=== PATIENT | female | born 1955 | race Caucasian/White ===

== ENCOUNTER 2016-07-26 05:34 | Inpatient (IN) ==
--- NOTE | 2016-07-26 05:48 | Emergency Department Note ---
Disposition Clinical Impression: Hyperglycemia Chest pain Qualifiers: Chest pain type: unspecified Qualified Code(s): R07.9 - Chest pain, unspecified Disposition: Admitted As Inpatient Condition: Fair Time of Disposition: 06:38 Chest Pain HPI - General Chief Complaint: ED Chest Pain Stated Complaint: Chest Pain Time Seen by Provider: 07/26/16 05:46 Source: patient Mode of arrival: EMS Limitations: no limitations Vital Signs Reviewed: Yes Nursing Notes Reviewed: Yes - History of Present Illness HPI Narrative: 61-year-old female with a history of hypertension, hyperlipidemia and diabetes presents to the emergency department with an approximate 8 hour history of chest pain. Patient states her symptoms began at approximately 9 PM last night and progressed into this morning. Patient states that she became concerned because her symptoms seem to be worsening and called EMS for transport to the emergency department. She denies any nausea or vomiting. She denies any shortness of breath or diaphoresis. Patient states her pain began at rest while she was watching TV. She denies any known history of coronary disease states she 's never had a DVT or PE in the past. Exam is remarkable for an elderly female resting in bed in no acute distress. Heart is regular rate and rhythm. Lungs are clear to auscultation bilaterally. Her abdomen is soft and nontender. Patient is having no chest pain at this time. EKG shows normal sinus rhythm with a right bundle branch block. Labs pending. Pt complaint: chest pain Onset (ago): hour(s) (8) Duration: now resolved Onset: during rest Pain Location: substernal Severity: mild Quality: tightness Pain Radiation: none Improves with: nothing Worsens with: nothing Associated symptoms: Denies: nausea, vomiting, diaphoresis, dyspnea Treatments prior to arrival chest pain: none - Related Data Home Medications Medication Instructions Recorded Confirmed Albuterol Sulfate [Albuterol 2 puff IH Q4H PRN 04/12/16 07/26/16 Inhaler] Atorvastatin Calcium [Lipitor] 20 mg PO HS 04/12/16 07/26/16 Docusate Sodium [Dok] 100 mg PO DAILY 04/12/16 07/26/16 Ferrous Sulfate 325 mg PO DAILY 04/12/16 07/26/16 Folic Acid 1 mg PO DAILY 04/12/16 07/26/16 Furosemide [Lasix] 80 mg PO DAILY 04/12/16 07/26/16 HYDROcodone/Acet 10/325 mg [[place] 1 tab PO Q6HR PRN 04/12/16 07/26/16 10-325 mg] Insulin ASPART [Novolog Flexpen] 0 unit SQ TIDWM 04/12/16 07/26/16 Insulin Glargine,Hum.rec.anlog 0 units SQ BID 04/12/16 07/26/16 [Lantus Solostar] Isosorbide MONOnitrate (24 HR) 60 mg PO DAILY 04/12/16 07/26/16 [Imdur] Levothyroxine [Synthroid] 175 mcg PO QAM 04/12/16 07/26/16 Methotrexate [Otrexup] 10 mg PO QWEEK 04/12/16 07/26/16 Omeprazole [PriLOSEC] 40 mg PO DAILY 04/12/16 07/26/16 Oxygen 2 l NS CONT 04/12/16 07/26/16 Polyethylene Glycol 3350 [MiraLAX] 17 gm PO DAILY 04/12/16 07/26/16 Potassium Chloride [Klor-Con 20 meq PO BID 04/12/16 07/26/16 Sprinkle] Valsartan [Diovan] 40 mg PO DAILY 04/12/16 07/26/16 Clobetasol Propionate [Temovate] 1 appl TP PRN 07/26/16 Lidocaine OINT 1 appl TP PRN 07/26/16 Rivaroxaban [Xarelto] 20 mg PO DAILY 07/26/16 07/26/16 Sertraline [Zoloft] 50 mg PO DAILY 07/26/16 07/26/16 Valacyclovir HCl [Valacyclovir] 500 mg PO DAILY 07/26/16 07/26/16 Allergies Allergy/AdvReac Type Severity Reaction Status Date / Time Penicillins Allergy Hives Verified 07/26/16 05:37 Sulfa (Sulfonamide Allergy Rash Verified 07/26/16 05:37 Antibiotics) All systems ED: reviewed and negative except as stated. Constitutional: Denies: fever, chills Cardiovascular: Reports: chest pain. Denies: palpitations, dyspnea on exertion Respiratory: Denies: cough, dyspnea, wheezes Gastrointestinal: Denies: abdominal pain, nausea, vomiting Genitourinary: Denies: urgency, dysuria Musculoskeletal: Denies: back pain Integumentary: Denies: rash Neurological: Denies: headache, weakness Chest Pain PMH - Past Medical History Medical history: Reports: CHF, COPD, DVT, diabetes, hyperlipidemia, hypertension , thyroid disease, other Psychiatric history: Reports: depression HISTOLOGY AIDE history: Reports: other - Social History Smoking Status: Never smoker Alcohol use: Reports: none Drug use: Reports: none Physical Exam - General Limitations: no limitations General appearance: alert, in no apparent distress - Head Head exam: atraumatic, normocephalic, normal inspection - Chest Chest inspection: Present: normal inspection, symmetric chest wall rise - Respiratory Respiratory exam: Present: normal lung sounds bilaterally - Cardiovascular Cardiovascular exam: Present: regular rate, normal rhythm, normal heart sounds - Abdominal Exam Abdominal exam: Present: soft, Non-Tender. Absent: tenderness, distention, guarding, rebound, rigidity - Neurological Exam Neurological exam: Present: alert - Skin Skin exam: Present: warm, dry, intact, normal color Course - Reevaluation(s) Reevaluation #1: Discussed findings with patient. Glucose is markedly elevated at 510. Patient will be given 1 L of IV fluids and 10 units of insulin. Given the patient's history of morbid obesity, diabetes, hypertension and hyperlipidemia as well as his best to keep the patient in the hospital for reevaluation and ongoing monitoring. Patient is in agreement with this plan of care. Hospitalist paged. Time: 06:34 Reevaluation #2: Discussed case with hospitalist. Patient accepted for further evaluation and treatment. Time: 06:45 Vital Signs Temperature 97.6 F 07/26/16 05:37 Pulse Rate 83 07/26/16 05:37 Respiratory Rate 20 07/26/16 05:37 Blood Pressure 138/88 07/26/16 05:37 O2 Sat by Pulse Oximetry 98 07/26/16 05:37 Temperature 97.6 F 07/26/16 05:37 Pulse Rate 83 07/26/16 05:37 Respiratory Rate 20 07/26/16 05:37 Blood Pressure 138/88 07/26/16 05:37 O2 Sat by Pulse Oximetry 98 07/26/16 05:37 Oxygen Delivery Oxygen Delivery Nasal Cannula Chest Pain - Medical Records Medical records reviewed: Yes I reviewed the patient's medical records. - Lab Data Lab results reviewed: Yes I reviewed the patient's lab results. Result diagrams: 07/26/16 05:48 07/26/16 05:48 Lab Results 07/26/16 07/26/16 07/26/16 Range/Units 05:48 05:48 05:48 WBC 6.9 (4.3-11.1) K/mcL RBC 4.17 (3.82-4.97) M/mcL Hgb 12.1 (11.5-15.4) g/dL Hct 37.4 (35.3-44.9) % MCV 89.7 (83.0-100.0) fL MCH 29.0 (28.0-33.3) pg MCHC 32.4 (31.6-35.5) g/dL RDW 14.6 H (11.5-14.5) % Plt Count 271 (140-400) K/mcL MPV 10.2 (9.4-12.4) fL Immature Gran % 0.9 (0-4) % Seg Neutrophils % 78.8 % Lymphocytes % 12.4 % Monocytes % 5.7 % Eosinophils % 1.6 % Basophils % 0.6 % Neutrophils # 5.4 (1.6-8.9) K/mcL Lymphocytes # 0.9 (0.6-4.6) K/mcL Monocytes # 0.4 (0.0-1.3) K/mcL Eosinophils # 0.1 (0.0-0.6) K/mcL Basophils # 0.0 (0.0-0.2) K/mcL Immature Plt Fraction 2.4 (1.1-6.1) % D-Dimer 315 (0-500) ng/mLFEU Sodium 135 L (136-145) mEq/L Potassium 4.4 (3.5-4.5) mEq/L Chloride 96 L (98-109) mEq/L Carbon Dioxide 29 (19-29) mEq/L BUN 30 H (7-20) mg/dL Creatinine 1.00 (0.57-1.11) mg/dL Est GFR ( Amer) > 60 (> 60) Est GFR (Non-Af Amer) 56 L (> 60) BUN/Creatinine Ratio 30 H (6-26) Glucose 510 H* (70-99) mg/dL Calculated Osmolality 309 H (280-300) Calcium 9.9 (8.6-10.8) mg/dL Troponin I (0-0.03) ng/mL 07/26/16 Range/Units 05:48 WBC (4.3-11.1) K/mcL RBC (3.82-4.97) M/mcL Hgb (11.5-15.4) g/dL Hct (35.3-44.9) % MCV (83.0-100.0) fL MCH (28.0-33.3) pg MCHC (31.6-35.5) g/dL RDW (11.5-14.5) % Plt Count (140-400) K/mcL MPV (9.4-12.4) fL Immature Gran % (0-4) % Seg Neutrophils % % Lymphocytes % % Monocytes % % Eosinophils % % Basophils % % Neutrophils # (1.6-8.9) K/mcL Lymphocytes # (0.6-4.6) K/mcL Monocytes # (0.0-1.3) K/mcL Eosinophils # (0.0-0.6) K/mcL Basophils # (0.0-0.2) K/mcL Immature Plt Fraction (1.1-6.1) % D-Dimer (0-500) ng/mLFEU Sodium (136-145) mEq/L Potassium (3.5-4.5) mEq/L Chloride (98-109) mEq/L Carbon Dioxide (19-29) mEq/L BUN (7-20) mg/dL Creatinine (0.57-1.11) mg/dL Est GFR ( Amer) (> 60) Est GFR (Non-Af Amer) (> 60) BUN/Creatinine Ratio (6-26) Glucose (70-99) mg/dL Calculated Osmolality (280-300) Calcium (8.6-10.8) mg/dL Troponin I 0.01 (0-0.03) ng/mL - Radiology Data Radiology results reviewed: Yes I reviewed the patient's radiology results. - EKG Data EKG attestation: Yes I reviewed and interpreted this EKG. EKG shows normal: sinus rhythm Rate: normal Rhythm: NSR [place]/QRS: RBBB Interpretation: no acute changes Heart Score - Score History: Slightly Suspicious EKG: Normal Age: 45-65 Risk Factors: Equal/Greater than 3 risk factor or history of atherosclerotic disease Troponin: Less than normal limit HEART Score Total: 3 Attestation Statement - Attestation Attestation: Dr Landa note: I saw this pt in conjunction w/ resident Dr Rehana Rubin; Please see his charting for complete documentation; I spent face to face time w/ the pt and agree with the pt's treatment and disposition; Pt pain free on arrival, but intermittent b/l parasternal chest pain since 9 am yesterday @ rest, worse overnight; h/o possible prior stress test, but no cath; poorly controlled diabetic;
[2016-07-26 06:01] LABS: Basophils % 0.6 %; Eosinophils # 0.1 K/mcL (0.0-0.6); Eosinophils % 1.6 %; Hematocrit 37.4 % (35.3-44.9); Hemoglobin 12.1 g/dL (11.5-15.4); Immature Granulocytes % 0.9 % (0-4); Immature Platelets 2.4 % (1.1-6.1); Lymphocytes # 0.9 K/mcL (0.6-4.6); Lymphocytes % 12.4 %; Mean Corpuscular HGB Conc 32.4 g/dL (31.6-35.5); Mean Corpuscular Volume 89.7 fL (83.0-100.0); Mean Platelet Volume 10.2 fL (9.4-12.4); Monocytes # 0.4 K/mcL (0.0-1.3); Monocytes % 5.7 %; Neutrophils # 5.4 K/mcL (1.6-8.9); Platelet Count 271 K/mcL (140-400); Red Blood Count 4.17 M/mcL (3.82-4.97); Red Cell Distribution Width 14.6 % (11.5-14.5); Segmented Neutrophils % 78.8 %
[2016-07-26 06:13] LABS: BUN/Creatinine Ratio 30 (6-26); Blood Urea Nitrogen 30 mg/dL (7-20); Calcium 9.9 mg/dL (8.6-10.8); Carbon Dioxide 29 mEq/L (19-29); Chloride 96 mEq/L (98-109); Osmolality,Calculated 309 (280-300); Potassium 4.4 mEq/L (3.5-4.5); Sodium 135 mEq/L (136-145); eGFR For African Americans > 60 (> 60); eGFR For Non-African Americans 56 (> 60)
[2016-07-26 06:17] LABS: Glucose 510 mg/dL (70-99)
[2016-07-26] MEDS ORDERED: 0.9 % Sodium Chloride 1,000 ML IV ONE (06:18)
[2016-07-26] MEDS ORDERED: Insulin Human Regular 10 UNIT in 0.9 % Sodium Chloride 10 ML IV ONE (06:18)
[2016-07-26] MEDS ORDERED: D5% in Water 1,000 ML IV PRN (08:37)
[2016-07-26] MEDS ORDERED: Dextrose Gel 15 GM PO PRN ×2 (08:37)
[2016-07-26] MEDS ORDERED: *HR* Dextrose 50 % in Water (Syg) 50 ML SYRINGE IVP PRN (08:37)
[2016-07-26] MEDS ORDERED: Acetaminophen 325 MG TABLET PO PRN (08:40)
[2016-07-26] MEDS ORDERED: Naloxone 0.4 MG/ML INJ IVP PRN (08:40)
--- NOTE | 2016-07-26 08:47 | Internal Med History&Physical ---
Date of Encounter: 07/26/16 Time of Encounter: 08:44 Assessment and Plan (1) Chest pain Current visit: Yes Status: Acute Start aspirin, statin, Morphine, nitroglycerin as needed Order stress test and echocardiogram Continue telemetry, consider cardiology consult if positive findings Continue Xarelto for now Follow troponins and lipid panel Qualifiers: Chest pain type: unspecified Qualified Code(s): R07.9 - Chest pain, unspecified (2) Rheumatoid arthritis Current visit: Yes Status: Acute Continue methotrexate Qualifiers: Rheumatoid arthritis location: unspecified site Rheumatoid factor presence : unspecified presence Qualified Code(s): M06.9 - Rheumatoid arthritis, unspecified (3) Accelerated hypertension Current visit: Yes Status: Acute Order hydralazine as needed (4) DVT (deep venous thrombosis) Current visit: Yes Status: Acute The patient had a lower extremity DVT many years ago, has had only one event Consider discontinuing Xarelto permanently Qualifiers: DVT location: non-extremity vein Chronicity: unspecified Qualified Code(s ): I82.90 - Acute embolism and thrombosis of unspecified vein (5) CHF (congestive heart failure) Current visit: Yes Status: Acute Diastolic versus systolic, no exacerbation Echocardiogram ordered Qualifiers: Congestive heart failure type: unspecified congestive heart failure type Congestive heart failure chronicity: unspecified congestive heart failure chronicity Qualified Code(s): I50.9 - Heart failure, unspecified (6) Diabetes Current visit: Yes Status: Acute Continue insulin sliding scale Omeprazole for GI prophylaxis and Xarelto for DVT prophylaxis. The patient will be admitted for observation. She is full code. Time spent on this admission 40 minutes. High risk of cardiac events due to hyperglycemia, risk factors and family history Qualifiers: Diabetes mellitus type: type 2 Diabetes mellitus complication status: without complication Diabetes mellitus care home insulin use: with care home use Qualified Code(s): E11.9 - Type 2 diabetes mellitus without complications ; Z79.4 - roasterman (current) use of insulin Internal Medicine - H&P: HPI Chief complaint: chest pain Admitted From: Emergency Dept Plans for Post Hospital Care: Home History of present illness: Ms. Barrios is a 61 year old female with a past medical history of diabetes type 2 insulin-dependent, hypertension, hyperlipidemia, rheumatoid arthritis on methotrexate, CHF systolic versus diastolic in multiple family members with myocardial infarctions. Patient comes emergency complaining of chest pain that started last night at 9 PM and stayed for about 8-10 hours. The ambulance and was brought to the hospital. Pain is described as pressure-like midsternal without radiation, 9 out of 10 in intensity. She did not receive any nitroglycerin. Her sodium is 135 her glucose was 510, EKG shows a right bundle branch block that is not new, blood pressure was 170/102. The patient is pain- free at the moment has no history of smoking. Denies any other symptoms. Past Med Surg Social Fam HX - Past Medical History Medical history: CHF (Systolic versus diastolic), COPD (Not oxygen dependent), DVT (on Xarelto), diabetes (Insulin-dependent), hyperlipidemia, hypertension, thyroid disease (Hypothyroidism), other (Depression, rheumatoid arthritis on methotrexate, GERD) Psychiatric history: depression - Past Surgical History Surgical History: cholecystectomy - Social History Smoking Status: Never smoker Smokeless Tobacco Status: No Alcohol use: none Drug use: none - Additional Family History Additional family history: Father with hypertension had a myocardial infarction in his 50s and 9 more heart attacks, unknown cancer and diabetes. Mother with myocardial infarction multiple on her later years and diabetes. Internal Medicine - H&P: Meds Albuterol Sulfate [Albuterol Inhaler] 2 puff IH Q4H PRN 04/12/16 [History] Atorvastatin Calcium [Lipitor] 20 mg PO HS 04/12/16 [History] Docusate Sodium [Dok] 100 mg PO DAILY 04/12/16 [History] Ferrous Sulfate 325 mg PO DAILY 04/12/16 [History] Folic Acid 1 mg PO DAILY 04/12/16 [History] Furosemide [Lasix] 80 mg PO DAILY 04/12/16 [History] HYDROcodone/Acet 10/325 mg [[place] 10-325 mg] 1 tab PO Q6HR PRN 04/12/16 [History ] Insulin ASPART [Novolog Flexpen] 0 unit SQ TIDWM 04/12/16 [History] Insulin Glargine,Hum.rec.anlog [Lantus Solostar] 0 units SQ BID 04/12/16 [ History] Isosorbide MONOnitrate (24 HR) [Imdur] 60 mg PO DAILY 04/12/16 [History] Levothyroxine [Synthroid] 175 mcg PO QAM 04/12/16 [History] Methotrexate [Otrexup] 10 mg PO QWEEK 04/12/16 [History] Omeprazole [PriLOSEC] 40 mg PO DAILY 04/12/16 [History] Oxygen 2 l NS CONT 04/12/16 [History] Polyethylene Glycol 3350 [MiraLAX] 17 gm PO DAILY 04/12/16 [History] Potassium Chloride [Klor-Con Sprinkle] 20 meq PO BID 04/12/16 [History] Valsartan [Diovan] 40 mg PO DAILY 04/12/16 [History] Clobetasol Propionate [Temovate] 1 appl TP PRN 07/26/16 [History] Lidocaine OINT 1 appl TP PRN 07/26/16 [History] Rivaroxaban [Xarelto] 20 mg PO DAILY 07/26/16 [History] Sertraline [Zoloft] 50 mg PO DAILY 07/26/16 [History] Valacyclovir HCl [Valacyclovir] 500 mg PO DAILY 07/26/16 [History] Allergies Penicillins Allergy (Verified 07/26/16 05:37) Hives Sulfa (Sulfonamide Antibiotics) Allergy (Verified 07/26/16 05:37) Rash All Systems PM: A 10-system review of systems was performed and is negative for pertinent findings except as documented above in the HPI. Review of systems: Denies any shortness of breath, no abdominal pain, no dysuria. Other systems out of the 10 reviewed were negative - Constitutional Vitals: Temp Pulse Resp BP Pulse Ox 97.7 F 84 18 170/102 99 07/26/16 07:50 07/26/16 07:50 07/26/16 07:50 07/26/16 07:50 07/26/16 07:50 General appearance: Present: A&O X 3, morbidly obese, pleasant, no acute distress - Head Head exam: Present: atraumatic, normocephalic - Eye Eye exam: Present: PERRL, conjuntiva pink, sclera anicteric Pupils: Present: PERRL - Neck Neck exam general surgery: Present: supple, trachea midline. Absent: lymphadenopathy - Respiratory Respiratory exam: Present: decreased breath sounds, CTAB. Absent: accessory muscle use, rales, rhonchi, wheezes - Cardiovascular Cardiovascular exam: Present: RRR, +S1, +S2. Absent: diastolic murmur, gallop, rubs, systolic murmur - GI/Abdominal GI/Abdominal exam: Present: distended, normal bowel sounds, soft, no peritoneal signs. Absent: tenderness - Extremities Exam Extremities exam: Present: pedal edema (+1 nonpitting edema in both lower extremities), warm, radial pulses palpable and symetrical. Absent: calf tenderness, cyanotic - Neurological Exam Neurological exam: Present: CN II-XII intact, oriented X3, no focal deficits. Absent: pronater drift, facial droop, speech deficit - Skin Skin exam: Present: dry, intact Internal Med - H&P Results - Labs CBC & Chem 7: 07/26/16 05:48 07/26/16 05:48
[2016-07-26] MEDS ORDERED: *HR* Morphine 2 MG/ML SYRINGE IV PRN (08:54)
[2016-07-26] MEDS ORDERED: Ipratropium/Albuterol Neb 3 ML IH PRN (08:54)
[2016-07-26] MEDS ORDERED: Nitroglycerin 0.4 MG TAB.SUBL SL PRN (08:54)
[2016-07-26 08:58] LABS: Chol/HDL Ratio 3.8 (0-4.9); Cholesterol 202 mg/dL (< 200); HDL Cholesterol 53 mg/dL (40-59); LDL Cholesterol,Calculated 123 mg/dL (0-99); Triglycerides 131 mg/dL (< 150)
[2016-07-26] MEDS: 0.9 % Sodium Chloride 1,000 ML IVC SCH (10:57)
[2016-07-26] MEDS ORDERED: Regadenoson 0.4 MG/5 ML SYRINGE IVP ONE (11:39)
[2016-07-26] MEDS: *HR* HYDROcodone/Acet 5/325 mg TABLET PO PRN ×2 (12:02→18:16)
[2016-07-26] MEDS: Insulin DETEMIR 100 UNIT/ML X5UNITS SQ SCH ×2 (12:24→23:13)
[2016-07-26] MEDS: Insulin LISPRO 300 UNITS/3 ML VIAL SQ SCH ×4 (13:35→23:14)
--- NOTE | 2016-07-26 13:52 | ECHO - Doppler Report ---
Echocardiogram Name: KRISTI THURSTON Date of Study: 07/26/2016 Date: 1955 Ht: 56.0 in Medical Record#: [id number] Age: 61 Wt: 232.0 lb Gender: Female BSA: 1.89 Order #: [id number] Location: [facility] Room #: [id number] Reading Physician: Sarwat Watts MD, [facility] Heart Specialist: Kurtis Sarabia RN Ordering Physician: Michael Ahmadi MD Primary Physician: Tawanda Storm MD Indications: Chest pain Impressions: Normal left ventricular size and systolic function, LVEF 60-65%. Moderate left ventricular diastolic dysfunction. Normal right ventricular size and function. Mildly dilated left atrium. No significant valvular dysfunction. No evidence of pulmonary hypertension. Left Ventricular Wall Motion: Rest Echo Findings All wall segments showed normal motion. Findings: Study Quality * Technically adequate exam. ECG Findings * Sinus rhythm with BBB. Left Ventricle * Normal left ventricular size and systolic function, LVEF 60-65%. * Normal LV wall thickness. * Moderate left ventricular diastolic dysfunction. Right Ventricle * Normal right ventricular size and function. Left Atrium * Mildly dilated left atrium. Right Atrium * Normal right atrial size. Aorta * Normally sized aortic root. Pericardium * There is no pericardial effusion present. IVC * The IVC is not dilated. Aortic Valve * Aortic valve not well visualized. Appears moderately sclerotic. * No aortic stenosis. * Trace aortic regurgitation. Mitral Valve * Mild mitral annular calcification * No mitral stenosis. * Trace mitral regurgitation. Tricuspid Valve * Tricuspid valve not well visualized. * No tricuspid stenosis. * Trace tricuspid regurgitation. * No evidence of pulmonary hypertension. Pulmonic Valve * Pulmonic valve not well visualized. * No pulmonic stenosis. * Trace pulmonic regurgitation. History Hypertension Diabetes Hypercholesteremia Family History of CAD Congestive Heart Failure 09/16/2014 a Previous Echo was performed. Measurements: BP: 154/ 90 2D Normal Values RVIDd: 3.00 cm IVSd: 1.00 cm 0.6 - 1.0 cm LVIDd: 4.20 cm 3.7 - 5.6 cm LVPWd: 1.00 cm 0.6 - 1.1 cm LVIDs: 2.50 cm 1.5 - 3.6 cm AO: 2.90 cm < 4.0 cm LA volume: 64 Mitral Valve Peak E:1.25 m/sec Peak A:1.39 m/sec E/A Ratio:0.9 Peak E' Lat [place]:7.99 cm/s Peak E' Med [place]:5.56 cm/s E/E' Lat Ratio:15.6 E/E' Med Ratio:22.5 Tricuspid Valve TV Regurg Peak Grad: 21.00mmHg TV Regurg Peak [place]: 2.28m/sec Updated by Sarwat Watts MD, [facility] on 07/26/2016 1:46:38 PM electronically signed on 07/26/2016 1:47:38 PM with status of Final Wall Motion [place]rien: 1=Normal, 2=Hypokinesis, 3=Akinesis, 4=Dyskinesis, 5=Aneurysmal, 6=Hyperkinetic, X=Not Visualized (Blank)=Missing
[2016-07-26] MEDS: Valsartan 80 MG TABLET PO SCH (14:33)
[2016-07-26] MEDS: *HR* Rivaroxaban 10 MG TABLET PO SCH (14:33)
[2016-07-26] MEDS: Aspirin 325 MG TABLET PO SCH (14:34)
[2016-07-26] MEDS: Isosorbide MONOnitrate (24 HR) 60 MG TAB.ER.24H PO SCH (14:34)
[2016-07-26] MEDS: Furosemide 40 MG TABLET PO SCH (18:16)
--- NOTE | 2016-07-26 18:16 | Electrocardiograph Report ---
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
[2016-07-27] MEDS: *HR* HYDROcodone/Acet 5/325 mg TABLET PO PRN ×2 (00:22→11:30)
[2016-07-27 01:50] LABS: BUN/Creatinine Ratio 28 (6-26); Blood Urea Nitrogen 27 mg/dL (7-20); Calcium 8.6 mg/dL (8.6-10.8); Carbon Dioxide 29 mEq/L (19-29); Chloride 99 mEq/L (98-109); Glucose 362 mg/dL (70-99); Osmolality,Calculated 304 (280-300); Potassium 3.8 mEq/L (3.5-4.5); Sodium 137 mEq/L (136-145); eGFR For African Americans > 60 (> 60); eGFR For Non-African Americans 58 (> 60)
[2016-07-27] MEDS: Valsartan 80 MG TABLET PO SCH (09:00)
[2016-07-27] MEDS: Aspirin 325 MG TABLET PO SCH (09:00)
[2016-07-27] MEDS: *HR* Rivaroxaban 10 MG TABLET PO SCH (09:00)
[2016-07-27] MEDS ORDERED: *HR* Methotrexate 2.5 MG TABLET PO SCH (09:00)
[2016-07-27] MEDS: Furosemide 40 MG TABLET PO SCH (09:01)
[2016-07-27] MEDS: Isosorbide MONOnitrate (24 HR) 60 MG TAB.ER.24H PO SCH (09:01)
[2016-07-27] MEDS: Insulin DETEMIR 100 UNIT/ML X5UNITS SQ SCH ×2 (09:03→21:43)
[2016-07-27] MEDS: Insulin LISPRO 300 UNITS/3 ML VIAL SQ SCH ×4 (09:05→21:38)
--- NOTE | 2016-07-27 09:05 | Nuclear Medicine Stress Report ---
Regadenoson Nuclear 2 day Name: Meagan Barrios Date of Study: 07/26/2016 Date: 1955 Ht: 56.0 in Medical Record#: [id number] Age: 61 Wt: 232.0 lb Gender: Female Order #: [id number] Location: [facility] Room: [facility] Supervising Provider: Tawanda Arce CNP Reading Physician: Zaria Dobson DO Ordering Physician: Aneudy Canchola MD Primary Care Physician: Tawanda Storm MD Stress Technologist: Brea Dang, DIRECTOR [employer]AL, CCT, CPFT Manager Voice: Arthur Villeda Indications: Chest Pain, Shortness of breath Impression: Technically challenging 2-day study. No identifiable perfusion defects consistent with ischemia or infarct. Pharmacologic ECG was negative for ischemia at the level of heart rate achieved. Gated EF = 70%. History: Hypertension Diabetes Hypercholesteremia Stress Test Summary: Stress Test Type: Pharmacologic Regadenoson 0.4mg/5ml given IV Baseline Information: Initial Heart Rate: 82 Blood Pressure: 124/82 Stress Information: Test Terminated Due to (primary): As per protocol Maximum Blood Pressure: 106/62 Maximum Heart Rate: 105 Percent Maximum Heart Rate Achieved: 66 Double Product: [id number] METS Reached: 1 Symptoms: Shortness of breath Nuclear Summary: SPECT myocardial perfusion imaging using Tc99m Sestamibi given intravenously was performed at rest and following cardiac stress testing. The resting images were obtained following initial dose of 35.8 mCi. Following stress an additional dose of 35.7 mCi was given at peak exercise or 30 seconds post regadenoson infusion. Medication Given: Time Medication Dose Units Route Findings: Stress Note * Resting ECG demonstrated normal sinus rhythm. * Pharmacologic stress ECG is negative for ischemia at level of heart rate achieved. * No arrhythmias were noted during stress. * Patient had no chest pain during stress. Hemodynamic responses * Normal hemodynamic responses to pharmacologic stress. Study Quality * Technically difficult/limited study. 2-day study. Left Ventricle * The left ventricle is not dilated. TID * No evidence of transient ischemic dilatation. Lung Uptake * There is no evidence of increase lung uptake. NORMALS * Normal wall motion and thickening. PERFUSION * No identifiable perfusion defects on stress images. * Motion artifact limits interpretation of resting images. Gated EF % * Gated EF = 70%. Updated by Zaria Dobson on 07/27/2016 8:55:51 AM electronically signed on 07/27/2016 8:58:17 AM with status of Final
[2016-07-27] MEDS ORDERED: valACYclovir 500 MG TABLET PO SCH (11:00)
[2016-07-27] MEDS: Ondansetron 4 MG/2 ML VIAL IVP PRN (11:30)
--- NOTE | 2016-07-27 12:42 | Internal Med Progress Note ---
<Esteban Sims - Last Filed: 07/27/16 17:33> Date of Encounter: 07/27/16 Time of Encounter: 09:00 - Assessment and plan (1) Abdominal pain Current Visit: Yes Status: Acute Assessment and plan: -Doubt appendicitis, ovarian torsion, ectopic, AAA. No peritoneal signs, non toxic, no previous history of ectopic, "no possibility of being with girlfriend", blood pressure normal, no abdominal bruit heard. patient not in distress/pain one moment and fine the next. Normal labs. -COntinue to monitor closely for changes in pain/symptoms. Patient is in poor health. Qualifiers: Abdominal location: unspecified location Qualified Code(s): R10.9 - Unspecified abdominal pain (2) Genital herpes Current Visit: Yes Status: Acute Assessment and plan: -Currently being treated for. Does not know name of medicine or how many days she has taken medicine. -Will treat with IV Acyclovir tonight and transition to oral acyclovir tomorrow for probable discharge. -Home pain meds restarted and morphine for breakthrough pain. -Low dose Doxepin for herpatic pain/unable to sleep prn. Qualifiers: Herpes simplex infection site: vulvovaginitis Qualified Code(s): A60.04 - Herpesviral vulvovaginitis (3) Chest pain Current Visit: Yes Status: Acute Assessment and plan: -Denies CP, SOB. Cardiac workup negative. -No further evaluation needed. Qualifiers: Chest pain type: unspecified Qualified Code(s): R07.9 - Chest pain, unspecified; R07.8 - Other chest pain (4) Diabetes Current Visit: Yes Status: Acute Assessment and plan: -continue serial checks and insulin regimen. Qualifiers: Diabetes mellitus type: type 2 Diabetes mellitus complication status: with unspecified complications Diabetes mellitus penitentiary insulin use: with penitentiary use Qualified Code(s): E11.8 - Type 2 diabetes mellitus with unspecified complications; Z79.4 - [facility] (current) use of insulin (5) Hyperglycemia Current Visit: Yes Status: Acute Assessment and plan: -Continue Accu-Cheks, insulin sliding scale. - Subjective Interval history: Patient originally admitted for ACS rule out. Cardiac workup including echo, EKG, troponins all negative. However, patient complaining of abdominal pain this morning. Denies any chest pain, SOB. Forgot that she had chest pain yesterday and that was the original reason for her being admitted. Concerning the abdominal pain, states that she has been having RLQ and pain below the umbilicus. Worse with movement. Nothing seems to alleviate the pain. She denies any fever, vomiting, is able to eat and drink, urinate, having normal bowl movements, recent surgeries. She does admit to mild nausea and does have her appendix. She is sitting up in bed, not in distress. She is having a genital herpes outbreak which has spread to just below the umbilicus. States thinks she is taking medicine for it. Does not know the name of the medicine or how long she has been taking it. She has had outbreaks before "but not this bad. " - Constitutional Vitals: Temp Pulse Resp BP Pulse Ox 97.5 F L 94 16 145/89 96 07/27/16 07:00 07/27/16 11:00 07/27/16 11:00 07/27/16 11:00 07/27/16 11:00 General appearance: Present: A&O X 3, morbidly obese, pleasant, no acute distress - Head Head exam: Present: atraumatic, normal inspection - Respiratory Respiratory exam: Present: rhonchi - Cardiovascular Cardiovascular exam: Present: RRR. Absent: diastolic murmur - GI/Abdominal Additional comments: Bilateral LQ pain. Pain reproducible with palpation near the HSV lesions. Normal bowel sounds. Negative fluid wave. No perioneal signs. No bruits heard. Patient obese. - Expanded Exam Female exam: Present: herpetic lesions (did not directly visualize. No geriatric physical therapist available. ) - Other Additional findings: Many HSV lesions. Similar stage of healing. Not noticing any large vesicles. Has open sores. No canida like infection noted on abdomen fat pad fold or under the breast. Internal Medicine: Result - Labs CBC & Chem 7: 07/26/16 05:48 07/27/16 01:20 Labs: BMP 07/27/16 01:20 Sodium 137 Potassium 3.8 Chloride 99 Carbon Dioxide 29 BUN 27 H Creatinine 0.97 Glucose 362 H Calcium 8.6 Cardiac Enzymes 07/26/16 07/27/16 Range/Units 17:57 01:20 Troponin I 0.01 0.00 (0-0.03) ng/mL - ABG Interpretation ABG results: PT/INR, D-dimer D-Dimer 315 ng/mLFEU (0-500) 07/26/16 05:48 Consult Discharge Plan - Plan Referrals: Tawanda Storm Jr, MD [Primary Care Provider] - 08/09/16 10:30 am <Cj Rodriguez Rhonda - Last Filed: 07/27/16 18:53> Date of Encounter: 07/27/16 - Assessment and plan (1) Genital herpes Current Visit: Yes Status: Acute Qualifiers: Herpes simplex infection site: vulvovaginitis Qualified Code(s): A60.04 - Herpesviral vulvovaginitis (2) Abdominal pain Current Visit: Yes Status: Acute Qualifiers: Abdominal location: generalized Qualified Code(s): R10.84 - Generalized abdominal pain (3) Chest pain Current Visit: Yes Status: Acute Qualifiers: Chest pain type: other chest pain Qualified Code(s): R07.89 - Other chest pain; R07.8 - Other chest pain (4) Diabetes Current Visit: Yes Status: Acute Qualifiers: Diabetes mellitus type: type 2 Diabetes mellitus complication status: with hyperglycemia Diabetes mellitus watermelon inspector insulin use: with penitentiary use Qualified Code(s): E11.65 - Type 2 diabetes mellitus with hyperglycemia; Z79.4 - [facility] (current) use of insulin - Constitutional Vitals: Temp Pulse Resp BP Pulse Ox 97.8 F 100 16 133/75 96 07/27/16 16:20 07/27/16 16:00 07/27/16 16:00 07/27/16 16:00 07/27/16 18:40 Internal Medicine: Result - Labs CBC & Chem 7: 07/26/16 05:48 07/27/16 01:20 Labs: BMP 07/27/16 01:20 Sodium 137 Potassium 3.8 Chloride 99 Carbon Dioxide 29 BUN 27 H Creatinine 0.97 Glucose 362 H Calcium 8.6 Cardiac Enzymes 07/27/16 Range/Units 01:20 Troponin I 0.00 (0-0.03) ng/mL - ABG Interpretation ABG results: PT/INR, D-dimer D-Dimer 315 ng/mLFEU (0-500) 07/26/16 05:48 - Attending Attestation I examined this patient and my medical decision-making was reviewed with the Resident Physician on 07/27/16. I agree with the documented findings, disposition and treatment plan as described except to the extent set forth below. Ms. Barrios is currently in observation for chest pain and abdominal pain. Ms. Barrios continues to have lower abd pain - she has a significant outbreak of genital herpes and pain is consistent with prior episodes. No fever. Pain is burning in nature. Chest pain seems better. Stress test completed. Exam Alert. Uncomfortable Heart reg Abd soft Herpetic lesions noted I/P 1. Severe genital herpes outbreak - Change to inpatient status as will be greater than 2 midnights and started on IV Acyclovir. 2. Abd pain 3. Chest pain - stress pending. Further diagnoses and plan as above.
[2016-07-27] MEDS ORDERED: *HR* HYDROcodone/Acet 5/325 mg TABLET PO PRN (13:07)
[2016-07-27] MEDS: ACYCLOVIR IVPB SCH ×2 (14:06→23:58)
[2016-07-27] MEDS: D5 IVPB SCH ×2 (14:06→23:58)
[2016-07-27] MEDS: WATER IVPB SCH ×2 (14:06→23:58)
[2016-07-27] MEDS: 0.9 % Sodium Chloride 1,000 ML IVC SCH (21:42)
[2016-07-28] MEDS: *HR* Morphine 2 MG/ML SYRINGE IVP PRN ×2 (01:43→09:10)
[2016-07-28 05:04] LABS: Basophils % 0.3 %; Eosinophils # 0.1 K/mcL (0.0-0.6); Eosinophils % 0.9 %; Hematocrit 34.1 % (35.3-44.9); Hemoglobin 10.8 g/dL (11.5-15.4); Immature Granulocytes % 0.6 % (0-4); Lymphocytes % 10.4 %; Mean Corpuscular HGB Conc 31.7 g/dL (31.6-35.5); Mean Corpuscular Hemoglobin 28.8 pg (28.0-33.3); Mean Corpuscular Volume 90.9 fL (83.0-100.0); Mean Platelet Volume 9.9 fL (9.4-12.4); Monocytes # 0.6 K/mcL (0.0-1.3); Monocytes % 6.4 %; Neutrophils # 7.5 K/mcL (1.6-8.9); Platelet Count 249 K/mcL (140-400); Red Blood Count 3.75 M/mcL (3.82-4.97); Segmented Neutrophils % 81.4 %
[2016-07-28 05:18] LABS: Alanine Aminotransferase 13 Units/L (0-55); Albumin 2.8 g/dL (3.5-5.0); Albumin/Globulin Ratio 0.9 (1.1-2.2); Alkaline Phosphatase 88 Units/L (38-126); Aspartate Amino Transferase 11 Units/L (5-34); BUN/Creatinine Ratio 30 (6-26); Bilirubin,Total 0.4 mg/dL (0.2-1.2); Blood Urea Nitrogen 23 mg/dL (7-20); Calcium 8.6 mg/dL (8.6-10.8); Carbon Dioxide 32 mEq/L (19-29); Chloride 99 mEq/L (98-109); Globulin 3.1 g/dL (2.4-3.5); Glucose 174 mg/dL (70-99); Osmolality,Calculated 296 (280-300); Potassium 3.8 mEq/L (3.5-4.5); Sodium 139 mEq/L (136-145); Total Protein 5.9 g/dL (6.0-8.3); eGFR For African Americans > 60 (> 60); eGFR For Non-African Americans > 60 (> 60)
[2016-07-28 06:48] VITALS: BP 114/77
[2016-07-28] MEDS: Valsartan 80 MG TABLET PO SCH (09:04)
[2016-07-28] MEDS: Insulin DETEMIR 100 UNIT/ML X5UNITS SQ SCH (09:05)
[2016-07-28] MEDS: Isosorbide MONOnitrate (24 HR) 60 MG TAB.ER.24H PO SCH (09:05)
[2016-07-28] MEDS: Aspirin 325 MG TABLET PO SCH (09:05)
[2016-07-28] MEDS: *HR* Rivaroxaban 10 MG TABLET PO SCH (09:05)
[2016-07-28] MEDS: Furosemide 40 MG TABLET PO SCH (09:05)
[2016-07-28] MEDS: Insulin LISPRO 300 UNITS/3 ML VIAL SQ SCH ×3 (09:06→17:01)
[2016-07-28] MEDS: ACYCLOVIR IVPB SCH (09:08)
[2016-07-28] MEDS: WATER IVPB SCH (09:08)
[2016-07-28] MEDS: D5 IVPB SCH (09:08)
[2016-07-28] MEDS: Ondansetron 4 MG/2 ML VIAL IVP PRN (09:17)
--- NOTE | 2016-07-28 09:38 | Discharge Summary ---
<Esteban Sims - Last Filed: 07/28/16 15:05> Date of Encounter: 07/28/16 Time of Encounter: 08:00 - Discharge Diagnosis (1) Genital herpes Priority: Primary Status: Acute Comments: -Patient is currently taking methotrexate for rheumatoid arthritis. Admits to stressful events over the past month. -She is currently on a maintenance dose of acyclovir for the past year. Will prescribe a outbreak mePatient states she has close patient states that she hadication regimen -Patient states that she is able to call and get appointment with PCP in the next 5 days. Does have an established cad specialist Qualifiers: Herpes simplex infection site: vulvovaginitis Qualified Code(s): A60.04 - Herpesviral vulvovaginitis (2) Diabetes Priority: Primary Status: Acute Qualifiers: Diabetes mellitus type: type 2 Diabetes mellitus complication status: with unspecified complications Diabetes mellitus mcc insulin use: with mcc use Qualified Code(s): E11.8 - Type 2 diabetes mellitus with unspecified complications; Z79.4 - [facility] (current) use of insulin (3) Chest pain Priority: Primary Status: Resolved Comments: -Patient some original admitting diagnosis was chest pain. She received a full cardiac workup, negative results. Patient does not complain of chest pain or shortness of breath. Qualifiers: Chest pain type: unspecified Qualified Code(s): R07.9 - Chest pain, unspecified - Discharge Medications Prescriptions: Valacyclovir HCl [Valtrex] 1,000 mg PO Q12H #18 tab Home Medications: Albuterol Sulfate [Albuterol Inhaler] 2 puff IH Q4H PRN 04/12/16 [History] Atorvastatin Calcium [Lipitor] 20 mg PO HS 04/12/16 [History] Docusate Sodium [Dok] 100 mg PO DAILY 04/12/16 [History] Ferrous Sulfate 325 mg PO DAILY 04/12/16 [History] Folic Acid 1 mg PO DAILY 04/12/16 [History] Furosemide [Lasix] 80 mg PO DAILY 04/12/16 [History] HYDROcodone/Acet 10/325 mg [[place] 10-325 mg] 1 tab PO Q6HR PRN 04/12/16 [History ] Insulin ASPART [Novolog Flexpen] 0 unit SQ TIDWM 04/12/16 [History] Insulin Glargine,Hum.rec.anlog [Lantus Solostar] 0 units SQ BID 04/12/16 [ History] Isosorbide MONOnitrate (24 HR) [Imdur] 60 mg PO DAILY 04/12/16 [History] Levothyroxine [Synthroid] 175 mcg PO QAM 04/12/16 [History] Methotrexate [Otrexup] 10 mg PO QWEEK 04/12/16 [History] Omeprazole [PriLOSEC] 40 mg PO DAILY 04/12/16 [History] Oxygen 2 l NS CONT 04/12/16 [History] Polyethylene Glycol 3350 [MiraLAX] 17 gm PO DAILY 04/12/16 [History] Potassium Chloride [Klor-Con Sprinkle] 20 meq PO BID 04/12/16 [History] Valsartan [Diovan] 40 mg PO DAILY 04/12/16 [History] Clobetasol Propionate [Temovate] 1 appl TP PRN 07/26/16 [History] Lidocaine OINT 1 appl TP PRN 07/26/16 [History] Rivaroxaban [Xarelto] 20 mg PO DAILY 07/26/16 [History] Sertraline [Zoloft] 50 mg PO DAILY 07/26/16 [History] Valacyclovir HCl [Valacyclovir] 500 mg PO DAILY 07/26/16 [History] Valacyclovir HCl [Valtrex] 1,000 mg PO Q12H #18 tab 07/28/16 [Rx] Allergies/Adverse Reactions: Allergies Penicillins Allergy (Verified 07/26/16 05:37) Hives Sulfa (Sulfonamide Antibiotics) Allergy (Verified 07/26/16 05:37) Rash Date of admission: 07/27/16 19:49 Primary care physician: Tawanda Storm Jr, MD Discharging clinician: Esteban Sims Anticipated date of discharge: 07/28/16 - Patient Status Disposition: Home, Self-Care Condition: Fair Functional capacity at discharge: independent ambulation Overall status at discharge: patient is progressing back to baseline - Discharge Instructions Instructions: Valacyclovir (By mouth), Heart Failure (DC), Chest Pain (DC), Herpes Zoster (DC), Diabetes Mellitus Type 2 in Adults (DC), Chronic Hypertension (DC) Follow Up With: Tawanda Storm Jr, MD [Primary Care Provider] - 08/09/16 10:30 am Forms: ED Satisfaction Letter Additional Instructions: -Please follow up with her primary care doctor in the next 3 days. Make an appointment to see her cad specialist within the next 3 days. If you started developing fever, chest pain, shortness of breath. Return to ED. discuss her hospital stay with home health to make appropriate changes to your treatment. - Diet and Activity Activity: increase activity as tolerated Diet: advance to your usual diet Interval History: -Patient complains that her pain has moved from more abdominal to genital. Pain is about the same compared to yesterday. After speaking with the patient further, states that she normally has outbreaks 1-2 times a year. She takes acyclovir as a maintenance, chronic medication. She has been recently stressed over the past month, feels like that might be the reason for outbreak. She does live at home with her , has home health, is able to take her medications. She denies any chest pain, shortness of breath, is having normal bowel movements and urinating. When her the discharge plan with the patient, she has no questions or concerns at this time. Did offer to get 7th grade social studies teacher involved in her case for any home problems, however patient feels she does not need long term care social worker help. Hospital course: Ms. Barrios is a 61 year old female who was originally admitted for chest pain. Cardiac workup- troplonin, EKG, ECHO, CXR negative. The next day she denied CP and complained of abdominal pain. She was noted to have an extensive genital herpes outbreak extending to her abdomen. received IV acyclovir. Discharged home on 1 g twice a day acyclovir. Close follow-up with primary care doctor and cad specialist. Concern for immunosuppression, did get HIV test ordered with the patient's consent. - Time Spent with Patient Total time spent providing and/or coordinating discharge services: Greater than 30 minutes - Constitutional Vitals: Temp Pulse Resp BP Pulse Ox 98.3 F 87 16 114/77 99 07/28/16 06:00 07/28/16 06:00 07/28/16 06:00 07/28/16 06:00 07/28/16 06:00 General appearance: Present: A&O X 3, morbidly obese, pleasant, no acute distress - Head Head exam: Present: atraumatic, normal inspection - Respiratory Respiratory exam: Present: CTAB - Cardiovascular Cardiovascular exam: Present: RRR. Absent: diastolic murmur, systolic murmur - GI/Abdominal Additional comments: -Lower abdominal pain over the sites of the her paranasal lesion. No vesicles present, open sores. I do not appreciate any underlying cellulitis. - Additional comments: -Examined patient with female resident present. Extensive amount of herpes lesions extend to the upper thigh and lower abdomen. Painful touch. - Psychiatric Psychiatric exam: Present: normal affect, normal mood - Skin Skin exam: Present: rash, warm. Absent: erythema, vesicles <Cj Rodriguez - Last Filed: 07/28/16 19:15> Date of Encounter: 07/28/16 - Discharge Diagnosis (1) Genital herpes Status: Acute Qualifiers: Herpes simplex infection site: vulvovaginitis Qualified Code(s): A60.04 - Herpesviral vulvovaginitis (2) Abdominal pain Priority: Secondary Status: Acute Qualifiers: Abdominal location: generalized Qualified Code(s): R10.84 - Generalized abdominal pain (3) Chest pain Status: Resolved Qualifiers: Chest pain type: unspecified Qualified Code(s): R07.9 - Chest pain, unspecified (4) Diabetes Status: Acute Qualifiers: Diabetes mellitus type: type 2 Diabetes mellitus complication status: with unspecified complications Diabetes mellitus mcc insulin use: with mcc use Qualified Code(s): E11.8 - Type 2 diabetes mellitus with unspecified complications; Z79.4 - exterminator (current) use of insulin (5) Rheumatoid arthritis Priority: Secondary Status: Acute Qualifiers: Rheumatoid arthritis location: multiple sites Rheumatoid factor presence: unspecified presence Qualified Code(s): M06.9 - Rheumatoid arthritis, unspecified Date of admission: 07/27/16 19:49 Primary care physician: Tawanda Storm Jr, MD Hospital course: Ms. Barrios is a 61 year old female - Time Spent with Patient Total time spent providing and/or coordinating discharge services: 38min - Constitutional Vitals: Temp Pulse Resp BP Pulse Ox 98.3 F 87 16 114/77 99 07/28/16 06:00 07/28/16 06:00 07/28/16 06:00 07/28/16 06:00 07/28/16 06:00 - Attending Attestation I examined this patient and my medical decision-making was reviewed with the Resident Physician on 07/28/16. I agree with the documented findings, disposition and treatment plan as described except to the extent set forth below. Ms. Barrios is doing better with the addition of IV Acyclovir. Pain is now in vaginal area and not abdomen. No fever. No lesions elsewhere. Exam Alert. Uncomfortable sitting. Heart reg Lungs clear Abd soft Continued herpetic lesions diffusely in perineal area. I/P 1. Acute herpetic outbreak - genital I placed this patient as inpatient last evening due to my concern about the extent of the herpetic outbreak as well as associated pain in her abdomen and chest. She is on PO suppressive Valtrex as an outpatient. She is also significantly immunocompromised due to her diabetes as well as rheumatoid arthritis which is treated with PO methotrexate. I felt her risk of disseminated herpes infection was high due to the above issues and placed her on IV acyclovir. I did not believe that she should be observation/outpatient on PO Valtrex at that time and warranted inpatient status. At this time she has had improvement on IV medication. She is able to tolerate oral intake and can take PO meds. She is stable to discharge home on higher dose of Valtrex for the next week and then resume suppressive dosing. Methotrexate to be held and resume per rheumatology.
--- NOTE | 2016-07-28 17:35 | Physician Discharge Referral ---
<Esteban Sims - Last Filed: 07/28/16 17:32> Home Health/Hosp Referral Info Transfer to: Home Health Attending Provider: Dr. Rodriguez Provider in Charge Post Discharge: PCP - Diagnosis (1) Genital herpes Status: Acute (2) Diabetes Status: Acute (3) Chest pain Status: Resolved - Respiratory Orders Oxygen / L per min, Other (Continue home oxygen. No changes necessary.) Smoking Cessation: Smoking cessation has been advised. For more information, call the [employer] Quit Line at 5-941-FJSR-NOW. - Dressing/Wound Care Site: Abdomen, genitals, inner thigh. Type of Dressing/Treatments w/Frequency: Wash area daily. Do not scrub. Make sure area is dry. May apply non stick pads for comfort. - Diet/Nutrition Diet/Nutrition Orders: Renal, Cardiac - Activity Activity Orders: Up ad heath - Services Needed Following services are medically necessary services: Home Health Aide, Physical Therapy (when patient is feeling well enough after acute infection cleared.) Home Care Orders: Care for genital herpes instructions above. The area does have areas of open sores. Possible source of infection. If infection noted, please have nurse evaluate then decide if patient needs antibiotics or possible admission for IV abx. - Transfer Medications Prescriptions: Valacyclovir HCl [Valtrex] 1,000 mg PO Q12H #18 tab Home Medications: Albuterol Sulfate [Albuterol Inhaler] 2 puff IH Q4H PRN 04/12/16 [History] Atorvastatin Calcium [Lipitor] 20 mg PO HS 04/12/16 [History] Docusate Sodium [Dok] 100 mg PO DAILY 04/12/16 [History] Ferrous Sulfate 325 mg PO DAILY 04/12/16 [History] Folic Acid 1 mg PO DAILY 04/12/16 [History] Furosemide [Lasix] 80 mg PO DAILY 04/12/16 [History] HYDROcodone/Acet 10/325 mg [[place] 10-325 mg] 1 tab PO Q6HR PRN 04/12/16 [History ] Insulin ASPART [Novolog Flexpen] 0 unit SQ TIDWM 04/12/16 [History] Insulin Glargine,Hum.rec.anlog [Lantus Solostar] 0 units SQ BID 04/12/16 [ History] Isosorbide MONOnitrate (24 HR) [Imdur] 60 mg PO DAILY 04/12/16 [History] Levothyroxine [Synthroid] 175 mcg PO QAM 04/12/16 [History] Methotrexate [Otrexup] 10 mg PO QWEEK 04/12/16 [History] Omeprazole [PriLOSEC] 40 mg PO DAILY 04/12/16 [History] Oxygen 2 l NS CONT 04/12/16 [History] Polyethylene Glycol 3350 [MiraLAX] 17 gm PO DAILY 04/12/16 [History] Potassium Chloride [Klor-Con Sprinkle] 20 meq PO BID 04/12/16 [History] Valsartan [Diovan] 40 mg PO DAILY 04/12/16 [History] Clobetasol Propionate [Temovate] 1 appl TP PRN 07/26/16 [History] Lidocaine OINT 1 appl TP PRN 07/26/16 [History] Rivaroxaban [Xarelto] 20 mg PO DAILY 07/26/16 [History] Sertraline [Zoloft] 50 mg PO DAILY 07/26/16 [History] Valacyclovir HCl [Valacyclovir] 500 mg PO DAILY 07/26/16 [History] Valacyclovir HCl [Valtrex] 1,000 mg PO Q12H #18 tab 07/28/16 [Rx] Allergies/Adverse Reactions: Allergies Penicillins Allergy (Verified 07/26/16 05:37) Hives Sulfa (Sulfonamide Antibiotics) Allergy (Verified 07/26/16 05:37) Rash Certification: Further, I certify that my clinical findings support that this patient is homebound (i.e. absences from home require considerable and taxing effort and are for medical reasons or methodist services or infrequently or short duration when for other reasons) because: Homebound Reason: Leaving home requires considerable and taxing effort due to condition Attestation: My signature below is to certify that this patient is under my care and that I, or nurse practitioner, or a physician's first assistant working with me, has a face-to -face encounter with this patient. <Cj Rodriguez - Last Filed: 07/28/16 19:15> - Diagnosis (1) Genital herpes Status: Acute (2) Abdominal pain Status: Acute (3) Chest pain Status: Resolved (4) Diabetes Status: Acute (5) Rheumatoid arthritis Status: Acute - Respiratory Orders Smoking Cessation: Smoking cessation has been advised. For more information, call the [employer] Quit Line at 1-078-HFZE-NOW. Certification: Further, I certify that my clinical findings support that this patient is homebound (i.e. absences from home require considerable and taxing effort and are for medical reasons or methodist services or infrequently or short duration when for other reasons) because: Attestation: My signature below is to certify that this patient is under my care and that I, or nurse practitioner, or a physician's first assistant working with me, has a face-to -face encounter with this patient.
== END 2016-07-28 19:10 | disposition home or self-care (01) | DRG 758 ==
LOC: 2NENU 05:34 → EMEROO 05:34 → SUATTDRO 06:47 → 2NENU 07:46
PROVIDERS: ADMIT Family Medicine; ATTEND Internal Medicine

== ENCOUNTER 2016-09-23 07:44 | Observation (INO) ==
--- NOTE | 2016-09-23 07:47 | Emergency Department Note ---
Disposition Clinical Impression: Chest pain at rest, History of chest pain, Acute hyperkalemia, Acute prerenal azotemia Disposition: Admitted As Inpatient Condition: Fair General Adult HPI - General Chief complaint: ED Chest Pain Stated complaint: Chest Pain Time Seen by Provider: 09/23/16 07:46 - Related Data Home Medications Medication Instructions Recorded Confirmed Albuterol Sulfate [Albuterol 2 puff IH Q4H PRN 04/12/16 09/23/16 Inhaler] Atorvastatin Calcium [Lipitor] 20 mg PO HS 04/12/16 09/23/16 Docusate Sodium [Dok] 100 mg PO DAILY 04/12/16 09/23/16 Ferrous Sulfate 325 mg PO DAILY 04/12/16 09/23/16 Folic Acid 1 mg PO DAILY 04/12/16 09/23/16 Furosemide [Lasix] 80 mg PO DAILY 04/12/16 09/23/16 Insulin ASPART [Novolog Flexpen] 18 - 22 unit SQ TIDWM 04/12/16 09/23/16 Insulin Glargine,Hum.rec.anlog 35 units SQ BID 04/12/16 09/23/16 [Lantus Solostar] Isosorbide MONOnitrate (24 HR) 60 mg PO DAILY 04/12/16 09/23/16 [Imdur] Levothyroxine [Synthroid] 175 mcg PO QAM 04/12/16 09/23/16 Methotrexate [Otrexup] 10 mg PO WE 04/12/16 09/23/16 Omeprazole [PriLOSEC] 40 mg PO DAILY 04/12/16 09/23/16 Oxygen 2 l NS CONT 04/12/16 09/23/16 Polyethylene Glycol 3350 [MiraLAX] 17 gm PO DAILY 04/12/16 09/23/16 Potassium Chloride [Klor-Con 20 meq PO BID 04/12/16 09/23/16 Sprinkle] Valsartan [Diovan] 40 mg PO DAILY 04/12/16 09/23/16 Rivaroxaban [Xarelto] 20 mg PO DAILY 07/26/16 09/23/16 Sertraline [Zoloft] 50 mg PO DAILY 07/26/16 09/23/16 Valacyclovir HCl [Valacyclovir] 500 mg PO DAILY 07/26/16 09/23/16 Lidocaine 4% CRM (LMX) [Lmx 4] 1 appl TP Q4H PRN 09/23/16 09/23/16 Previous Rx's Medication Instructions Recorded Oxycodone HCl/Acetaminophen 1 - 2 each PO Q6H PRN #10 tablet 07/30/16 [Percocet 5-325 mg Tablet] Gabapentin [Neurontin] 100 mg PO TID #60 capsule 09/24/16 Nitrofurantoin (BID) [Macrobid] 100 mg PO BID #6 capsule 09/24/16 Allergies Allergy/AdvReac Type Severity Reaction Status Date / Time Penicillins Allergy Hives Verified 09/23/16 07:45 Sulfa (Sulfonamide Allergy Rash Verified 09/23/16 07:45 Antibiotics) Past Medical History - Past Medical History Medical history: Reports: CHF, COPD, DVT, diabetes, hyperlipidemia, hypertension , thyroid disease, other Surgical history: Reports: cholecystectomy Psychiatric history: Reports: depression 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 - Social History Smoking Status: Never smoker Smokeless Tobacco Status: No Alcohol use: Reports: none Drug use: Reports: none Course Vital Signs Temperature 97.9 F 09/23/16 07:45 Pulse Rate 85 09/23/16 07:45 Respiratory Rate 20 09/23/16 07:45 Blood Pressure 159/91 09/23/16 07:45 O2 Sat by Pulse Oximetry 96 09/23/16 07:45 Temperature 97.7 F 09/24/16 11:00 Pulse Rate 88 09/24/16 11:00 Respiratory Rate 16 09/24/16 11:00 Blood Pressure 163/93 09/24/16 11:00 O2 Sat by Pulse Oximetry 97 09/24/16 11:00 Oxygen Delivery Oxygen Delivery Nasal Cannula Medical Decision Making - Lab Data Result diagrams: 09/24/16 04:50 09/24/16 04:50 Lab Results 09/23/16 09/23/16 09/23/16 Range/Units 08:27 08:31 08:31 WBC (4.3-11.1) K/mcL RBC (3.82-4.97) M/mcL Hgb (11.5-15.4) g/dL Hct (35.3-44.9) % MCV (83.0-100.0) fL MCH (28.0-33.3) pg MCHC (31.6-35.5) g/dL RDW (11.5-14.5) % Plt Count (140-400) K/mcL MPV (9.4-12.4) fL Immature Gran % (0-4) % Seg Neutrophils % % Lymphocytes % % Monocytes % % Eosinophils % % Basophils % % Neutrophils # (1.6-8.9) K/mcL Lymphocytes # (0.6-4.6) K/mcL Monocytes # (0.0-1.3) K/mcL Eosinophils # (0.0-0.6) K/mcL Basophils # (0.0-0.2) K/mcL PT 13.9 H (9.4-12.1) Seconds INR 1.3 APTT 34.9 (26.0-36.0) Seconds Sodium (136-145) mEq/L Potassium (3.5-4.5) mEq/L Chloride (98-109) mEq/L Carbon Dioxide (19-29) mEq/L BUN (7-20) mg/dL Creatinine (0.57-1.11) mg/dL Est GFR ( Amer) (> 60) Est GFR (Non-Af Amer) (> 60) BUN/Creatinine Ratio (6-26) Glucose (70-99) mg/dL Calculated Osmolality (280-300) Calcium (8.6-10.8) mg/dL Troponin I (0-0.03) ng/mL B-Natriuretic Peptide 41 (0-100) pg/mL Urine Color Yellow (Yellow) Urine Clarity Cloudy A (Clear) Urine pH 6.0 (5.0-8.0) pH Units Ur Specific [place] > 1.030 H (1.010-1.025) Urine Protein Trace (Neg-Trace) mg/dL Urine Glucose (UA) >=1000 H (Normal) mg/dL Urine Ketones Negative (Negative) mg/dL Urine Blood Moderate H (Negative) Urine Nitrite Negative (Negative) Urine Bilirubin Negative (Negative) Urine Urobilinogen Normal (Normal) mg/dL Ur Leukocyte Esterase Small H (Negative) Urine Microscopic RBC 5-15 H (0-3) per hpf Urine Microscopic WBC 30-50 H (0-3) per hpf Ur Squamous Epith Cells Many H (None-Few) per lpf Urine Bacteria None Seen (None-Few) per hpf Hyaline Casts None Seen (None-Few) per lpf Ur Culture Indicated? YES A (NO) 09/23/16 09/23/16 09/23/16 Range/Units 08:31 08:31 08:31 WBC 10.5 (4.3-11.1) K/mcL RBC 4.01 (3.82-4.97) M/mcL Hgb 11.9 (11.5-15.4) g/dL Hct 37.7 (35.3-44.9) % MCV 94.0 (83.0-100.0) fL MCH 29.7 (28.0-33.3) pg MCHC 31.6 (31.6-35.5) g/dL RDW 13.9 (11.5-14.5) % Plt Count 266 (140-400) K/mcL MPV 10.1 (9.4-12.4) fL Immature Gran % 0.7 (0-4) % Seg Neutrophils % 85.9 % Lymphocytes % 8.8 % Monocytes % 3.1 % Eosinophils % 1.1 % Basophils % 0.4 % Neutrophils # 9.0 H (1.6-8.9) K/mcL Lymphocytes # 0.9 (0.6-4.6) K/mcL Monocytes # 0.3 (0.0-1.3) K/mcL Eosinophils # 0.1 (0.0-0.6) K/mcL Basophils # 0.0 (0.0-0.2) K/mcL PT (9.4-12.1) Seconds INR APTT (26.0-36.0) Seconds Sodium 140 (136-145) mEq/L Potassium 4.6 H (3.5-4.5) mEq/L Chloride 96 L (98-109) mEq/L Carbon Dioxide 36 H (19-29) mEq/L BUN 26 H (7-20) mg/dL Creatinine 0.86 (0.57-1.11) mg/dL Est GFR ( Amer) > 60 (> 60) Est GFR (Non-Af Amer) > 60 (> 60) BUN/Creatinine Ratio 30 H (6-26) Glucose 323 H (70-99) mg/dL Calculated Osmolality 307 H (280-300) Calcium 9.6 (8.6-10.8) mg/dL Troponin I 0.01 (0-0.03) ng/mL B-Natriuretic Peptide (0-100) pg/mL Urine Color (Yellow) Urine Clarity (Clear) Urine pH (5.0-8.0) pH Units Ur Specific [place] (1.010-1.025) Urine Protein (Neg-Trace) mg/dL Urine Glucose (UA) (Normal) mg/dL Urine Ketones (Negative) mg/dL Urine Blood (Negative) Urine Nitrite (Negative) Urine Bilirubin (Negative) Urine Urobilinogen (Normal) mg/dL Ur Leukocyte Esterase (Negative) Urine Microscopic RBC (0-3) per hpf Urine Microscopic WBC (0-3) per hpf Ur Squamous Epith Cells (None-Few) per lpf Urine Bacteria (None-Few) per hpf Hyaline Casts (None-Few) per lpf Ur Culture Indicated? (NO) Attestation Statement - Attestation Attestation: I examined this patient and my medical decision-making was reviewed with the MONOMER PURIFICATION OPERATOR/PA/Advanced Practice Nurse/Resident Physician. I agree with the documented findings, disposition and treatment plan as described except to the extent set forth below. Sqws-no-aopa time provided Patient presents via EMS from home with reports of chest pain. She appears in no acute distress on exam. EKG reviewed by me. Plan of care and management discussed by me with the resident physician
[2016-09-23] MEDS: Nitroglycerin 0.4 MG TAB.SUBL SL PRN ×3 (08:37→09:03)
--- NOTE | 2016-09-23 08:39 | Emergency Department Note ---
Disposition Clinical Impression: Chest pain at rest, History of chest pain, Acute hyperkalemia, Acute prerenal azotemia Disposition: Admitted As Inpatient Condition: Fair Time of Disposition: 09:30 Chest Pain HPI - General Chief Complaint: ED Chest Pain Stated Complaint: Chest Pain Time Seen by Provider: 09/23/16 07:46 Source: EMS Limitations: no limitations Vital Signs Reviewed: Yes Nursing Notes Reviewed: Yes - History of Present Illness HPI Narrative: Patient is a 61-year-old female complains of midsternal chest pain started 10 hours ago while patient was at rest watching TV. Patient states pain is 8 out of 10 with exacerbations to 10 out of 10 intermittently every few minutes with radiation down right arm. Patient has a history of CHF, diabetes mellitus, depression and hypercholesterolemia. Patient is unsure of previous MT asked to her memory is a bit foggy currently. Patient admits to feeling some lightheadedness but denies nausea vomiting worsening cough in usual, abdominal pain, back pain and dysuria. Severity scale (1-10): 6 - Related Data Home Medications Medication Instructions Recorded Confirmed Albuterol Sulfate [Albuterol 2 puff IH Q4H PRN 04/12/16 09/23/16 Inhaler] Atorvastatin Calcium [Lipitor] 20 mg PO HS 04/12/16 09/23/16 Docusate Sodium [Dok] 100 mg PO DAILY 04/12/16 09/23/16 Ferrous Sulfate 325 mg PO DAILY 04/12/16 09/23/16 Folic Acid 1 mg PO DAILY 04/12/16 09/23/16 Furosemide [Lasix] 80 mg PO DAILY 04/12/16 09/23/16 Insulin ASPART [Novolog Flexpen] 18 - 22 unit SQ TIDWM 04/12/16 09/23/16 Insulin Glargine,Hum.rec.anlog 35 units SQ BID 04/12/16 09/23/16 [Lantus Solostar] Isosorbide MONOnitrate (24 HR) 60 mg PO DAILY 04/12/16 09/23/16 [Imdur] Levothyroxine [Synthroid] 175 mcg PO QAM 04/12/16 09/23/16 Methotrexate [Otrexup] 10 mg PO WE 04/12/16 09/23/16 Omeprazole [PriLOSEC] 40 mg PO DAILY 04/12/16 09/23/16 Oxygen 2 l NS CONT 04/12/16 09/23/16 Polyethylene Glycol 3350 [MiraLAX] 17 gm PO DAILY 04/12/16 09/23/16 Potassium Chloride [Klor-Con 20 meq PO BID 04/12/16 09/23/16 Sprinkle] Valsartan [Diovan] 40 mg PO DAILY 04/12/16 09/23/16 Rivaroxaban [Xarelto] 20 mg PO DAILY 07/26/16 09/23/16 Sertraline [Zoloft] 50 mg PO DAILY 07/26/16 09/23/16 Valacyclovir HCl [Valacyclovir] 500 mg PO DAILY 07/26/16 09/23/16 Lidocaine 4% CRM (LMX) [Lmx 4] 1 appl TP Q4H PRN 09/23/16 09/23/16 Previous Rx's Medication Instructions Recorded Oxycodone HCl/Acetaminophen 1 - 2 each PO Q6H PRN #10 tablet 07/30/16 [Percocet 5-325 mg Tablet] Allergies Allergy/AdvReac Type Severity Reaction Status Date / Time Penicillins Allergy Hives Verified 09/23/16 07:45 Sulfa (Sulfonamide Allergy Rash Verified 09/23/16 07:45 Antibiotics) All systems ED: reviewed and negative except as stated. Constitutional: Denies: fever, chills Eyes: Denies: vision change ENT ED: Denies: ear pain, throat pain, congestion Cardiovascular: Reports: chest pain, edema. Denies: palpitations, syncope Respiratory: Reports: cough. 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 - Social History Smoking Status: Never smoker Alcohol use: Reports: none Drug use: Reports: none Physical Exam Vital Signs Temperature 97.9 F 09/23/16 07:45 Pulse Rate 85 09/23/16 07:45 Respiratory Rate 20 09/23/16 07:45 Blood Pressure 159/91 09/23/16 07:45 O2 Sat by Pulse Oximetry 96 09/23/16 07:45 Temperature 97.9 F 09/23/16 19:12 Pulse Rate 92 09/23/16 19:12 Respiratory Rate 17 09/23/16 19:12 Blood Pressure 151/89 09/23/16 19:12 O2 Sat by Pulse Oximetry 94 L 09/23/16 19:12 Oxygen Delivery Oxygen Delivery Nasal Cannula -General Appearance: Patient is a 61-year-old female -Neurological exam: Cranial nerves II-12 intact, no focal deficits observed, strength equal 5/5 bilaterally in upper and lower extremities, cerebellar motion test negative. Negative loss of sensation - Head Head exam: atraumatic, normocephalic, normal inspection - Eye Eye exam: Present: normal appearance, PERRL, EOMI, negative for scleral icterus negative for conjunctival pallor - ENT ENT exam: normal exam, normal oropharynx, mucous membranes moist - Neck Neck exam: Present: normal inspection, full ROM, trachea midline, negative JVD - Chest Chest inspection: Present: Patient has bilateral equal rise and fall of chest wall. Non-tender to palpation. - Respiratory Respiratory exam: Clear to auscultation bilaterally without wheezes rales or rhonchi Cardiovascular Cardiovascular exam: Present: regular rate, normal rhythm, normal heart sounds, without murmurs rubs or gallops. - Abdominal Exam Abdominal exam: Present: soft, nondistended, Non-Tender light and deep palpation in all quadrants. Bowel sounds normoactive throughout all 4 quadrants. Negative for hyper or hyperresonance. - Extremities Exam Extremities exam: Present: normal inspection, full ROM - Back Exam Back exam: Present: normal inspection, full ROM. Absent: tenderness, CVA tenderness (R), CVA tenderness (L) - Psychiatric Psychiatric exam: Present: normal affect, normal mood - Skin Skin exam: Present: warm, dry, intact, normal color - General Limitations: no limitations General appearance: alert, in no apparent distress Course Course Narrative: Patient seen and examined. Workup initiated. - Reevaluation(s) Reevaluation #1: Patient reexamined after having 2 doses of nitroglycerin with mild movement of her pain symptoms from 8-7/10. We will give one more dose of nitroglycerin and ibuprofen for her reproducible chest wall pain Time: 09:07 Reevaluation #2: Patient continues to have chest pain by treatment and recommend admission patient understands and agrees with treatment and plan Time: 09:20 - Consultations Consultation #1: Dr. Blount accepted for admission. Time: 09:30 Vital Signs Temperature 97.9 F 09/23/16 07:45 Pulse Rate 85 09/23/16 07:45 Respiratory Rate 20 09/23/16 07:45 Blood Pressure 159/91 09/23/16 07:45 O2 Sat by Pulse Oximetry 96 09/23/16 07:45 Temperature 97.9 F 09/23/16 19:12 Pulse Rate 92 09/23/16 19:12 Respiratory Rate 17 09/23/16 19:12 Blood Pressure 151/89 09/23/16 19:12 O2 Sat by Pulse Oximetry 94 L 09/23/16 19:12 Oxygen Delivery Oxygen Delivery Nasal Cannula Chest Pain - MDM Narrative Medical decision making narrative: 61-year-old female complains of midsternal chest pain started 10 hours ago while patient was at rest watching TV. Patient states pain is 8 out of 10 with exacerbations to 10 out of 10 intermittently every few minutes with radiation down right arm. Patient has a history of CHF, diabetes mellitus, depression and hyper cholesterolemia. Patient is unsure of previous MT asked to her memory is a bit foggy currently. Patient admits to feeling some lightheadedness but denies nausea vomiting worsening cough in usual, abdominal pain, back pain and dysuria. Patient's chemistry shows hyperkalemia at 4.6,. Azotemia with a BUN of 26 and a BUN to creatinine ratio of 30. The patient's troponin level is 0.01. CBC was unremarkable, chest x-ray showed No acute cardiopulmonary process identified. Patient's EKG showed no signs of ischemia. Recommend patient be admitted to the hospital for chest pain rule out. Patient has had periods workups for chest pain in the past to include stress tests and echo which shows EF between 60 and 70%, but given patient's age and current symptoms and by the patient's chest pain has not resolved treatment that patient should these be observed and followed up with cardiology. Patient has a hard score 4 of as well.I discussed patient's case with Dr. Chowdhury cardiology. He recommends admission to medicine and have cardiology consult and for them to see her while she is admitted. Patient was admitted and accepted to medicine by Dr. Blount. - Medical Records Medical records reviewed: Yes I reviewed the patient's medical records. Patient had stress tests in July of this year showed a irrigated EF of 70%. Patient also had an echo done at same time which showed a EF of 66% with moderate left ventricular diastolic dysfunction and right atrial enlargement. - Lab Data Lab results reviewed: Yes I reviewed the patient's lab results. Lab results narrative: Short CBC 09/23/16 Range/Units 08:31 WBC 10.5 (4.3-11.1) K/mcL Hgb 11.9 (11.5-15.4) g/dL Hct 37.7 (35.3-44.9) % Plt Count 266 (140-400) K/mcL Neutrophils # 9.0 H (1.6-8.9) K/mcL BMP 09/23/16 Range/Units 08:31 Sodium 140 (136-145) mEq/L Potassium 4.6 H (3.5-4.5) mEq/L Chloride 96 L (98-109) mEq/L Carbon Dioxide 36 H (19-29) mEq/L BUN 26 H (7-20) mg/dL Creatinine 0.86 (0.57-1.11) mg/dL Glucose 323 H (70-99) mg/dL Calcium 9.6 (8.6-10.8) mg/dL Cardiac Enzymes 09/23/16 Range/Units 08:31 Troponin I 0.01 (0-0.03) ng/mL Urine 09/23/16 Range/Units 08:27 Urine Color Yellow (Yellow) Urine Clarity Cloudy A (Clear) Urine pH 6.0 (5.0-8.0) pH Units Ur Specific [place] > 1.030 H (1.010-1.025) Urine Protein Trace (Neg-Trace) mg/dL Urine Glucose (UA) >=1000 H (Normal) mg/dL Result diagrams: 09/23/16 08:31 09/23/16 08:31 Lab Results 09/23/16 09/23/16 09/23/16 Range/Units 08:27 08:31 08:31 WBC (4.3-11.1) K/mcL RBC (3.82-4.97) M/mcL Hgb (11.5-15.4) g/dL Hct (35.3-44.9) % MCV (83.0-100.0) fL MCH (28.0-33.3) pg MCHC (31.6-35.5) g/dL RDW (11.5-14.5) % Plt Count (140-400) K/mcL MPV (9.4-12.4) fL Immature Gran % (0-4) % Seg Neutrophils % % Lymphocytes % % Monocytes % % Eosinophils % % Basophils % % Neutrophils # (1.6-8.9) K/mcL Lymphocytes # (0.6-4.6) K/mcL Monocytes # (0.0-1.3) K/mcL Eosinophils # (0.0-0.6) K/mcL Basophils # (0.0-0.2) K/mcL PT 13.9 H (9.4-12.1) Seconds INR 1.3 APTT 34.9 (26.0-36.0) Seconds Sodium (136-145) mEq/L Potassium (3.5-4.5) mEq/L Chloride (98-109) mEq/L Carbon Dioxide (19-29) mEq/L BUN (7-20) mg/dL Creatinine (0.57-1.11) mg/dL Est GFR ( Amer) (> 60) Est GFR (Non-Af Amer) (> 60) BUN/Creatinine Ratio (6-26) Glucose (70-99) mg/dL Calculated Osmolality (280-300) Calcium (8.6-10.8) mg/dL Troponin I (0-0.03) ng/mL B-Natriuretic Peptide 41 (0-100) pg/mL Urine Color Yellow (Yellow) Urine Clarity Cloudy A (Clear) Urine pH 6.0 (5.0-8.0) pH Units Ur Specific [place] > 1.030 H (1.010-1.025) Urine Protein Trace (Neg-Trace) mg/dL Urine Glucose (UA) >=1000 H (Normal) mg/dL Urine Ketones Negative (Negative) mg/dL Urine Blood Moderate H (Negative) Urine Nitrite Negative (Negative) Urine Bilirubin Negative (Negative) Urine Urobilinogen Normal (Normal) mg/dL Ur Leukocyte Esterase Small H (Negative) Urine Microscopic RBC 5-15 H (0-3) per hpf Urine Microscopic WBC 30-50 H (0-3) per hpf Ur Squamous Epith Cells Many H (None-Few) per lpf Urine Bacteria None Seen (None-Few) per hpf Hyaline Casts None Seen (None-Few) per lpf Ur Culture Indicated? YES A (NO) 09/23/16 09/23/16 09/23/16 Range/Units 08:31 08:31 08:31 WBC 10.5 (4.3-11.1) K/mcL RBC 4.01 (3.82-4.97) M/mcL Hgb 11.9 (11.5-15.4) g/dL Hct 37.7 (35.3-44.9) % MCV 94.0 (83.0-100.0) fL MCH 29.7 (28.0-33.3) pg MCHC 31.6 (31.6-35.5) g/dL RDW 13.9 (11.5-14.5) % Plt Count 266 (140-400) K/mcL MPV 10.1 (9.4-12.4) fL Immature Gran % 0.7 (0-4) % Seg Neutrophils % 85.9 % Lymphocytes % 8.8 % Monocytes % 3.1 % Eosinophils % 1.1 % Basophils % 0.4 % Neutrophils # 9.0 H (1.6-8.9) K/mcL Lymphocytes # 0.9 (0.6-4.6) K/mcL Monocytes # 0.3 (0.0-1.3) K/mcL Eosinophils # 0.1 (0.0-0.6) K/mcL Basophils # 0.0 (0.0-0.2) K/mcL PT (9.4-12.1) Seconds INR APTT (26.0-36.0) Seconds Sodium 140 (136-145) mEq/L Potassium 4.6 H (3.5-4.5) mEq/L Chloride 96 L (98-109) mEq/L Carbon Dioxide 36 H (19-29) mEq/L BUN 26 H (7-20) mg/dL Creatinine 0.86 (0.57-1.11) mg/dL Est GFR ( Amer) > 60 (> 60) Est GFR (Non-Af Amer) > 60 (> 60) BUN/Creatinine Ratio 30 H (6-26) Glucose 323 H (70-99) mg/dL Calculated Osmolality 307 H (280-300) Calcium 9.6 (8.6-10.8) mg/dL Troponin I 0.01 (0-0.03) ng/mL B-Natriuretic Peptide (0-100) pg/mL Urine Color (Yellow) Urine Clarity (Clear) Urine pH (5.0-8.0) pH Units Ur Specific [place] (1.010-1.025) Urine Protein (Neg-Trace) mg/dL Urine Glucose (UA) (Normal) mg/dL Urine Ketones (Negative) mg/dL Urine Blood (Negative) Urine Nitrite (Negative) Urine Bilirubin (Negative) Urine Urobilinogen (Normal) mg/dL Ur Leukocyte Esterase (Negative) Urine Microscopic RBC (0-3) per hpf Urine Microscopic WBC (0-3) per hpf Ur Squamous Epith Cells (None-Few) per lpf Urine Bacteria (None-Few) per hpf Hyaline Casts (None-Few) per lpf Ur Culture Indicated? (NO) - Radiology Data Radiology results reviewed: Yes I reviewed the patient's radiology results. Chest X-Ray 09/23/16 08:08 IMPRESSION: No acute cardiopulmonary process identified. D/ / Christian Serrano MD / Christian Serrano MD Interpreting Provider: Christian Serrano MD - EKG Data EKG attestation: Yes I reviewed and interpreted this EKG. EKG results narrative: EKG taken 09/23/2016 and 0750 hrs. shows a sinus rhythm with no ST depressions and elevations in the leads. Early repolarization in the lateral leads as well as 23 and aVF. Patient has a right bundle branch block which is seen on previous EKGs from 09/14/2016 and 07/30/2016 Heart Score - Score History: Slightly Suspicious EKG: Non Specific repolarisation Disturbance Age: 45-65 Risk Factors: Equal/Greater than 3 risk factor or history of atherosclerotic disease Troponin: Less than normal limit HEART Score Total: 4
[2016-09-23 08:42] LABS: Basophils % 0.4 %; Eosinophils # 0.1 K/mcL (0.0-0.6); Eosinophils % 1.1 %; Hematocrit 37.7 % (35.3-44.9); Hemoglobin 11.9 g/dL (11.5-15.4); Immature Granulocytes % 0.7 % (0-4); Lymphocytes # 0.9 K/mcL (0.6-4.6); Lymphocytes % 8.8 %; Mean Corpuscular HGB Conc 31.6 g/dL (31.6-35.5); Mean Corpuscular Hemoglobin 29.7 pg (28.0-33.3); Mean Platelet Volume 10.1 fL (9.4-12.4); Monocytes # 0.3 K/mcL (0.0-1.3); Monocytes % 3.1 %; Platelet Count 266 K/mcL (140-400); Red Blood Count 4.01 M/mcL (3.82-4.97); Red Cell Distribution Width 13.9 % (11.5-14.5); Segmented Neutrophils % 85.9 %
[2016-09-23 08:44] LABS: Bilirubin,Urine Negative (Negative); Blood,Urine Moderate (Negative); Clarity,Urine Cloudy (Clear); Color,Urine Yellow (Yellow); Glucose,Urine (UA) >=1000 mg/dL (Normal); Ketones,Urine Negative (Negative); Leukocyte Esterase,Urine Small (Negative); Nitrite,Urine Negative (Negative); Protein,Urine Trace mg/dL (Neg-Trace); Specific Gravity,Urine > 1.030 (1.010-1.025); Urobilinogen,Urine Normal (Normal)
[2016-09-23 08:46] LABS: INR 1.3; Prothrombin Time 13.9 Seconds (9.4-12.1)
[2016-09-23 08:46] LABS: Bacteria,Urine None Seen per hpf (None-Few); Hyaline Casts,Urine None Seen per lpf (None-Few); Squamous Epithelial Cell,Urine Many per lpf (None-Few); WBC,Urine 30-50 per hpf (0-3)
[2016-09-23 08:49] LABS: Activated Partial Thrombo Time 34.9 Seconds (26.0-36.0)
[2016-09-23 08:56] LABS: BUN/Creatinine Ratio 30 (6-26); Blood Urea Nitrogen 26 mg/dL (7-20); Calcium 9.6 mg/dL (8.6-10.8); Carbon Dioxide 36 mEq/L (19-29); Chloride 96 mEq/L (98-109); Glucose 323 mg/dL (70-99); Osmolality,Calculated 307 (280-300); Potassium 4.6 mEq/L (3.5-4.5); Sodium 140 mEq/L (136-145); eGFR For African Americans > 60 (> 60); eGFR For Non-African Americans > 60 (> 60)
[2016-09-23] MEDS ORDERED: Lidocaine 4% CREAM (LMX) 5 GM TP PRN (10:48)
[2016-09-23] MEDS ORDERED: D5% in Water 1,000 ML IV PRN (10:53)
[2016-09-23] MEDS ORDERED: *HR* Dextrose 50 % in Water (Syg) 50 ML SYRINGE IVP PRN (10:53)
[2016-09-23] MEDS ORDERED: Dextrose Gel 15 GM PO PRN ×2 (10:53)
[2016-09-23] MEDS ORDERED: 0.9 % Sodium Chloride 1,000 ML IVC SCH (11:00)
--- NOTE | 2016-09-23 11:10 | Internal Med History&Physical ---
Date of Encounter: 09/23/16 Time of Encounter: 10:50 Assessment and Plan (1) Chest pain Current visit: Yes Status: Acute Patient has chest pain which is reproducible and most likely musculoskeletal in origin. However given her cardiac history and age, we will observe the patient in the hospital with telemetry. Trend troponins she does have high risk for ACS. Consult cardiology for further recommendations. She already had a stress test in July which did not show any reversible ischemia. Will treat with acetaminophen and NSAIDS for symptom control. Qualifiers: Chest pain type: intercostal pain Qualified Code(s): R07.82 - Intercostal pain (2) Chronic respiratory failure Current visit: No Status: Chronic Due to COPD. Continue O2 supplementation. Qualifiers: Respiratory failure complication: hypoxia Qualified Code(s): J96.11 - Chronic respiratory failure with hypoxia (3) Diabetes Current visit: Yes Status: Chronic Uncontrolled blood sugars. Will monitor blood sugars and adjust insulin regimen accordingly. Start Levemir and sliding scale insulin with nutritional coverage. Qualifiers: Diabetes mellitus type: type 2 Diabetes mellitus complication status: with hyperglycemia Diabetes mellitus terminal clerk insulin use: with intermediate use Qualified Code(s): E11.65 - Type 2 diabetes mellitus with hyperglycemia; Z79.4 - termite helper (current) use of insulin (4) Rheumatoid arthritis Current visit: No Status: Chronic continue methotrexate Qualifiers: Rheumatoid arthritis location: multiple sites Rheumatoid factor presence: unspecified presence Qualified Code(s): M06.9 - Rheumatoid arthritis, unspecified (5) CHF (congestive heart failure) Current visit: No Status: Chronic Chronic diastolic congestive heart failure. Continue Lasix. Qualifiers: Congestive heart failure type: diastolic Congestive heart failure chronicity: unspecified congestive heart failure chronicity Qualified Code(s) : I50.30 - Unspecified diastolic (congestive) heart failure Internal Medicine - H&P: HPI Chief complaint: Chest pain Admitted From: Emergency Dept Plans for Post Hospital Care: Home History of present illness: Ms. Barrios is a 61 year old female with a history of rheumatoid arthritis, chronic respiratory failure, COPD, diabetes mellitus type 2, chronic diastolic congestive heart failure presented to the ER with complaints of chest pain. Pain began this morning and was 8 out of 10 in severity. Located at the left central chest near the upper sternocostal region without any radiation. No associated shortness of breath or palpitations. No relation to activity. Patient was observed in hospital in July for similar complaints and underwent cardiac stress testing which did not show any signs of reversible ischemia. She also underwent a 2-D echocardiogram which showed normal ejection fraction with diastolic dysfunction. Past Med Surg Social Fam HX - Past Medical History Attestation: Yes The following information was validated with the patient. Medical history: CHF, COPD, DVT, diabetes, hyperlipidemia, hypertension, thyroid disease, other Psychiatric history: depression - Past Surgical History Surgical History: cholecystectomy - Social History Smoking Status: Never smoker Smokeless Tobacco Status: No Alcohol use: none Drug use: none - Family History Mother Living Status: Hx Family Cardiac Disorders: Yes (chf) Father Living Status: Hx Family Cardiac Disorders: Yes ([place]) Internal Medicine - H&P: Meds Albuterol Sulfate [Albuterol Inhaler] 2 puff IH Q4H PRN 04/12/16 [History] Atorvastatin Calcium [Lipitor] 20 mg PO HS 04/12/16 [History] Docusate Sodium [Dok] 100 mg PO DAILY 04/12/16 [History] Ferrous Sulfate 325 mg PO DAILY 04/12/16 [History] Folic Acid 1 mg PO DAILY 04/12/16 [History] Furosemide [Lasix] 80 mg PO DAILY 04/12/16 [History] Insulin ASPART [Novolog Flexpen] 18 - 22 unit SQ TIDWM 04/12/16 [History] Insulin Glargine,Hum.rec.anlog [Lantus Solostar] 35 units SQ BID 04/12/16 [ History] Isosorbide MONOnitrate (24 HR) [Imdur] 60 mg PO DAILY 04/12/16 [History] Levothyroxine [Synthroid] 175 mcg PO QAM 04/12/16 [History] Methotrexate [Otrexup] 10 mg PO WE 04/12/16 [History] Omeprazole [PriLOSEC] 40 mg PO DAILY 04/12/16 [History] Oxygen 2 l NS CONT 04/12/16 [History] Polyethylene Glycol 3350 [MiraLAX] 17 gm PO DAILY 04/12/16 [History] Potassium Chloride [Klor-Con Sprinkle] 20 meq PO BID 04/12/16 [History] Valsartan [Diovan] 40 mg PO DAILY 04/12/16 [History] Rivaroxaban [Xarelto] 20 mg PO DAILY 07/26/16 [History] Sertraline [Zoloft] 50 mg PO DAILY 07/26/16 [History] Valacyclovir HCl [Valacyclovir] 500 mg PO DAILY 07/26/16 [History] Oxycodone HCl/Acetaminophen [Percocet 5-325 mg Tablet] 1 - 2 each PO Q6H PRN # 10 tablet 07/30/16 [Rx] Lidocaine 4% CRM (LMX) [Lmx 4] 1 appl TP Q4H PRN 09/23/16 [History] Allergies Penicillins Allergy (Verified 09/23/16 07:45) Hives Sulfa (Sulfonamide Antibiotics) Allergy (Verified 09/23/16 07:45) Rash All Systems PM: A 10-system review of systems was performed and is negative for pertinent findings except as documented above in the HPI. - Constitutional Constitutional: no chills, no fever(s), no night sweats - EENT Eyes: no change in vision, no discharge, no pain, no photophobia Ears: no ear discharge, no ear pain, no tinnitus Nose, mouth and throat: no dysphagia, no nasal discharge, no neck pain, no sore throat - Cardiovascular Cardiovascular ROS IM: chest pain, no diaphoresis, no dyspnea, no lightheadedness, no palpitations, no syncope - Respiratory Respiratory: no cough, no dyspnea, no wheezing, no excessive phlegm production - Gastrointestinal Gastrointestinal: no abdominal pain, no diarrhea, no hematemesis, no hematochezia, no melena, no nausea, no vomiting - Genitourinary Genitourinary: genital lesions (Herpes), no change in urinary stream, no dysuria , no flank pain, no hematuria - Musculoskeletal Musculoskeletal ROS IM: no numbness, no tingling - Integumentary Integumentary IM: no rash, no unusual bruising - Neurological Neurological ROS: no confusion, no convulsions, no focal weakness, no numbness, no tingling, no tremor(s) - Hematologic/Lymphatic Hematologic/Lymphatic: no easy bruising - Constitutional Vitals: Temp Pulse Resp BP Pulse Ox 97.3 F L 72 18 162/94 97 09/23/16 10:23 09/23/16 10:23 09/23/16 10:23 09/23/16 10:23 09/23/16 10:32 General appearance: Present: cooperative, mild distress, A&O X 3, answers questions appropriately - Head Head exam: Present: atraumatic, normocephalic - Eye Eye exam: Present: EOMI, PERRL, conjuntiva pink, sclera anicteric - Neck Neck exam general surgery: Present: supple, trachea midline. Absent: lymphadenopathy - Respiratory Respiratory exam: Present: CTAB. Absent: accessory muscle use, rales, rhonchi, wheezes - Cardiovascular Cardiovascular exam: Present: RRR, +S1, +S2. Absent: diastolic murmur, gallop, rubs, systolic murmur Additional comments: Left upper chest wall tenderness present at the upper sternal costal joints - GI/Abdominal GI/Abdominal exam: Present: normal bowel sounds, soft, no peritoneal signs. Absent: distended, tenderness - Extremities Exam Extremities exam: Present: warm, radial pulses palpable and symetrical. Absent : calf tenderness, cyanotic, pedal edema - Neurological Exam Neurological exam: Present: alert, CN II-XII intact, oriented X3, no focal deficits. Absent: facial droop, speech deficit - Skin Skin exam: Present: dry, intact Internal Med - H&P Results - Labs CBC & Chem 7: 09/23/16 08:31 09/23/16 08:31 - Attending Attestation This document has been at least partially created by [email or web address] recognition technology by Dr. Blount. Errors in grammar, wording or other phrases may exist. If errors are found after the documentation is signed, they will be addressed individually in the addendum section of this document when appropriate.
[2016-09-23] MEDS: *HR* OxyCODONE/APAP 5/325 TABLET PO PRN (11:30)
[2016-09-23] MEDS: Insulin LISPRO 300 UNITS/3 ML VIAL SQ SCH ×4 (11:31→17:26)
--- NOTE | 2016-09-23 12:35 | Cardiology Consult Note ---
Date of Encounter: 09/23/16 Time of Encounter: 12:15 Assessment and Plan (1) Chest pain Current Visit: Yes Status: Acute Patient presented with atypical chest pain after hearing news of 's infidelity. She is crying and inconsolable during examination. Troponin negative. ECG unchanged from previous. Pain is worsened with movement and palpation; likely musculoskeletal in etiology. Recent negative nuclear stress test in July 2016, also had TTE at that time which showed preserved LVEF and normal wall motion. Also normal nuclear stress in November 2012. Risk factor modification including heart healthy diet, daily exercise, and weight loss recommended. Recommend further work-up of non-cardiac etiology of chest pain. No further inpatient cardiology recommendations. Recommend follow-up with PCP. Cardiology will sign-off, please call with questions. Qualifiers: Chest pain type: intercostal pain Qualified Code(s): R07.82 - Intercostal pain Discussion w patient/family: The assessment and plan as outlined above was discussed with the patient and/or family members who expressed understanding and agreement. All questions were answered. Thank you for involving us in the care of your patient. Please call with any questions. History of Present Illness Consult date: 09/23/16 Requesting physician: Rajani Blount Consult reason: Chest pain Chief complaint: Chest pain History of present illness: Ms. Barrios is a 61 year old female with PMH significant for diastolic dysfunction, HLD, HTN, obesity, LEYDA (non-complaint), DVT, and DMII who presented to the ED with complaints of chest pain that started yesterday after hearing 's news of infidelity. Reports pain is not related to exertion or activity. Pain is described as midsternal chest soreness/tenderness. Recent CV testing includes: TTE 07/26/16: EF 60-65%, moderate LVDD, mildly dilated left atrium, no significant valvular dysfunction, normal wall motion Regadenoson nuclear 2-day 07/26/16: perfusion imaging negative for ischemia or infarct, gated EF >70% TTE 09/16/14: EF 65% Regadenoson nuclear 11/21/12: perfusion imaging negative for ischemia or infarct. Past Med Surg Social Fam HX - Past Medical History Attestation: Yes The following information was validated with the patient. Source: patient, old records reviewed Medical history: COPD, DVT, diabetes, hyperlipidemia, hypertension, thyroid disease Psychiatric history: depression - Past Surgical History Surgical History: cholecystectomy - Social History Smoking Status: Never smoker Smokeless Tobacco Status: No Alcohol use: none Drug use: none - Family History Mother Living Status: Hx Family Cardiac Disorders: Yes (chf) Father Living Status: Hx Family Cardiac Disorders: Yes ([place]) Medications and Allergies Albuterol Sulfate [Albuterol Inhaler] 2 puff IH Q4H PRN 04/12/16 [History] Atorvastatin Calcium [Lipitor] 20 mg PO HS 04/12/16 [History] Docusate Sodium [Dok] 100 mg PO DAILY 04/12/16 [History] Ferrous Sulfate 325 mg PO DAILY 04/12/16 [History] Folic Acid 1 mg PO DAILY 04/12/16 [History] Furosemide [Lasix] 80 mg PO DAILY 04/12/16 [History] Insulin ASPART [Novolog Flexpen] 18 - 22 unit SQ TIDWM 04/12/16 [History] Insulin Glargine,Hum.rec.anlog [Lantus Solostar] 35 units SQ BID 04/12/16 [ History] Isosorbide MONOnitrate (24 HR) [Imdur] 60 mg PO DAILY 04/12/16 [History] Levothyroxine [Synthroid] 175 mcg PO QAM 04/12/16 [History] Methotrexate [Otrexup] 10 mg PO WE 04/12/16 [History] Omeprazole [PriLOSEC] 40 mg PO DAILY 04/12/16 [History] Oxygen 2 l NS CONT 04/12/16 [History] Polyethylene Glycol 3350 [MiraLAX] 17 gm PO DAILY 04/12/16 [History] Potassium Chloride [Klor-Con Sprinkle] 20 meq PO BID 04/12/16 [History] Valsartan [Diovan] 40 mg PO DAILY 04/12/16 [History] Rivaroxaban [Xarelto] 20 mg PO DAILY 07/26/16 [History] Sertraline [Zoloft] 50 mg PO DAILY 07/26/16 [History] Valacyclovir HCl [Valacyclovir] 500 mg PO DAILY 07/26/16 [History] Oxycodone HCl/Acetaminophen [Percocet 5-325 mg Tablet] 1 - 2 each PO Q6H PRN # 10 tablet 07/30/16 [Rx] Lidocaine 4% CRM (LMX) [Lmx 4] 1 appl TP Q4H PRN 09/23/16 [History] Allergies Penicillins Allergy (Verified 09/23/16 07:45) Hives Sulfa (Sulfonamide Antibiotics) Allergy (Verified 09/23/16 07:45) Rash All Systems Review: A 10-system review of systems was performed and is negative for pertinent findings except as documented above in the HPI. - Cardiovascular Cardiovascular: as per HPI Physical Examination Vital Signs, Last 4 Hours Temp Pulse Resp BP Pulse Ox 09/23/16 11:24 97.8 F 70 16 151/84 99 09/23/16 10:32 97 09/23/16 10:23 97.3 F L 72 18 162/94 97 09/23/16 10:07 18 139/91 General: Conversant, Other (tearful, crying during exam) HEENT: Atraumatic, Normocephaly, Mucus Membranes Moist Cardiac: Reg Rate and Rhythm, Normal S1 and S2 Lungs: Normal Breath Sounds Neuro: Alert and responsive Abdomen: Soft (large, obese) Skin: No rashes noted on visualized skin Musculoskeletal: No Chest Wall Tenderness Extremities: No Edema, Normal Pulses Results 09/23/16 08:31 09/23/16 08:31 Active Medications Acetaminophen (Tylenol) 500 mg PO Q6HR PRN PRN Reason: Mild Pain Stop: 03/25/17 10:46 Albuterol Sulfate (Albuterol Inhaler) 2 puff IH Q4H PRN PRN Reason: Shortness Of Breath Stop: 03/25/17 10:49 Dextrose/Water (Dextrose 50% (Syg)) 25 ml IVP AD PRN PRN Reason: Hypoglycemia Stop: 03/25/17 10:54 Ferrous Sulfate (Ferrous Sulfate) 325 mg PO DAILY [facility] Stop: 03/26/17 09:01 Folic Acid (Folic Acid) 1 mg PO DAILY [facility] Stop: 03/26/17 09:01 Furosemide (Lasix) 80 mg PO DAILY [facility] Stop: 03/26/17 09:01 Glucagon (Glucagen) 1 mg IM ONCE PRN PRN Reason: Hypoglycemia Stop: 03/25/17 10:54 Glucose (Gluctose) 15 gm PO ONCE PRN PRN Reason: Hypoglycemia Stop: 03/25/17 10:54 Glucose (Gluctose) 30 gm PO ONCE PRN PRN Reason: Hypoglycemia Stop: 03/25/17 10:54 Sodium Chloride (0.9 % Sodium Chloride) 1,000 mls @ 100 mls/hr IVC .Q10H [facility] Stop: 03/25/17 11:01 Last Admin: 09/23/16 11:32 Dose: 100 mls/hr Dextrose (Dextrose 5%) 1,000 mls @ 100 mls/hr IV CONT PRN PRN Reason: HYPOGLYCEMIA Stop: 03/25/17 10:54 Insulin Detemir (Levemir) 30 unit SQ BID [facility] Stop: 03/25/17 21:01 Insulin Human Lispro (Humalog) 6 units 0.05 units/kg (6 units) SQ TIDWM [facility] Stop: 03/25/17 12:01 Last Admin: 09/23/16 11:31 Dose: 6 units Insulin Human Lispro (Humalog) 0 units SQ TIDAC [facility] PRN Reason: Protocol Stop: 03/25/17 11:31 Last Admin: 09/23/16 11:31 Dose: 10 units Insulin Human Lispro (Humalog) 0 units SQ HS [facility] PRN Reason: Protocol Stop: 03/25/17 21:01 Isosorbide Mononitrate (Imdur) 60 mg PO DAILY [facility] Stop: 03/26/17 09:01 Levothyroxine Sodium (Synthroid) 175 mcg PO 0630 [facility] Stop: 03/26/17 06:31 Lidocaine HCl (Lmx 4) 1 gm TP Q4H PRN PRN Reason: Pain Stop: 03/25/17 10:49 Methotrexate (Otrexup) 10 mg PO WE [facility] Stop: 03/30/17 10:49 Nitroglycerin (Nitroglycerin) 0.4 mg SL Q5MIN PRN PRN Reason: Chest Pain Stop: 03/25/17 08:17 Last Admin: 09/23/16 09:03 Dose: 0.4 mg Omeprazole (Prilosec) 40 mg PO DAILY [facility] Stop: 03/26/17 09:01 Oxycodone/Acetaminophen (Percocet 5/325) 1 each PO Q6H PRN PRN Reason: Pain(4-6) Stop: 03/25/17 10:49 Last Admin: 09/23/16 11:30 Dose: 1 each Polyethylene Glycol (Miralax) 17 gm PO DAILY [facility] Stop: 03/26/17 09:01 Potassium Chloride (Potassium Chloride) 20 meq PO BID [facility] Stop: 03/25/17 21:01 Rivaroxaban (Xarelto) 20 mg PO DAILY [facility] Stop: 03/26/17 09:01 Sertraline HCl (Zoloft) 50 mg PO DAILY [facility] Stop: 03/26/17 09:01 Simvastatin (Zocor) 20 mg PO HS [facility] Stop: 03/25/17 21:01 Valacyclovir HCl (Valtrex) 500 mg PO BID [facility] Stop: 03/25/17 12:46 Valsartan (Diovan) 40 mg PO DAILY [facility] Stop: 03/26/17 09:01 - Imaging and Cardiology Chest Xray: report reviewed Stress Test: report reviewed Echo: report reviewed - EKG Interpretation EKG results cardiology: personally reviewed Consult Discharge Plan - Plan Referrals: Tawanda Storm Jr, MD [Primary Care Provider] -
[2016-09-23] MEDS: valACYclovir 500 MG TABLET PO SCH ×2 (13:06→21:52)
--- NOTE | 2016-09-23 16:44 | Electrocardiograph Report ---
[address] [address] Test Date: 2016-09-23 Pat Name: Meagan Barrios Department: 103 Room: 3B38 Gender: F Religious Activities Director: : 1955 Requested By: Cale Jameson Order Number: [id number] Reading MD: Anna Marie Chowdhury Measurements Intervals Dickinson Rate: 80 P: 37 WA: 184 QRS: -47 QRSD: 128 T: 29 QT: 389 QTc: 425 Interpretive Statements SINUS RHYTHM MARKED LEFT AXIS DEVIATION RIGHT BUNDLE BRANCH BLOCK MODERATE VOLTAGE CRITERIA FOR LVH, CONSIDER NORMAL VARIANT Electronically Signed On 09-23-2016 16:42:41 EDT by Anna Marie Chowdhury
[2016-09-23] MEDS: Ketorolac 30 MG/ML VIAL IVP PRN (17:46)
[2016-09-23] MEDS ORDERED: Insulin LISPRO 300 UNITS/3 ML VIAL SQ SCH (21:00)
[2016-09-23] MEDS: Insulin DETEMIR 100 UNIT/ML X5UNITS SQ SCH (21:53)
[2016-09-24] MEDS: *HR* OxyCODONE/APAP 5/325 TABLET PO PRN ×5 (01:53→14:32)
[2016-09-24] MEDS: Ketorolac 30 MG/ML VIAL IVP PRN ×2 (04:22→10:11)
[2016-09-24 05:12] LABS: Basophils % 0.3 %; Eosinophils # 0.1 K/mcL (0.0-0.6); Eosinophils % 1.4 %; Hematocrit 35.3 % (35.3-44.9); Hemoglobin 11.1 g/dL (11.5-15.4); Immature Granulocytes % 0.4 % (0-4); Lymphocytes # 1.2 K/mcL (0.6-4.6); Mean Corpuscular HGB Conc 31.4 g/dL (31.6-35.5); Mean Corpuscular Hemoglobin 29.4 pg (28.0-33.3); Mean Corpuscular Volume 93.6 fL (83.0-100.0); Monocytes # 0.3 K/mcL (0.0-1.3); Monocytes % 3.4 %; Neutrophils # 7.6 K/mcL (1.6-8.9); Platelet Count 260 K/mcL (140-400); Red Blood Count 3.77 M/mcL (3.82-4.97); Red Cell Distribution Width 13.9 % (11.5-14.5); Segmented Neutrophils % 81.5 %
[2016-09-24 05:25] LABS: Hemoglobin A1C 10.3 %
[2016-09-24 05:31] LABS: BUN/Creatinine Ratio 33 (6-26); Blood Urea Nitrogen 28 mg/dL (7-20); Carbon Dioxide 34 mEq/L (19-29); Chloride 101 mEq/L (98-109); Chol/HDL Ratio 4.2 (0-4.9); Cholesterol 183 mg/dL (< 200); Glucose 148 mg/dL (70-99); HDL Cholesterol 44 mg/dL (40-59); LDL Cholesterol,Calculated 118 mg/dL (0-99); Osmolality,Calculated 300 (280-300); Potassium 4.5 mEq/L (3.5-4.5); Sodium 141 mEq/L (136-145); Triglycerides 106 mg/dL (< 150); eGFR For African Americans > 60 (> 60); eGFR For Non-African Americans > 60 (> 60)
[2016-09-24] MEDS: Insulin LISPRO 300 UNITS/3 ML VIAL SQ SCH ×4 (08:01→13:10)
[2016-09-24] MEDS: valACYclovir 500 MG TABLET PO SCH (08:02)
[2016-09-24] MEDS ORDERED: Folic Acid 1 MG TABLET PO SCH (09:00)
[2016-09-24] MEDS ORDERED: Isosorbide MONOnitrate (24 HR) 60 MG TAB.ER.24H PO SCH (09:00)
[2016-09-24] MEDS ORDERED: *HR* Rivaroxaban 10 MG TABLET PO SCH (09:00)
[2016-09-24] MEDS ORDERED: Valsartan 80 MG TABLET PO SCH (09:00)
[2016-09-24] MEDS ORDERED: valACYclovir 500 MG TABLET PO SCH (09:00)
[2016-09-24] MEDS ORDERED: Furosemide 40 MG TABLET PO SCH (09:00)
[2016-09-24 11:11] VITALS: BP 163/93
[2016-09-24] MEDS ORDERED: *HR* Morphine 2 MG/ML SYRINGE IVP PRN (13:17)
--- NOTE | 2016-09-24 13:34 | Discharge Summary ---
Date of Encounter: 09/24/16 Time of Encounter: 13:32 - Discharge Diagnosis (1) Chest pain Priority: Primary Status: Acute Qualifiers: Chest pain type: intercostal pain Qualified Code(s): R07.82 - Intercostal pain (2) Genital herpes Priority: Secondary Status: Chronic Qualifiers: Herpes simplex infection site: vulvovaginitis Qualified Code(s): A60.04 - Herpesviral vulvovaginitis (3) History of venous thromboembolism Priority: Secondary Status: Chronic (4) COPD (chronic obstructive pulmonary disease) Priority: Secondary Status: Chronic Qualifiers: COPD type: unspecified COPD Qualified Code(s): J44.9 - Chronic obstructive pulmonary disease, unspecified (5) Hypothyroidism Priority: Secondary Status: Chronic Qualifiers: Hypothyroidism type: unspecified Qualified Code(s): E03.9 - Hypothyroidism , unspecified (6) Depression Priority: Secondary Status: Chronic Qualifiers: Depression Type: unspecified Qualified Code(s): F32.9 - Major depressive disorder, single episode, unspecified (7) Diabetes Priority: Secondary Status: Chronic Qualifiers: Diabetes mellitus type: type 2 Diabetes mellitus complication status: with hyperglycemia Diabetes mellitus senior living insulin use: with intermodal truck driver use Qualified Code(s): E11.65 - Type 2 diabetes mellitus with hyperglycemia; Z79.4 - rat exterminator (current) use of insulin (8) Rheumatoid arthritis Priority: Secondary Status: Chronic Qualifiers: Rheumatoid arthritis location: multiple sites Rheumatoid factor presence: unspecified presence Qualified Code(s): M06.9 - Rheumatoid arthritis, unspecified (9) CHF (congestive heart failure) Priority: Secondary Status: Chronic Qualifiers: Congestive heart failure type: diastolic Congestive heart failure chronicity: chronic Qualified Code(s): I50.32 - Chronic diastolic (congestive ) heart failure (10) Chronic respiratory failure Priority: Secondary Status: Chronic Qualifiers: Respiratory failure complication: hypoxia Qualified Code(s): J96.11 - Chronic respiratory failure with hypoxia - Discharge Medications Prescriptions: Gabapentin [Neurontin] 100 mg PO TID #60 capsule Nitrofurantoin (BID) [Macrobid] 100 mg PO BID #6 capsule Home Medications: Albuterol Sulfate [Albuterol Inhaler] 2 puff IH Q4H PRN 04/12/16 [History] Atorvastatin Calcium [Lipitor] 20 mg PO HS 04/12/16 [History] Docusate Sodium [Dok] 100 mg PO DAILY 04/12/16 [History] Ferrous Sulfate 325 mg PO DAILY 04/12/16 [History] Folic Acid 1 mg PO DAILY 04/12/16 [History] Furosemide [Lasix] 80 mg PO DAILY 04/12/16 [History] Insulin ASPART [Novolog Flexpen] 18 - 22 unit SQ TIDWM 04/12/16 [History] Insulin Glargine,Hum.rec.anlog [Lantus Solostar] 35 units SQ BID 04/12/16 [ History] Isosorbide MONOnitrate (24 HR) [Imdur] 60 mg PO DAILY 04/12/16 [History] Levothyroxine [Synthroid] 175 mcg PO QAM 04/12/16 [History] Methotrexate [Otrexup] 10 mg PO WE 04/12/16 [History] Omeprazole [PriLOSEC] 40 mg PO DAILY 04/12/16 [History] Oxygen 2 l NS CONT 04/12/16 [History] Polyethylene Glycol 3350 [MiraLAX] 17 gm PO DAILY 04/12/16 [History] Potassium Chloride [Klor-Con Sprinkle] 20 meq PO BID 04/12/16 [History] Valsartan [Diovan] 40 mg PO DAILY 04/12/16 [History] Rivaroxaban [Xarelto] 20 mg PO DAILY 07/26/16 [History] Sertraline [Zoloft] 50 mg PO DAILY 07/26/16 [History] Valacyclovir HCl [Valacyclovir] 500 mg PO DAILY 07/26/16 [History] Oxycodone HCl/Acetaminophen [Percocet 5-325 mg Tablet] 1 - 2 each PO Q6H PRN # 10 tablet 07/30/16 [Rx] Lidocaine 4% CRM (LMX) [Lmx 4] 1 appl TP Q4H PRN 09/23/16 [History] Gabapentin [Neurontin] 100 mg PO TID #60 capsule 09/24/16 [Rx] Nitrofurantoin (BID) [Macrobid] 100 mg PO BID #6 capsule 09/24/16 [Rx] Allergies/Adverse Reactions: Allergies Penicillins Allergy (Verified 09/23/16 07:45) Hives Sulfa (Sulfonamide Antibiotics) Allergy (Verified 09/23/16 07:45) Rash Procedures/tests Complete & Pending: Procedures Performed prior 72 hours Category Date Time Status ECG 12 lead ECG [ECG] Routine Y 09/24/16 07:00 Ordered Date of admission: 09/23/16 09:51 Primary care physician: Tawanda Storm Jr, MD Consults: 09/23/16 10:52 Consult to Cardiology [CONS] Routine Comment: Consulting Provider: Cardiology Marni Reason for Consult: Chest pain; ED Doc called and spoke Time Notified: 10:52 Call Completed: Yes 09/23/16 10:53 Consult to Ophthalmic Lens Inspector [CONS] Routine Comment: Discharging clinician: Rose Hale Anticipated date of discharge: 09/24/16 - Patient Status Disposition: Home, Self-Care Condition: Fair Functional capacity at discharge: uses cane/walker Overall status at discharge: patient is progressing back to baseline - Discharge Instructions Instructions: Heart Failure (DC), Chest Pain (DC), Depression (DC), Diabetes Mellitus Type 2 in Adults (DC), Chronic Obstructive Pulmonary Disease (DC) Follow Up With: Tawanda Storm Jr, MD [Primary Care Provider] - - Diet and Activity Activity: resume usual activities as tolerated, wear oxygen at all times Diet: diabetic diet, low fat, low cholesterol, low salt diet Hospital course: Ms. Barrios is a 61 year old female with the above medical problems, admitted with chest pain. Initial labs, chest XRay and EKG were normal. She recently had a similar admission and underwent Echocardiogram which showed no gross abnormalities and nuclear stress test was negative for reversible ischemia. Cardiology was consulted and recommended no further intervention. She had severe pain from chronic genital Herpes infection for which she is on Valtrex as outpatient and is being discharged on Gabapentin. Urine dipstick was also suggestive of infection and urine culture grows pansensitive E.coli and she is being discharged on Macrobid. Patient is medically stable for discharge. - Time Spent with Patient Total time spent providing and/or coordinating discharge services: Greater than 30 minutes (45 min) - Constitutional Vitals: Temp Pulse Resp BP Pulse Ox 97.7 F 88 16 163/93 97 09/24/16 11:00 09/24/16 11:00 09/24/16 11:00 09/24/16 11:00 09/24/16 11:00 General appearance: Present: A&O X 3, obese, answers questions appropriately - Respiratory Respiratory exam: Present: CTAB. Absent: accessory muscle use, rales, rhonchi, wheezes - Cardiovascular Cardiovascular exam: Present: RRR, +S1, +S2. Absent: diastolic murmur, gallop, rubs, systolic murmur - Specululm exam: Present: erythema (chronic changes related to previous active genital infection; no erythema/discharge/excoriation at this time)
--- NOTE | 2016-09-24 13:40 | Physician Discharge Referral ---
Home Health/Hosp Referral Info Transfer to: Home Health Attending Provider: Rose Hale Provider in Charge Post Discharge: PCP - Diagnosis (1) Chest pain Priority: Primary Status: Acute (2) Genital herpes Priority: Secondary Status: Chronic (3) History of venous thromboembolism Priority: Secondary Status: Chronic (4) COPD (chronic obstructive pulmonary disease) Priority: Secondary Status: Chronic (5) Hypothyroidism Priority: Secondary Status: Chronic (6) Depression Priority: Secondary Status: Chronic (7) Diabetes Priority: Secondary Status: Chronic (8) Rheumatoid arthritis Priority: Secondary Status: Chronic (9) CHF (congestive heart failure) Priority: Secondary Status: Chronic (10) Chronic respiratory failure Priority: Secondary Status: Chronic - Respiratory Orders Oxygen / L per min (2L/min via [place]) Smoking Cessation: Smoking cessation has been advised. For more information, call the [employer] Tobacco Quit Line at 8-437-PLWC-NOW. - Diet/Nutrition Diet/Nutrition Orders: Cardiac, No Concentrated Sweets (diabetic) - Activity Activity Orders: Ambulate - Services Needed Following services are medically necessary services: Nursing, Home Health Aide - Transfer Medications Prescriptions: Gabapentin [Neurontin] 100 mg PO TID #60 capsule Nitrofurantoin (BID) [Macrobid] 100 mg PO BID #6 capsule Home Medications: Albuterol Sulfate [Albuterol Inhaler] 2 puff IH Q4H PRN 04/12/16 [History] Atorvastatin Calcium [Lipitor] 20 mg PO HS 04/12/16 [History] Docusate Sodium [Dok] 100 mg PO DAILY 04/12/16 [History] Ferrous Sulfate 325 mg PO DAILY 04/12/16 [History] Folic Acid 1 mg PO DAILY 04/12/16 [History] Furosemide [Lasix] 80 mg PO DAILY 04/12/16 [History] Insulin ASPART [Novolog Flexpen] 18 - 22 unit SQ TIDWM 04/12/16 [History] Insulin Glargine,Hum.rec.anlog [Lantus Solostar] 35 units SQ BID 04/12/16 [ History] Isosorbide MONOnitrate (24 HR) [Imdur] 60 mg PO DAILY 04/12/16 [History] Levothyroxine [Synthroid] 175 mcg PO QAM 04/12/16 [History] Methotrexate [Otrexup] 10 mg PO WE 04/12/16 [History] Omeprazole [PriLOSEC] 40 mg PO DAILY 04/12/16 [History] Oxygen 2 l NS CONT 04/12/16 [History] Polyethylene Glycol 3350 [MiraLAX] 17 gm PO DAILY 04/12/16 [History] Potassium Chloride [Klor-Con Sprinkle] 20 meq PO BID 04/12/16 [History] Valsartan [Diovan] 40 mg PO DAILY 04/12/16 [History] Rivaroxaban [Xarelto] 20 mg PO DAILY 07/26/16 [History] Sertraline [Zoloft] 50 mg PO DAILY 07/26/16 [History] Valacyclovir HCl [Valacyclovir] 500 mg PO DAILY 07/26/16 [History] Oxycodone HCl/Acetaminophen [Percocet 5-325 mg Tablet] 1 - 2 each PO Q6H PRN # 10 tablet 07/30/16 [Rx] Lidocaine 4% CRM (LMX) [Lmx 4] 1 appl TP Q4H PRN 09/23/16 [History] Gabapentin [Neurontin] 100 mg PO TID #60 capsule 09/24/16 [Rx] Nitrofurantoin (BID) [Macrobid] 100 mg PO BID #6 capsule 09/24/16 [Rx] Allergies/Adverse Reactions: Allergies Penicillins Allergy (Verified 09/23/16 07:45) Hives Sulfa (Sulfonamide Antibiotics) Allergy (Verified 09/23/16 07:45) Rash Certification: Further, I certify that my clinical findings support that this patient is homebound (i.e. absences from home require considerable and taxing effort and are for medical reasons or yazidism services or infrequently or short duration when for other reasons) because: Homebound Reason: Leaving home requires considerable and taxing effort due to condition Attestation: My signature below is to certify that this patient is under my care and that I, or nurse practitioner, or a physician's pharmacy assistant working with me, has a face-to -face encounter with this patient.
[2016-09-24] MEDS: Insulin DETEMIR 100 UNIT/ML X5UNITS SQ SCH (14:33)
[2016-09-24] MEDS ORDERED: Gabapentin 100 MG CAPSULE PO SCH (15:00)
[2016-09-28] MEDS ORDERED: *HR* Methotrexate 2.5 MG TABLET PO SCH (10:48)
== END 2016-09-24 14:44 | disposition home or self-care (01) ==
LOC: 3BNU 07:44 → EMEROO 07:44 → SUATTDRO 09:51 → 3BNU 10:11
PROVIDERS: ADMIT Registered Nurse; ATTEND Internal Medicine

== ENCOUNTER 2016-11-18 20:51 | Observation (INO) ==
[2016-11-18] MEDS ORDERED: Albuterol 2.5 MG/3 ML NEBULIZER IH ONE (21:08)
[2016-11-18] MEDS ORDERED: *HR* LORazepam 2 MG/ML VIAL IVP ONE (21:10)
[2016-11-18 21:59] LABS: Basophils % 0.2 %; Eosinophils # 0.1 K/mcL (0.0-0.6); Eosinophils % 1.1 %; Hematocrit 35.3 % (35.3-44.9); Hemoglobin 11.2 g/dL (11.5-15.4); Immature Granulocytes % 0.6 % (0-4); Lymphocytes # 0.8 K/mcL (0.6-4.6); Lymphocytes % 9.5 %; Mean Corpuscular HGB Conc 31.7 g/dL (31.6-35.5); Mean Corpuscular Hemoglobin 29.2 pg (28.0-33.3); Mean Corpuscular Volume 91.9 fL (83.0-100.0); Mean Platelet Volume 10.2 fL (9.4-12.4); Monocytes # 0.2 K/mcL (0.0-1.3); Monocytes % 2.9 %; Neutrophils # 7.1 K/mcL (1.6-8.9); Platelet Count 215 K/mcL (140-400); Red Blood Count 3.84 M/mcL (3.82-4.97); Red Cell Distribution Width 13.8 % (11.5-14.5); Segmented Neutrophils % 85.7 %
[2016-11-18 22:13] LABS: BUN/Creatinine Ratio 20 (6-26); Blood Urea Nitrogen 19 mg/dL (7-20); Calcium 10.2 mg/dL (8.6-10.8); Chloride 90 mEq/L (98-109); Glucose 408 mg/dL (70-99); Osmolality,Calculated 307 (280-300); Potassium 4.2 mEq/L (3.5-4.5); Sodium 139 mEq/L (136-145); eGFR For African Americans > 60 (> 60); eGFR For Non-African Americans 58 (> 60)
[2016-11-18 22:17] LABS: Carbon Dioxide 40 mEq/L (19-29)
[2016-11-18] MEDS ORDERED: 0.9 % Sodium Chloride 1,000 ML IVC SCH (22:30)
[2016-11-18 23:32] LABS: VBG HCO3 46.9 mEq/L (21-27); VBG PH 7.36 pH Units (7.32-7.42)
[2016-11-18] MEDS ORDERED: Ipratropium/Albuterol Neb 3 ML IH ONE (23:47)
[2016-11-18] MEDS ORDERED: methylPREDNISolone 125 MG/2 ML VIAL IVP ONE (23:47)
--- NOTE | 2016-11-19 00:37 | Emergency Department Note ---
Disposition Clinical Impression: Hyperglycemia COPD (chronic obstructive pulmonary disease) Qualifiers: COPD type: COPD with acute exacerbation Qualified Code(s): J44.1 - Chronic obstructive pulmonary disease with (acute) exacerbation Disposition: Home, Self-Care Condition: Good Referrals: NO,PCP [Primary Care Provider] - Forms: ED Satisfaction Letter Time of Disposition: 00:40 General Adult HPI - General Chief complaint: ED Shortness of Breath/Dyspnea Stated complaint: NEMESIO Source: EMS Limitations: no limitations Nursing Notes Reviewed: Yes Vital Signs Reviewed: Yes - History of Present Illness HPI Narrative: 61-year-old female who has a history of COPD. Home oxygen use. This evening she became acutely dyspneic while watching TV. There was concern for anxiety as she has an underlying anxiety disorder. EMS was called and initially she refused transport but ultimately was agreeable. When she arrived she was in no acute distress but she was crying and extremely upset about having urinated on herself. She had mild bronchospastic changes on pulmonary examination. Her vital signs otherwise were stable. She did not acutely appear in distress. She has had no productive sputum increase. No recent health history changes. . Pain Scale: 0 - Related Data Home Medications Medication Instructions Recorded Confirmed Albuterol Sulfate [Albuterol 2 puff IH Q4H PRN 04/12/16 09/23/16 Inhaler] Atorvastatin Calcium [Lipitor] 20 mg PO HS 04/12/16 09/23/16 Docusate Sodium [Dok] 100 mg PO DAILY 04/12/16 09/23/16 Ferrous Sulfate 325 mg PO DAILY 04/12/16 09/23/16 Folic Acid 1 mg PO DAILY 04/12/16 09/23/16 Furosemide [Lasix] 80 mg PO DAILY 04/12/16 09/23/16 Insulin ASPART [Novolog Flexpen] 18 - 22 unit SQ TIDWM 04/12/16 09/23/16 Insulin Glargine,Hum.rec.anlog 35 units SQ BID 04/12/16 09/23/16 [Lantus Solostar] Isosorbide MONOnitrate (24 HR) 60 mg PO DAILY 04/12/16 09/23/16 [Imdur] Levothyroxine [Synthroid] 175 mcg PO QAM 04/12/16 09/23/16 Methotrexate [Otrexup] 10 mg PO WE 04/12/16 09/23/16 Omeprazole [PriLOSEC] 40 mg PO DAILY 04/12/16 09/23/16 Oxygen 2 l NS CONT 04/12/16 09/23/16 Polyethylene Glycol 3350 [MiraLAX] 17 gm PO DAILY 04/12/16 09/23/16 Potassium Chloride [Klor-Con 20 meq PO BID 04/12/16 09/23/16 Sprinkle] Valsartan [Diovan] 40 mg PO DAILY 04/12/16 09/23/16 Rivaroxaban [Xarelto] 20 mg PO DAILY 07/26/16 09/23/16 Sertraline [Zoloft] 50 mg PO DAILY 07/26/16 09/23/16 Valacyclovir HCl [Valacyclovir] 500 mg PO DAILY 07/26/16 09/23/16 Lidocaine 4% CRM (LMX) [Lmx 4] 1 appl TP Q4H PRN 09/23/16 09/23/16 Previous Rx's Medication Instructions Recorded Oxycodone HCl/Acetaminophen 1 - 2 each PO Q6H PRN #10 tablet 07/30/16 [Percocet 5-325 mg Tablet] Gabapentin [Neurontin] 100 mg PO TID #60 capsule 09/24/16 Nitrofurantoin (BID) [Macrobid] 100 mg PO BID #6 capsule 09/24/16 HYDROcodone/Acet 5/325 mg [[place] 1 tab PO Q8H PRN #6 tab 10/16/16 5-325 mg] Allergies Allergy/AdvReac Type Severity Reaction Status Date / Time Penicillins Allergy Hives Verified 11/18/16 20:53 Sulfa (Sulfonamide Allergy Rash Verified 11/18/16 20:53 Antibiotics) All systems ED: reviewed and negative except as stated. 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 - Social History Smoking Status: Never smoker Smokeless Tobacco Status: No Alcohol use: Reports: none Drug use: Reports: none Physical Exam - General Limitations: no limitations General appearance: alert, in no apparent distress - Head Head exam: atraumatic - Eye Eye exam: Present: normal appearance - ENT ENT exam: normal exam - Neck Neck exam: Present: normal inspection - Chest Chest inspection: Present: normal inspection - Respiratory Respiratory exam: Present: wheezes - Cardiovascular Cardiovascular exam: Present: regular rate, normal rhythm - Abdominal Exam Abdominal exam: Present: soft, Non-Tender - Extremities Exam Extremities exam: Present: normal inspection, full ROM - Expanded Lower Extremity Exam Hip/Pelvis exam: Present: normal inspection, full ROM Lower leg exam: Present: swelling, erythema Neurovascular/Tendon exam: Present: normal capillary refill Gait: not tested/not observed - Neurological Exam Neurological exam: Present: alert, oriented X3, CN II-XII intact - Psychiatric Psychiatric exam: Present: normal affect, normal mood - Skin Skin exam: Present: warm, dry Course Vital Signs Temperature 98.2 F 11/18/16 20:53 Pulse Rate 84 11/18/16 20:53 Respiratory Rate 18 11/18/16 20:53 Blood Pressure 155/82 11/18/16 20:53 O2 Sat by Pulse Oximetry 97 11/18/16 20:53 Temperature 98.2 F 11/18/16 20:53 Pulse Rate 81 11/19/16 00:29 Respiratory Rate 16 11/19/16 00:29 Blood Pressure 144/107 11/19/16 00:29 O2 Sat by Pulse Oximetry 94 11/19/16 00:29 Oxygen Delivery Oxygen Delivery Room Air Medical Decision Making - [facility] Narrative Medical decision making narrative: I suspect COPD exacerbation although I do not have a baseline blood gas for comparison. She has significant hypercapnia as well as complaints of dyspnea. I did obtain a CT angiography study of her chest to rule out pulmonary was in. There is no evidence of pulmonary embolism. I did provide treatment for COPD exacerbation including steroids, antibiotics, bronchodilators. I would place her on BiPAP at least temporarily to improve her hypercapnia. She has no clinical signs of respiratory failure. Her blood gases far more concerning than her clinical picture. She also has secondary findings of symptomatic hypoglycemia. Her blood glucoses in the 400s. There is no evidence of DKA. I will start aggressive IV hydration. The patient will be admitted to the hospitalist team. She will be treated for hypercapnia as well as hyperglycemia - Medical Records Medical records reviewed: Yes I reviewed the patient's medical records. - Lab Data Lab results reviewed: Yes I reviewed the patient's lab results. Result diagrams: 11/18/16 21:40 11/18/16 21:40 Lab Results 11/18/16 11/18/16 11/18/16 Range/Units 21:40 21:40 21:40 WBC 8.3 (4.3-11.1) K/mcL RBC 3.84 (3.82-4.97) M/mcL Hgb 11.2 L (11.5-15.4) g/dL Hct 35.3 (35.3-44.9) % MCV 91.9 (83.0-100.0) fL MCH 29.2 (28.0-33.3) pg MCHC 31.7 (31.6-35.5) g/dL RDW 13.8 (11.5-14.5) % Plt Count 215 (140-400) K/mcL MPV 10.2 (9.4-12.4) fL Immature Gran % 0.6 (0-4) % Seg Neutrophils % 85.7 % Lymphocytes % 9.5 % Monocytes % 2.9 % Eosinophils % 1.1 % Basophils % 0.2 % Neutrophils # 7.1 (1.6-8.9) K/mcL Lymphocytes # 0.8 (0.6-4.6) K/mcL Monocytes # 0.2 (0.0-1.3) K/mcL Eosinophils # 0.1 (0.0-0.6) K/mcL Basophils # 0.0 (0.0-0.2) K/mcL VBG pH (7.32-7.42) pH Units VBG pCO2 (41-51) mmHg VBG pO2 (25-40) mmHg VBG HCO3 (21-27) mEq/L Sodium 139 (136-145) mEq/L Potassium 4.2 (3.5-4.5) mEq/L Chloride 90 L (98-109) mEq/L Carbon Dioxide 40 H* (19-29) mEq/L BUN 19 (7-20) mg/dL Creatinine 0.97 (0.57-1.11) mg/dL Est GFR ( Amer) > 60 (> 60) Est GFR (Non-Af Amer) 58 L (> 60) BUN/Creatinine Ratio 20 (6-26) Glucose 408 H (70-99) mg/dL Calculated Osmolality 307 H (280-300) Calcium 10.2 (8.6-10.8) mg/dL Troponin I 0.01 (0-0.03) ng/mL B-Natriuretic Peptide (0-100) pg/mL Beta-Hydroxybutyric Acd (0.02-0.27) mmol/L 11/18/16 11/18/16 11/18/16 Range/Units 21:40 21:40 23:25 WBC (4.3-11.1) K/mcL RBC (3.82-4.97) M/mcL Hgb (11.5-15.4) g/dL Hct (35.3-44.9) % MCV (83.0-100.0) fL MCH (28.0-33.3) pg MCHC (31.6-35.5) g/dL RDW (11.5-14.5) % Plt Count (140-400) K/mcL MPV (9.4-12.4) fL Immature Gran % (0-4) % Seg Neutrophils % % Lymphocytes % % Monocytes % % Eosinophils % % Basophils % % Neutrophils # (1.6-8.9) K/mcL Lymphocytes # (0.6-4.6) K/mcL Monocytes # (0.0-1.3) K/mcL Eosinophils # (0.0-0.6) K/mcL Basophils # (0.0-0.2) K/mcL VBG pH 7.36 (7.32-7.42) pH Units VBG pCO2 83 H (41-51) mmHg VBG pO2 47 H (25-40) mmHg VBG HCO3 46.9 H (21-27) mEq/L Sodium (136-145) mEq/L Potassium (3.5-4.5) mEq/L Chloride (98-109) mEq/L Carbon Dioxide (19-29) mEq/L BUN (7-20) mg/dL Creatinine (0.57-1.11) mg/dL Est GFR ( Amer) (> 60) Est GFR (Non-Af Amer) (> 60) BUN/Creatinine Ratio (6-26) Glucose (70-99) mg/dL Calculated Osmolality (280-300) Calcium (8.6-10.8) mg/dL Troponin I (0-0.03) ng/mL B-Natriuretic Peptide 32 (0-100) pg/mL Beta-Hydroxybutyric Acd 0.26 (0.02-0.27) mmol/L - Radiology Data Radiology results reviewed: Yes I reviewed the patient's radiology results. Sinus rhythm, left axis, normal R wave progression, nonspecific ST segment changes, nonspecific ECG Critical Care Time Total Critical Care Time: 31 Attestation: I spent greater than 31 minutes providing acute critical care to this female patient suffering from hypercapnic respiratory failure. She required noninvasive ventilatory support. She also had significant hyperglycemia. She will be admitted to the hospitalist service. Critical care time was excluding billable procedures
--- NOTE | 2016-11-19 01:55 | Internal Med History&Physical ---
Date of Encounter: 11/19/16 Time of Encounter: 01:53 Assessment and Plan (1) Hyperglycemia Current visit: Yes Status: Acute Hx of Type 2 DM with recent A1c of 10.3% in 09/2016, on insulin at home, unclear if she is adherent with her regimen, we will do basal bolus insulin regimen and get the wash crew person to psychotherapist counselor her, ADA diet, FS ACHS (2) Depression Current visit: Yes Status: Chronic this has been worse by her leaving her for another woman, no suicidal or homicidal ideation noted, we will continue her home medications Qualifiers: Depression Type: major depressive disorder Major depression recurrence: recurrent Active/Remission status: currently active Major depression episode severity: moderate Qualified Code(s): F33.1 - Major depressive disorder, recurrent, moderate (3) Diabetes Current visit: Yes Status: Chronic per hyperglycemia section Qualifiers: Diabetes mellitus type: type 2 Diabetes mellitus complication status: with hyperglycemia Diabetes mellitus skilled nursing insulin use: with skilled nursing use Qualified Code(s): E11.65 - Type 2 diabetes mellitus with hyperglycemia; Z79.4 - halfway (current) use of insulin (4) Hypothyroidism Current visit: Yes Status: Chronic will continue home medications Qualifiers: Hypothyroidism type: acquired Qualified Code(s): E03.9 - Hypothyroidism, unspecified (5) COPD (chronic obstructive pulmonary disease) Current visit: Yes Status: Chronic seems stable, her sudden onset of dyspnea was concerning for pulmonary embolism which was r/o in the ER with a chest CTA, she is not in a COPD exacerbation, we will do nebs and supplemental oxygen Qualifiers: COPD type: chronic bronchitis Chronic bronchitis type: simple Qualified Code(s): J41.0 - Simple chronic bronchitis (6) Rheumatoid arthritis Current visit: Yes Status: Chronic will continue her methotrexate Qualifiers: Rheumatoid arthritis location: multiple sites Rheumatoid factor presence: unspecified presence Qualified Code(s): M06.9 - Rheumatoid arthritis, unspecified Internal Medicine - H&P: HPI Chief complaint: shortness of breath Admitted From: Emergency Dept Plans for Post Hospital Care: Home History of present illness: Ms. Barrios is a 61 year old female with a history of chronic respiratory failure from COPD on 2L/min of home oxygen was brought in via [facility] for acute onset of dyspnea. She was in her usual state of health and was watching TV last night when she had an acute onset of dyspnea, this was not associated with chest pain, feeling of apprehension, nausea or vomiting. Due to persistent symptoms she called [facility] and she was brought to the ER of [facility]. She reports that her recently left her for another woman so she had been crying all day prior to the onset of her symptoms. She did not want to come with the [facility] earlier because she did not feel that it was warranted once they showed up, though she had called earlier. She denies fever, chills, worsening baseline cough, sputum production, worsening baseline dyspnea on exertion or increased oxygen requirements. In the ER of [facility], CTA of chest was negative for pulmonary embolism. Past Med Surg Social Fam HX - Past Medical History Medical history: CHF, COPD, DVT, diabetes, hyperlipidemia, hypertension, thyroid disease, other (LEYDA) Psychiatric history: anxiety, depression - Past Surgical History Surgical History: cholecystectomy - Social History Smoking Status: Never smoker Smokeless Tobacco Status: No Alcohol use: none Drug use: none - Family History Mother Living Status: Hx Family Cardiac Disorders: Yes (chf) Father Living Status: Hx Family Cardiac Disorders: Yes ([place]) Internal Medicine - H&P: Meds Albuterol Sulfate [Albuterol Inhaler] 2 puff IH Q4H PRN 04/12/16 [History] Atorvastatin Calcium [Lipitor] 20 mg PO HS 04/12/16 [History] Docusate Sodium [Dok] 100 mg PO DAILY 04/12/16 [History] Ferrous Sulfate 325 mg PO DAILY 04/12/16 [History] Folic Acid 1 mg PO DAILY 04/12/16 [History] Furosemide [Lasix] 80 mg PO DAILY 04/12/16 [History] Insulin ASPART [Novolog Flexpen] 18 - 22 unit SQ TIDWM 04/12/16 [History] Insulin Glargine,Hum.rec.anlog [Lantus Solostar] 35 units SQ BID 04/12/16 [ History] Isosorbide MONOnitrate (24 HR) [Imdur] 60 mg PO DAILY 04/12/16 [History] Levothyroxine [Synthroid] 175 mcg PO QAM 04/12/16 [History] Methotrexate [Otrexup] 10 mg PO WE 04/12/16 [History] Omeprazole [PriLOSEC] 40 mg PO DAILY 04/12/16 [History] Oxygen 2 l NS CONT 04/12/16 [History] Polyethylene Glycol 3350 [MiraLAX] 17 gm PO DAILY 04/12/16 [History] Potassium Chloride [Klor-Con Sprinkle] 20 meq PO BID 04/12/16 [History] Valsartan [Diovan] 40 mg PO DAILY 04/12/16 [History] Rivaroxaban [Xarelto] 20 mg PO DAILY 07/26/16 [History] Sertraline [Zoloft] 50 mg PO DAILY 07/26/16 [History] Valacyclovir HCl [Valacyclovir] 500 mg PO DAILY 07/26/16 [History] Oxycodone HCl/Acetaminophen [Percocet 5-325 mg Tablet] 1 - 2 each PO Q6H PRN # 10 tablet 07/30/16 [Rx] Lidocaine 4% CRM (LMX) [Lmx 4] 1 appl TP Q4H PRN 09/23/16 [History] Gabapentin [Neurontin] 100 mg PO TID #60 capsule 09/24/16 [Rx] Nitrofurantoin (BID) [Macrobid] 100 mg PO BID #6 capsule 09/24/16 [Rx] HYDROcodone/Acet 5/325 mg [[place] 5-325 mg] 1 tab PO Q8H PRN #6 tab 10/16/16 [Rx] Allergies Penicillins Allergy (Verified 11/18/16 20:53) Hives Sulfa (Sulfonamide Antibiotics) Allergy (Verified 11/18/16 20:53) Rash All Systems PM: A 10-system review of systems was performed and is negative for pertinent findings except as documented above in the HPI. - Constitutional Vitals: Temp Pulse Resp BP Pulse Ox 98.0 F 79 14 135/78 98 11/19/16 01:37 11/19/16 01:37 11/19/16 01:37 11/19/16 01:37 11/19/16 01:37 PHYSICAL EXAMINATION: GENERAL: Adult female, obese looking, lying in bed looking with no sign of distress, Alert, HEENT: NC/AT, EOMI, PERRLA, anicteric sclera, normal conjunctiva, supple, clear nares, moist mucous membranes, RESP: lungs are surprisingly clear to auscultation bilaterally, reduced AE at the bases, No crackles or wheeze CARDIO: Normal hearts sounds; S1 and 2, RRR with no murmurs, no JVD, no ankle edema GI: Soft, full, no tenderness, no organomegaly felt, normal bowel sounds heard MUSCULOSKELETAL: grossly normal movements bilaterally, red shins bilaterally suggestive of stasis dermatitis NEUROLOGIC: CN 2-12 intact grossly. No motor/sensory deficit appreciated, PSYCHIATRY: AAO x 3. Mood is fair, SKIN: no skin rash or ulcers noted Internal Med - H&P Results - Labs CBC & Chem 7: 11/18/16 21:40 11/18/16 21:40 - Diagnostic Studies Chest x-ray Status: image reviewed by me CT scan - chest Status: image reviewed by me
[2016-11-19] MEDS ORDERED: Naloxone 0.4 MG/ML INJ IVP PRN (02:02)
[2016-11-19] MEDS ORDERED: Dextrose Gel 15 GM PO PRN ×2 (02:03)
[2016-11-19] MEDS ORDERED: *HR* Dextrose 50 % in Water (Syg) 50 ML SYRINGE IVP PRN (02:03)
[2016-11-19] MEDS ORDERED: D5% in Water 1,000 ML IVC PRN (02:03)
[2016-11-19] MEDS ORDERED: *HR* HYDROcodone/Acet 5/325 mg TABLET PO PRN (02:04)
[2016-11-19] MEDS ORDERED: Albuterol 2.5 MG/3 ML NEBULIZER IH PRN (02:07)
[2016-11-19] MEDS ORDERED: Insulin DETEMIR 100 UNIT/ML X5UNITS SQ SCH (02:15)
[2016-11-19] MEDS ORDERED: Insulin LISPRO 300 UNITS/3 ML VIAL SQ SCH (02:15)
[2016-11-19] MEDS: Insulin LISPRO 300 UNITS/3 ML VIAL SQ SCH ×3 (02:42→11:33)
[2016-11-19 05:33] LABS: BUN/Creatinine Ratio 21 (6-26); Blood Urea Nitrogen 17 mg/dL (7-20); Calcium 9.6 mg/dL (8.6-10.8); Carbon Dioxide 35 mEq/L (19-29); Chloride 94 mEq/L (98-109); Glucose 313 mg/dL (70-99); Magnesium 1.4 mg/dL (1.6-2.6); Osmolality,Calculated 301 (280-300); Phosphorous 2.7 mg/dL (2.3-4.7); Potassium 3.9 mEq/L (3.5-4.5); Sodium 139 mEq/L (136-145); eGFR For African Americans > 60 (> 60); eGFR For Non-African Americans > 60 (> 60)
[2016-11-19] MEDS ORDERED: *HR* Rivaroxaban 10 MG TABLET PO SCH (09:00)
[2016-11-19] MEDS ORDERED: Isosorbide MONOnitrate (24 HR) 60 MG TAB.ER.24H PO SCH (09:00)
[2016-11-19] MEDS ORDERED: Valsartan 80 MG TABLET PO SCH (09:00)
[2016-11-19] MEDS ORDERED: Folic Acid 1 MG TABLET PO SCH (09:00)
[2016-11-19] MEDS: Gabapentin 100 MG CAPSULE PO SCH ×2 (09:21→15:29)
[2016-11-19 11:22] VITALS: BP 114/72
--- NOTE | 2016-11-19 13:25 | Discharge Summary ---
Date of Encounter: 11/19/16 Time of Encounter: 10:30 - Discharge Diagnosis (1) Dyspnea, unspecified Priority: Primary Status: Acute Comments: Patient reports sudden onset shortness of breath last night while watching TV at home. She did not have any chest pain, nausea or vomiting, diaphoresis. She is brought in by the emergency squad. She wears oxygen 2 L at home. She is also on 2 L here and maintaining her sats in the high 90s. There is no wheezing heard in any lung field. She denies a cough or fever. Her labs are stable. She is not having an acute exacerbation of COPD. She is breathing easily in the bed and is no distress, speaks in full sentences. Chest x-ray and CTA chest were negative for any acute processes or PE. Patient states that her left her for another woman recently. I believe this acute onset of dyspnea is most likely anxiety. She says she already takes Prozac and sees a counselor. She declines any further intervention. Qualifiers: Dyspnea type: shortness of breath Qualified Code(s): R06.02 - Shortness of breath (2) Hyperglycemia Priority: Secondary Status: Chronic Comments: Patient states that her blood sugar is well controlled at home and normally in the 200s. This morning her Accu-Chek was 313, which is down from admission. Her A1c is 10.3. She said that she would like to see the tobacco prevention health educator and she will discuss that with Dr. Hanson her family physician. She says that she does take her insulin exactly as prescribed and she also follows the ADA diet. Patient will follow-up with Dr. Hanson outpatient. (3) Diabetes Priority: Secondary Status: Chronic Comments: A1c is 10.3. Patient is nonadherent to diet or exercise regimen. 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 Continue home medications. (5) COPD (chronic obstructive pulmonary disease) Priority: Secondary Status: Chronic Comments: Chronic. No acute exacerbation at this time. Lungs are clear. Patient normally wears oxygen at home at 2 L via nasal cannula. She is not requiring additional oxygen here. Sats are in the high 90s on 2 L. Continue home medications. Qualifiers: COPD type: unspecified COPD Qualified Code(s): J44.9 - Chronic obstructive pulmonary disease, unspecified (6) Hypothyroidism Priority: Secondary Status: Chronic Comments: Chronic. Continue home medication Qualifiers: Hypothyroidism type: acquired Qualified Code(s): E03.9 - Hypothyroidism, unspecified (7) Depression Priority: Secondary Status: Chronic Comments: Chronic. Continue home medications Qualifiers: Depression Type: major depressive disorder Major depression recurrence: recurrent Active/Remission status: currently active Major depression episode severity: moderate Qualified Code(s): F33.1 - Major depressive disorder, recurrent, moderate (8) Obesity, morbid, BMI 40.0-49.9 Priority: Secondary Status: Chronic Comments: Chronic. Lifestyle changes. - Discharge Medications Home Medications: Albuterol Sulfate [Albuterol Inhaler] 2 puff IH Q4H PRN 04/12/16 [History] Atorvastatin Calcium [Lipitor] 20 mg PO HS 04/12/16 [History] Docusate Sodium [Dok] 100 mg PO DAILY 04/12/16 [History] Ferrous Sulfate 325 mg PO DAILY 04/12/16 [History] Folic Acid 1 mg PO DAILY 04/12/16 [History] Furosemide [Lasix] 80 mg PO DAILY 04/12/16 [History] Insulin ASPART [Novolog Flexpen] 18 - 22 unit SQ TIDWM 04/12/16 [History] Insulin Glargine,Hum.rec.anlog [Lantus Solostar] 35 units SQ BID 04/12/16 [ History] Isosorbide MONOnitrate (24 HR) [Imdur] 60 mg PO DAILY 04/12/16 [History] Levothyroxine [Synthroid] 175 mcg PO QAM 04/12/16 [History] Methotrexate [Otrexup] 10 mg PO WE 04/12/16 [History] Omeprazole [PriLOSEC] 40 mg PO DAILY 04/12/16 [History] Oxygen 2 l NS CONT 04/12/16 [History] Polyethylene Glycol 3350 [MiraLAX] 17 gm PO DAILY 04/12/16 [History] Potassium Chloride [Klor-Con Sprinkle] 20 meq PO BID 04/12/16 [History] Valsartan [Diovan] 40 mg PO DAILY 04/12/16 [History] Rivaroxaban [Xarelto] 20 mg PO DAILY 07/26/16 [History] Sertraline [Zoloft] 50 mg PO DAILY 07/26/16 [History] Valacyclovir HCl [Valacyclovir] 500 mg PO DAILY 07/26/16 [History] Oxycodone HCl/Acetaminophen [Percocet 5-325 mg Tablet] 1 - 2 each PO Q6H PRN # 10 tablet 07/30/16 [Rx] Lidocaine 4% CRM (LMX) [Lmx 4] 1 appl TP Q4H PRN 09/23/16 [History] Gabapentin [Neurontin] 100 mg PO TID #60 capsule 09/24/16 [Rx] Nitrofurantoin (BID) [Macrobid] 100 mg PO BID #6 capsule 09/24/16 [Rx] HYDROcodone/Acet 5/325 mg [[place] 5-325 mg] 1 tab PO Q8H PRN #6 tab 10/16/16 [Rx] Albuterol Neb [Proventil Neb] 2.5 mg IH [id number] PRN #0 inhsol 11/19/16 [Rx] Allergies/Adverse Reactions: Allergies Penicillins Allergy (Verified 11/18/16 20:53) Hives Sulfa (Sulfonamide Antibiotics) Allergy (Verified 11/18/16 20:53) Rash Date of admission: 11/19/16 01:01 Primary care physician: Tawanda Storm Jr, MD Discharging clinician: Trudy Arriaga Anticipated date of discharge: 11/19/16 - Patient Status Disposition: Home, Self-Care Functional capacity at discharge: independent ambulation Overall status at discharge: patient is back to baseline - Discharge Instructions Follow Up With: Tawanda Storm Jr, MD [Primary Care Provider] - Additional Instructions: Please follow up with Dr. Storm in the next week to 10 days for a follow up visit. Discuss seeing the perioperative educator with him and discuss your medications and A1c Resume taking your normal home medications. - Diet and Activity Activity: resume usual activities as tolerated, wear oxygen at all times Diet: diabetic diet, low fat, low cholesterol Interval History: Patient was admitted to the emergency department yesterday for acute onset dyspnea while she was watching TV. There is no relation to exertion. She had no chest pain, nausea, vomiting, diaphoresis. She arrived at the emergency room by squad. She reports that her recently left her for another woman and she has been upset all day. She denies fever, chills, cough, sputum production, wheezing, worsening baseline dyspnea on exertion or increased oxygen requirements. She wears oxygen at home 2 L at all times. She is not requiring additional oxygen here. She is maintaining her sats in the high 90s with 2 L. Her lungs are clear and diminished, there is no wheezing, stridor, rhonchi. This morning again she denies chest pain. She has no leukocytosis and her labs are within normal limits. Her vital signs are also within normal limits and she is remained afebrile. Troponins were negative, BNP is negative, chest x-ray and CT chest were negative. A1c is 10.3, and her Accu-Cheks have been hyperglycemic as well. She says she normally maintains her blood sugar in the 200s. This morning it was 313, which is actually decreased from yesterday. She says that she is compliant with her medications and ADA diet. She said that she would like to see the tobacco prevention health educator and suggested that she talk to Dr. Enciso about it when she is there to see him next week. Patient is back to baseline and stable and appropriate for discharge. Hospital course: Ms. Barrios is a 61 year old female - Time Spent with Patient Total time spent providing and/or coordinating discharge services: Less than 30 minutes - Constitutional Vitals: Temp Pulse Resp BP Pulse Ox 97.7 F 80 18 114/72 94 11/19/16 11:05 11/19/16 11:05 11/19/16 11:05 11/19/16 11:05 11/19/16 11:05 General appearance: Present: A&O X 3, morbidly obese, pleasant, answers questions appropriately - Head Head exam: Present: normal inspection - Eye Eye exam: Present: normal appearance, conjuntiva pink - ENT ENT exam: Present: mucous membranes moist, normal exam, normal external ear exam - Neck Neck exam general surgery: Present: normal inspection. Absent: lymphadenopathy , tenderness - Respiratory Respiratory exam: Present: decreased breath sounds, CTAB. Absent: rales, respiratory distress, rhonchi, stridor, wheezes - Cardiovascular Cardiovascular exam: Present: RRR, +S1, +S2. Absent: diastolic murmur, systolic murmur - GI/Abdominal GI/Abdominal exam: Present: distended, soft. Absent: hepatomegaly, tenderness - Extremities Exam Extremities exam: Present: pedal edema, warm, radial pulses palpable and symetrical. Absent: tenderness
--- NOTE | 2016-11-20 12:35 | Electrocardiograph Report ---
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
[2016-11-23] MEDS ORDERED: *HR* Methotrexate 2.5 MG TABLET PO SCH (02:04)
== END 2016-11-19 16:00 | disposition home health service (06) ==
LOC: EMEROO 20:51 → 3ANU 20:51 → SUATTDRO 11-19 01:01 → 3ANU 11-19 01:13
PROVIDERS: ADMIT Internal Medicine; ATTEND Internal Medicine

== ENCOUNTER 2016-11-21 14:36 | Inpatient (IN) ==
--- NOTE | 2016-11-21 15:37 | Emergency Department Note ---
Disposition Clinical Impression: Acute exacerbation of chronic obstructive airways disease, Diabetes, Obesity, morbid, BMI 40.0-49.9, Abnormal EKG, UTI (urinary tract infection), Confusion, Frail elderly, Depression, Anxiety, Hypothyroid, Hypercarbia Disposition: Admitted As Inpatient Condition: Good Referrals: Tawanda Storm Jr, MD [Primary Care Provider] - Forms: ED Satisfaction Letter General Adult HPI - General Chief complaint: ED Shortness of Breath/Dyspnea Stated complaint: SOB Time Seen by Provider: 11/21/16 15:11 Source: patient Limitations: no limitations - History of Present Illness HPI Narrative: 61-year-old female reports emergency department with multiple complaints. The patient has a history of COPD and is complaining of shortness of breath. She has had a recent hospital admission for hyperglycemia and COPD. She was discharged home and usually requires 2 L of oxygen. She lives alone at home. The patient reports she does not remember things well. She has been very upset since her "left her" she has been anxious and depressed". There is no history of akash suicidality or homicidality or self-injurious behavior. The patient describes burning with urination. There is no history of upper abdominal pain vomiting or diarrhea. There is no history of difficulty moving her arms or legs independently no history of headache neck stiffness rash or fever. No rashes reported. There is no history of flank pain but she does have some generalized back pain. The patient does not describe specific anginal symptoms. When asked if she was recently admitted to the hospital., The patient reports she does not know. She is unable to give a clear history regarding recent events. Pain Scale: 0 - Related Data Home Medications Medication Instructions Recorded Confirmed Albuterol Sulfate [Albuterol 2 puff IH Q4H PRN 04/12/16 11/19/16 Inhaler] Atorvastatin Calcium [Lipitor] 20 mg PO HS 04/12/16 11/19/16 Docusate Sodium [Dok] 100 mg PO DAILY 04/12/16 11/19/16 Ferrous Sulfate 325 mg PO DAILY 04/12/16 11/19/16 Folic Acid 1 mg PO DAILY 04/12/16 11/19/16 Furosemide [Lasix] 80 mg PO DAILY 04/12/16 11/19/16 Insulin ASPART [Novolog Flexpen] 18 - 22 unit SQ TIDWM 04/12/16 11/19/16 Insulin Glargine,Hum.rec.anlog 35 units SQ BID 04/12/16 11/19/16 [Lantus Solostar] Isosorbide MONOnitrate (24 HR) 60 mg PO DAILY 04/12/16 11/19/16 [Imdur] Levothyroxine [Synthroid] 175 mcg PO QAM 04/12/16 11/19/16 Methotrexate [Otrexup] 10 mg PO WE 04/12/16 11/19/16 Omeprazole [PriLOSEC] 40 mg PO DAILY 04/12/16 11/19/16 Oxygen 2 l NS CONT 04/12/16 11/19/16 Polyethylene Glycol 3350 [MiraLAX] 17 gm PO DAILY 04/12/16 11/19/16 Potassium Chloride [Klor-Con 20 meq PO BID 04/12/16 11/19/16 Sprinkle] Valsartan [Diovan] 40 mg PO DAILY 04/12/16 11/19/16 Rivaroxaban [Xarelto] 20 mg PO DAILY 07/26/16 11/19/16 Sertraline [Zoloft] 50 mg PO DAILY 07/26/16 11/19/16 Valacyclovir HCl [Valacyclovir] 500 mg PO DAILY 07/26/16 11/19/16 Lidocaine 4% CRM (LMX) [Lmx 4] 1 appl TP Q4H PRN 09/23/16 11/19/16 Oxycodone HCl/Acetaminophen 1 - 2 tab PO Q6H PRN 11/19/16 11/19/16 [Percocet 5-325 mg Tablet] Previous Rx's Medication Instructions Recorded Gabapentin [Neurontin] 100 mg PO TID #60 capsule 09/24/16 Nitrofurantoin (BID) [Macrobid] 100 mg PO BID #6 capsule 09/24/16 HYDROcodone/Acet 5/325 mg [[place] 1 tab PO Q8H PRN #6 tab 10/16/16 5-325 mg] Albuterol Neb [Proventil Neb] 2.5 mg IH Q6H PRN #30 inhsol 11/19/16 Albuterol Neb [Proventil Neb] 2.5 mg IH [id number] PRN #0 inhsol 11/19/16 Lidocaine HCl [Lidocaine HCl 5 ml MM TID #200 solution 11/20/16 Viscous] OxyCODONE/APAP 5/325 [Percocet 1 each PO Q6HR PRN #20 tablet 11/20/16 5/325 MG] Valacyclovir HCl [Valtrex] 1,000 mg PO DAILY #5 tab 11/20/16 Allergies Allergy/AdvReac Type Severity Reaction Status Date / Time Penicillins Allergy Hives Verified 11/18/16 20:53 Sulfa (Sulfonamide Allergy Rash Verified 11/18/16 20:53 Antibiotics) All systems ED: reviewed and negative except as stated. Past Medical History - Past Medical History Medical history: Reports: CHF, COPD, DVT, diabetes, hyperlipidemia, hypertension , thyroid disease, other Surgical history: Reports: cholecystectomy Psychiatric history: Reports: anxiety, depression FAMILY [employer]IST history: Reports: other - Social History Smoking Status: Never smoker Smokeless Tobacco Status: No Alcohol use: Reports: none Drug use: Reports: none Physical Exam - General Limitations: no limitations General appearance: alert, anxious (My entry to the room, the patient was sobbing and weeping and appeared to be very anxious. She was consolable and did follow commands well. She was sitting at the bedside and able to hold her balance.) - Head Head exam: atraumatic, normocephalic, normal inspection - Eye Eye exam: Present: normal appearance, PERRL, EOMI. Absent: conjunctival injection, miosis, mydriasis - ENT ENT exam: normal exam, normal oropharynx, mucous membranes moist, TM's normal bilaterally, normal external ear exam - Neck Neck exam: Present: normal inspection, full ROM, trachea midline. Absent: tenderness - Chest Chest inspection: Present: normal inspection, symmetric chest wall rise. Absent : tenderness - Respiratory Respiratory exam: Present: prolonged expiratory phase. Absent: normal lung sounds bilaterally, respiratory distress, wheezes, accessory muscle use - Cardiovascular Cardiovascular exam: Present: regular rate, normal rhythm, normal heart sounds - Abdominal Exam Abdominal exam: Present: soft, Non-Tender, normal bowel sounds. Absent: tenderness, distention, guarding, rebound, rigidity, trauma, Welch's sign, Rovsing's sign, tenderness at McBurney's Point, ascites, pulsatile mass - Extremities Exam Extremities exam: Present: normal inspection, full ROM, normal capillary refill , pedal edema, other (Chronic venous stasis changes in lower extremities bilaterally.). Absent: tenderness, joint swelling, calf tenderness - Expanded Lower Extremity Exam Hip/Pelvis exam: Present: full ROM. Absent: tenderness Upper leg exam: Present: full ROM. Absent: tenderness Knee exam: Present: full ROM. Absent: tenderness Lower leg exam: Present: full ROM. Absent: tenderness, Homans' sign Foot/toe exam: Present: full ROM. Absent: tenderness Neurovascular/Tendon exam: Present: normal capillary refill. Absent: motor deficit, sensory deficit, tendon deficit, extremity cold to touch, pallor - Back Exam Back exam: Present: normal inspection, full ROM. Absent: tenderness, CVA tenderness (R), CVA tenderness (L), vertebral tenderness - Neurological Exam Neurological exam: Present: alert, oriented X3, CN II-XII intact, reflexes normal. Absent: motor sensory deficit - Psychiatric Psychiatric exam: Present: normal affect, normal mood - Skin Skin exam: Present: warm, dry, intact, normal color. Absent: rash, cyanosis, diaphoresis, erythema, pallor, mottled Course Vital Signs Temperature 98.5 F 11/21/16 14:42 Pulse Rate 86 11/21/16 14:42 Respiratory Rate 22 11/21/16 14:42 Blood Pressure 170/119 11/21/16 14:42 O2 Sat by Pulse Oximetry 87 11/21/16 14:42 Temperature 98.5 F 11/21/16 14:42 Pulse Rate 71 11/21/16 17:15 Respiratory Rate 18 11/21/16 17:15 Blood Pressure 139/86 11/21/16 17:15 O2 Sat by Pulse Oximetry 97 11/21/16 17:15 Oxygen Delivery Oxygen Delivery Nasal Cannula Medical Decision Making - [facility] Narrative Medical decision making narrative: The patient is elderly, lives alone at home, she is obviously confused, she is experiencing significant anxiety and depression due to a recent separation from her . Based on the patient's elderly status, notable confusion, significant anxiety and depressive features, limited social support, multiple testing abnormalities including changes suggestive of UTI, hypothyroidism, and COPD exacerbation with hypercarbia, I thought it would be appropriate to admit the patient to the hospital further evaluation. IV fluid was given, Cipro Floxin was ordered, lactic acid pending. I discussed the case with the hospitalist on-call. - Lab Data Result diagrams: 11/21/16 15:46 11/21/16 15:46 Lab Results 11/21/16 11/21/16 11/21/16 Range/Units 15:46 15:46 15:46 WBC 7.7 (4.3-11.1) K/mcL RBC 4.05 (3.82-4.97) M/mcL Hgb 11.5 (11.5-15.4) g/dL Hct 37.3 (35.3-44.9) % MCV 92.1 (83.0-100.0) fL MCH 28.4 (28.0-33.3) pg MCHC 30.8 L (31.6-35.5) g/dL RDW 14.0 (11.5-14.5) % Plt Count 224 (140-400) K/mcL MPV 10.1 (9.4-12.4) fL Immature Gran % 1.0 (0-4) % Seg Neutrophils % 82.9 % Lymphocytes % 9.9 % Monocytes % 4.4 % Eosinophils % 1.4 % Basophils % 0.4 % Neutrophils # 6.4 (1.6-8.9) K/mcL Lymphocytes # 0.8 (0.6-4.6) K/mcL Monocytes # 0.3 (0.0-1.3) K/mcL Eosinophils # 0.1 (0.0-0.6) K/mcL Basophils # 0.0 (0.0-0.2) K/mcL PT 11.2 (9.4-12.1) Seconds INR 1.0 APTT 27.3 (26.0-36.0) Seconds Sodium 139 (136-145) mEq/L Potassium 4.1 (3.5-4.5) mEq/L Chloride 90 L (98-109) mEq/L Carbon Dioxide 40 H* (19-29) mEq/L BUN 21 H (7-20) mg/dL Creatinine 0.85 (0.57-1.11) mg/dL Est GFR ( Amer) > 60 (> 60) Est GFR (Non-Af Amer) > 60 (> 60) BUN/Creatinine Ratio 25 (6-26) Glucose 324 H (70-99) mg/dL Calculated Osmolality 304 H (280-300) Calcium 9.7 (8.6-10.8) mg/dL Total Bilirubin 0.5 (0.2-1.2) mg/dL Direct Bilirubin 0.2 (0.0-0.5) mg/dL Indirect Bilirubin 0.3 (0.0-1.2) mg/dL AST 11 (5-34) Units/L ALT 11 (0-55) Units/L Alkaline Phosphatase 121 (38-126) Units/L Troponin I (0-0.03) ng/mL B-Natriuretic Peptide (0-100) pg/mL Serum Total Protein 6.7 (6.0-8.3) g/dL Albumin 3.2 L (3.5-5.0) g/dL Globulin 3.5 (2.4-3.5) g/dL Albumin/Globulin Ratio 0.9 L (1.1-2.2) Lipase 12 (8-78) Units/L TSH 36.924 H (0.350-4.840) mcIU/mL Urine Color (Yellow) Urine Clarity (Clear) Urine pH (5.0-8.0) pH Units Ur Specific [place] (1.010-1.025) Urine Protein (Neg-Trace) mg/dL Urine Glucose (UA) (Normal) mg/dL Urine Ketones (Negative) mg/dL Urine Blood (Negative) Urine Nitrite (Negative) Urine Bilirubin (Negative) Urine Urobilinogen (Normal) mg/dL Ur Leukocyte Esterase (Negative) Urine Microscopic RBC (0-3) per hpf Urine Microscopic WBC (0-3) per hpf Ur Squamous Epith Cells (None-Few) per lpf Ur Transition Epith Cell (None-Few) per hpf Uric Acid Crystals Urine Bacteria (None-Few) per hpf Hyaline Casts (None-Few) per lpf Urine Yeast (None Seen) per hpf Ur Culture Indicated? (NO) Salicylates < 5.0 L (15-30) mg/dL Urine Opiates Screen (Ademeo=948) ng/mL Acetaminophen 2.0 L (10-30) mcg/mL Ur Barbiturates Screen (Lhxgmr=232) ng/mL Ur Phencyclidine Scrn (Cutoff=25) ng/mL Ur Amphetamines Screen (Bbowkr=9060) ng/mL U Benzodiazepines Scrn (Wrhvoo=169) ng/mL Urine Cocaine Screen (Cutoff= 300) ng/mL U Marijuana (THC) Screen (Cutoff = 50) ng/mL 05/15/17 05/15/17 05/15/17 Range/Units 15:46 15:46 16:34 WBC (4.3-11.1) K/mcL RBC (3.82-4.97) M/mcL Hgb (11.5-15.4) g/dL Hct (35.3-44.9) % MCV (83.0-100.0) fL MCH (28.0-33.3) pg MCHC (31.6-35.5) g/dL RDW (11.5-14.5) % Plt Count (140-400) K/mcL MPV (9.4-12.4) fL Immature Gran % (0-4) % Seg Neutrophils % % Lymphocytes % % Monocytes % % Eosinophils % % Basophils % % Neutrophils # (1.6-8.9) K/mcL Lymphocytes # (0.6-4.6) K/mcL Monocytes # (0.0-1.3) K/mcL Eosinophils # (0.0-0.6) K/mcL Basophils # (0.0-0.2) K/mcL PT (9.4-12.1) Seconds INR APTT (26.0-36.0) Seconds Sodium (136-145) mEq/L Potassium (3.5-4.5) mEq/L Chloride (98-109) mEq/L Carbon Dioxide (19-29) mEq/L BUN (7-20) mg/dL Creatinine (0.57-1.11) mg/dL Est GFR ( Amer) (> 60) Est GFR (Non-Af Amer) (> 60) BUN/Creatinine Ratio (6-26) Glucose (70-99) mg/dL Calculated Osmolality (280-300) Calcium (8.6-10.8) mg/dL Total Bilirubin (0.2-1.2) mg/dL Direct Bilirubin (0.0-0.5) mg/dL Indirect Bilirubin (0.0-1.2) mg/dL AST (5-34) Units/L ALT (0-55) Units/L Alkaline Phosphatase (38-126) Units/L Troponin I 0.00 (0-0.03) ng/mL B-Natriuretic Peptide 25 (0-100) pg/mL Serum Total Protein (6.0-8.3) g/dL Albumin (3.5-5.0) g/dL Globulin (2.4-3.5) g/dL Albumin/Globulin Ratio (1.1-2.2) Lipase (8-78) Units/L TSH (0.350-4.840) mcIU/mL Urine Color Yellow (Yellow) Urine Clarity Cloudy A (Clear) Urine pH 7.0 (5.0-8.0) pH Units Ur Specific [place] 1.027 H (1.010-1.025) Urine Protein 30 H (Neg-Trace) mg/dL Urine Glucose (UA) >=1000 H (Normal) mg/dL Urine Ketones Negative (Negative) mg/dL Urine Blood Small H (Negative) Urine Nitrite Negative (Negative) Urine Bilirubin Negative (Negative) Urine Urobilinogen Normal (Normal) mg/dL Ur Leukocyte Esterase Moderate H (Negative) Urine Microscopic RBC 0-3 (0-3) per hpf Urine Microscopic WBC TNTC H (0-3) per hpf Ur Squamous Epith Cells Many H (None-Few) per lpf Ur Transition Epith Cell Few (None-Few) per hpf Uric Acid Crystals Present Urine Bacteria Moderate H (None-Few) per hpf Hyaline Casts Moderate H (None-Few) per lpf Urine Yeast Few H (None Seen) per hpf Ur Culture Indicated? YES A (NO) Salicylates (15-30) mg/dL Urine Opiates Screen (Agzapq=132) ng/mL Acetaminophen (10-30) mcg/mL Ur Barbiturates Screen (Hmahos=975) ng/mL Ur Phencyclidine Scrn (Cutoff=25) ng/mL Ur Amphetamines Screen (Ftlwhr=0717) ng/mL U Benzodiazepines Scrn (Dgnwit=311) ng/mL Urine Cocaine Screen (Cutoff= 300) ng/mL U Marijuana (THC) Screen (Cutoff = 50) ng/mL 11/21/16 Range/Units 16:34 WBC (4.3-11.1) K/mcL RBC (3.82-4.97) M/mcL Hgb (11.5-15.4) g/dL Hct (35.3-44.9) % MCV (83.0-100.0) fL MCH (28.0-33.3) pg MCHC (31.6-35.5) g/dL RDW (11.5-14.5) % Plt Count (140-400) K/mcL MPV (9.4-12.4) fL Immature Gran % (0-4) % Seg Neutrophils % % Lymphocytes % % Monocytes % % Eosinophils % % Basophils % % Neutrophils # (1.6-8.9) K/mcL Lymphocytes # (0.6-4.6) K/mcL Monocytes # (0.0-1.3) K/mcL Eosinophils # (0.0-0.6) K/mcL Basophils # (0.0-0.2) K/mcL PT (9.4-12.1) Seconds INR APTT (26.0-36.0) Seconds Sodium (136-145) mEq/L Potassium (3.5-4.5) mEq/L Chloride (98-109) mEq/L Carbon Dioxide (19-29) mEq/L BUN (7-20) mg/dL Creatinine (0.57-1.11) mg/dL Est GFR ( Amer) (> 60) Est GFR (Non-Af Amer) (> 60) BUN/Creatinine Ratio (6-26) Glucose (70-99) mg/dL Calculated Osmolality (280-300) Calcium (8.6-10.8) mg/dL Total Bilirubin (0.2-1.2) mg/dL Direct Bilirubin (0.0-0.5) mg/dL Indirect Bilirubin (0.0-1.2) mg/dL AST (5-34) Units/L ALT (0-55) Units/L Alkaline Phosphatase (38-126) Units/L Troponin I (0-0.03) ng/mL B-Natriuretic Peptide (0-100) pg/mL Serum Total Protein (6.0-8.3) g/dL Albumin (3.5-5.0) g/dL Globulin (2.4-3.5) g/dL Albumin/Globulin Ratio (1.1-2.2) Lipase (8-78) Units/L TSH (0.350-4.840) mcIU/mL Urine Color (Yellow) Urine Clarity (Clear) Urine pH (5.0-8.0) pH Units Ur Specific [place] (1.010-1.025) Urine Protein (Neg-Trace) mg/dL Urine Glucose (UA) (Normal) mg/dL Urine Ketones (Negative) mg/dL Urine Blood (Negative) Urine Nitrite (Negative) Urine Bilirubin (Negative) Urine Urobilinogen (Normal) mg/dL Ur Leukocyte Esterase (Negative) Urine Microscopic RBC (0-3) per hpf Urine Microscopic WBC (0-3) per hpf Ur Squamous Epith Cells (None-Few) per lpf Ur Transition Epith Cell (None-Few) per hpf Uric Acid Crystals Urine Bacteria (None-Few) per hpf Hyaline Casts (None-Few) per lpf Urine Yeast (None Seen) per hpf Ur Culture Indicated? (NO) Salicylates (15-30) mg/dL Urine Opiates Screen Positive H (Hjksqw=271) ng/mL Acetaminophen (10-30) mcg/mL Ur Barbiturates Screen Negative (Wzilsc=624) ng/mL Ur Phencyclidine Scrn Negative (Cutoff=25) ng/mL Ur Amphetamines Screen Negative (Xsuytf=5715) ng/mL U Benzodiazepines Scrn Negative (Xybgor=998) ng/mL Urine Cocaine Screen Negative (Cutoff= 300) ng/mL U Marijuana (THC) Screen Negative (Cutoff = 50) ng/mL
[2016-11-21 16:11] LABS: Basophils % 0.4 %; Eosinophils # 0.1 K/mcL (0.0-0.6); Eosinophils % 1.4 %; Hematocrit 37.3 % (35.3-44.9); Hemoglobin 11.5 g/dL (11.5-15.4); Lymphocytes # 0.8 K/mcL (0.6-4.6); Lymphocytes % 9.9 %; Mean Corpuscular HGB Conc 30.8 g/dL (31.6-35.5); Mean Corpuscular Hemoglobin 28.4 pg (28.0-33.3); Mean Corpuscular Volume 92.1 fL (83.0-100.0); Mean Platelet Volume 10.1 fL (9.4-12.4); Monocytes # 0.3 K/mcL (0.0-1.3); Monocytes % 4.4 %; Neutrophils # 6.4 K/mcL (1.6-8.9); Platelet Count 224 K/mcL (140-400); Red Blood Count 4.05 M/mcL (3.82-4.97); Segmented Neutrophils % 82.9 %
[2016-11-21 16:18] LABS: Prothrombin Time 11.2 Seconds (9.4-12.1)
[2016-11-21 16:20] LABS: Activated Partial Thrombo Time 27.3 Seconds (26.0-36.0)
[2016-11-21 16:29] LABS: Alanine Aminotransferase 11 Units/L (0-55); Albumin 3.2 g/dL (3.5-5.0); Albumin/Globulin Ratio 0.9 (1.1-2.2); Alkaline Phosphatase 121 Units/L (38-126); Aspartate Amino Transferase 11 Units/L (5-34); BUN/Creatinine Ratio 25 (6-26); Bilirubin,Direct 0.2 mg/dL (0.0-0.5); Bilirubin,Indirect 0.3 mg/dL (0.0-1.2); Bilirubin,Total 0.5 mg/dL (0.2-1.2); Blood Urea Nitrogen 21 mg/dL (7-20); Calcium 9.7 mg/dL (8.6-10.8); Chloride 90 mEq/L (98-109); Globulin 3.5 g/dL (2.4-3.5); Glucose 324 mg/dL (70-99); Lipase 12 Units/L (8-78); Osmolality,Calculated 304 (280-300); Potassium 4.1 mEq/L (3.5-4.5); Sodium 139 mEq/L (136-145); Total Protein 6.7 g/dL (6.0-8.3); eGFR For African Americans > 60 (> 60); eGFR For Non-African Americans > 60 (> 60)
[2016-11-21 16:31] LABS: Carbon Dioxide 40 mEq/L (19-29); Salicylate < 5.0 mg/dL (15-30)
[2016-11-21] MEDS ORDERED: *HR* LORazepam 2 MG/ML VIAL IVP ONE (16:34)
[2016-11-21 16:47] LABS: Bilirubin,Urine Negative (Negative); Blood,Urine Small (Negative); Clarity,Urine Cloudy (Clear); Color,Urine Yellow (Yellow); Glucose,Urine (UA) >=1000 mg/dL (Normal); Ketones,Urine Negative (Negative); Leukocyte Esterase,Urine Moderate (Negative); Nitrite,Urine Negative (Negative); Protein,Urine 30 mg/dL (Neg-Trace); Specific Gravity,Urine 1.027 (1.010-1.025); Urobilinogen,Urine Normal (Normal)
[2016-11-21 16:49] LABS: Bacteria,Urine Moderate per hpf (None-Few); Hyaline Casts,Urine Moderate per lpf (None-Few); RBC,Urine 0-3 per hpf (0-3); Squamous Epithelial Cell,Urine Many per lpf (None-Few); WBC,Urine TNTC per hpf (0-3)
[2016-11-21 16:50] LABS: Amphetamine Screen,Urine Negative ng/mL (Cutoff=1000); Barbiturate Screen,Urine Negative ng/mL (Cutoff=200); Benzodiazepines Screen,Urine Negative ng/mL (Cutoff=200); Cannabinoid Screen,Urine Negative ng/mL (Cutoff = 50); Cocaine Screen,Urine Negative ng/mL (Cutoff= 300); Opiate Screen,Urine Positive ng/mL (Cutoff=300); Phencyclidine Screen,Urine Negative ng/mL (Cutoff=25)
[2016-11-21 16:54] LABS: Thyroid Stimulating Hormone 36.924 mcIU/mL (0.350-4.840)
[2016-11-21 17:02] LABS: Transitional Epi Cells,Urine Few per hpf (None-Few)
[2016-11-21 17:03] LABS: Uric Acid Crystals,Urine Present; Yeast,Urine Few per hpf (None Seen)
[2016-11-21] MEDS ORDERED: 0.9 % Sodium Chloride 1,000 ML IVC ONE (17:36)
[2016-11-21] MEDS ORDERED: Albuterol 2.5 MG/3 ML NEBULIZER IH SCH (19:00)
--- NOTE | 2016-11-21 19:03 | Internal Med History&Physical ---
Date of Encounter: 11/21/16 Time of Encounter: 19:01 Assessment and Plan (1) Urinary tract bacterial infections Current visit: Yes Status: Acute Start the patient on levofloxacin 750 mg IV daily. Check urine culture. No signs of sepsis. Lactic acid is one. (2) Hypothyroidism Current visit: Yes Status: Acute Patient TSH is 39. She is on levothyroxine 175 g daily. Increasingly with her outfit to 200 g daily. Outpatient follow-up of TSH and 6 to 8 weeks. Qualifiers: Qualified Code(s): E03.9 - Hypothyroidism, unspecified (3) COPD (chronic obstructive pulmonary disease) Current visit: No Status: Chronic I do not appreciate active wheezing on my exam. Continue nebulizer treatments. I do not think patient needs steroids. Continue her home Lasix therapy. Qualifiers: Qualified Code(s): J44.9 - Chronic obstructive pulmonary disease, unspecified Internal Medicine - H&P: HPI History of present illness: Ms. Barrios is a 61 year old female presented a show the hospital after COPD exacerbation presents to the emergency room today with amazing complaining of abdominal pain and weakness. Patient describes lower abdominal pain. She has been having generalized weakness and lethargy. No focal weakness. She has burning urination. No reported fever. She denies any prior history of kidney stones. Workup and emergency room shows evidence of UTI. She also mentions that she is slightly more short of breath than usual she has sputum production yellowish color she is on 2 L of oxygen at home 30/01 for COPD. Mentions that she is compliant with her medications. CT head in ER shows no intracranial bleed Past Med Surg Social Fam HX - Past Medical History Medical history: CHF, COPD, DVT, diabetes, hyperlipidemia, hypertension, thyroid disease, other Psychiatric history: anxiety, depression - Past Surgical History Surgical History: cholecystectomy - Social History Smoking Status: Never smoker Smokeless Tobacco Status: No Alcohol use: none Drug use: none - Family History Mother Living Status: Hx Family Cardiac Disorders: Yes (chf) Hx Family Endocrine Disorder: Yes Father Living Status: Hx Family Cardiac Disorders: Yes (ND) Hx Family Endocrine Disorder: Yes Internal Medicine - H&P: Meds Albuterol Sulfate [Albuterol Inhaler] 2 puff IH Q4H PRN 04/12/16 [History] Atorvastatin Calcium [Lipitor] 20 mg PO HS 04/12/16 [History] Docusate Sodium [Dok] 100 mg PO DAILY 04/12/16 [History] Ferrous Sulfate 325 mg PO DAILY 04/12/16 [History] Folic Acid 1 mg PO DAILY 04/12/16 [History] Furosemide [Lasix] 80 mg PO DAILY 04/12/16 [History] Insulin ASPART [Novolog Flexpen] 18 - 22 unit SQ TIDWM 04/12/16 [History] Insulin Glargine,Hum.rec.anlog [Lantus Solostar] 35 units SQ BID 04/12/16 [ History] Isosorbide MONOnitrate (24 HR) [Imdur] 60 mg PO DAILY 04/12/16 [History] Levothyroxine [Synthroid] 175 mcg PO QAM 04/12/16 [History] Methotrexate [Otrexup] 10 mg PO WE 04/12/16 [History] Omeprazole [PriLOSEC] 40 mg PO DAILY 04/12/16 [History] Oxygen 2 l NS CONT 04/12/16 [History] Polyethylene Glycol 3350 [MiraLAX] 17 gm PO DAILY 04/12/16 [History] Potassium Chloride [Klor-Con Sprinkle] 20 meq PO BID 04/12/16 [History] Valsartan [Diovan] 40 mg PO DAILY 04/12/16 [History] Rivaroxaban [Xarelto] 20 mg PO DAILY 07/26/16 [History] Sertraline [Zoloft] 50 mg PO DAILY 07/26/16 [History] Valacyclovir HCl [Valacyclovir] 500 mg PO DAILY 07/26/16 [History] Lidocaine 4% CRM (LMX) [Lmx 4] 1 appl TP Q4H PRN 09/23/16 [History] Gabapentin [Neurontin] 100 mg PO TID #60 capsule 09/24/16 [Rx] Nitrofurantoin (BID) [Macrobid] 100 mg PO BID #6 capsule 09/24/16 [Rx] HYDROcodone/Acet 5/325 mg [[place] 5-325 mg] 1 tab PO Q8H PRN #6 tab 10/16/16 [Rx] Albuterol Neb [Proventil Neb] 2.5 mg IH Q6H PRN #30 inhsol 11/19/16 [Rx] Albuterol Neb [Proventil Neb] 2.5 mg IH [id number] PRN #0 inhsol 11/19/16 [Rx] Oxycodone HCl/Acetaminophen [Percocet 5-325 mg Tablet] 1 - 2 tab PO Q6H PRN [History] Lidocaine HCl [Lidocaine HCl Viscous] 5 ml MM TID #200 solution 11/20/16 [Rx] OxyCODONE/APAP 5/325 [Percocet 5/325 MG] 1 each PO Q6HR PRN #20 tablet 11/20/16 [Rx] Valacyclovir HCl [Valtrex] 1,000 mg PO DAILY #5 tab 11/20/16 [Rx] Allergies Penicillins Allergy (Verified 11/18/16 20:53) Hives Sulfa (Sulfonamide Antibiotics) Allergy (Verified 11/18/16 20:53) Rash All Systems PM: A 10-system review of systems was performed and is negative for pertinent findings except as documented above in the HPI. Review of systems: 10 point review of systems is negative except for HPI. - Constitutional Vitals: Temp Pulse Resp BP Pulse Ox 98.5 F 84 18 106/95 98 11/21/16 14:42 11/21/16 17:47 11/21/16 17:47 11/21/16 17:47 11/21/16 17:47 Exam: Gen.: patient is alert oriented times 3 not in distress. Cardiac: normal S1 S2 no additional sounds or murmurs chest: fair air entry. no active wheezing. crackles in both bases abdomen: soft nontender nondistended normal bowel sounds neuro: no focal deficit Internal Med - H&P Results - Labs CBC & Chem 7: 11/21/16 15:46 11/21/16 15:46
[2016-11-21 19:32] LABS: C-Reactive Protein 24 mg/L (Less than 5)
[2016-11-21 20:40] LABS: ABG HCO3 50.3 mEQ/L (21-27); ABG Oxygen Saturation 98 % (95-98); ABG PH 7.38 pH Units (7.32-7.45); ABG PO2 112 mmHg (85-104); ABG TCO2 52.9 mEq/L (20-26)
[2016-11-21 20:41] LABS: Blood Gas FiO2 28 %; Blood Gas Liter Flow 2 L/MIN
[2016-11-21 20:42] LABS: ABG PCO2 85 mmHg (35-45)
[2016-11-21] MEDS: Gabapentin 100 MG CAPSULE PO SCH (21:38)
[2016-11-21] MEDS: predniSONE 20 MG TABLET PO SCH (21:38)
[2016-11-21] MEDS: Albuterol 2.5 MG/3 ML NEBULIZER IH SCH (22:50)
[2016-11-22] MEDS: Albuterol 2.5 MG/3 ML NEBULIZER IH SCH ×4 (04:14→21:04)
[2016-11-22 04:47] LABS: Basophils % 0.5 %; Eosinophils % 0.4 %; Hematocrit 38.2 % (35.3-44.9); Hemoglobin 12.1 g/dL (11.5-15.4); Immature Granulocytes % 1.6 % (0-4); Lymphocytes # 0.4 K/mcL (0.6-4.6); Lymphocytes % 4.6 %; Mean Corpuscular HGB Conc 31.7 g/dL (31.6-35.5); Mean Corpuscular Hemoglobin 28.9 pg (28.0-33.3); Mean Corpuscular Volume 91.2 fL (83.0-100.0); Mean Platelet Volume 10.1 fL (9.4-12.4); Monocytes # 0.1 K/mcL (0.0-1.3); Monocytes % 1.1 %; Neutrophils # 7.7 K/mcL (1.6-8.9); Platelet Count 218 K/mcL (140-400); Red Blood Count 4.19 M/mcL (3.82-4.97); Red Cell Distribution Width 13.9 % (11.5-14.5); Segmented Neutrophils % 91.8 %
[2016-11-22 05:01] LABS: BUN/Creatinine Ratio 22 (6-26); Blood Urea Nitrogen 19 mg/dL (7-20); C-Reactive Protein 25 mg/L (Less than 5); Calcium 9.4 mg/dL (8.6-10.8); Carbon Dioxide 35 mEq/L (19-29); Chloride 92 mEq/L (98-109); Glucose 446 mg/dL (70-99); Osmolality,Calculated 312 (280-300); Sodium 140 mEq/L (136-145); eGFR For African Americans > 60 (> 60); eGFR For Non-African Americans > 60 (> 60)
[2016-11-22 05:11] LABS: Potassium 5.1 mEq/L (3.5-4.5)
--- NOTE | 2016-11-22 06:39 | Electrocardiograph Report ---
[address] [place], [place] [address] Test Date: 2016-11-21 Pat Name: Meagan Barrios Department: 102 Room: 3A12 Gender: F Tapeman: Vineet : 1955 Requested By: Ricardo Underwood Order Number: [id number] Reading MD: Jim Mills MD Measurements Intervals [place] Rate: 69 P: -65 MT: 294 QRS: -49 QRSD: 130 T: 28 QT: 405 QTc: 424 Interpretive Statements SINUS RHYTHM RIGHT BUNDLE BRANCH BLOCK LEFT ANTERIOR FASCICULAR BLOCK MODERATE VOLTAGE CRITERIA FOR LVH Electronically Signed On 11-22-2016 6:38:22 EDT by Jim Mills MD
[2016-11-22] MEDS ORDERED: Dextrose Gel 15 GM PO PRN ×2 (08:11)
[2016-11-22] MEDS ORDERED: *HR* Dextrose 50 % in Water (Syg) 50 ML SYRINGE IVP PRN (08:11)
[2016-11-22] MEDS ORDERED: D5% in Water 1,000 ML IVC PRN (08:11)
[2016-11-22] MEDS ORDERED: Insulin DETEMIR 100 UNIT/ML X5UNITS SQ SCH (09:00)
[2016-11-22] MEDS: Levofloxacin 750 MG/150 ML 750 MG/150 ML BAG IVPB SCH (09:36)
[2016-11-22] MEDS: Isosorbide MONOnitrate (24 HR) 60 MG TAB.ER.24H PO SCH (09:42)
[2016-11-22] MEDS: Furosemide 40 MG TABLET PO SCH (09:42)
[2016-11-22] MEDS: predniSONE 20 MG TABLET PO SCH (09:43)
[2016-11-22] MEDS: Gabapentin 100 MG CAPSULE PO SCH ×3 (09:43→21:22)
[2016-11-22] MEDS: Insulin LISPRO 300 UNITS/3 ML VIAL SQ SCH ×5 (09:48→19:47)
[2016-11-22] MEDS ORDERED: Insulin LISPRO 300 UNITS/3 ML VIAL SQ SCH ×4 (11:30→21:00)
[2016-11-22 11:34] LABS: ABG HCO3 45.9 mEQ/L (21-27); ABG Oxygen Saturation 86 % (95-98); ABG PCO2 66 mmHg (35-45); ABG PH 7.45 pH Units (7.32-7.45); ABG TCO2 47.9 mEq/L (20-26)
[2016-11-22 11:35] LABS: ABG PO2 49 mmHg (85-104)
[2016-11-22 11:36] LABS: Blood Gas FiO2 21 %
[2016-11-22] MEDS: valACYclovir 500 MG TABLET PO SCH (12:04)
[2016-11-22] MEDS ORDERED: Insulin Human Regular 10 UNIT in 0.9 % Sodium Chloride 10 ML IV ONE (13:31)
--- NOTE | 2016-11-22 13:42 | Internal Med Progress Note ---
Date of Encounter: 11/22/16 Time of Encounter: 11:00 - Assessment and plan (1) Acute and chronic respiratory failure with hypercapnia Current Visit: Yes Status: Acute Assessment and plan: Patient with hypercapnia. Continue O2 supplementation. Will evaluate for home BiPAP needs. Continue bronchodilator treatments. Due to her COPD (2) Hypercarbia Current Visit: Yes Status: Acute (3) Genital herpes in women Current Visit: Yes Status: Acute Assessment and plan: Resume valacyclovir (4) Diabetes Current Visit: Yes Status: Chronic Assessment and plan: Blood sugars are uncontrolled. Placed back on insulin regimen. Will monitor blood sugars and adjust insulin accordingly. Qualifiers: Diabetes mellitus type: type 2 Diabetes mellitus complication status: with hyperglycemia Diabetes mellitus group home insulin use: with group home use Qualified Code(s): E11.65 - Type 2 diabetes mellitus with hyperglycemia; Z79.4 - ocean transportation intermediary (current) use of insulin (5) COPD (chronic obstructive pulmonary disease) Current Visit: No Status: Chronic Assessment and plan: Treat with O2 supplementation and bronchodilator nebs. Patient does not appear to be bronchospastic at this time. Continue to monitor sats. Qualifiers: COPD type: emphysema Emphysema type: panlobular Qualified Code(s): J43.1 - Panlobular emphysema (6) Urinary tract bacterial infections Current Visit: Yes Status: Acute Assessment and plan: On levofloxacin. Urine culture in progress (7) Hypothyroidism Current Visit: Yes Status: Chronic Assessment and plan: Continue levothyroxine, Qualifiers: Hypothyroidism type: unspecified Qualified Code(s): E03.9 - Hypothyroidism , unspecified - Subjective Interval history: Patient is feeling better today. Is able to breathe better. Denies any new complaints at this time. Concerned about genital herpes flareup - Constitutional Vitals: Temp Pulse Resp BP Pulse Ox 97.6 F 99 16 115/74 96 11/22/16 11:27 11/22/16 11:27 11/22/16 11:27 11/22/16 11:27 11/22/16 11:27 General appearance: Present: cooperative, mild distress, A&O X 3, obese, answers questions appropriately - Respiratory Respiratory exam: Present: CTAB, prolonged expiratory phase. Absent: accessory muscle use, rales, rhonchi, wheezes - Cardiovascular Cardiovascular exam: Present: RRR, +S1, +S2. Absent: diastolic murmur, gallop, rubs, systolic murmur - GI/Abdominal GI/Abdominal exam: Present: normal bowel sounds, soft, no peritoneal signs. Absent: distended, tenderness - Extremities Exam Extremities exam: Present: warm, radial pulses palpable and symetrical. Absent : calf tenderness, cyanotic, pedal edema - Neurological Exam Neurological exam: Present: alert, oriented X3, no focal deficits. Absent: facial droop, speech deficit Internal Medicine: Result - Labs CBC & Chem 7: 11/22/16 04:26 11/22/16 04:26 Labs: Short CBC 11/22/16 Range/Units 04:26 WBC 8.3 (4.3-11.1) K/mcL Hgb 12.1 (11.5-15.4) g/dL Hct 38.2 (35.3-44.9) % Plt Count 218 (140-400) K/mcL Neutrophils # 7.7 (1.6-8.9) K/mcL BMP 11/22/16 04:26 Sodium 140 Potassium 5.1 H D Chloride 92 L Carbon Dioxide 35 H BUN 19 Creatinine 0.85 Glucose 446 H Calcium 9.4 - ABG Interpretation ABG results: ABG ABG pH 7.45 pH Units (7.32-7.45) 11/22/16 11:13 ABG pCO2 66 mmHg (35-45) H 11/22/16 11:13 ABG pO2 49 mmHg (85-104) L* 11/22/16 11:13 ABG O2 Saturation 86 % (95-98) L 11/22/16 11:13 PT/INR, D-dimer PT 11.2 Seconds (9.4-12.1) 11/21/16 15:46 Consult Discharge Plan - Plan Referrals: Tawanda Storm Jr, MD [Primary Care Provider] - 12/02/16 4:00 pm
[2016-11-22] MEDS ORDERED: Insulin LISPRO 300 UNITS/3 ML VIAL SQ ONE ×2 (15:53→16:00)
[2016-11-22] MEDS ORDERED: Insulin Human Regular 100 UNIT in 0.9 % Sodium Chloride 100 ML IVC SCH (17:15)
[2016-11-22] MEDS: *HR* Heparin 5,000 UNIT/ML VIAL SQ SCH (17:48)
[2016-11-23] MEDS: Albuterol 2.5 MG/3 ML NEBULIZER IH SCH ×4 (04:13→21:38)
[2016-11-23 05:57] LABS: Basophils % 0.2 %; Eosinophils % 0.3 %; Hematocrit 32.1 % (35.3-44.9); Immature Granulocytes % 0.9 % (0-4); Lymphocytes # 0.9 K/mcL (0.6-4.6); Lymphocytes % 9.8 %; Mean Corpuscular HGB Conc 31.8 g/dL (31.6-35.5); Mean Corpuscular Hemoglobin 28.8 pg (28.0-33.3); Mean Corpuscular Volume 90.7 fL (83.0-100.0); Mean Platelet Volume 10.2 fL (9.4-12.4); Monocytes # 0.5 K/mcL (0.0-1.3); Neutrophils # 7.8 K/mcL (1.6-8.9); Nucleated Red Blood Cells 0.2 /100 WBC (0); Platelet Count 213 K/mcL (140-400); Red Blood Count 3.54 M/mcL (3.82-4.97); Red Cell Distribution Width 14.3 % (11.5-14.5); Segmented Neutrophils % 83.8 %
[2016-11-23 06:09] LABS: BUN/Creatinine Ratio 29 (6-26); Blood Urea Nitrogen 28 mg/dL (7-20); Calcium 9.3 mg/dL (8.6-10.8); Carbon Dioxide 39 mEq/L (19-29); Chloride 93 mEq/L (98-109); Glucose 296 mg/dL (70-99); Osmolality,Calculated 306 (280-300); Sodium 140 mEq/L (136-145); eGFR For African Americans > 60 (> 60); eGFR For Non-African Americans 58 (> 60)
[2016-11-23 06:11] LABS: Potassium 3.7 mEq/L (3.5-4.5)
[2016-11-23 06:15] LABS: Hemoglobin 10.2 g/dL (11.5-15.4)
[2016-11-23] MEDS: *HR* Heparin 5,000 UNIT/ML VIAL SQ SCH (06:21)
[2016-11-23] MEDS: Insulin LISPRO 300 UNITS/3 ML VIAL SQ SCH ×5 (08:32→16:47)
[2016-11-23] MEDS: Isosorbide MONOnitrate (24 HR) 60 MG TAB.ER.24H PO SCH (08:35)
[2016-11-23] MEDS: Levofloxacin 750 MG/150 ML 750 MG/150 ML BAG IVPB SCH (08:35)
[2016-11-23] MEDS: valACYclovir 500 MG TABLET PO SCH (08:35)
[2016-11-23] MEDS: Gabapentin 100 MG CAPSULE PO SCH ×3 (08:35→20:24)
[2016-11-23] MEDS: predniSONE 20 MG TABLET PO SCH (08:36)
[2016-11-23] MEDS: Furosemide 40 MG TABLET PO SCH (08:36)
[2016-11-23] MEDS ORDERED: Insulin DETEMIR 100 UNIT/ML X5UNITS SQ SCH ×2 (09:00→21:00)
[2016-11-23] MEDS ORDERED: Insulin LISPRO 300 UNITS/3 ML VIAL SQ SCH ×2 (12:08→21:00)
[2016-11-23] MEDS ORDERED: Insulin DETEMIR 100 UNIT/ML X5UNITS SQ ONE (12:09)
--- NOTE | 2016-11-23 12:09 | Internal Med Progress Note ---
Date of Encounter: 11/23/16 Time of Encounter: 12:08 - Assessment and plan (1) Acute and chronic respiratory failure with hypercapnia Current Visit: Yes Status: Acute Assessment and plan: Chart review reveals patient's chronic carbon dioxide retainer with associated compensated metabolic alkalosis. Patient qualifies for home BiPAP. In the meantime continue treatment for COPD exacerbation. Continue BiPAP every time she is sleeping or taking a nap Consider discharge with BiPAP tomorrow. (2) Acute exacerbation of chronic obstructive airways disease Current Visit: Yes Status: Acute Assessment and plan: Clinical improvement Continue levofloxacin, continue DuoNeb, continue prednisone by mouth. (3) Diabetes Current Visit: Yes Status: Chronic Assessment and plan: Blood sugars are uncontrolled. Increase Levemir, increased prandial insulin, continue moderate dose sliding scale. Continue to monitor fingersticks before meals at bedtime. Continue diabetic diet Qualifiers: Diabetes mellitus type: type 2 Diabetes mellitus complication status: with hyperglycemia Diabetes mellitus rn long term care insulin use: with nursing home use Qualified Code(s): E11.65 - Type 2 diabetes mellitus with hyperglycemia; Z79.4 - terminal computer operator (current) use of insulin (4) Rheumatoid arthritis Current Visit: Yes Status: Chronic Assessment and plan: Resume methotrexate. Qualifiers: Rheumatoid arthritis location: multiple sites Rheumatoid factor presence: unspecified presence Qualified Code(s): M06.9 - Rheumatoid arthritis, unspecified (5) DVT (deep venous thrombosis) Current Visit: Yes Status: Chronic Assessment and plan: Resume home dose of Xarelto Qualifiers: DVT location: non-extremity vein Chronicity: unspecified Qualified Code(s ): I82.90 - Acute embolism and thrombosis of unspecified vein (6) Depression Current Visit: Yes Status: Chronic Assessment and plan: Resume home medications. Qualifiers: Depression Type: major depressive disorder Major depression recurrence: recurrent Active/Remission status: currently active Major depression episode severity: moderate Qualified Code(s): F33.1 - Major depressive disorder, recurrent, moderate (7) Herpes genitalia Current Visit: Yes Status: Chronic Assessment and plan: Resume home dose of valacyclovir. Resume home pain medications. Qualifiers: Herpes simplex infection site: unspecified Qualified Code(s): A60.00 - Herpesviral infection of urogenital system, unspecified (8) UTI (urinary tract infection) Current Visit: Yes Status: Acute Assessment and plan: Urine culture grossly mixed, not interpreted. Patient is on levofloxacin IV daily, continue for 5 days. Qualifiers: Urinary tract infection type: acute cystitis Hematuria presence: without hematuria Qualified Code(s): N30.00 - Acute cystitis without hematuria (9) Hypothyroidism Current Visit: Yes Status: Chronic Assessment and plan: Continue levothyroxine, Qualifiers: Hypothyroidism type: unspecified Qualified Code(s): E03.9 - Hypothyroidism , unspecified (10) Morbid obesity Current Visit: Yes Status: Chronic Assessment and plan: Lifestyle modification encouraged. Qualifiers: Obesity type: unspecified obesity type Qualified Code(s): E66.01 - Morbid ( severe) obesity due to excess calories - Subjective Interval history: Patient seen and evaluated at the bedside. 61-year-old female with morbid obesity BMI 54, COPD, hypothyroidism, uncontrolled diabetes mellitus. Admitted and being managed for acute on chronic hypercapnic respiratory failure secondary to COPD exacerbation. She also has genital herpes which is painful. Her only complaint today is pain at the site of herpes. Chart review reveals she is on Nocor at home, will resume the same. Patient's fingersticks have remained uncontrolled, necessitating increases in her insulin therapy. Her BiPAP qualification and overnight shows the patient qualifies for BiPAP at home. Continue current management with him to control her fingersticks, possible discharge tomorrow morning. - Constitutional Vitals: Temp Pulse Resp BP Pulse Ox 98.2 F 93 16 123/76 94 11/23/16 11:30 11/23/16 11:30 11/23/16 11:40 11/23/16 11:30 11/23/16 11:40 General appearance: Present: cooperative, A&O X 3, morbidly obese, no acute distress, answers questions appropriately - Head Head exam: Present: atraumatic, normocephalic - Eye Eye exam: Present: PERRL, conjuntiva pink, sclera anicteric Pupils: Present: PERRL - Neck Neck exam general surgery: Present: supple, trachea midline. Absent: lymphadenopathy - Respiratory Respiratory exam: Present: CTAB. Absent: accessory muscle use, rales, rhonchi, wheezes - Cardiovascular Cardiovascular exam: Present: RRR, +S1, +S2. Absent: diastolic murmur, gallop, rubs, systolic murmur - GI/Abdominal GI/Abdominal exam: Present: normal bowel sounds, soft, no peritoneal signs. Absent: distended, tenderness - Extremities Exam Extremities exam: Present: warm, radial pulses palpable and symetrical. Absent : calf tenderness, cyanotic, pedal edema - Neurological Exam Neurological exam: Present: alert, CN II-XII intact, oriented X3, no focal deficits. Absent: pronater drift, facial droop, speech deficit - Skin Skin exam: Present: dry, intact Internal Medicine: Result - Labs CBC & Chem 7: 11/23/16 04:58 11/23/16 04:58 Labs: Short CBC 11/23/16 Range/Units 04:58 WBC 9.3 (4.3-11.1) K/mcL Hgb 10.2 L D (11.5-15.4) g/dL Hct 32.1 L (35.3-44.9) % Plt Count 213 (140-400) K/mcL Neutrophils # 7.8 (1.6-8.9) K/mcL BMP 11/23/16 04:58 Sodium 140 Potassium 3.7 D Chloride 93 L Carbon Dioxide 39 H BUN 28 H Creatinine 0.98 Glucose 296 H Calcium 9.3 - ABG Interpretation ABG results: ABG ABG pH 7.45 pH Units (7.32-7.45) 11/22/16 11:13 ABG pCO2 66 mmHg (35-45) H 11/22/16 11:13 ABG pO2 49 mmHg (85-104) L* 11/22/16 11:13 ABG O2 Saturation 86 % (95-98) L 11/22/16 11:13 PT/INR, D-dimer PT 11.2 Seconds (9.4-12.1) 11/21/16 15:46 Consult Discharge Plan - Plan Referrals: Tawanda Storm Jr, MD [Primary Care Provider] - 12/02/16 4:00 pm
[2016-11-23] MEDS ORDERED: *HR* HYDROcodone/Acet 5/325 mg TABLET PO PRN (12:14)
[2016-11-23] MEDS ORDERED: Lidocaine 4% CREAM (LMX) 5 GM TP PRN (12:14)
[2016-11-23] MEDS ORDERED: *HR* Methotrexate 2.5 MG TABLET PO SCH (12:15)
[2016-11-23] MEDS: *HR* Rivaroxaban 10 MG TABLET PO SCH (13:18)
[2016-11-23] MEDS: Folic Acid 1 MG TABLET PO SCH (13:18)
[2016-11-23] MEDS ORDERED: Insulin LISPRO 300 UNITS/3 ML VIAL SQ ONE ×2 (22:00→23:26)
[2016-11-24] MEDS: *HR* HYDROcodone/Acet 5/325 mg TABLET PO PRN ×2 (00:45→15:12)
[2016-11-24] MEDS: Albuterol 2.5 MG/3 ML NEBULIZER IH SCH ×2 (03:06→10:35)
[2016-11-24 06:27] LABS: BUN/Creatinine Ratio 33 (6-26); Blood Urea Nitrogen 32 mg/dL (7-20); Calcium 9.9 mg/dL (8.6-10.8); Carbon Dioxide 39 mEq/L (19-29); Chloride 94 mEq/L (98-109); Glucose 151 mg/dL (70-99); Osmolality,Calculated 304 (280-300); Potassium 3.9 mEq/L (3.5-4.5); Sodium 142 mEq/L (136-145); eGFR For African Americans > 60 (> 60); eGFR For Non-African Americans 58 (> 60)
[2016-11-24 06:37] LABS: Basophils % 0.2 %; Eosinophils # 0.1 K/mcL (0.0-0.6); Eosinophils % 0.7 %; Hematocrit 35.8 % (35.3-44.9); Hemoglobin 11.3 g/dL (11.5-15.4); Immature Granulocytes % 1.2 % (0-4); Lymphocytes # 1.3 K/mcL (0.6-4.6); Lymphocytes % 11.7 %; Mean Corpuscular HGB Conc 31.6 g/dL (31.6-35.5); Mean Corpuscular Hemoglobin 29.2 pg (28.0-33.3); Mean Corpuscular Volume 92.5 fL (83.0-100.0); Mean Platelet Volume 10.3 fL (9.4-12.4); Monocytes # 0.5 K/mcL (0.0-1.3); Monocytes % 4.7 %; Neutrophils # 9.2 K/mcL (1.6-8.9); Platelet Count 274 K/mcL (140-400); Red Blood Count 3.87 M/mcL (3.82-4.97); Red Cell Distribution Width 14.6 % (11.5-14.5); Segmented Neutrophils % 81.5 %
[2016-11-24] MEDS: Insulin LISPRO 300 UNITS/3 ML VIAL SQ SCH ×6 (08:04→16:59)
[2016-11-24] MEDS: valACYclovir 500 MG TABLET PO SCH (08:07)
[2016-11-24] MEDS: Isosorbide MONOnitrate (24 HR) 60 MG TAB.ER.24H PO SCH (08:07)
[2016-11-24] MEDS: *HR* Rivaroxaban 10 MG TABLET PO SCH (08:07)
[2016-11-24] MEDS: Furosemide 40 MG TABLET PO SCH (08:07)
[2016-11-24] MEDS: predniSONE 20 MG TABLET PO SCH (08:08)
[2016-11-24] MEDS: Gabapentin 100 MG CAPSULE PO SCH ×2 (08:09→15:11)
[2016-11-24] MEDS: Folic Acid 1 MG TABLET PO SCH (08:09)
[2016-11-24] MEDS: Levofloxacin 750 MG/150 ML 750 MG/150 ML BAG IVPB SCH (08:11)
[2016-11-24] MEDS ORDERED: Insulin DETEMIR 100 UNIT/ML X5UNITS SQ SCH (09:00)
[2016-11-24] MEDS ORDERED: Valsartan 80 MG TABLET PO SCH (09:00)
--- NOTE | 2016-11-24 09:33 | Discharge Summary ---
Date of Encounter: 11/24/16 Time of Encounter: 09:32 - Discharge Diagnosis (1) Acute and chronic respiratory failure with hypercapnia Priority: Primary Status: Acute (2) Acute exacerbation of chronic obstructive airways disease Priority: Primary Status: Acute (3) Diabetes Priority: Secondary Status: Chronic Qualifiers: Diabetes mellitus type: type 2 Diabetes mellitus complication status: with hyperglycemia Diabetes mellitus alf insulin use: with teaching manager use Qualified Code(s): E11.65 - Type 2 diabetes mellitus with hyperglycemia; Z79.4 - FDC (current) use of insulin (4) Rheumatoid arthritis Priority: Secondary Status: Chronic Qualifiers: Rheumatoid arthritis location: multiple sites Rheumatoid factor presence: unspecified presence Qualified Code(s): M06.9 - Rheumatoid arthritis, unspecified (5) DVT (deep venous thrombosis) Priority: Secondary Status: Chronic Qualifiers: DVT location: non-extremity vein Chronicity: unspecified Qualified Code(s ): I82.90 - Acute embolism and thrombosis of unspecified vein (6) Depression Priority: Secondary Status: Chronic Qualifiers: Depression Type: major depressive disorder Major depression recurrence: recurrent Active/Remission status: currently active Major depression episode severity: moderate Qualified Code(s): F33.1 - Major depressive disorder, recurrent, moderate (7) Herpes genitalia Priority: Secondary Status: Chronic Qualifiers: Herpes simplex infection site: unspecified Qualified Code(s): A60.00 - Herpesviral infection of urogenital system, unspecified (8) UTI (urinary tract infection) Priority: Primary Status: Acute Qualifiers: Urinary tract infection type: acute cystitis Hematuria presence: without hematuria Qualified Code(s): N30.00 - Acute cystitis without hematuria (9) Hypothyroidism Priority: Secondary Status: Chronic Qualifiers: Hypothyroidism type: unspecified Qualified Code(s): E03.9 - Hypothyroidism , unspecified (10) Morbid obesity Priority: Secondary Status: Chronic Qualifiers: Obesity type: unspecified obesity type Qualified Code(s): E66.01 - Morbid ( severe) obesity due to excess calories - Discharge Medications Prescriptions: Gabapentin [Neurontin] 100 mg PO TID #15 capsule HYDROcodone/Acet 5/325 mg [[place] 5-325 mg] 1 tab PO Q8H PRN #15 tab PRN Reason: Pain Levofloxacin [Levaquin] 750 mg PO DAILY #3 tablet Home Medications: Albuterol Sulfate [Albuterol Inhaler] 2 puff IH Q4H PRN 04/12/16 [History] Atorvastatin Calcium [Lipitor] 20 mg PO HS 04/12/16 [History] Docusate Sodium [Dok] 100 mg PO DAILY 04/12/16 [History] Ferrous Sulfate 325 mg PO DAILY 04/12/16 [History] Folic Acid 1 mg PO DAILY 04/12/16 [History] Furosemide [Lasix] 80 mg PO DAILY 04/12/16 [History] Isosorbide MONOnitrate (24 HR) [Imdur] 60 mg PO DAILY 04/12/16 [History] Levothyroxine [Synthroid] 175 mcg PO QAM 04/12/16 [History] Methotrexate [Otrexup] 10 mg PO WE 04/12/16 [History] Omeprazole [PriLOSEC] 40 mg PO DAILY 04/12/16 [History] Oxygen 2 l NS CONT 04/12/16 [History] Polyethylene Glycol 3350 [MiraLAX] 17 gm PO DAILY 04/12/16 [History] Potassium Chloride [Klor-Con Sprinkle] 20 meq PO BID 04/12/16 [History] Valsartan [Diovan] 40 mg PO DAILY 04/12/16 [History] Rivaroxaban [Xarelto] 20 mg PO DAILY 07/26/16 [History] Sertraline [Zoloft] 50 mg PO DAILY 07/26/16 [History] Lidocaine 4% CRM (LMX) [Lmx 4] 1 appl TP Q4H PRN 09/23/16 [History] Albuterol Neb [Proventil Neb] 2.5 mg IH Q6H PRN #30 inhsol 11/19/16 [Rx] Valacyclovir HCl [Valtrex] 1,000 mg PO DAILY #5 tab 11/20/16 [Rx] Gabapentin [Neurontin] 100 mg PO TID #15 capsule 11/24/16 [Rx] HYDROcodone/Acet 5/325 mg [[place] 5-325 mg] 1 tab PO Q8H PRN #15 tab 11/24/16 [Rx ] Insulin ASPART [Novolog Flexpen] 18 unit SQ TIDWM #0 11/24/16 [Rx] Insulin DETEMIR [Levemir] 35 unit SQ BID [id number] 11/24/16 [Rx] Levofloxacin [Levaquin] 750 mg PO DAILY #3 tablet 11/24/16 [Rx] predniSONE [PredniSONE] 40 mg PO DAILY #2 tablet 11/24/16 [Rx] Allergies/Adverse Reactions: Allergies Penicillins Allergy (Verified 11/18/16 20:53) Hives Sulfa (Sulfonamide Antibiotics) Allergy (Verified 11/18/16 20:53) Rash Date of admission: 11/21/16 18:54 Primary care physician: Tawanda Storm Jr, MD Consults: 11/21/16 20:44 Consult to Medical Office Specialist [CONS] Routine Reason for SW Consult: home health caregiver 11/22/16 11:03 Consult to Physical Therapy [CONS] Routine Comment: Evaluate, develop and implement POC Reason for Consult: weakness 11/22/16 11:04 Consult to Occupational Therapy [CONS] Routine Comment: Evaluate, develop and implement POC Reason for Consult: weakness Discharging clinician: Aung Brock Anticipated date of discharge: 11/24/16 - Patient Status Disposition: Transfer SNF Condition: Good Functional capacity at discharge: independent ambulation Overall status at discharge: patient is back to baseline - Discharge Instructions Follow Up With: Tawanda Storm Jr, MD [Primary Care Provider] - - Diet and Activity Activity: resume usual activities as tolerated, wear oxygen at all times Diet: diabetic diet, low fat, low cholesterol, low salt diet Interval History: Ms. Barrios is a 61 year old female presented to the hospital after COPD exacerbation presents to the emergency room complaining of abdominal pain and weakness. Patient describes lower abdominal pain. She has been having generalized weakness and lethargy. No focal weakness. She has burning urination. No reported fever. She denies any prior history of kidney stones. Workup and emergency room shows evidence of UTI. She also mentions that she is slightly more short of breath than usual she has sputum production yellowish color she is on 2 L of oxygen at home 30/01 for COPD. Mentions that she is compliant with her medications. CT head in ER shows no intracranial bleed Further work up revealed hypercapnea, metabolic alkalosis which is chronic Patient was admitted and managed for UTI, COPDE, acute on chronic hypercapnic and hypoxic respiratory failure Hospital course: Ms. Barrios is a 61 year old female Patient was managed with IV antibiotics, steroids, duonebs for COPDE and UTI She was placed on BIPAP with significant improvement in metabolic alkalosis and resp acidosis, PH was WNL She is seen this morning and is clinically stable for discharge Hospital stay was complicated by uncontrolled blood sugars, possibly exacerbated by the stress of illness and use of prednisone Patient remains afebrile and respiratory status has improved She is stable for discharge to SNF for rehab, recommend she continues current insulin regimen , and to monitor FS ACHS, it is expected that her blood sugars will improve after she has been taken off the prednsione She has two more days of prednisone po and levofloxacin for both UTI and COPDE. She requires to use BiPAP at night, due to chronic hypercapnea and suspected LEYDA Plan of care discussed with patient, verbalized understanding Continue other chronic medications - Time Spent with Patient Total time spent providing and/or coordinating discharge services: Less than 30 minutes - Constitutional Vitals: Temp Pulse Resp BP Pulse Ox 97.8 F 75 18 139/84 98 11/24/16 07:12 11/24/16 07:12 11/24/16 07:12 11/24/16 07:12 11/24/16 07:12 General appearance: Present: cooperative, A&O X 3, morbidly obese, no acute distress, answers questions appropriately - Head Head exam: Present: atraumatic, normocephalic - Eye Eye exam: Present: PERRL, conjuntiva pink, sclera anicteric Pupils: Present: PERRL - Neck Neck exam general surgery: Present: supple, trachea midline. Absent: lymphadenopathy - Respiratory Respiratory exam: Present: CTAB. Absent: accessory muscle use, rales, rhonchi, wheezes - Cardiovascular Cardiovascular exam: Present: RRR, +S1, +S2. Absent: diastolic murmur, gallop, rubs, systolic murmur - GI/Abdominal GI/Abdominal exam: Present: normal bowel sounds, soft, no peritoneal signs. Absent: distended, tenderness - Extremities Exam Extremities exam: Present: warm, radial pulses palpable and symetrical. Absent : calf tenderness, cyanotic, pedal edema - Neurological Exam Neurological exam: Present: alert, CN II-XII intact, oriented X3, no focal deficits. Absent: pronater drift, facial droop, speech deficit - Skin Skin exam: Present: dry, intact
--- NOTE | 2016-11-24 09:34 | Physician Discharge Referral ---
ExtendedCare Referral Info Transfer To: SNF Provider in Charge: Dr. Brock Provider in Charge after Transfer: PCP Institutional Level of Care: Skilled - Diagnosis (1) Acute and chronic respiratory failure with hypercapnia Priority: Primary Status: Acute (2) Acute exacerbation of chronic obstructive airways disease Priority: Primary Status: Acute (3) Diabetes Priority: Secondary Status: Chronic (4) Rheumatoid arthritis Priority: Secondary Status: Chronic (5) DVT (deep venous thrombosis) Priority: Secondary Status: Chronic (6) Depression Priority: Secondary Status: Chronic (7) Herpes genitalia Priority: Secondary Status: Chronic (8) UTI (urinary tract infection) Priority: Primary Status: Acute (9) Hypothyroidism Priority: Secondary Status: Chronic (10) Morbid obesity Priority: Secondary Status: Chronic Prognosis: Fair Aware of Diagnosis: Patient Aware of Prognosis: Patient - Transfer Medications Prescriptions: Gabapentin [Neurontin] 100 mg PO TID #15 capsule HYDROcodone/Acet 5/325 mg [[place] 5-325 mg] 1 tab PO Q8H PRN #15 tab PRN Reason: Pain Levofloxacin [Levaquin] 750 mg PO DAILY #3 tablet Home Medications: Albuterol Sulfate [Albuterol Inhaler] 2 puff IH Q4H PRN 04/12/16 [History] Atorvastatin Calcium [Lipitor] 20 mg PO HS 04/12/16 [History] Docusate Sodium [Dok] 100 mg PO DAILY 04/12/16 [History] Ferrous Sulfate 325 mg PO DAILY 04/12/16 [History] Folic Acid 1 mg PO DAILY 04/12/16 [History] Furosemide [Lasix] 80 mg PO DAILY 04/12/16 [History] Isosorbide MONOnitrate (24 HR) [Imdur] 60 mg PO DAILY 04/12/16 [History] Levothyroxine [Synthroid] 175 mcg PO QAM 04/12/16 [History] Methotrexate [Otrexup] 10 mg PO WE 04/12/16 [History] Omeprazole [PriLOSEC] 40 mg PO DAILY 04/12/16 [History] Oxygen 2 l NS CONT 04/12/16 [History] Polyethylene Glycol 3350 [MiraLAX] 17 gm PO DAILY 04/12/16 [History] Potassium Chloride [Klor-Con Sprinkle] 20 meq PO BID 04/12/16 [History] Valsartan [Diovan] 40 mg PO DAILY 04/12/16 [History] Rivaroxaban [Xarelto] 20 mg PO DAILY 07/26/16 [History] Sertraline [Zoloft] 50 mg PO DAILY 07/26/16 [History] Lidocaine 4% CRM (LMX) [Lmx 4] 1 appl TP Q4H PRN 09/23/16 [History] Albuterol Neb [Proventil Neb] 2.5 mg IH Q6H PRN #30 inhsol 11/19/16 [Rx] Valacyclovir HCl [Valtrex] 1,000 mg PO DAILY #5 tab 11/20/16 [Rx] Gabapentin [Neurontin] 100 mg PO TID #15 capsule 11/24/16 [Rx] HYDROcodone/Acet 5/325 mg [[place] 5-325 mg] 1 tab PO Q8H PRN #15 tab 11/24/16 [Rx ] Insulin ASPART [Novolog Flexpen] 18 unit SQ TIDWM #0 11/24/16 [Rx] Insulin DETEMIR [Levemir] 35 unit SQ BID [id number] 11/24/16 [Rx] Levofloxacin [Levaquin] 750 mg PO DAILY #3 tablet 11/24/16 [Rx] predniSONE [PredniSONE] 40 mg PO DAILY #2 tablet 11/24/16 [Rx] Allergies/Adverse Reactions: Allergies Penicillins Allergy (Verified 11/18/16 20:53) Hives Sulfa (Sulfonamide Antibiotics) Allergy (Verified 11/18/16 20:53) Rash - Respiratory Orders Oxygen / L per min (2L /min, target O2 sat at least 92%), Other (BIPAP RR 10, IPAP 8, EPAP 6) Smoking Cessation: Smoking cessation has been advised. For more information, call the [place] Tobacco Quit Line at 5-079-XLXF-NOW. - Advance Directives Code Status: Full Code - Mobility Orders Ambulate - Diet Orders No Concentrated Sweets, Cardiac CERTIFICATION: I certify that the transfer of the above named patient to an Extended Care Facility is necessary for the continuing treatment of the diagnosis listed. The above information is true and accurate reflection of patient's current condition. Confidential - Redisclosure prohibited without a patient's written consent.
[2016-11-24 16:39] VITALS: BP 90/56
== END 2016-11-24 17:38 | DRG 689 ==
LOC: 3ANU 14:36 → EMEROO 14:36 → SUATTDRO 18:54 → 3ANU 19:53
PROVIDERS: ADMIT Hospitalist; ATTEND Internal Medicine

== ENCOUNTER 2017-01-17 11:02 | Observation (INO) ==
[2017-01-17] MEDS ORDERED: Ipratropium/Albuterol Neb 3 ML IH ONE (11:09)
--- NOTE | 2017-01-17 11:19 | Emergency Department Note ---
Disposition Clinical Impression: COPD exacerbation, Hypoxia Disposition: Admitted As Inpatient Condition: Fair Referrals: Tawanda Storm Jr, MD [Primary Care Provider] - Time of Disposition: 12:45 SOB HPI - General Chief Complaint: ED Shortness of Breath/Dyspnea Stated Complaint: donna Time Seen by Provider: 01/17/17 11:06 Source: patient Mode of arrival: EMS Limitations: no limitations Nursing Notes Reviewed: Yes Vital Signs Reviewed: Yes - History of Present Illness Patient complains of worsening dyspnea since this morning. She has a history of baseline dyspnea and oxygen dependency. She notes a mild nonproductive cough. No chest pain or fevers. No peripheral edema or asymmetric leg swelling. Pt Subjective Complaint: shortness of breath Onset (ago): hour(s) Severity: mild Consistency/Duration: constant Improves with: nothing Worsens with: nothing Known history of: COPD Associated symptoms: Reports: cough Treatment prior to arrival: oxygen Cough present: Yes Cough Description: Non-Productive Sputum production: No - Related Data Home Medications Medication Instructions Recorded Confirmed Albuterol Sulfate [Albuterol 2 puff IH Q4H PRN 04/12/16 11/21/16 Inhaler] Atorvastatin Calcium [Lipitor] 20 mg PO HS 04/12/16 11/21/16 Docusate Sodium [Dok] 100 mg PO DAILY 04/12/16 11/21/16 Ferrous Sulfate 325 mg PO DAILY 04/12/16 11/21/16 Folic Acid 1 mg PO DAILY 04/12/16 11/21/16 Furosemide [Lasix] 80 mg PO DAILY 04/12/16 11/21/16 Isosorbide MONOnitrate (24 HR) 60 mg PO DAILY 04/12/16 11/21/16 [Imdur] Levothyroxine [Synthroid] 175 mcg PO QAM 04/12/16 11/21/16 Methotrexate [Otrexup] 10 mg PO WE 04/12/16 11/21/16 Omeprazole [PriLOSEC] 40 mg PO DAILY 04/12/16 11/21/16 Oxygen 2 l NS CONT 04/12/16 11/21/16 Polyethylene Glycol 3350 [MiraLAX] 17 gm PO DAILY 04/12/16 11/21/16 Potassium Chloride [Klor-Con 20 meq PO BID 04/12/16 11/21/16 Sprinkle] Valsartan [Diovan] 40 mg PO DAILY 04/12/16 11/21/16 Rivaroxaban [Xarelto] 20 mg PO DAILY 07/26/16 11/21/16 Sertraline [Zoloft] 50 mg PO DAILY 07/26/16 11/21/16 Lidocaine 4% CRM (LMX) [Lmx 4] 1 appl TP Q4H PRN 09/23/16 11/21/16 Previous Rx's Medication Instructions Recorded Albuterol Neb [Proventil Neb] 2.5 mg IH Q6H PRN #30 inhsol 11/19/16 Valacyclovir HCl [Valtrex] 1,000 mg PO DAILY #5 tab 11/20/16 Gabapentin [Neurontin] 100 mg PO TID #15 capsule 11/24/16 Gabapentin [Neurontin] 100 mg PO TID #30 capsule 11/24/16 HYDROcodone/Acet 5/325 mg [[place] 1 tab PO Q6H PRN #16 tablet 11/24/16 5-325 mg] HYDROcodone/Acet 5/325 mg [[place] 1 tab PO Q8H PRN #15 tab 11/24/16 5-325 mg] Insulin ASPART [Novolog Flexpen] 18 unit SQ TIDWM #0 11/24/16 Insulin DETEMIR [Levemir] 35 unit SQ BID [id number] 11/24/16 Levofloxacin [Levaquin] 750 mg PO DAILY #3 tablet 11/24/16 predniSONE [PredniSONE] 40 mg PO DAILY #2 tablet 11/24/16 Allergies Allergy/AdvReac Type Severity Reaction Status Date / Time Penicillins Allergy Hives Verified 11/18/16 20:53 Sulfa (Sulfonamide Allergy Rash Verified 11/18/16 20:53 Antibiotics) All systems ED: reviewed and negative except as stated. Constitutional: Reports: as per HPI Eyes: Reports: as per HPI ENT ED: Reports: as per HPI Cardiovascular: Reports: as per HPI Respiratory: Reports: cough, dyspnea Gastrointestinal: Reports: as per HPI Genitourinary: Reports: as per HPI Musculoskeletal: Reports: as per HPI Integumentary: Reports: as per HPI Neurological: Reports: as per HPI Psychiatric: Reports: as per HPI Endocrine: Reports: as per HPI Hematological/Lymphatic: Reports: as per HPI Allergic/Immunologic: Reports: as per HPI Past Medical History - Past Medical History Medical history: Reports: CHF, COPD, DVT, diabetes, hyperlipidemia, hypertension , thyroid disease, other Surgical history: Reports: cholecystectomy Psychiatric history: Reports: anxiety, depression [employer]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 - Social History Smoking Status: Never smoker Smokeless Tobacco Status: No Alcohol use: Reports: none Drug use: Reports: none Physical Exam - General Limitations: no limitations General appearance: alert - Head Head exam: atraumatic - Eye Eye exam: Present: normal appearance - ENT ENT exam: normal exam - Neck Neck exam: Present: normal inspection, full ROM - Chest Chest inspection: Present: normal inspection, symmetric chest wall rise - Respiratory Respiratory exam: Present: other (Course crackles at bilateral lung bases posteriorly) - Cardiovascular Cardiovascular exam: Present: regular rate, normal rhythm, normal heart sounds - Abdominal Exam Abdominal exam: Present: soft, Non-Tender - Rectal Exam Rectal exam: Present: deferred - Extremities Exam Extremities exam: Present: normal inspection - Neurological Exam Neurological exam: Present: alert, oriented X3, CN II-XII intact - Psychiatric Psychiatric exam: Present: normal affect, normal mood - Skin Skin exam: Present: warm, dry, intact Course Course Narrative: The patient presents from home by EMS complaining of dyspnea. She has a baseline history of COPD with oxygen dependency. She appears in no acute distress on exam. Pulse ox appropriate. Workup including EKG, chest x-ray, labs initiated. Patient offered neb therapy for symptomatically treatment - Reevaluation(s) Reevaluation #1: Resting comfortably at the time of reevaluation. Offered a meal tray Reevaluation #2: Patient ambulated her pulse ox dropped to 74% Vital Signs Temperature 98.6 F 01/17/17 11:03 Pulse Rate 82 01/17/17 11:03 Respiratory Rate 18 01/17/17 11:03 Blood Pressure 145/81 01/17/17 11:03 O2 Sat by Pulse Oximetry 99 01/17/17 11:03 Temperature 98.6 F 01/17/17 11:03 Pulse Rate 82 01/17/17 11:03 Respiratory Rate 14 01/17/17 11:29 Blood Pressure 145/81 01/17/17 11:03 O2 Sat by Pulse Oximetry 98 01/17/17 11:29 Oxygen Delivery Oxygen Delivery Nasal Cannula Shortness of Breath/Dyspnea - Lab Data Lab results reviewed: Yes I reviewed the patient's lab results. Result diagrams: 01/17/17 11:38 01/17/17 11:38 Lab Results 01/17/17 01/17/17 01/17/17 Range/Units 11:38 11:38 11:38 WBC 9.0 (4.3-11.1) K/mcL RBC 4.07 (3.82-4.97) M/mcL Hgb 11.7 (11.5-15.4) g/dL Hct 36.9 (35.3-44.9) % MCV 90.7 (83.0-100.0) fL MCH 28.7 (28.0-33.3) pg MCHC 31.7 (31.6-35.5) g/dL RDW 14.3 (11.5-14.5) % Plt Count 242 (140-400) K/mcL MPV 10.1 (9.4-12.4) fL Immature Gran % 1.2 (0-4) % Seg Neutrophils % 82.2 % Lymphocytes % 10.9 % Monocytes % 3.9 % Eosinophils % 1.4 % Basophils % 0.4 % Neutrophils # 7.4 (1.6-8.9) K/mcL Lymphocytes # 1.0 (0.6-4.6) K/mcL Monocytes # 0.4 (0.0-1.3) K/mcL Eosinophils # 0.1 (0.0-0.6) K/mcL Basophils # 0.0 (0.0-0.2) K/mcL PT (9.4-12.1) Seconds INR Sodium 137 (136-145) mEq/L Potassium 4.4 (3.5-4.5) mEq/L Chloride 91 L (98-109) mEq/L Carbon Dioxide 37 H (19-29) mEq/L BUN 28 H (7-20) mg/dL Creatinine 0.88 (0.57-1.11) mg/dL Est GFR ( Amer) > 60 (> 60) Est GFR (Non-Af Amer) > 60 (> 60) BUN/Creatinine Ratio 32 H (6-26) Glucose 390 H (70-99) mg/dL Calculated Osmolality 306 H (280-300) Lactic Acid (0.5-2.2) mmol/L Calcium 10.7 (8.6-10.8) mg/dL Total Bilirubin 0.1 L (0.2-1.2) mg/dL Direct Bilirubin 0.2 (0.0-0.5) mg/dL Indirect Bilirubin 0.0 (0.0-1.2) mg/dL AST 10 (5-34) Units/L ALT 8 (0-55) Units/L Alkaline Phosphatase 147 H (38-126) Units/L Troponin I 0.00 (0-0.03) ng/mL B-Natriuretic Peptide (0-100) pg/mL Serum Total Protein 7.2 (6.0-8.3) g/dL Albumin 3.3 L (3.5-5.0) g/dL Globulin 3.9 H (2.4-3.5) g/dL Albumin/Globulin Ratio 0.8 L (1.1-2.2) 01/17/17 01/17/17 01/17/17 Range/Units 11:38 11:38 11:38 WBC (4.3-11.1) K/mcL RBC (3.82-4.97) M/mcL Hgb (11.5-15.4) g/dL Hct (35.3-44.9) % MCV (83.0-100.0) fL MCH (28.0-33.3) pg MCHC (31.6-35.5) g/dL RDW (11.5-14.5) % Plt Count (140-400) K/mcL MPV (9.4-12.4) fL Immature Gran % (0-4) % Seg Neutrophils % % Lymphocytes % % Monocytes % % Eosinophils % % Basophils % % Neutrophils # (1.6-8.9) K/mcL Lymphocytes # (0.6-4.6) K/mcL Monocytes # (0.0-1.3) K/mcL Eosinophils # (0.0-0.6) K/mcL Basophils # (0.0-0.2) K/mcL PT 11.1 (9.4-12.1) Seconds INR 1.0 Sodium (136-145) mEq/L Potassium (3.5-4.5) mEq/L Chloride (98-109) mEq/L Carbon Dioxide (19-29) mEq/L BUN (7-20) mg/dL Creatinine (0.57-1.11) mg/dL Est GFR ( Amer) (> 60) Est GFR (Non-Af Amer) (> 60) BUN/Creatinine Ratio (6-26) Glucose (70-99) mg/dL Calculated Osmolality (280-300) Lactic Acid 1.0 (0.5-2.2) mmol/L Calcium (8.6-10.8) mg/dL Total Bilirubin (0.2-1.2) mg/dL Direct Bilirubin (0.0-0.5) mg/dL Indirect Bilirubin (0.0-1.2) mg/dL AST (5-34) Units/L ALT (0-55) Units/L Alkaline Phosphatase (38-126) Units/L Troponin I (0-0.03) ng/mL B-Natriuretic Peptide 17 (0-100) pg/mL Serum Total Protein (6.0-8.3) g/dL Albumin (3.5-5.0) g/dL Globulin (2.4-3.5) g/dL Albumin/Globulin Ratio (1.1-2.2) - Radiology Data Radiology results reviewed: Yes I reviewed the patient's radiology results. - EKG Data EKG attestation: Yes I reviewed and interpreted this EKG. EKG results narrative: Normal sinus rhythm with left axis deviation. Right bundle branch block. Left ventricular hypertrophy weight 72 [place] 178 QRS 136 QT/QTC 399/423
[2017-01-17 11:49] LABS: Basophils % 0.4 %; Eosinophils # 0.1 K/mcL (0.0-0.6); Eosinophils % 1.4 %; Hematocrit 36.9 % (35.3-44.9); Hemoglobin 11.7 g/dL (11.5-15.4); Immature Granulocytes % 1.2 % (0-4); Lymphocytes % 10.9 %; Mean Corpuscular HGB Conc 31.7 g/dL (31.6-35.5); Mean Corpuscular Hemoglobin 28.7 pg (28.0-33.3); Mean Corpuscular Volume 90.7 fL (83.0-100.0); Mean Platelet Volume 10.1 fL (9.4-12.4); Monocytes # 0.4 K/mcL (0.0-1.3); Monocytes % 3.9 %; Neutrophils # 7.4 K/mcL (1.6-8.9); Platelet Count 242 K/mcL (140-400); Red Blood Count 4.07 M/mcL (3.82-4.97); Red Cell Distribution Width 14.3 % (11.5-14.5); Segmented Neutrophils % 82.2 %
[2017-01-17 11:54] LABS: Prothrombin Time 11.1 Seconds (9.4-12.1)
[2017-01-17 12:07] LABS: Alanine Aminotransferase 8 Units/L (0-55); Albumin 3.3 g/dL (3.5-5.0); Albumin/Globulin Ratio 0.8 (1.1-2.2); Alkaline Phosphatase 147 Units/L (38-126); Aspartate Amino Transferase 10 Units/L (5-34); BUN/Creatinine Ratio 32 (6-26); Bilirubin,Direct 0.2 mg/dL (0.0-0.5); Bilirubin,Total 0.1 mg/dL (0.2-1.2); Blood Urea Nitrogen 28 mg/dL (7-20); Calcium 10.7 mg/dL (8.6-10.8); Carbon Dioxide 37 mEq/L (19-29); Chloride 91 mEq/L (98-109); Globulin 3.9 g/dL (2.4-3.5); Glucose 390 mg/dL (70-99); Osmolality,Calculated 306 (280-300); Potassium 4.4 mEq/L (3.5-4.5); Sodium 137 mEq/L (136-145); Total Protein 7.2 g/dL (6.0-8.3); eGFR For African Americans > 60 (> 60); eGFR For Non-African Americans > 60 (> 60)
[2017-01-17] MEDS ORDERED: predniSONE 20 MG TABLET PO ONE (12:46)
[2017-01-17] MEDS ORDERED: Ondansetron ODT 4 MG TAB.RAPDIS SL PRN (14:01)
[2017-01-17] MEDS ORDERED: Acetaminophen 325 MG TABLET PO PRN (14:01)
[2017-01-17] MEDS ORDERED: Naloxone 0.4 MG/ML INJ IVP PRN (14:01)
[2017-01-17] MEDS ORDERED: Dextrose Gel 15 GM PO PRN ×2 (14:03)
[2017-01-17] MEDS ORDERED: *HR* Dextrose 50 % in Water (Syg) 50 ML SYRINGE IVP PRN (14:03)
[2017-01-17] MEDS ORDERED: D5% in Water 1,000 ML IVC PRN (14:03)
[2017-01-17] MEDS ORDERED: *HR* HYDROcodone/Acet 5/325 mg TABLET PO PRN (14:07)
[2017-01-17] MEDS ORDERED: Albuterol 2.5 MG/3 ML NEBULIZER IH PRN (14:13)
--- NOTE | 2017-01-17 14:46 | Internal Med History&Physical ---
Date of Encounter: 01/17/17 Time of Encounter: 14:46 Assessment and Plan (1) Acute exacerbation of chronic obstructive airways disease Current visit: No Status: Acute Patient presented with shortness of breath, she was satting okay at rest on her home oxygen, but desatted to 74% while walking. DuoNeb treatments 4 times a day Albuterol nebulizer every 2 hours when necessary Budesonide formoterol twice a day Prednisone 40 mg daily by mouth Titrate oxygen to maintain saturation greater than 90% (2) Type 2 diabetes mellitus Current visit: Yes Status: Acute Check hemoglobin A1c Diabetic diet Check blood sugars before meals and at bedtime Continue home dose of long-acting insulin Levemir 35 units twice a day 8 units short acting insulin 3 times a day with meals Sliding scale correction dose 3 times a day with meals and at bedtime Hypoglycemic protocol Qualifiers: Diabetes mellitus complication status: with hyperglycemia Diabetes mellitus mcfp insulin use: with mcfp use Qualified Code(s): E11.65 - Type 2 diabetes mellitus with hyperglycemia; Z79.4 - [facility] (current) use of insulin (3) Hypoxia Current visit: Yes Status: Acute Patient wears 2 L of oxygen at home at baseline, but presented with shortness of breath. At rest she was satting normally on her baseline oxygen, but desatted to 74% while walking. Continuous pulse oximetry Titrate oxygen to maintain saturation greater than 90% (4) DVT prophylaxis Current visit: Yes Status: Acute Antiembolic stockings Patient on several toe, additional pharmacologic prophylaxis is not necessary Internal Medicine - H&P: HPI Chief complaint: shortness of breath Admitted From: Emergency Dept Plans for Post Hospital Care: Home History of present illness: Ms. Barrios is a 61 year old female with hypertension, hyperlipidemia, type 2 diabetes, hypothyroid, CHF, COPD who presented to the emergency department today with complaints of difficulty breathing. Patient reports that when she woke up this morning she was having trouble breathing. She is a poor historian but denies any chest pain, lightheadedness, headache, wheezing, congestion, fever, chills, sweats, cough. She reports she was feeling her normal state of health yesterday. She wears 2 L of oxygen 24 7 at home as a baseline. Evaluation in the emergency department revealed elevated blood sugar of 390. Patient was satting normally at rest with her baseline oxygen requirements, however she desatted to 74% while walking. She was afebrile, her white blood cell count was 9.0 normal. And was normal at 0.00, BNP was normal at 17, chest x-ray showed no acute cardiopulmonary process. On exam, patient alert and oriented, in no acute distress. Lungs had mild scattered expiratory wheezes, heart had regular rate and rhythm. She had trace bilateral lower extremity edema, which patient reports is not any increased from her baseline. Past Med Surg Social Fam HX - Past Medical History Medical history: CHF, COPD, DVT, diabetes, hyperlipidemia, hypertension, thyroid disease, other Psychiatric history: anxiety, depression - Past Surgical History Surgical History: cholecystectomy - Social History Smoking Status: Never smoker Smokeless Tobacco Status: No Alcohol use: none Drug use: none - Family History Mother Living Status: Hx Family Cardiac Disorders: Yes (chf) Hx Family Endocrine Disorder: Yes Father Living Status: Hx Family Cardiac Disorders: Yes (ND) Hx Family Endocrine Disorder: Yes Internal Medicine - H&P: Meds Albuterol Sulfate [Albuterol Inhaler] 2 puff IH Q4H PRN 04/12/16 [History] Atorvastatin Calcium [Lipitor] 20 mg PO HS 04/12/16 [History] Docusate Sodium [Dok] 100 mg PO DAILY 04/12/16 [History] Ferrous Sulfate 325 mg PO DAILY 04/12/16 [History] Folic Acid 1 mg PO DAILY 04/12/16 [History] Furosemide [Lasix] 80 mg PO DAILY 04/12/16 [History] Isosorbide MONOnitrate (24 HR) [Imdur] 60 mg PO DAILY 04/12/16 [History] Levothyroxine [Synthroid] 175 mcg PO QAM 04/12/16 [History] Methotrexate [Otrexup] 10 mg PO WE 04/12/16 [History] Omeprazole [PriLOSEC] 40 mg PO DAILY 04/12/16 [History] Oxygen 2 l NS CONT 04/12/16 [History] Polyethylene Glycol 3350 [MiraLAX] 17 gm PO DAILY 04/12/16 [History] Potassium Chloride [Klor-Con Sprinkle] 20 meq PO BID 04/12/16 [History] Valsartan [Diovan] 40 mg PO DAILY 04/12/16 [History] Rivaroxaban [Xarelto] 20 mg PO DAILY 07/26/16 [History] Sertraline [Zoloft] 50 mg PO DAILY 07/26/16 [History] Lidocaine 4% CRM (LMX) [Lmx 4] 1 appl TP Q4H PRN 09/23/16 [History] Albuterol Neb [Proventil Neb] 2.5 mg IH Q6H PRN #30 inhsol 11/19/16 [Rx] Valacyclovir HCl [Valtrex] 1,000 mg PO DAILY #5 tab 11/20/16 [Rx] Gabapentin [Neurontin] 100 mg PO TID #15 capsule 11/24/16 [Rx] HYDROcodone/Acet 5/325 mg [[place] 5-325 mg] 1 tab PO Q8H PRN #15 tab 11/24/16 [Rx ] Insulin ASPART [Novolog Flexpen] 18 unit SQ TIDWM #0 11/24/16 [Rx] Insulin DETEMIR [Levemir] 35 unit SQ BID [id number] 11/24/16 [Rx] Clobetasol Propionate [Temovate] 1 appl TP BID 01/17/17 [History] Allergies Penicillins Allergy (Verified 11/18/16 20:53) Hives Sulfa (Sulfonamide Antibiotics) Allergy (Verified 11/18/16 20:53) Rash All Systems PM: A 10-system review of systems was performed and is negative for pertinent findings except as documented above in the HPI. - Constitutional Constitutional: no chills, no fever(s), no night sweats - EENT Eyes: no change in vision, no discharge, no pain, no photophobia Ears: no ear discharge, no ear pain, no tinnitus Nose, mouth and throat: no dysphagia, no nasal discharge, no neck pain, no sore throat - Cardiovascular Cardiovascular ROS IM: dyspnea, dyspnea on exertion, no chest pain, no diaphoresis, no lightheadedness, no palpitations, no syncope - Respiratory Respiratory: dyspnea, dyspnea on exertion, no cough, no wheezing, no excessive phlegm production - Gastrointestinal Gastrointestinal: no abdominal pain, no diarrhea, no hematemesis, no hematochezia, no melena, no nausea, no vomiting - Genitourinary Genitourinary: no change in urinary stream, no dysuria, no flank pain, no hematuria - Musculoskeletal Musculoskeletal ROS IM: no numbness, no tingling - Integumentary Integumentary IM: no rash, no unusual bruising - Neurological Neurological ROS: no confusion, no convulsions, no focal weakness, no numbness, no tingling, no tremor(s) - Hematologic/Lymphatic Hematologic/Lymphatic: no easy bruising - Constitutional Vitals: Temp Pulse Resp BP Pulse Ox 98.6 F 81 18 147/74 97 01/17/17 11:03 01/17/17 12:46 01/17/17 13:23 01/17/17 13:23 01/17/17 12:46 General appearance: Present: A&O X 3, morbidly obese, pleasant - Head Head exam: Present: atraumatic, normocephalic - Eye Eye exam: Present: PERRL, conjuntiva pink, sclera anicteric Pupils: Present: PERRL - Neck Neck exam general surgery: Present: supple, trachea midline. Absent: lymphadenopathy - Respiratory Respiratory exam: Present: wheezes. Absent: accessory muscle use, rales, rhonchi - Cardiovascular Cardiovascular exam: Present: RRR, +S1, +S2. Absent: diastolic murmur, gallop, rubs, systolic murmur - GI/Abdominal GI/Abdominal exam: Present: normal bowel sounds, soft, no peritoneal signs. Absent: distended, tenderness - Extremities Exam Extremities exam: Present: warm, radial pulses palpable and symetrical. Absent : calf tenderness, cyanotic, pedal edema - Neurological Exam Neurological exam: Present: CN II-XII intact, oriented X3, no focal deficits. Absent: pronater drift, facial droop, speech deficit - Skin Skin exam: Present: dry, intact Internal Med - H&P Results - Labs CBC & Chem 7: 01/17/17 11:38 01/17/17 11:38 Labs: All Lab Results (24 Hours) 01/17/17 01/17/17 01/17/17 Range/Units 11:38 11:38 11:38 WBC 9.0 (4.3-11.1) K/mcL RBC 4.07 (3.82-4.97) M/mcL Hgb 11.7 (11.5-15.4) g/dL Hct 36.9 (35.3-44.9) % MCV 90.7 (83.0-100.0) fL MCH 28.7 (28.0-33.3) pg MCHC 31.7 (31.6-35.5) g/dL RDW 14.3 (11.5-14.5) % Plt Count 242 (140-400) K/mcL MPV 10.1 (9.4-12.4) fL Immature Gran % 1.2 (0-4) % Seg Neutrophils % 82.2 % Lymphocytes % 10.9 % Monocytes % 3.9 % Eosinophils % 1.4 % Basophils % 0.4 % Neutrophils # 7.4 (1.6-8.9) K/mcL Lymphocytes # 1.0 (0.6-4.6) K/mcL Monocytes # 0.4 (0.0-1.3) K/mcL Eosinophils # 0.1 (0.0-0.6) K/mcL Basophils # 0.0 (0.0-0.2) K/mcL PT (9.4-12.1) Seconds INR Sodium 137 (136-145) mEq/L Potassium 4.4 (3.5-4.5) mEq/L Chloride 91 L (98-109) mEq/L Carbon Dioxide 37 H (19-29) mEq/L BUN 28 H (7-20) mg/dL Creatinine 0.88 (0.57-1.11) mg/dL Est GFR ( Amer) > 60 (> 60) Est GFR (Non-Af Amer) > 60 (> 60) BUN/Creatinine Ratio 32 H (6-26) Glucose 390 H (70-99) mg/dL Calculated Osmolality 306 H (280-300) Lactic Acid (0.5-2.2) mmol/L Calcium 10.7 (8.6-10.8) mg/dL Total Bilirubin 0.1 L (0.2-1.2) mg/dL Direct Bilirubin 0.2 (0.0-0.5) mg/dL Indirect Bilirubin 0.0 (0.0-1.2) mg/dL AST 10 (5-34) Units/L ALT 8 (0-55) Units/L Alkaline Phosphatase 147 H (38-126) Units/L Troponin I 0.00 (0-0.03) ng/mL B-Natriuretic Peptide (0-100) pg/mL Serum Total Protein 7.2 (6.0-8.3) g/dL Albumin 3.3 L (3.5-5.0) g/dL Globulin 3.9 H (2.4-3.5) g/dL Albumin/Globulin Ratio 0.8 L (1.1-2.2) 01/17/17 01/17/17 01/17/17 Range/Units 11:38 11:38 11:38 WBC (4.3-11.1) K/mcL RBC (3.82-4.97) M/mcL Hgb (11.5-15.4) g/dL Hct (35.3-44.9) % MCV (83.0-100.0) fL MCH (28.0-33.3) pg MCHC (31.6-35.5) g/dL RDW (11.5-14.5) % Plt Count (140-400) K/mcL MPV (9.4-12.4) fL Immature Gran % (0-4) % Seg Neutrophils % % Lymphocytes % % Monocytes % % Eosinophils % % Basophils % % Neutrophils # (1.6-8.9) K/mcL Lymphocytes # (0.6-4.6) K/mcL Monocytes # (0.0-1.3) K/mcL Eosinophils # (0.0-0.6) K/mcL Basophils # (0.0-0.2) K/mcL PT 11.1 (9.4-12.1) Seconds INR 1.0 Sodium (136-145) mEq/L Potassium (3.5-4.5) mEq/L Chloride (98-109) mEq/L Carbon Dioxide (19-29) mEq/L BUN (7-20) mg/dL Creatinine (0.57-1.11) mg/dL Est GFR ( Amer) (> 60) Est GFR (Non-Af Amer) (> 60) BUN/Creatinine Ratio (6-26) Glucose (70-99) mg/dL Calculated Osmolality (280-300) Lactic Acid 1.0 (0.5-2.2) mmol/L Calcium (8.6-10.8) mg/dL Total Bilirubin (0.2-1.2) mg/dL Direct Bilirubin (0.0-0.5) mg/dL Indirect Bilirubin (0.0-1.2) mg/dL AST (5-34) Units/L ALT (0-55) Units/L Alkaline Phosphatase (38-126) Units/L Troponin I (0-0.03) ng/mL B-Natriuretic Peptide 17 (0-100) pg/mL Serum Total Protein (6.0-8.3) g/dL Albumin (3.5-5.0) g/dL Globulin (2.4-3.5) g/dL Albumin/Globulin Ratio (1.1-2.2) - Diagnostic Studies Chest x-ray Additional comments: Chest X-Ray 01/17/17 11:09 IMPRESSION: No acute cardiopulmonary process. D/ / 01/17/2017 11:51:29 Darrian Jordan MD / [facility] Interpreting Provider: Darrian Jordan MD
[2017-01-17 15:49] LABS: Hemoglobin A1C 10.6 %
[2017-01-17] MEDS: Ipratropium/Albuterol Neb 3 ML IH SCH (15:53)
[2017-01-17] MEDS ORDERED: Insulin LISPRO 300 UNITS/3 ML VIAL SQ SCH ×3 (16:30→21:00)
[2017-01-17] MEDS: Gabapentin 100 MG CAPSULE PO SCH ×2 (17:48→20:06)
[2017-01-17] MEDS: Insulin LISPRO 300 UNITS/3 ML VIAL SQ SCH ×2 (17:48→17:49)
[2017-01-17] MEDS ORDERED: Insulin DETEMIR 100 UNIT/ML X5UNITS SQ SCH (21:00)
[2017-01-18] MEDS: Budesonide/Formoterol 160/4.5 MDI IH SCH ×3 (00:18→22:28)
[2017-01-18] MEDS: Ipratropium/Albuterol Neb 3 ML IH SCH ×5 (00:18→22:28)
[2017-01-18 04:13] LABS: Basophils # 0.1 K/mcL (0.0-0.2); Basophils % 0.6 %; Eosinophils # 0.2 K/mcL (0.0-0.6); Eosinophils % 1.5 %; Hematocrit 39.5 % (35.3-44.9); Hemoglobin 12.4 g/dL (11.5-15.4); Immature Granulocytes % 1.1 % (0-4); Lymphocytes # 1.2 K/mcL (0.6-4.6); Lymphocytes % 10.6 %; Mean Corpuscular HGB Conc 31.4 g/dL (31.6-35.5); Mean Corpuscular Hemoglobin 28.7 pg (28.0-33.3); Mean Corpuscular Volume 91.4 fL (83.0-100.0); Mean Platelet Volume 9.6 fL (9.4-12.4); Monocytes # 0.5 K/mcL (0.0-1.3); Monocytes % 4.6 %; Neutrophils # 9.3 K/mcL (1.6-8.9); Platelet Count 270 K/mcL (140-400); Red Blood Count 4.32 M/mcL (3.82-4.97); Red Cell Distribution Width 14.5 % (11.5-14.5); Segmented Neutrophils % 81.6 %
[2017-01-18 04:45] LABS: BUN/Creatinine Ratio 27 (6-26); Blood Urea Nitrogen 26 mg/dL (7-20); Calcium 10.3 mg/dL (8.6-10.8); Carbon Dioxide 33 mEq/L (19-29); Chloride 93 mEq/L (98-109); Glucose 332 mg/dL (70-99); Osmolality,Calculated 300 (280-300); Potassium 4.4 mEq/L (3.5-4.5); Sodium 136 mEq/L (136-145); eGFR For African Americans > 60 (> 60); eGFR For Non-African Americans 60 (> 60)
--- NOTE | 2017-01-18 07:17 | Electrocardiograph Report ---
[facility] Test Date: 2017-01-17 Pat Name: Meagan Barrios Department: 102 Room: 2NE33 Gender: F Clinical Services Consultant: : 1955 Requested By: Delvin Mirza Order Number: [id number] Reading MD: David Mullins MD Measurements Intervals [place] Rate: 72 P: 33 MO: 178 QRS: -51 QRSD: 136 T: 31 QT: 399 QTc: 423 Interpretive Statements SINUS RHYTHM MARKED LEFT AXIS DEVIATION RIGHT BUNDLE BRANCH BLOCK Electronically Signed On 01-18-2017 7:15:19 EDT by David Mullins MD
[2017-01-18] MEDS: Insulin LISPRO 300 UNITS/3 ML VIAL SQ SCH ×6 (08:14→18:53)
[2017-01-18] MEDS: Furosemide 40 MG TABLET PO SCH (08:22)
[2017-01-18] MEDS: Valsartan 80 MG TABLET PO SCH (08:22)
[2017-01-18] MEDS: Gabapentin 100 MG CAPSULE PO SCH ×3 (08:23→22:15)
[2017-01-18] MEDS: Folic Acid 1 MG TABLET PO SCH (08:23)
[2017-01-18] MEDS: Isosorbide MONOnitrate (24 HR) 60 MG TAB.ER.24H PO SCH (08:24)
[2017-01-18] MEDS: predniSONE 20 MG TABLET PO SCH (08:24)
[2017-01-18] MEDS: valACYclovir 500 MG TABLET PO SCH (08:25)
--- NOTE | 2017-01-18 09:25 | Discharge Summary ---
Date of Encounter: 01/18/17 Time of Encounter: 08:30 - Discharge Diagnosis (1) COPD exacerbation Priority: Primary Status: Acute (2) Type 2 diabetes mellitus Priority: Secondary Status: Chronic Qualifiers: Diabetes mellitus complication status: with hyperglycemia Diabetes mellitus [facility] insulin use: with intermission coordinator use Qualified Code(s): E11.65 - Type 2 diabetes mellitus with hyperglycemia; Z79.4 - shelter (current) use of insulin (3) Chronic respiratory failure Priority: Secondary Status: Chronic Qualifiers: Respiratory failure complication: hypoxia Qualified Code(s): J96.11 - Chronic respiratory failure with hypoxia (4) Hypothyroidism Priority: Secondary Status: Chronic Qualifiers: Hypothyroidism type: acquired Qualified Code(s): E03.9 - Hypothyroidism, unspecified (5) Obesity, morbid, BMI 40.0-49.9 Priority: Secondary Status: Chronic - Discharge Medications Prescriptions: Doxycycline 100 mg PO BID #10 capsule metFORMIN [Glucophage] 500 mg PO BIDWM #60 tablet predniSONE [PredniSONE] 40 mg PO DAILY #4 tablet Home Medications: Albuterol Sulfate [Albuterol Inhaler] 2 puff IH Q4H PRN 04/12/16 [History] Atorvastatin Calcium [Lipitor] 20 mg PO HS 04/12/16 [History] Docusate Sodium [Dok] 100 mg PO DAILY 04/12/16 [History] Ferrous Sulfate 325 mg PO DAILY 04/12/16 [History] Folic Acid 1 mg PO DAILY 04/12/16 [History] Furosemide [Lasix] 80 mg PO DAILY 04/12/16 [History] Isosorbide MONOnitrate (24 HR) [Imdur] 60 mg PO DAILY 04/12/16 [History] Levothyroxine [Synthroid] 175 mcg PO QAM 04/12/16 [History] Methotrexate [Otrexup] 10 mg PO WE 04/12/16 [History] Omeprazole [PriLOSEC] 40 mg PO DAILY 04/12/16 [History] Oxygen 2 l NS CONT 04/12/16 [History] Polyethylene Glycol 3350 [MiraLAX] 17 gm PO DAILY 04/12/16 [History] Potassium Chloride [Klor-Con Sprinkle] 20 meq PO BID 04/12/16 [History] Valsartan [Diovan] 40 mg PO DAILY 04/12/16 [History] Rivaroxaban [Xarelto] 20 mg PO DAILY 07/26/16 [History] Sertraline [Zoloft] 50 mg PO DAILY 07/26/16 [History] Lidocaine 4% CRM (LMX) [Lmx 4] 1 appl TP Q4H PRN 09/23/16 [History] Albuterol Neb [Proventil Neb] 2.5 mg IH Q6H PRN #30 inhsol 11/19/16 [Rx] Valacyclovir HCl [Valtrex] 1,000 mg PO DAILY #5 tab 11/20/16 [Rx] Gabapentin [Neurontin] 100 mg PO TID #15 capsule 11/24/16 [Rx] HYDROcodone/Acet 5/325 mg [[place] 5-325 mg] 1 tab PO Q8H PRN #15 tab 11/24/16 [Rx ] Insulin ASPART [Novolog Flexpen] 18 unit SQ TIDWM #0 11/24/16 [Rx] Clobetasol Propionate [Temovate] 1 appl TP BID 01/17/17 [History] Doxycycline 100 mg PO BID #10 capsule 01/18/17 [Rx] Insulin DETEMIR [Levemir] 40 unit SQ BID #0 [id number] 01/18/17 [Rx] metFORMIN [Glucophage] 500 mg PO BIDWM #60 tablet 01/18/17 [Rx] predniSONE [PredniSONE] 40 mg PO DAILY #4 tablet 01/18/17 [Rx] Allergies/Adverse Reactions: Allergies Penicillins Allergy (Verified 11/18/16 20:53) Hives Sulfa (Sulfonamide Antibiotics) Allergy (Verified 11/18/16 20:53) Rash Date of admission: 01/17/17 13:08 Primary care physician: Tawanda Storm Jr, MD Consults: 01/17/17 16:08 Consult to Pastoral Services [CONS] Routine Comment: Consult to Manager Staffing [CONS] Routine Reason for SW Consult: patient has homw oxygen and home health unsure of provider Discharging clinician: Kris Rankin Anticipated date of discharge: 01/18/17 - Patient Status Disposition: Home, Self-Care Condition: Good Functional capacity at discharge: independent ambulation Overall status at discharge: patient is progressing back to baseline - Discharge Instructions Follow Up With: Tawanda Storm Jr, MD [Primary Care Provider] - 01/25/17 11:00 am () Forms: ED Satisfaction Letter - Diet and Activity Activity: increase activity as tolerated Diet: diabetic diet, low salt diet Hospital course: Ms. Barrios is a 61 year old female with a history of COPD, diabetes mellitus type 2, hypothyroidism, hypertension who presented to the emergency department yesterday due to worsening shortness of breath. The patient was diagnosed with COPD exacerbation and placed under observation. She was started on steroids and breathing treatments. The patient had dramatic improvement in her symptoms overnight. Hence, the patient has been deemed stable to be discharged home with steroids and by mouth antibiotics for her mild COPD exacerbation. The patient is at her baseline rate for oxygen use. She uses oxygen around the clock of 2 L which she has been instructed to continue. Her hemoglobin A1c was found to be 10. Patient is on 35 units twice a day of Levemir at home. This will be increased to 40 units twice daily. She will be seen by hematology nurse educator prior to being discharged home. - Time Spent with Patient Total time spent providing and/or coordinating discharge services: Greater than 30 minutes (40) - Constitutional Vitals: Temp Pulse Resp BP Pulse Ox 97.7 F 63 18 139/78 95 01/18/17 07:00 01/18/17 07:00 01/18/17 07:00 01/18/17 07:00 01/18/17 07:33 General appearance: Present: A&O X 3, morbidly obese, pleasant Exam: Gen.: Sitting in bed. No acute distress. Chest: Clear to auscultation bilaterally. No adventitious sounds present. CVS: First and second heart sounds present. No murmurs, rubs or gallops. Abdomen: Soft, nontender, nondistended. Bowel sounds present.
[2017-01-18] MEDS ORDERED: Insulin DETEMIR 100 UNIT/ML X5UNITS SQ ONE (09:26)
[2017-01-18] MEDS ORDERED: *HR* Rivaroxaban 10 MG TABLET PO SCH (17:00)
--- NOTE | 2017-01-18 17:18 | Physician Discharge Referral ---
Home Health/Hosp Referral Info Transfer to: Home Health Attending Provider: Dr. Kris Rankin Provider in Charge Post Discharge: PCP - Diagnosis (1) COPD exacerbation Priority: Primary Status: Acute (2) Type 2 diabetes mellitus Priority: Secondary Status: Chronic (3) Chronic respiratory failure Priority: Secondary Status: Chronic (4) Hypothyroidism Priority: Secondary Status: Chronic (5) Obesity, morbid, BMI 40.0-49.9 Priority: Secondary Status: Chronic - Respiratory Orders Smoking Cessation: Smoking cessation has been advised. For more information, call the [place] Tobacco Quit Line at 7-479-PAQJ-NOW. - Services Needed Following services are medically necessary services: Nursing, Home Health Aide, Physical Therapy - Transfer Medications Prescriptions: Doxycycline 100 mg PO BID #10 capsule metFORMIN [Glucophage] 500 mg PO BIDWM #60 tablet predniSONE [PredniSONE] 40 mg PO DAILY #4 tablet Home Medications: Albuterol Sulfate [Albuterol Inhaler] 2 puff IH Q4H PRN 04/12/16 [History] Atorvastatin Calcium [Lipitor] 20 mg PO HS 04/12/16 [History] Docusate Sodium [Dok] 100 mg PO DAILY 04/12/16 [History] Ferrous Sulfate 325 mg PO DAILY 04/12/16 [History] Folic Acid 1 mg PO DAILY 04/12/16 [History] Furosemide [Lasix] 80 mg PO DAILY 04/12/16 [History] Isosorbide MONOnitrate (24 HR) [Imdur] 60 mg PO DAILY 04/12/16 [History] Levothyroxine [Synthroid] 175 mcg PO QAM 04/12/16 [History] Methotrexate [Otrexup] 10 mg PO WE 04/12/16 [History] Omeprazole [PriLOSEC] 40 mg PO DAILY 04/12/16 [History] Oxygen 2 l NS CONT 04/12/16 [History] Polyethylene Glycol 3350 [MiraLAX] 17 gm PO DAILY 04/12/16 [History] Potassium Chloride [Klor-Con Sprinkle] 20 meq PO BID 04/12/16 [History] Valsartan [Diovan] 40 mg PO DAILY 04/12/16 [History] Rivaroxaban [Xarelto] 20 mg PO DAILY 07/26/16 [History] Sertraline [Zoloft] 50 mg PO DAILY 07/26/16 [History] Lidocaine 4% CRM (LMX) [Lmx 4] 1 appl TP Q4H PRN 09/23/16 [History] Albuterol Neb [Proventil Neb] 2.5 mg IH Q6H PRN #30 inhsol 11/19/16 [Rx] Valacyclovir HCl [Valtrex] 1,000 mg PO DAILY #5 tab 11/20/16 [Rx] Gabapentin [Neurontin] 100 mg PO TID #15 capsule 11/24/16 [Rx] HYDROcodone/Acet 5/325 mg [[place] 5-325 mg] 1 tab PO Q8H PRN #15 tab 11/24/16 [Rx ] Insulin ASPART [Novolog Flexpen] 18 unit SQ TIDWM #0 11/24/16 [Rx] Clobetasol Propionate [Temovate] 1 appl TP BID 01/17/17 [History] Doxycycline 100 mg PO BID #10 capsule 01/18/17 [Rx] Insulin DETEMIR [Levemir] 40 unit SQ BID #0 [id number] 01/18/17 [Rx] metFORMIN [Glucophage] 500 mg PO BIDWM #60 tablet 01/18/17 [Rx] predniSONE [PredniSONE] 40 mg PO DAILY #4 tablet 01/18/17 [Rx] Allergies/Adverse Reactions: Allergies Penicillins Allergy (Verified 11/18/16 20:53) Hives Sulfa (Sulfonamide Antibiotics) Allergy (Verified 11/18/16 20:53) Rash Certification: Further, I certify that my clinical findings support that this patient is homebound (i.e. absences from home require considerable and taxing effort and are for medical reasons or [facility] or infrequently or short duration when for other reasons) because: Homebound Reason: Patient requires assistance of a person or device to safely leave home, Leaving home requires considerable and taxing effort due to condition Attestation: My signature below is to certify that this patient is under my care and that I, or nurse practitioner, or a physician's assistant front office manager working with me, has a face-to -face encounter with this patient.
[2017-01-18] MEDS ORDERED: Insulin LISPRO 300 UNITS/3 ML VIAL SQ ONE (18:04)
[2017-01-18] MEDS ORDERED: Insulin LISPRO 300 UNITS/3 ML VIAL SQ STA (19:20)
[2017-01-18] MEDS ORDERED: Insulin DETEMIR 100 UNIT/ML X5UNITS SQ SCH (21:00)
[2017-01-18] MEDS ORDERED: Insulin LISPRO 300 UNITS/3 ML VIAL SQ SCH (21:00)
[2017-01-19] MEDS: Ipratropium/Albuterol Neb 3 ML IH SCH ×2 (04:40→10:58)
[2017-01-19] MEDS: Insulin LISPRO 300 UNITS/3 ML VIAL SQ SCH ×4 (07:44→12:28)
[2017-01-19] MEDS: Valsartan 80 MG TABLET PO SCH (07:47)
[2017-01-19] MEDS: Folic Acid 1 MG TABLET PO SCH (07:48)
[2017-01-19] MEDS: Isosorbide MONOnitrate (24 HR) 60 MG TAB.ER.24H PO SCH (07:49)
[2017-01-19] MEDS: Gabapentin 100 MG CAPSULE PO SCH (07:51)
[2017-01-19] MEDS: Furosemide 40 MG TABLET PO SCH (07:51)
[2017-01-19] MEDS: valACYclovir 500 MG TABLET PO SCH (07:52)
[2017-01-19] MEDS: predniSONE 20 MG TABLET PO SCH (07:54)
--- NOTE | 2017-01-19 09:55 | Internal Med Progress Note ---
Date of Encounter: 01/19/17 Time of Encounter: 09:52 - Assessment and plan (1) COPD exacerbation Current Visit: Yes Status: Acute Assessment and plan: Patient will be discharged home today with 2-3 more days of steroids. She will also be discharged home on antibiotics for her mild COPD exacerbation. (2) Type 2 diabetes mellitus Current Visit: Yes Status: Chronic Assessment and plan: Patient has a blood sugar of about 150s this morning. Patient's home insulin regimen will be adjusted. She has been instructed to follow up with her primary care physician on Monday to determine her basal insulin dose after she finishes the steroid therapy for her COPD exacerbation. 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 Qualifiers: Respiratory failure complication: hypoxia Qualified Code(s): J96.11 - Chronic respiratory failure with hypoxia (4) Hypothyroidism Current Visit: Yes Status: Chronic Qualifiers: Hypothyroidism type: acquired Qualified Code(s): E03.9 - Hypothyroidism, unspecified (5) Obesity, morbid, BMI 40.0-49.9 Current Visit: No Status: Chronic - Subjective Interval history: Patient seen and evaluated today. Patient was supposed to be discharged yesterday. However, her blood sugars were in the 400s to 500s. Hence, discharge was held. Her Levemir was increased to 44 units at bedtime yesterday. She also received her 40 units of Levemir dose yesterday morning. Overnight her blood sugars had remained high. However, this morning, her blood sugars are about 150s. Patient states that she is feeling well. She states that her breathing is not back to her baseline. However, she denies any wheezing. - Constitutional Vitals: Temp Pulse Resp BP Pulse Ox 97.4 F L 86 18 129/66 98 01/19/17 06:42 01/19/17 06:42 01/19/17 06:42 01/19/17 06:42 01/19/17 06:42 General appearance: Present: A&O X 3, morbidly obese, pleasant Exam: Gen.: Sitting in a chair. No acute distress. Chest: Clear to auscultation bilaterally. No adventitious sounds present. CVS: First and second heart sounds present. No murmurs, rubs or gallops. Internal Medicine: Result - Labs CBC & Chem 7: 01/18/17 03:39 01/18/17 03:39 - ABG Interpretation ABG results: PT/INR, D-dimer PT 11.1 Seconds (9.4-12.1) 01/17/17 11:38 Consult Discharge Plan - Plan Instructions: Heart Failure (DC), Chest Pain (DC), Diabetes Mellitus Type 2 in Adults (DC), Chronic Obstructive Pulmonary Disease (DC), Chronic Hypertension ( DC) Referrals: Tawanda Storm Jr, MD [Primary Care Provider] - 01/25/17 11:00 am () Prescriptions: Doxycycline 100 mg PO BID #10 capsule metFORMIN [Glucophage] 500 mg PO BIDWM #60 tablet predniSONE [PredniSONE] 40 mg PO DAILY #4 tablet
[2017-01-19] MEDS: Budesonide/Formoterol 160/4.5 MDI IH SCH (10:58)
[2017-01-19 12:03] VITALS: BP 100/58
== END 2017-01-19 14:19 | disposition home health service (06) ==
LOC: EMEROO 11:02 → 2NENU 11:02
PROVIDERS: ADMIT Internal Medicine Sleep Medicine; ATTEND Internal Medicine Sleep Medicine

== ENCOUNTER 2017-05-17 18:26 | Observation (INO) ==
--- NOTE | 2017-05-17 18:43 | Emergency Department Note ---
Disposition Clinical Impression: Chest pain Disposition: Still a Patient Forms: ED Satisfaction Letter Time of Disposition: 18:48 Chest Pain HPI - General Chief Complaint: ED Chest Pain Stated Complaint: chest pain Time Seen by Provider: 05/17/17 18:30 Source: EMS Mode of arrival: EMS Limitations: age Vital Signs Reviewed: Yes Nursing Notes Reviewed: Yes - History of Present Illness HPI Narrative: Patient presents to ED with the chief complaint of chest pain. Patient has via EMS and was seen and evaluated upon arrival. Seen at [facility] and discharge this morning. Apparently. Patient went home and then started having centralized chest pain. States she has had pain like this before. No history of coronary artery disease that she knows of. Does have a history of COPD. States she feels short of breath. She is unsure whether she was admitted or not, but states she lives in [place]. Patient' s quite difficult to elicit any history from. Denying any symptoms currently other than chest discomfort and shortness of breath Severity scale (1-10): 6 - Related Data Home Medications Medication Instructions Recorded Confirmed Albuterol Sulfate [Albuterol 2 puff IH Q4H PRN 04/12/16 01/17/17 Inhaler] Atorvastatin Calcium [Lipitor] 20 mg PO HS 04/12/16 01/17/17 Docusate Sodium [Dok] 100 mg PO DAILY 04/12/16 01/17/17 Ferrous Sulfate 325 mg PO DAILY 04/12/16 01/17/17 Folic Acid 1 mg PO DAILY 04/12/16 01/17/17 Furosemide [Lasix] 80 mg PO DAILY 04/12/16 01/17/17 Isosorbide MONOnitrate (24 HR) 60 mg PO DAILY 04/12/16 01/17/17 [Imdur] Levothyroxine [Synthroid] 175 mcg PO QAM 04/12/16 01/17/17 Methotrexate [Otrexup] 10 mg PO WE 04/12/16 01/17/17 Omeprazole [PriLOSEC] 40 mg PO DAILY 04/12/16 01/17/17 Oxygen 2 l NS CONT 04/12/16 01/17/17 Polyethylene Glycol 3350 [MiraLAX] 17 gm PO DAILY 04/12/16 01/17/17 Potassium Chloride [Klor-Con 20 meq PO BID 04/12/16 01/17/17 Sprinkle] Valsartan [Diovan] 40 mg PO DAILY 04/12/16 01/17/17 Rivaroxaban [Xarelto] 20 mg PO DAILY 07/26/16 01/17/17 Sertraline [Zoloft] 50 mg PO DAILY 07/26/16 01/17/17 Lidocaine 4% CRM (LMX) [Lmx 4] 1 appl TP Q4H PRN 09/23/16 01/17/17 Clobetasol Propionate [Temovate] 1 appl TP BID 01/17/17 01/17/17 Previous Rx's Medication Instructions Recorded Albuterol Neb [Proventil Neb] 2.5 mg IH Q6H PRN #30 inhsol 11/19/16 Valacyclovir HCl [Valtrex] 1,000 mg PO DAILY #5 tab 11/20/16 Gabapentin [Neurontin] 100 mg PO TID #15 capsule 11/24/16 HYDROcodone/Acet 5/325 mg [[place] 1 tab PO Q8H PRN #15 tab 11/24/16 5-325 mg] Insulin ASPART [Novolog Flexpen] 18 unit SQ TIDWM #0 11/24/16 Doxycycline 100 mg PO BID #10 capsule 01/18/17 metFORMIN [Glucophage] 500 mg PO BIDWM #60 tablet 01/18/17 predniSONE [PredniSONE] 40 mg PO DAILY #4 tablet 01/18/17 Insulin DETEMIR [Levemir] 44 unit SQ BID #1 mls 01/19/17 Acyclovir [Zovirax] 400 mg PO TID #15 tablet 02/04/17 Fluconazole [Diflucan] 150 mg PO DAILY #1 tab 02/04/17 Nitrofurantoin (BID) [Macrobid] 100 mg PO BID #10 capsule 02/04/17 Valacyclovir HCl [Valtrex] 1,000 mg PO DAILY #5 tab 02/12/17 predniSONE [PredniSONE] 40 mg PO DAILY #5 tablet 05/14/17 Allergies Allergy/AdvReac Type Severity Reaction Status Date / Time Penicillins Allergy Hives Verified 11/18/16 20:53 Sulfa (Sulfonamide Allergy Rash Verified 11/18/16 20:53 Antibiotics) All systems ED: reviewed and negative except as stated. 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 - Social History Smoking Status: Never smoker Alcohol use: Reports: none Drug use: Reports: none Physical Exam - General Limitations: no limitations General appearance: alert, in no apparent distress, obese - Head Head exam: atraumatic, normocephalic, normal inspection - Eye Eye exam: Present: normal appearance, PERRL, EOMI - ENT ENT exam: normal exam, normal oropharynx, mucous membranes moist - Chest Chest inspection: Present: normal inspection, symmetric chest wall rise - Respiratory Respiratory exam: Present: normal lung sounds bilaterally - Cardiovascular Cardiovascular exam: Present: regular rate, normal rhythm, normal heart sounds - Abdominal Exam Abdominal exam: Present: soft, other (obese) - Extremities Exam Extremities exam: Present: pedal edema - Expanded Lower Extremity Exam Hip/Pelvis exam: Present: pelvis stable - Neurological Exam Neurological exam: Present: alert. Absent: oriented X3 (Oriented to person and place, but she is unsure when she was admitted to state or if she was even admitted, although paperwork does state that she was) - Skin Skin exam: Present: warm, dry, intact, normal color Course Course Narrative: patient seen at [facility] today for pre-op clearance for vulvar malignancy. Presenting now with CP and SOB. Will evaluate and sign out to oncoming night team for CP r/o. Vital Signs Temperature 97.6 F 05/17/17 18:28 Pulse Rate 52 05/17/17 18:28 Respiratory Rate 20 05/17/17 18:28 Blood Pressure 135/71 05/17/17 18:28 O2 Sat by Pulse Oximetry 94 05/17/17 18:28 Temperature 97.6 F 05/17/17 18:28 Pulse Rate 87 05/17/17 18:45 Respiratory Rate 20 05/17/17 18:45 Blood Pressure 135/71 05/17/17 18:45 O2 Sat by Pulse Oximetry 99 05/17/17 18:45 Oxygen Delivery Oxygen Delivery Nasal Cannula Chest Pain - Medical Records Medical records reviewed: Yes I reviewed the patient's medical records. - Lab Data Lab results reviewed: Yes I reviewed the patient's lab results. - Radiology Data Radiology results reviewed: Yes I reviewed the patient's radiology results. - EKG Data EKG attestation: Yes I reviewed and interpreted this EKG. EKG results narrative: Sinus rhythm, rate 88, PA interval 188, QRS 1:30, QTC 436, left axis deviation, right bundle branch block and left anterior fascicular block that is unchanged from previous, no acute ischemic changes
--- NOTE | 2017-05-17 18:48 | Emergency Department Note ---
START Narrative - START START: I examined this patient and my medical decision-making was reviewed with the Resident Physician. I agree with the documented findings, disposition and treatment plan as described except to the extent set forth below. 62-year-old female presents to the ER for chest pain. Patient was just seen at [facility] earlier today for preop clearance. 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 She again was seen at today for preoperative clearance. She presented to our ER tonight for chest pain. We will work her up from a cardiac standpoint. Hemodynamically stable at this time.
[2017-05-17 19:13] LABS: Basophils % 0.2 %; Eosinophils # 0.2 K/mcL (0.0-0.6); Eosinophils % 1.7 %; Hematocrit 36.5 % (35.3-44.9); Immature Granulocytes % 0.6 % (0-4); Lymphocytes # 0.9 K/mcL (0.6-4.6); Lymphocytes % 7.3 %; Mean Corpuscular HGB Conc 30.1 g/dL (31.6-35.5); Mean Corpuscular Volume 92.9 fL (83.0-100.0); Mean Platelet Volume 9.6 fL (9.4-12.4); Monocytes # 0.5 K/mcL (0.0-1.3); Neutrophils # 10.4 K/mcL (1.6-8.9); Platelet Count 256 K/mcL (140-400); Red Blood Count 3.93 M/mcL (3.82-4.97); Red Cell Distribution Width 15.4 % (11.5-14.5); Segmented Neutrophils % 86.2 %
[2017-05-17 19:37] LABS: Alanine Aminotransferase 7 Units/L (0-55); Albumin 2.8 g/dL (3.5-5.0); Albumin/Globulin Ratio 0.8 (1.1-2.2); Alkaline Phosphatase 124 Units/L (38-126); Aspartate Amino Transferase 10 Units/L (5-34); BUN/Creatinine Ratio 32 (6-26); Bilirubin,Direct 0.1 mg/dL (0.0-0.5); Bilirubin,Indirect 0.2 mg/dL (0.0-1.2); Bilirubin,Total 0.3 mg/dL (0.2-1.2); Blood Urea Nitrogen 27 mg/dL (7-20); Calcium 9.6 mg/dL (8.6-10.8); Chloride 97 mEq/L (98-109); Globulin 3.7 g/dL (2.4-3.5); Glucose 192 mg/dL (70-99); Lipase 20 Units/L (8-78); Osmolality,Calculated 306 (280-300); Potassium 4.3 mEq/L (3.5-4.5); Sodium 143 mEq/L (136-145); Total Protein 6.5 g/dL (6.0-8.3); eGFR For African Americans > 60 (> 60); eGFR For Non-African Americans > 60 (> 60)
[2017-05-17 19:39] LABS: Carbon Dioxide 40 mEq/L (19-29)
--- NOTE | 2017-05-17 19:39 | Emergency Department Note ---
Disposition Clinical Impression: COPD exacerbation Chest pain Qualifiers: Chest pain type: unspecified Qualified Code(s): R07.9 - Chest pain, unspecified Disposition: Admitted As Inpatient Condition: Good Referrals: Tawanda Storm Jr, MD [Primary Care Provider] - Forms: ED Satisfaction Letter General Adult HPI - General Chief complaint: ED Chest Pain Stated complaint: chest pain Time Seen by Provider: 05/17/17 18:30 Source: EMS Mode of arrival: EMS Limitations: no limitations - History of Present Illness Pain Scale: 6 - Related Data Home Medications Medication Instructions Recorded Confirmed Albuterol Sulfate [Albuterol 2 puff IH Q4H PRN 04/12/16 01/17/17 Inhaler] Atorvastatin Calcium [Lipitor] 20 mg PO HS 04/12/16 01/17/17 Docusate Sodium [Dok] 100 mg PO DAILY 04/12/16 01/17/17 Ferrous Sulfate 325 mg PO DAILY 04/12/16 01/17/17 Folic Acid 1 mg PO DAILY 04/12/16 01/17/17 Furosemide [Lasix] 80 mg PO DAILY 04/12/16 01/17/17 Isosorbide MONOnitrate (24 HR) 60 mg PO DAILY 04/12/16 01/17/17 [Imdur] Levothyroxine [Synthroid] 175 mcg PO QAM 04/12/16 01/17/17 Methotrexate [Otrexup] 10 mg PO WE 04/12/16 01/17/17 Omeprazole [PriLOSEC] 40 mg PO DAILY 04/12/16 01/17/17 Oxygen 2 l NS CONT 04/12/16 01/17/17 Polyethylene Glycol 3350 [MiraLAX] 17 gm PO DAILY 04/12/16 01/17/17 Potassium Chloride [Klor-Con 20 meq PO BID 04/12/16 01/17/17 Sprinkle] Valsartan [Diovan] 40 mg PO DAILY 04/12/16 01/17/17 Rivaroxaban [Xarelto] 20 mg PO DAILY 07/26/16 01/17/17 Sertraline [Zoloft] 50 mg PO DAILY 07/26/16 01/17/17 Lidocaine 4% CRM (LMX) [Lmx 4] 1 appl TP Q4H PRN 09/23/16 01/17/17 Clobetasol Propionate [Temovate] 1 appl TP BID 01/17/17 01/17/17 Previous Rx's Medication Instructions Recorded Albuterol Neb [Proventil Neb] 2.5 mg IH Q6H PRN #30 inhsol 11/19/16 Valacyclovir HCl [Valtrex] 1,000 mg PO DAILY #5 tab 11/20/16 Gabapentin [Neurontin] 100 mg PO TID #15 capsule 11/24/16 HYDROcodone/Acet 5/325 mg [[place] 1 tab PO Q8H PRN #15 tab 11/24/16 5-325 mg] Insulin ASPART [Novolog Flexpen] 18 unit SQ TIDWM #0 11/24/16 Doxycycline 100 mg PO BID #10 capsule 01/18/17 metFORMIN [Glucophage] 500 mg PO BIDWM #60 tablet 01/18/17 predniSONE [PredniSONE] 40 mg PO DAILY #4 tablet 01/18/17 Insulin DETEMIR [Levemir] 44 unit SQ BID #1 mls 01/19/17 Acyclovir [Zovirax] 400 mg PO TID #15 tablet 02/04/17 Fluconazole [Diflucan] 150 mg PO DAILY #1 tab 02/04/17 Nitrofurantoin (BID) [Macrobid] 100 mg PO BID #10 capsule 02/04/17 Valacyclovir HCl [Valtrex] 1,000 mg PO DAILY #5 tab 02/12/17 predniSONE [PredniSONE] 40 mg PO DAILY #5 tablet 05/14/17 Allergies Allergy/AdvReac Type Severity Reaction Status Date / Time Penicillins Allergy Hives Verified 11/18/16 20:53 Sulfa (Sulfonamide Allergy Rash Verified 11/18/16 20:53 Antibiotics) Constitutional: Denies: fever Cardiovascular: Reports: chest pain Respiratory: Reports: dyspnea Gastrointestinal: Denies: nausea, vomiting Musculoskeletal: Denies: back pain Neurological: Denies: headache Past Medical History - Past Medical History Medical history: Reports: CHF, COPD, DVT, diabetes, hyperlipidemia, hypertension , thyroid disease, other Surgical history: Reports: cholecystectomy Psychiatric history: Reports: anxiety, depression 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 reports that she has had chest pain which has almost completely resolved by the time she arrived in the emergency department. She does have a history of COPD and is on 2 L nasal cannula all the time at home. She does not have a known cardiac history. Troponin is negative. EKG shows normal sinus rhythm with a right bundle branch block without ST deviation or T-wave changes. Her chest x-ray is clear. She is on Xarelto due to a prior DVT. She is not hypoxic or tachycardic. In addition she is already anticoagulated. She also admits to a increase in cough frequency without sputum change. Her CO2 is elevated on labwork, likely from chronic retention from COPD. Will treat with solu-medrol and duoneb.. Age-adjusted d-dimer is negative which effectively rules out pulmonary embolism. Will admit for chest pain rule out Vital Signs Temperature 97.6 F 05/17/17 18:28 Pulse Rate 52 05/17/17 18:28 Respiratory Rate 20 05/17/17 18:28 Blood Pressure 135/71 05/17/17 18:28 O2 Sat by Pulse Oximetry 94 05/17/17 18:28 Temperature 97.6 F 05/17/17 18:28 Pulse Rate 77 05/17/17 20:32 Respiratory Rate 16 05/17/17 20:50 Blood Pressure 114/67 05/17/17 20:32 O2 Sat by Pulse Oximetry 97 05/17/17 20:50 Oxygen Delivery Oxygen Delivery Nasal Cannula Medical Decision Making - Medical Records Medical records reviewed: Yes I reviewed the patient's medical records. - Lab Data Lab results reviewed: Yes I reviewed the patient's lab results. Result diagrams: 05/17/17 18:58 05/17/17 18:58 Lab Results 05/17/17 05/17/17 05/17/17 Range/Units 18:58 18:58 18:58 WBC 12.1 H (4.3-11.1) K/mcL RBC 3.93 (3.82-4.97) M/mcL Hgb 11.0 L (11.5-15.4) g/dL Hct 36.5 (35.3-44.9) % MCV 92.9 (83.0-100.0) fL MCH 28.0 (28.0-33.3) pg MCHC 30.1 L (31.6-35.5) g/dL RDW 15.4 H (11.5-14.5) % Plt Count 256 (140-400) K/mcL MPV 9.6 (9.4-12.4) fL Immature Gran % 0.6 (0-4) % Seg Neutrophils % 86.2 % Lymphocytes % 7.3 % Monocytes % 4.0 % Eosinophils % 1.7 % Basophils % 0.2 % Neutrophils # 10.4 H (1.6-8.9) K/mcL Lymphocytes # 0.9 (0.6-4.6) K/mcL Monocytes # 0.5 (0.0-1.3) K/mcL Eosinophils # 0.2 (0.0-0.6) K/mcL Basophils # 0.0 (0.0-0.2) K/mcL PT 11.6 (9.4-12.1) Seconds INR 1.1 APTT 30.1 (26.0-36.0) Seconds D-Dimer 509 H (0-500) ng/mLFEU Sodium (136-145) mEq/L Potassium (3.5-4.5) mEq/L Chloride (98-109) mEq/L Carbon Dioxide (19-29) mEq/L BUN (7-20) mg/dL Creatinine (0.57-1.11) mg/dL Est GFR ( Amer) (> 60) Est GFR (Non-Af Amer) (> 60) BUN/Creatinine Ratio (6-26) Glucose (70-99) mg/dL Calculated Osmolality (280-300) Calcium (8.6-10.8) mg/dL Total Bilirubin (0.2-1.2) mg/dL Direct Bilirubin (0.0-0.5) mg/dL Indirect Bilirubin (0.0-1.2) mg/dL AST (5-34) Units/L ALT (0-55) Units/L Alkaline Phosphatase (38-126) Units/L Troponin I (0-0.03) ng/mL B-Natriuretic Peptide 20 (0-100) pg/mL Serum Total Protein (6.0-8.3) g/dL Albumin (3.5-5.0) g/dL Globulin (2.4-3.5) g/dL Albumin/Globulin Ratio (1.1-2.2) Lipase (8-78) Units/L 05/17/17 05/17/17 Range/Units 18:58 18:58 WBC (4.3-11.1) K/mcL RBC (3.82-4.97) M/mcL Hgb (11.5-15.4) g/dL Hct (35.3-44.9) % MCV (83.0-100.0) fL MCH (28.0-33.3) pg MCHC (31.6-35.5) g/dL RDW (11.5-14.5) % Plt Count (140-400) K/mcL MPV (9.4-12.4) fL Immature Gran % (0-4) % Seg Neutrophils % % Lymphocytes % % Monocytes % % Eosinophils % % Basophils % % Neutrophils # (1.6-8.9) K/mcL Lymphocytes # (0.6-4.6) K/mcL Monocytes # (0.0-1.3) K/mcL Eosinophils # (0.0-0.6) K/mcL Basophils # (0.0-0.2) K/mcL PT (9.4-12.1) Seconds INR APTT (26.0-36.0) Seconds D-Dimer (0-500) ng/mLFEU Sodium 143 (136-145) mEq/L Potassium 4.3 (3.5-4.5) mEq/L Chloride 97 L (98-109) mEq/L Carbon Dioxide 40 H* (19-29) mEq/L BUN 27 H (7-20) mg/dL Creatinine 0.84 (0.57-1.11) mg/dL Est GFR ( Amer) > 60 (> 60) Est GFR (Non-Af Amer) > 60 (> 60) BUN/Creatinine Ratio 32 H (6-26) Glucose 192 H (70-99) mg/dL Calculated Osmolality 306 H (280-300) Calcium 9.6 (8.6-10.8) mg/dL Total Bilirubin 0.3 (0.2-1.2) mg/dL Direct Bilirubin 0.1 (0.0-0.5) mg/dL Indirect Bilirubin 0.2 (0.0-1.2) mg/dL AST 10 (5-34) Units/L ALT 7 (0-55) Units/L Alkaline Phosphatase 124 (38-126) Units/L Troponin I 0.01 (0-0.03) ng/mL B-Natriuretic Peptide (0-100) pg/mL Serum Total Protein 6.5 (6.0-8.3) g/dL Albumin 2.8 L (3.5-5.0) g/dL Globulin 3.7 H (2.4-3.5) g/dL Albumin/Globulin Ratio 0.8 L (1.1-2.2) Lipase 20 (8-78) Units/L - Radiology Data Radiology results reviewed: Yes I reviewed the patient's radiology results. - EKG Data EKG #1 EKG attestation: Yes I reviewed and interpreted this EKG. EKG shows normal: sinus rhythm Rate: normal Rhythm: NSR [place]/QRS: RBBB Interpretation: no acute changes Attestation Statement - Attestation Attestation: I, Vasile Santacruz MD, personally evaluated this patient and discussed their management with the resident physician. I reviewed the resident's note and agree with the documented findings, medical decision making, and plan of care. This patient was signed out at shift change from Dr. Roberson and Dr. Barajas. Please refer to their notes for complete details of the history and physical examination. Patient presenting complaining of some mid substernal chest pain and increased shortness of breath started earlier today. She is unsure when it started. No radiation of the chest pain. There has been some increased nonproductive cough. No fever. Patient does have a history of COPD and asthma and wears oxygen at home continuously. On examination patient is an obese female in no acute distress. She is alert and oriented 3. There is no cyanosis or diaphoresis. Breath sounds are decreased but equal bilaterally with a few bibasilar rales. No wheezes noted. Heart regular rate and rhythm. Abdomen is soft and nontender with normal bowel sounds. Trace pedal edema bilaterally. Labs reviewed. D-dimer 509 but within normal limits when age-adjusted. Chest x -ray negative. EKG shows a sinus rhythm with a heart rate of 88 and a right bundle branch block with no acute ischemic changes. The hospitalist, Dr. Oakley, was consulted and accepted admission of the patient.
[2017-05-17] MEDS ORDERED: methylPREDNISolone 125 MG/2 ML VIAL IVP ONE (19:40)
[2017-05-17] MEDS ORDERED: Ipratropium/Albuterol Neb 3 ML IH ONE (19:40)
[2017-05-17 19:56] LABS: INR 1.1; Prothrombin Time 11.6 Seconds (9.4-12.1)
[2017-05-17 19:59] LABS: Activated Partial Thrombo Time 30.1 Seconds (26.0-36.0)
--- NOTE | 2017-05-17 23:24 | Internal Med History&Physical ---
Date of Encounter: 05/17/17 Time of Encounter: 10:00 Assessment and Plan (1) Chest pain Current visit: Yes Status: Acute -Patient reported of shortness of breath but unsure if she had any chest pain and currently is asymptomatic. -First set of cardiac biomarkers negative in ER -Will trend troponins and monitor on telemetry to rule out ACS Qualifiers: Chest pain type: unspecified Qualified Code(s): R07.9 - Chest pain, unspecified (2) Diastolic CHF, chronic Current visit: Yes Status: Acute -She does report shortness of breath but BNP within normal limits and chest x- ray negative for vascular congestion. -Patient does not appear volume overloaded on exam and is essentially on baseline O2 requirements. -Echocardiogram on 07/26/16 showed LVEF of 60-65% but moderate left ventricular diastolic dysfunction without any significant valvular dysfunction or evidence of pulmonary hypertension. -Continue home dose of oral Lasix. (3) COPD (chronic obstructive pulmonary disease) Current visit: No Status: Chronic -Patient with no wheezing on exam and essentially on baseline O2 requirements as above. -Will however give scheduled DuoNeb Qualifiers: COPD type: unspecified COPD Qualified Code(s): J44.9 - Chronic obstructive pulmonary disease, unspecified (4) Chronic respiratory failure Current visit: No Status: Chronic -Patient on baseline O2 requirements as above. Qualifiers: Respiratory failure complication: hypoxia Qualified Code(s): J96.11 - Chronic respiratory failure with hypoxia (5) Type 2 diabetes mellitus Current visit: No Status: Chronic -Glucose controlled; continue home medications. Qualifiers: Diabetes mellitus complication status: with hyperglycemia Diabetes mellitus long term care administrator insulin use: with longterm use Qualified Code(s): E11.65 - Type 2 diabetes mellitus with hyperglycemia; Z79.4 - jail (current) use of insulin (6) Hypothyroidism Current visit: No Status: Chronic -Continue home medication Qualifiers: Hypothyroidism type: acquired Qualified Code(s): E03.9 - Hypothyroidism, unspecified (7) Rheumatoid arthritis Current visit: No Status: Chronic -Continue home medication Qualifiers: Rheumatoid arthritis location: multiple sites Rheumatoid factor presence: unspecified presence Qualified Code(s): M06.9 - Rheumatoid arthritis, unspecified (8) Depression Current visit: No Status: Chronic -Continue home medication Qualifiers: Depression Type: major depressive disorder Major depression recurrence: recurrent Active/Remission status: currently active Major depression episode severity: moderate Qualified Code(s): F33.1 - Major depressive disorder, recurrent, moderate (9) History of venous thromboembolism Current visit: No Status: Chronic -Continue Xarelto (10) DVT prophylaxis Current visit: No Status: Acute -On Xarelto as above Internal Medicine - H&P: HPI Chief complaint: Shortness of breath Admitted From: Home Plans for Post Hospital Care: Home History of present illness: Patient is a 62-year-old female with past medical history significant for diabetes, hypertension, COPD (O2 dependent, 2 L), hypothyroid, hyperlipidemia, chronic anemia and DVT history who presents to the ER on 04/16/17 with shortness of breath. Patient is a poor historian but reports a 1 day history of difficulty breathing that woke her up the morning of admission. Patient reports dyspnea with exertion and at rest. Patient unsure if she had any chest pain but is currently asymptomatic and denies any coughing or wheezing. In the ER, chest x-ray negative for any acute cardiopulmonary disease and cardiac biomarkers negative 1. Patient admitted to the medical floor for concerns of ACS. Past Med Surg Social Fam HX - Past Medical History Medical history: CHF, COPD, DVT, diabetes, hyperlipidemia, hypertension, thyroid disease, other Psychiatric history: anxiety, depression - Past Surgical History Surgical History: cholecystectomy - Social History Smoking Status: Never smoker Smokeless Tobacco Status: No Alcohol use: none Drug use: none - Family History Mother Living Status: Hx Family Cardiac Disorders: Yes (chf) Hx Family Endocrine Disorder: Yes Father Living Status: Hx Family Cardiac Disorders: Yes (MA) Hx Family Endocrine Disorder: Yes Internal Medicine - H&P: Meds Albuterol Sulfate [Albuterol Inhaler] 1 - 2 puff IH TID PRN 04/12/16 [History] Atorvastatin Calcium [Lipitor] 20 mg PO HS 04/12/16 [History] Docusate Sodium [Dok] 100 mg PO DAILY 04/12/16 [History] Folic Acid 1 mg PO DAILY 04/12/16 [History] Furosemide [Lasix] 80 mg PO DAILY 04/12/16 [History] Levothyroxine [Synthroid] 175 mcg PO QAM 04/12/16 [History] Methotrexate [Otrexup] 10 mg PO WE 04/12/16 [History] Omeprazole [PriLOSEC] 40 mg PO DAILY 04/12/16 [History] Oxygen 2 l NS CONT 04/12/16 [History] Valsartan [Diovan] 40 mg PO DAILY 04/12/16 [History] Rivaroxaban [Xarelto] 20 mg PO DAILY 07/26/16 [History] HYDROcodone/Acet 5/325 mg [[place] 5-325 mg] 1 tab PO Q8H PRN #15 tab 11/24/16 [Rx ] metFORMIN [Glucophage] 500 mg PO BIDWM #60 tablet 01/18/17 [Rx] Fluconazole [Diflucan] 150 mg PO DAILY #1 tab 02/04/17 [Rx] Acetaminophen [Tylenol] 650 mg PO Q4H PRN 05/17/17 [History] Aspirin 81 mg PO DAILY 05/17/17 [History] BuPROPion SR (12 HR) [Wellbutrin SR] 150 mg PO Q12H 05/17/17 [History] Clotrimazole/Betameth Dip CRM [Lotrisone CRM] 1 appl TP QID 05/17/17 [History] Ergocalciferol (VITAMIN D2) [Vitamin D2] 50,000 unit PO MO 05/17/17 [History] FLUoxetine HCl [Prozac] 40 mg PO DAILY 05/17/17 [History] Ibuprofen [Motrin] 600 mg PO Q6HR PRN 05/17/17 [History] Insulin ASPART [Novolog Flexpen] 10 - 15 unit SQ TIDWM 05/17/17 [History] Insulin DETEMIR [Levemir] 45 unit SQ QAM 05/17/17 [History] Isosorbide MONOnitrate (24 HR) [Imdur] 60 mg PO DAILY 05/17/17 [History] Ondansetron HCl [Zofran] 4 mg PO Q6H PRN 05/17/17 [History] Oxycodone HCl [Oxaydo] 5 - 10 mg PO Q4H PRN 05/17/17 [History] Zinc Oxide [[place]] 1 appl TP TID 05/17/17 [History] 3 Allergy/AdvReac Type Severity Reaction Status Date / Time Penicillins Allergy Hives Verified 05/17/17 21:08 Sulfa (Sulfonamide Allergy Rash Verified 05/17/17 21:08 Antibiotics) All Systems PM: A 10-system review of systems was performed and is negative for pertinent findings except as documented above in the HPI. - Constitutional Vitals: Temp Pulse Resp BP Pulse Ox 98.0 F 87 18 126/83 92 05/17/17 22:05 05/17/17 22:05 05/17/17 22:05 05/17/17 22:05 05/17/17 22:05 General appearance: Present: A&O X 3, no acute distress, answers questions appropriately - Head Head exam: Present: atraumatic, normocephalic - Eye Eye exam: Present: normal appearance - ENT ENT exam: Present: mucous membranes moist - Respiratory Respiratory exam: Present: CTAB. Absent: accessory muscle use, rales, rhonchi, wheezes - Cardiovascular Cardiovascular exam: Present: RRR, +S1, +S2. Absent: diastolic murmur, gallop, rubs, systolic murmur - GI/Abdominal GI/Abdominal exam: Present: normal bowel sounds, soft, no peritoneal signs. Absent: distended, tenderness - Extremities Exam Extremities exam: Absent: pedal edema - Neurological Exam Neurological exam: Present: alert, oriented X3 - Psychiatric Psychiatric exam: Present: normal mood - Skin Skin exam: Present: warm Internal Med - H&P Results - Labs CBC & Chem 7: 05/17/17 18:58 05/17/17 18:58
[2017-05-17] MEDS ORDERED: Naloxone 0.4 MG/ML INJ IVP PRN (23:57)
[2017-05-18 00:53] LABS: Basophils % 0.3 %; Eosinophils # 0.1 K/mcL (0.0-0.6); Eosinophils % 0.3 %; Hematocrit 35.7 % (35.3-44.9); Immature Granulocytes % 0.6 % (0-4); Lymphocytes # 0.5 K/mcL (0.6-4.6); Lymphocytes % 3.6 %; Mean Corpuscular HGB Conc 30.8 g/dL (31.6-35.5); Mean Corpuscular Hemoglobin 28.4 pg (28.0-33.3); Mean Platelet Volume 9.7 fL (9.4-12.4); Monocytes # 0.1 K/mcL (0.0-1.3); Monocytes % 0.8 %; Platelet Count 229 K/mcL (140-400); Red Blood Count 3.88 M/mcL (3.82-4.97); Red Cell Distribution Width 15.5 % (11.5-14.5); Segmented Neutrophils % 94.4 %
[2017-05-18] MEDS: Ipratropium/Albuterol Neb 3 ML IH SCH ×7 (01:10→23:27)
[2017-05-18 01:14] LABS: BUN/Creatinine Ratio 40 (6-26); Blood Urea Nitrogen 34 mg/dL (7-20); Calcium 9.5 mg/dL (8.6-10.8); Carbon Dioxide 34 mEq/L (19-29); Chloride 97 mEq/L (98-109); Glucose 242 mg/dL (70-99); Osmolality,Calculated 310 (280-300); Potassium 4.5 mEq/L (3.5-4.5); Sodium 142 mEq/L (136-145); eGFR For African Americans > 60 (> 60); eGFR For Non-African Americans > 60 (> 60)
[2017-05-18] MEDS ORDERED: Ibuprofen 600 MG TABLET PO PRN (07:27)
[2017-05-18] MEDS ORDERED: Dextrose Gel 15 GM PO PRN ×2 (07:30)
[2017-05-18] MEDS ORDERED: D5% in Water 1,000 ML IVC PRN (07:30)
[2017-05-18] MEDS ORDERED: NON-FORMULARY MEDICATION 1 EACH EACH (Oxygen [Oxygen] 2 L) NS SCH (07:30)
[2017-05-18] MEDS ORDERED: *HR* Dextrose 50 % in Water (Syg) 50 ML SYRINGE IVP PRN (07:30)
[2017-05-18] MEDS: Isosorbide MONOnitrate (24 HR) 60 MG TAB.ER.24H PO SCH (07:59)
[2017-05-18] MEDS: BuPROPion SR (12 HR) 150 MG TABLET PO SCH ×2 (07:59→18:30)
[2017-05-18] MEDS: Folic Acid 1 MG TABLET PO SCH (08:00)
[2017-05-18] MEDS: Furosemide 40 MG TABLET PO SCH (08:00)
[2017-05-18] MEDS: *HR* Rivaroxaban 10 MG TABLET PO SCH (08:00)
[2017-05-18] MEDS: Aspirin 81 MG TAB.CHEW PO SCH (08:00)
[2017-05-18] MEDS: FLUoxetine 20 MG CAPSULE PO SCH (08:00)
[2017-05-18] MEDS: Fluconazole 100 MG TABLET PO SCH (08:00)
[2017-05-18] MEDS ORDERED: Valsartan 80 MG TABLET PO SCH (09:00)
[2017-05-18] MEDS ORDERED: NON-FORMULARY MEDICATION 1 EACH EACH (Insulin Detemir 45 UNIT) SQ SCH (09:00)
[2017-05-18] MEDS: Desitin (Zinc Oxide) 56 GM TUBE TP SCH ×3 (09:39→21:04)
[2017-05-18] MEDS: Clotrimazole/Betameth Dip CRM 45 APPL/45 GM TUBE TP SCH ×4 (09:39→21:04)
[2017-05-18] MEDS: Insulin LISPRO 300 UNITS/3 ML VIAL SQ SCH ×3 (09:40→18:41)
[2017-05-18] MEDS: Insulin DETEMIR 100 UNIT/ML X5UNITS SQ SCH (09:40)
[2017-05-18] MEDS ORDERED: Insulin LISPRO 300 UNITS/3 ML VIAL SQ SCH ×4 (17:07→21:00)
--- NOTE | 2017-05-18 18:11 | Electrocardiograph Report ---
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
--- NOTE | 2017-05-18 18:13 | Internal Med Progress Note ---
Date of Encounter: 05/18/17 Time of Encounter: 10:05 - Assessment and plan (1) Chest pain Current Visit: Yes Status: Acute Assessment and plan: Patient presented to the emergency department shortness of breath. She reports to the admitting physician that she is unsure if she had any chest pain. This morning during exam she reports that she had midsternal chest pain/pressure that began last night at rest when she was watching TV. She still does report shortness of breath. He is not requiring any supplemental oxygen above her baseline need of 2 L. Chest pain is not reproducible with palpation, deep inspiration, or movement. She was not having chest pain during exam this morning. Chest x-ray was negative for any acute cardiopulmonary process. EKG was normal sinus rhythm with a right bundle branch block. Rate is 88, CT interval is 188, QRS is 1:30, QTC is 436. She had a stress test in July, was challenging, due to body habitus. There are no identifiable perfusion defects consistent with ischemia or infarct. She had a gated EF of 70%. Echocardiogram in July, showed LVEF of 60-65% with moderate LV DD and no significant valvular dysfunction. Troponins were negative. Since patient is giving conflicting stories about having chest pain, she is not having chest pain, we will just continue to monitor on telemetry and monitor for patient condition. Qualifiers: Chest pain type: unspecified Qualified Code(s): R07.9 - Chest pain, unspecified (2) Diabetes Current Visit: Yes Status: Chronic Assessment and plan: Diabetes is uncontrolled. A1c is 10.9 in February,. Continue sliding scale insulin, Accu-Cheks before meals at bedtime, diabetic diet. Qualifiers: Diabetes mellitus type: type 2 Diabetes mellitus complication status: with hyperglycemia Diabetes mellitus tank terminal gauger insulin use: with tank terminal gauger use Qualified Code(s): E11.65 - Type 2 diabetes mellitus with hyperglycemia; Z79.4 - [facility] (current) use of insulin (3) Chronic respiratory failure Current Visit: Yes Status: Chronic Assessment and plan: Patient requires supplemental oxygen at home. She wears 2 L. She is not requiring any supplemental oxygen above her baseline. Continue to monitor and titrate as needed to maintain sats greater than 92%. Qualifiers: Respiratory failure complication: hypoxia Qualified Code(s): J96.11 - Chronic respiratory failure with hypoxia (4) COPD (chronic obstructive pulmonary disease) Current Visit: Yes Status: Chronic Assessment and plan: No acute exacerbation at this time. Patient is at her baseline. There is no wheezing, rhonchi, Rales, respiratory distress. She is not requiring supplemental oxygen above her baseline. We will continue duo nebs and monitor patient condition. Plan as above. Qualifiers: COPD type: unspecified COPD Qualified Code(s): J44.9 - Chronic obstructive pulmonary disease, unspecified (5) Depression Current Visit: Yes Status: Chronic Assessment and plan: Chronic. Continue home medications. Qualifiers: Depression Type: major depressive disorder Major depression recurrence: recurrent Active/Remission status: currently active Major depression episode severity: moderate Qualified Code(s): F33.1 - Major depressive disorder, recurrent, moderate (6) Morbid obesity Current Visit: Yes Status: Chronic Assessment and plan: Chronic. Lifestyle changes. (7) Diastolic CHF, chronic Current Visit: Yes Status: Acute Assessment and plan: Chronic. No acute exacerbation. Patient reports shortness of breath, BNP is within normal limits, chest x-ray is negative. Patient does not appear to be in fluid overload and is not requiring subtotal oxygen. She has her normal edema denies any change. Lungs are clear diminished. Echocardiogram results as above. Continue her home dose of Lasix. - Time Spent With Patient less than 15 minutes - Subjective Interval history: She was seen at bedside at 2:00 AM. She denies chest pain. Despite telling the admitting physician that she does not ever have chest pain, she reports midsternal chest pain without radiation last night at rest while watching TV. She reports feeling short of breath. She is at her baseline oxygen use of 2 L. She denies headache, nausea, vomiting, abdominal pain, back pain or shortness of breath. - Constitutional Vitals: Temp Pulse Resp BP Pulse Ox 97.2 F L 97 18 138/91 95 05/18/17 11:25 05/18/17 11:25 05/18/17 16:48 05/18/17 08:25 05/18/17 16:48 General appearance: Present: cooperative, A&O X 3, pleasant, no acute distress, answers questions appropriately - Head Head exam: Present: atraumatic, normal inspection, normocephalic - Eye Eye exam: Present: normal appearance, conjuntiva pink, sclera anicteric - Neck Neck exam general surgery: Present: supple, trachea midline. Absent: lymphadenopathy - Respiratory Respiratory exam: Present: CTAB. Absent: accessory muscle use, chest wall tenderness, decreased breath sounds, rales, respiratory distress, rhonchi, stridor, wheezes - Cardiovascular Cardiovascular exam: Present: RRR, +S1, +S2. Absent: diastolic murmur, gallop, rubs, systolic murmur - GI/Abdominal GI/Abdominal exam: Present: distended, normal bowel sounds, soft, no peritoneal signs. Absent: hepatomegaly, tenderness - Extremities Exam Extremities exam: Present: warm, radial pulses palpable and symmetrical. Absent : calf tenderness, cyanotic, pedal edema - Neurological Exam Neurological exam: Present: alert, oriented X3, no focal deficits. Absent: facial droop, speech deficit - Skin Skin exam: Present: dry, intact, normal color, warm. Absent: rash Internal Medicine: Result - Labs CBC & Chem 7: 05/18/17 00:36 05/18/17 00:36 Labs: Short CBC 05/18/17 Range/Units 00:36 WBC 14.9 H (4.3-11.1) K/mcL Hgb 11.0 L (11.5-15.4) g/dL Hct 35.7 (35.3-44.9) % Plt Count 229 (140-400) K/mcL Neutrophils # 14.0 H (1.6-8.9) K/mcL BMP 05/18/17 00:36 Sodium 142 Potassium 4.5 Chloride 97 L Carbon Dioxide 34 H BUN 34 H Creatinine 0.85 Glucose 242 H Calcium 9.5 Cardiac Enzymes 05/18/17 05/18/17 05/18/17 Range/Units 00:36 06:11 12:38 Troponin I 0.01 0.01 0.01 (0-0.03) ng/mL - ABG Interpretation ABG results: PT/INR, D-dimer PT 11.6 Seconds (9.4-12.1) 05/17/17 18:58 D-Dimer 509 ng/mLFEU (0-500) H 05/17/17 18:58 Consult Discharge Plan - Plan Referrals: Tawanda Storm Jr, MD [Primary Care Provider] -
[2017-05-18 21:36] LABS: Calcium 9.8 mg/dL (8.6-10.8); Potassium 4.9 mEq/L (3.5-4.5)
[2017-05-18] MEDS ORDERED: 0.9 % Sodium Chloride 500 ML IVC ONE ×2 (21:53→22:25)
[2017-05-19 01:07] LABS: BUN/Creatinine Ratio 38 (6-26); Blood Urea Nitrogen 40 mg/dL (7-20); Calcium 9.4 mg/dL (8.6-10.8); Carbon Dioxide 37 mEq/L (19-29); Chloride 93 mEq/L (98-109); Glucose 334 mg/dL (70-99); Osmolality,Calculated 309 (280-300); Sodium 138 mEq/L (136-145); eGFR For African Americans > 60 (> 60); eGFR For Non-African Americans 53 (> 60)
[2017-05-19 01:14] LABS: Potassium 3.7 mEq/L (3.5-4.5)
[2017-05-19] MEDS: Insulin LISPRO 300 UNITS/3 ML VIAL SQ SCH ×7 (01:26→23:26)
[2017-05-19] MEDS: Ipratropium/Albuterol Neb 3 ML IH SCH ×6 (03:22→23:24)
[2017-05-19] MEDS: BuPROPion SR (12 HR) 150 MG TABLET PO SCH ×2 (06:30→20:41)
[2017-05-19] MEDS ORDERED: 0.9 % Sodium Chloride 1,000 ML IVC SCH (08:30)
[2017-05-19] MEDS: Isosorbide MONOnitrate (24 HR) 60 MG TAB.ER.24H PO SCH (08:36)
[2017-05-19] MEDS: Furosemide 40 MG TABLET PO SCH (08:36)
[2017-05-19] MEDS: Fluconazole 100 MG TABLET PO SCH (08:36)
[2017-05-19] MEDS: *HR* Rivaroxaban 10 MG TABLET PO SCH (08:36)
[2017-05-19] MEDS: Folic Acid 1 MG TABLET PO SCH (08:36)
[2017-05-19] MEDS: FLUoxetine 20 MG CAPSULE PO SCH (08:37)
[2017-05-19] MEDS: Aspirin 81 MG TAB.CHEW PO SCH (08:37)
[2017-05-19] MEDS: Desitin (Zinc Oxide) 56 GM TUBE TP SCH ×3 (08:37→21:01)
[2017-05-19] MEDS: Clotrimazole/Betameth Dip CRM 45 APPL/45 GM TUBE TP SCH ×4 (08:37→21:01)
[2017-05-19 08:58] LABS: Hemoglobin A1C 8.8 %
[2017-05-19] MEDS ORDERED: levoFLOXacin 750 MG TABLET PO SCH (09:00)
[2017-05-19 09:04] LABS: BUN/Creatinine Ratio 41 (6-26); Blood Urea Nitrogen 34 mg/dL (7-20); Calcium 9.4 mg/dL (8.6-10.8); Carbon Dioxide 37 mEq/L (19-29); Chloride 99 mEq/L (98-109); Glucose 78 mg/dL (70-99); Osmolality,Calculated 306 (280-300); Potassium 4.3 mEq/L (3.5-4.5); eGFR For African Americans > 60 (> 60); eGFR For Non-African Americans > 60 (> 60)
[2017-05-19 09:06] LABS: Sodium 145 mEq/L (136-145)
[2017-05-19 09:54] LABS: Bilirubin,Urine Negative (Negative); Blood,Urine Negative (Negative); Clarity,Urine Clear (Clear); Color,Urine Yellow (Yellow); Glucose,Urine (UA) Normal (Normal); Ketones,Urine Negative (Negative); Leukocyte Esterase,Urine Negative (Negative); Nitrite,Urine Negative (Negative); Protein,Urine Negative (Neg-Trace); Specific Gravity,Urine 1.013 (1.010-1.025); Urobilinogen,Urine Normal (Normal)
[2017-05-19] MEDS: Insulin DETEMIR 100 UNIT/ML X5UNITS SQ SCH (10:11)
[2017-05-19 11:55] LABS: Basophils % 0.2 %; Eosinophils % 0.3 %; Hematocrit 31.4 % (35.3-44.9); Hemoglobin 9.5 g/dL (11.5-15.4); Immature Granulocytes % 0.5 % (0-4); Lymphocytes # 0.8 K/mcL (0.6-4.6); Lymphocytes % 5.5 %; Mean Corpuscular HGB Conc 30.3 g/dL (31.6-35.5); Mean Corpuscular Hemoglobin 28.4 pg (28.0-33.3); Mean Platelet Volume 10.3 fL (9.4-12.4); Monocytes # 0.7 K/mcL (0.0-1.3); Monocytes % 4.9 %; Neutrophils # 13.2 K/mcL (1.6-8.9); Nucleated Red Blood Cells 0.1 /100 WBC (0); Platelet Count 276 K/mcL (140-400); Red Blood Count 3.34 M/mcL (3.82-4.97); Red Cell Distribution Width 15.8 % (11.5-14.5); Segmented Neutrophils % 88.6 %
--- NOTE | 2017-05-19 14:27 | Internal Med Progress Note ---
Date of Encounter: 05/19/17 Time of Encounter: 11:00 - Assessment and plan (1) Chest pain Current Visit: Yes Status: Acute Assessment and plan: Patient presented to the emergency department shortness of breath. She reports to the admitting physician that she is unsure if she had any chest pain. This morning during exam she reports that she had midsternal chest pain/pressure that began last night at rest when she was watching TV. She still does report shortness of breath. He is not requiring any supplemental oxygen above her baseline need of 2 L. Chest pain is not reproducible with palpation, deep inspiration, or movement. She was not having chest pain during exam this morning. Chest x-ray was negative for any acute cardiopulmonary process. EKG was normal sinus rhythm with a right bundle branch block. Rate is 88, DC interval is 188, QRS is 1:30, QTC is 436. She had a stress test in July, was challenging, due to body habitus. There are no identifiable perfusion defects consistent with ischemia or infarct. She had a gated EF of 70%. Echocardiogram in July, showed LVEF of 60-65% with moderate LV DD and no significant valvular dysfunction. Troponins were negative. Since patient is giving conflicting stories about having chest pain, she is not having chest pain, we will just continue to monitor on telemetry and monitor for patient condition. Qualifiers: Chest pain type: unspecified Qualified Code(s): R07.9 - Chest pain, unspecified (2) Diabetes Current Visit: Yes Status: Chronic Assessment and plan: Diabetes is uncontrolled. A1c is 10.9 in February,. Continue high sliding scale insulin, Accu-Cheks before meals at bedtime, diabetic diet. 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 She wears 2 L. She is not requiring any supplemental oxygen above her baseline. Continue to monitor and titrate as needed to maintain sats greater than 92%. Lungs remain clear, diminshed and she is in no distress. Qualifiers: Respiratory failure complication: hypoxia Qualified Code(s): J96.11 - Chronic respiratory failure with hypoxia (4) COPD (chronic obstructive pulmonary disease) Current Visit: Yes Status: Chronic Assessment and plan: No acute exacerbation at this time. Patient is at her baseline. There is no wheezing, rhonchi, Rales, respiratory distress. She is not requiring supplemental oxygen above her baseline. We will continue duo nebs and monitor patient condition. Plan as above. Qualifiers: COPD type: unspecified COPD Qualified Code(s): J44.9 - Chronic obstructive pulmonary disease, unspecified (5) Depression Current Visit: Yes Status: Chronic Assessment and plan: Chronic. Continue home medications. Pt often yells out and cries loudly when someone doesn't come to her room immediately when he call light is on. She is easily directed. Staff who are familiar with her state this is normal for her. Qualifiers: Depression Type: major depressive disorder Major depression recurrence: recurrent Active/Remission status: currently active Major depression episode severity: moderate Qualified Code(s): F33.1 - Major depressive disorder, recurrent, moderate (6) Morbid obesity Current Visit: Yes Status: Chronic Assessment and plan: Chronic. Lifestyle changes. BMI 48.2. (7) Diastolic CHF, chronic Current Visit: Yes Status: Acute Assessment and plan: Chronic. No acute exacerbation. Patient reports shortness of breath, BNP is within normal limits, chest x-ray is negative. Patient does not appear to be in fluid overload and is not requiring subtotal oxygen. She has her normal edema denies any change. Lungs are clear diminished. Echocardiogram results as above. Continue her home dose of Lasix. (8) Leukocytosis, unspecified Current Visit: Yes Status: Acute Assessment and plan: Pt with leukocytosis increasing since arrival. Initial urine negative for infection. INitial chest xray negative. Pt denies new cough or urinary s/s. She denies fever and/or chills. She states that she does not feel well, but states that she is tired. No sore throat, rhinorrhea, or URI symptoms. Repeat chest xray ordered Lactic ordered and pending Pt is not receiving steroids. Pt is afebrile, no tachycardia. Continue to monitor for source of possible infection Qualifiers: Leukocytosis type: unspecified Qualified Code(s): D72.829 - Elevated white blood cell count, unspecified - Subjective Interval history: She was seen at bedside at 1100 AM. She denies chest pain. Pt reports that she has not slept well and that she is tired. She reports feeling short of breath. She is at her baseline oxygen use of 2 L. She denies headache, nausea , vomiting, abdominal pain, back pain or shortness of breath. She denies fever , chills, dysuria, new cough, or body aches. - Constitutional Vitals: Temp Pulse Resp BP Pulse Ox 98.6 F 94 16 128/77 95 05/19/17 11:26 05/19/17 11:26 05/19/17 11:31 05/19/17 11:26 05/19/17 11:31 General appearance: Present: cooperative, A&O X 3, pleasant, no acute distress, answers questions appropriately - Head Head exam: Present: atraumatic, normal inspection, normocephalic - Eye Eye exam: Present: normal appearance, conjuntiva pink, sclera anicteric - Neck Neck exam general surgery: Present: supple, trachea midline. Absent: lymphadenopathy - Respiratory Respiratory exam: Present: CTAB. Absent: accessory muscle use, chest wall tenderness, decreased breath sounds, rales, respiratory distress, rhonchi, stridor, wheezes - Cardiovascular Cardiovascular exam: Present: RRR, +S1, +S2. Absent: diastolic murmur, gallop, rubs, systolic murmur - GI/Abdominal GI/Abdominal exam: Present: normal bowel sounds, soft. Absent: distended, hepatomegaly, tenderness - Extremities Exam Extremities exam: Present: normal capillary refill, normal inspection, warm, radial pulses palpable and symmetrical. Absent: calf tenderness, cyanotic, pedal edema, tenderness - Neurological Exam Neurological exam: Present: alert, oriented X3, no focal deficits. Absent: facial droop, speech deficit - Skin Skin exam: Present: dry, intact, normal color, warm. Absent: rash Internal Medicine: Result - Labs CBC & Chem 7: 05/19/17 00:34 05/19/17 08:26 Labs: Short CBC 05/19/17 Range/Units 00:34 WBC 14.8 H (4.3-11.1) K/mcL Hgb 9.5 L D (11.5-15.4) g/dL Hct 31.4 L (35.3-44.9) % Plt Count 276 (140-400) K/mcL Neutrophils # 13.2 H (1.6-8.9) K/mcL BMP 05/18/17 05/19/17 05/19/17 21:13 00:34 08:26 Sodium 136 138 145 D Potassium 4.9 H 3.7 D 4.3 Chloride 93 L 93 L 99 Carbon Dioxide 28 37 H 37 H BUN 42 H 40 H 34 H Creatinine 1.40 H D 1.05 0.83 Glucose 537 H* 334 H 78 Calcium 9.8 9.4 9.4 Urine 05/19/17 Range/Units 09:35 Urine Color Yellow (Yellow) Urine Clarity Clear (Clear) Urine pH 6.0 (5.0-8.0) pH Units Ur Specific [place] 1.013 (1.010-1.025) Urine Protein Negative (Neg-Trace) mg/dL Urine Glucose (UA) Normal (Normal) mg/dL - ABG Interpretation ABG results: PT/INR, D-dimer PT 11.6 Seconds (9.4-12.1) 05/17/17 18:58 D-Dimer 509 ng/mLFEU (0-500) H 05/17/17 18:58 Consult Discharge Plan - Plan Referrals: Tawanda Storm Jr, MD [Primary Care Provider] -
[2017-05-19] MEDS ORDERED: Aminoglycoside Consult 1 EACH MC ONE (15:34)
[2017-05-19] MEDS ORDERED: Vancomycin (wt based) 1,000 MG VIAL IVPB SCH (19:00)
[2017-05-19 19:18] LABS: Basophils # 0.1 K/mcL (0.0-0.2); Basophils % 0.3 %; Eosinophils # 0.2 K/mcL (0.0-0.6); Eosinophils % 0.9 %; Hematocrit 33.8 % (35.3-44.9); Hemoglobin 10.5 g/dL (11.5-15.4); Immature Granulocytes % 0.5 % (0-4); Lymphocytes % 5.6 %; Mean Corpuscular HGB Conc 31.1 g/dL (31.6-35.5); Mean Corpuscular Hemoglobin 28.6 pg (28.0-33.3); Mean Corpuscular Volume 92.1 fL (83.0-100.0); Monocytes # 0.6 K/mcL (0.0-1.3); Monocytes % 3.6 %; Neutrophils # 15.5 K/mcL (1.6-8.9); Platelet Count 331 K/mcL (140-400); Red Blood Count 3.67 M/mcL (3.82-4.97); Red Cell Distribution Width 15.8 % (11.5-14.5); Segmented Neutrophils % 89.1 %
[2017-05-19 19:31] LABS: Albumin 3.2 g/dL (3.5-5.0); Albumin/Globulin Ratio 0.8 (1.1-2.2); Bilirubin,Direct 0.1 mg/dL (0.0-0.5); Bilirubin,Indirect 0.1 mg/dL (0.0-1.2); Bilirubin,Total 0.2 mg/dL (0.2-1.2); Globulin 3.8 g/dL (2.4-3.5)
[2017-05-19 19:32] LABS: INR 1.5; Prothrombin Time 15.8 Seconds (9.4-12.1)
[2017-05-19 19:35] LABS: Activated Partial Thrombo Time 33.5 Seconds (26.0-36.0)
[2017-05-19] MEDS ORDERED: Vancomycin 1,500 MG in D5% in Water 250 ML IVPB SCH (20:00)
[2017-05-19] MEDS: Aztreonam 2,000 MG in Water for inj. (sterile) 20 ML IVP SCH (20:37)
[2017-05-19] MEDS ORDERED: Insulin LISPRO 300 UNITS/3 ML VIAL SQ ONE (21:26)
[2017-05-20] MEDS: *HR* HYDROcodone/Acet 5/325 mg TABLET PO PRN ×2 (01:42→15:33)
[2017-05-20] MEDS: Aztreonam 2,000 MG in Water for inj. (sterile) 20 ML IVP SCH (02:52)
[2017-05-20] MEDS: Levofloxacin 750 MG/150 ML 750 MG/150 ML BAG IVPB SCH (02:55)
[2017-05-20] MEDS: Insulin LISPRO 300 UNITS/3 ML VIAL SQ SCH ×5 (04:18→21:06)
[2017-05-20 04:36] LABS: BUN/Creatinine Ratio 32 (6-26); Blood Urea Nitrogen 32 mg/dL (7-20); Calcium 9.2 mg/dL (8.6-10.8); Carbon Dioxide 35 mEq/L (19-29); Chloride 96 mEq/L (98-109); Glucose 134 mg/dL (70-99); Osmolality,Calculated 301 (280-300); Potassium 4.1 mEq/L (3.5-4.5); Sodium 141 mEq/L (136-145); eGFR For African Americans > 60 (> 60); eGFR For Non-African Americans 57 (> 60)
[2017-05-20 04:52] LABS: Basophils % 0.4 %; Eosinophils # 0.1 K/mcL (0.0-0.6); Eosinophils % 1.2 %; Hematocrit 30.3 % (35.3-44.9); Hemoglobin 9.3 g/dL (11.5-15.4); Immature Granulocytes % 0.4 % (0-4); Lymphocytes # 1.2 K/mcL (0.6-4.6); Lymphocytes % 10.8 %; Mean Corpuscular HGB Conc 30.7 g/dL (31.6-35.5); Mean Corpuscular Hemoglobin 28.2 pg (28.0-33.3); Mean Corpuscular Volume 91.8 fL (83.0-100.0); Monocytes # 0.6 K/mcL (0.0-1.3); Monocytes % 5.3 %; Neutrophils # 9.1 K/mcL (1.6-8.9); Platelet Count 279 K/mcL (140-400); Red Cell Distribution Width 15.6 % (11.5-14.5); Segmented Neutrophils % 81.9 %
[2017-05-20] MEDS: Ipratropium/Albuterol Neb 3 ML IH SCH ×6 (05:02→23:04)
[2017-05-20] MEDS ORDERED: 0.9 % Sodium Chloride 1,000 ML IVC SCH (07:30)
[2017-05-20] MEDS: *HR* Rivaroxaban 10 MG TABLET PO SCH (09:54)
[2017-05-20] MEDS: BuPROPion SR (12 HR) 150 MG TABLET PO SCH ×2 (09:55→21:03)
[2017-05-20] MEDS: Furosemide 40 MG TABLET PO SCH (09:55)
[2017-05-20] MEDS: Aspirin 81 MG TAB.CHEW PO SCH (09:55)
[2017-05-20] MEDS: Folic Acid 1 MG TABLET PO SCH (09:55)
[2017-05-20] MEDS: Fluconazole 100 MG TABLET PO SCH (09:55)
[2017-05-20] MEDS: FLUoxetine 20 MG CAPSULE PO SCH (09:55)
[2017-05-20] MEDS: Isosorbide MONOnitrate (24 HR) 60 MG TAB.ER.24H PO SCH (09:56)
[2017-05-20] MEDS: Desitin (Zinc Oxide) 56 GM TUBE TP SCH ×4 (09:56→21:08)
[2017-05-20] MEDS: Clotrimazole/Betameth Dip CRM 45 APPL/45 GM TUBE TP SCH ×4 (09:57→21:08)
[2017-05-20] MEDS: Insulin DETEMIR 100 UNIT/ML X5UNITS SQ SCH (10:47)
--- NOTE | 2017-05-20 17:50 | Discharge Summary ---
Date of Encounter: 05/20/17 Time of Encounter: 08:30 - Discharge Diagnosis (1) Chest pain Priority: Primary Status: Acute Comments: Patient presented to the emergency department shortness of breath. She reports to the admitting physician that she is unsure if she had any chest pain. This morning during exam she reports that she had midsternal chest pain/pressure that began last night at rest when she was watching TV. She still does report shortness of breath. He is not requiring any supplemental oxygen above her baseline need of 2 L. Chest pain is not reproducible with palpation, deep inspiration, or movement. She was not having chest pain during exam this morning. Chest x-ray was negative for any acute cardiopulmonary process. EKG was normal sinus rhythm with a right bundle branch block. Rate is 88, NC interval is 188, QRS is 1:30, QTC is 436. She had a stress test in July, was challenging, due to body habitus. There are no identifiable perfusion defects consistent with ischemia or infarct. She had a gated EF of 70%. Echocardiogram in July, showed LVEF of 60-65% with moderate LV DD and no significant valvular dysfunction. Patient has echocardiogram that was done today, is not resulted yet. Troponins were negative. Since patient is giving conflicting stories about having chest pain, she is not having chest pain, we will just continue to monitor on telemetry and monitor for patient condition. Chest pain could have been from a bronchitis. She is being treated with Levaquin and oxygen. Qualifiers: Chest pain type: unspecified Qualified Code(s): R07.9 - Chest pain, unspecified (2) Diabetes Priority: Secondary Status: Chronic Comments: A1c is 10.9 in February. Continue high sliding scale insulin, Accu-Cheks before meals at bedtime, diabetic diet. Patient will go home on her normal meds and Accu-Chek routine. Patient could benefit from outpatient diabetes education, primary care provider can order this. Qualifiers: Diabetes mellitus type: type 2 Diabetes mellitus complication status: with hyperglycemia Diabetes mellitus terminal worker insulin use: with terminal worker use Qualified Code(s): E11.65 - Type 2 diabetes mellitus with hyperglycemia; Z79.4 - intermediate (current) use of insulin (3) Chronic respiratory failure Priority: Secondary Status: Chronic Comments: Patient requires supplemental oxygen at home, 2 L at home, she is back to her baseline 2 L use here as well. Continue to monitor and titrate as needed to maintain sats greater than 92%. Her lungs remained clear, diminished, without rales, rhonchi, stridor, wheezing. Patient is in no respiratory distress. She denies productive cough. Qualifiers: Respiratory failure complication: hypoxia Qualified Code(s): J96.11 - Chronic respiratory failure with hypoxia (4) COPD (chronic obstructive pulmonary disease) Priority: Secondary Status: Chronic Comments: Possible mild exacerbation versus pneumonia. Plan as above. Qualifiers: COPD type: unspecified COPD Qualified Code(s): J44.9 - Chronic obstructive pulmonary disease, unspecified (5) Depression Priority: Secondary Status: Chronic Comments: Chronic, continue home medications. Patient says that she feels depressed because her has a girlfriend. She states she does not need to speak to anyone about this. Qualifiers: Depression Type: major depressive disorder Major depression recurrence: recurrent Active/Remission status: currently active Major depression episode severity: moderate Qualified Code(s): F33.1 - Major depressive disorder, recurrent, moderate (6) Morbid obesity Priority: Secondary Status: Chronic Comments: Chronic. Lifestyle changes. (7) Diastolic CHF, chronic Priority: Secondary Status: Acute Comments: Chronic. No acute exacerbation. Patient reports shortness of breath, BNP is within normal limits, chest x-ray is negative. Patient does not appear to be in fluid overload and is not requiring subtotal oxygen. She has her normal edema denies any change. Lungs are clear diminished. Echocardiogram results as above. Continue her home dose of Lasix. Echocardiogram results are pending. (8) Leukocytosis, unspecified Priority: Secondary Status: Acute Comments: Pt with leukocytosis increasing since arrival, has resolved since IV antibiotics. Initial urine negative for infection. INitial chest xray negative. Pt denies new cough or urinary s/s. Repeat chest x-ray ordered and negative. Chest CTA showed mild groundglass opacities within the lungs that may have been artifact, or represent atelectasis versus pneumonitis. She denies fever and/or chills. She states that she does not feel well, but states that she is tired. No sore throat, rhinorrhea, or URI symptoms. Lactic was elevated 3. Will repeat in the morning. Pt is not receiving steroids. Pt is afebrile, but tachycardic, as well as having an elevated lactic and leukocytosis, she met sepsis criteria and sepsis protocol was initiated. Suspect community-acquired pneumonia. She is being treated with IV Levaquin, we will switch to by mouth prior to discharge. She was initially treated with aztreonam IV, vancomycin IV, as well as Levaquin IV. All have been DC'd other than the Levaquin. We will continue to monitor patient overnight, if she is stable and labs and vitals remained within normal limits, she will go home in the morning. Qualifiers: Leukocytosis type: unspecified Qualified Code(s): D72.829 - Elevated white blood cell count, unspecified (9) Community acquired pneumonia Priority: Secondary Status: Acute Comments: Plan as above for leukocytosis. Chest X-Ray 05/19/17 14:13 IMPRESSION: 1. No evidence of pneumonia 2. Possible left-sided pulmonary nodule. Recommend CT chest D/ / Luis Lane MD / Luis Lane MD Interpreting Provider: Luis Lane MD Chest CT 05/19/17 18:06 IMPRESSION: There is a calcified granuloma within the inferior left upper lobe which corresponds to the nodular density seen on earlier chest radiograph. The previously seen nodular area of ground-glass within the right upper lobe has resolved. Mild ground-glass opacities within the lungs which may be artifactual related to patient's respiratory motion or represent atelectasis or pneumonitis. D/ / Becky Bowling MD / Becky Bowling MD Interpreting Provider: Becky Bowlnig MD Qualifiers: Laterality: unspecified laterality Qualified Code(s): J18.9 - Pneumonia, unspecified organism (10) Sepsis Priority: Secondary Status: Resolved Comments: Plan as above. Qualifiers: Sepsis type: sepsis due to unspecified organism Qualified Code(s): A41.9 - Sepsis, unspecified organism - Discharge Medications Home Medications: Albuterol Sulfate [Albuterol Inhaler] 1 - 2 puff IH TID PRN 10/04/16 [History] Atorvastatin Calcium [Lipitor] 20 mg PO HS 04/12/16 [History] Docusate Sodium [Dok] 100 mg PO DAILY 04/12/16 [History] Folic Acid 1 mg PO DAILY 04/12/16 [History] Furosemide [Lasix] 80 mg PO DAILY 04/12/16 [History] Levothyroxine [Synthroid] 175 mcg PO QAM 04/12/16 [History] Methotrexate [Otrexup] 10 mg PO WE 04/12/16 [History] Omeprazole [PriLOSEC] 40 mg PO DAILY 04/12/16 [History] Oxygen 2 l NS CONT 04/12/16 [History] Valsartan [Diovan] 40 mg PO DAILY 04/12/16 [History] Rivaroxaban [Xarelto] 20 mg PO DAILY 07/26/16 [History] HYDROcodone/Acet 5/325 mg [[place] 5-325 mg] 1 tab PO Q8H PRN #15 tab 11/24/16 [Rx ] metFORMIN [Glucophage] 500 mg PO BIDWM #60 tablet 01/18/17 [Rx] Fluconazole [Diflucan] 150 mg PO DAILY #1 tab 02/04/17 [Rx] Acetaminophen [Tylenol] 650 mg PO Q4H PRN 05/17/17 [History] Aspirin 81 mg PO DAILY 05/17/17 [History] BuPROPion SR (12 HR) [Wellbutrin SR] 150 mg PO Q12H 05/17/17 [History] Clotrimazole/Betameth Dip CRM [Lotrisone CRM] 1 appl TP QID 05/17/17 [History] Ergocalciferol (VITAMIN D2) [Vitamin D2] 50,000 unit PO MO 05/17/17 [History] FLUoxetine HCl [Prozac] 40 mg PO DAILY 05/17/17 [History] Ibuprofen [Motrin] 600 mg PO Q6HR PRN 05/17/17 [History] Insulin ASPART [Novolog Flexpen] 10 - 15 unit SQ TIDWM 05/17/17 [History] Insulin DETEMIR [Levemir] 45 unit SQ QAM 05/17/17 [History] Isosorbide MONOnitrate (24 HR) [Imdur] 60 mg PO DAILY 05/17/17 [History] Ondansetron HCl [Zofran] 4 mg PO Q6H PRN 05/17/17 [History] Oxycodone HCl [Oxaydo] 5 - 10 mg PO Q4H PRN 05/17/17 [History] Zinc Oxide [[place]auxs] 1 appl TP TID 05/17/17 [History] Allergies/Adverse Reactions: 3 Allergy/AdvReac Type Severity Reaction Status Date / Time Penicillins Allergy Hives Verified 05/17/17 21:08 Sulfa (Sulfonamide Allergy Rash Verified 05/17/17 21:08 Antibiotics) Procedures/tests Complete & Pending: Procedures Performed prior 72 hours Category Date Time Status CT chest w/o contrast [CT chest wo con] [CT] Routine Cat Scan 05/19/17 18:06 Completed EV echocardiogram Stat Y 05/20/17 18:30 Completed Date of admission: 05/17/17 21:15 Primary care physician: Tawanda Storm Jr, MD Consults: 05/18/17 11:59 Consult to Account Administrator [CONS] Routine Reason for SW Consult: admission Discharging clinician: Trudy Arriaga Anticipated date of discharge: 05/20/17 - Patient Status Disposition: Home, Self-Care Condition: Good Functional capacity at discharge: independent ambulation Overall status at discharge: patient is progressing back to baseline - Discharge Instructions Follow Up With: Tawanda Storm Jr, MD [Primary Care Provider] - - Diet and Activity Activity: increase activity as tolerated, wear oxygen at night Diet: diabetic diet Interval History: Please see assessment and plan for hospital course. Hospital course: Ms. Barrios is a 62 year old female - Time Spent with Patient Total time spent providing and/or coordinating discharge services: Less than 30 minutes - Constitutional Vitals: Temp Pulse Resp BP Pulse Ox 98.0 F 95 17 112/71 96 05/20/17 15:08 05/20/17 15:08 05/20/17 15:08 05/20/17 15:08 05/20/17 15:08 General appearance: Present: cooperative, A&O X 3, pleasant, no acute distress, answers questions appropriately
[2017-05-20] MEDS ORDERED: Vancomycin 1,000 MG in D5% in Water 250 ML IVPB SCH (20:00)
[2017-05-20] MEDS ORDERED: Insulin LISPRO 300 UNITS/3 ML VIAL SQ ONE (21:16)
[2017-05-21] MEDS: Insulin LISPRO 300 UNITS/3 ML VIAL SQ SCH ×4 (00:53→11:44)
[2017-05-21] MEDS: Levofloxacin 750 MG/150 ML 750 MG/150 ML BAG IVPB SCH (00:53)
[2017-05-21] MEDS: Ipratropium/Albuterol Neb 3 ML IH SCH ×4 (03:22→15:13)
[2017-05-21] MEDS: BuPROPion SR (12 HR) 150 MG TABLET PO SCH (06:19)
[2017-05-21] MEDS: FLUoxetine 20 MG CAPSULE PO SCH (08:11)
[2017-05-21] MEDS: Folic Acid 1 MG TABLET PO SCH (08:11)
[2017-05-21] MEDS: Fluconazole 100 MG TABLET PO SCH (08:11)
[2017-05-21] MEDS: Furosemide 40 MG TABLET PO SCH (08:11)
[2017-05-21] MEDS: Aspirin 81 MG TAB.CHEW PO SCH (08:11)
[2017-05-21] MEDS: Isosorbide MONOnitrate (24 HR) 60 MG TAB.ER.24H PO SCH (08:11)
[2017-05-21] MEDS: *HR* Rivaroxaban 10 MG TABLET PO SCH (08:11)
[2017-05-21] MEDS: Clotrimazole/Betameth Dip CRM 45 APPL/45 GM TUBE TP SCH ×2 (08:14→11:44)
[2017-05-21] MEDS: Insulin DETEMIR 100 UNIT/ML X5UNITS SQ SCH (10:29)
--- NOTE | 2017-05-21 10:57 | Internal Med Progress Note ---
Date of Encounter: 05/21/17 Time of Encounter: 10:30 - Assessment and plan (1) Chest pain Current Visit: Yes Status: Resolved Assessment and plan: Patient presented to the emergency department shortness of breath. She reports to the admitting physician that she is unsure if she had any chest pain. This morning during exam she reports that she had midsternal chest pain/pressure that began last night at rest when she was watching TV. She still does report shortness of breath. He is not requiring any supplemental oxygen above her baseline need of 2 L. Chest pain is not reproducible with palpation, deep inspiration, or movement. She was not having chest pain during exam this morning. Chest x-ray was negative for any acute cardiopulmonary process. EKG was normal sinus rhythm with a right bundle branch block. Rate is 88, MN interval is 188, QRS is 1:30, QTC is 436. She had a stress test in July, was challenging, due to body habitus. There are no identifiable perfusion defects consistent with ischemia or infarct. She had a gated EF of 70%. Echocardiogram in July, showed LVEF of 60-65% with moderate LV DD and no significant valvular dysfunction. Echo yesterday showed mild mitral stenosis, LVEF of 60-65% and all wall segments with normal motion. Troponins were negative. Qualifiers: Chest pain type: unspecified Qualified Code(s): R07.9 - Chest pain, unspecified (2) Diabetes Current Visit: Yes Status: Chronic Assessment and plan: Diabetes is uncontrolled. A1c is 10.9 in February,. Continue home medication and Accu-Chek regimen. 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 Qualifiers: Respiratory failure complication: hypoxia Qualified Code(s): J96.11 - Chronic respiratory failure with hypoxia (4) COPD (chronic obstructive pulmonary disease) Current Visit: Yes Status: Chronic Assessment and plan: No acute exacerbation at this time. Patient is at her baseline. There is no wheezing, rhonchi, Rales, respiratory distress. She is not requiring supplemental oxygen above her baseline. Continue home medications. Qualifiers: COPD type: unspecified COPD Qualified Code(s): J44.9 - Chronic obstructive pulmonary disease, unspecified (5) Depression Current Visit: Yes Status: Chronic Assessment and plan: Chronic. Continue home medications. Pt is engaging, alert, in good spirits and smiling this morning. Qualifiers: Depression Type: major depressive disorder Major depression recurrence: recurrent Active/Remission status: currently active Major depression episode severity: moderate Qualified Code(s): F33.1 - Major depressive disorder, recurrent, moderate (6) Morbid obesity Current Visit: Yes Status: Chronic Assessment and plan: Chronic. Lifestyle changes. BMI 48.2. (7) Diastolic CHF, chronic Current Visit: Yes Status: Acute Assessment and plan: Chronic. No acute exacerbation. Patient reports shortness of breath, BNP is within normal limits, chest x-ray is negative. Patient appears to be euvolemic. She has her normal edema denies any change. Lungs are clear diminished. Echocardiogram results as above. Continue her home dose of Lasix. (8) Leukocytosis, unspecified Current Visit: Yes Status: Resolved Qualifiers: Leukocytosis type: unspecified Qualified Code(s): D72.829 - Elevated white blood cell count, unspecified (9) Community acquired pneumonia Current Visit: Yes Status: Acute Assessment and plan: Plan as above. Patient will be sent home with prescription for Levaquin 750 mg for 7 days. Chest X-Ray 05/19/17 14:13 IMPRESSION: 1. No evidence of pneumonia 2. Possible left-sided pulmonary nodule. Recommend CT chest D/ / Luis aLne MD / Luis Lane MD Interpreting Provider: Luis Lane MD Chest CT 05/19/17 18:06 IMPRESSION: There is a calcified granuloma within the inferior left upper lobe which corresponds to the nodular density seen on earlier chest radiograph. The previously seen nodular area of ground-glass within the right upper lobe has resolved. Mild ground-glass opacities within the lungs which may be artifactual related to patient's respiratory motion or represent atelectasis or pneumonitis. D/ / Becky Bowling MD / Becky Bowling MD Interpreting Provider: Becky Bowilng MD Qualifiers: Laterality: unspecified laterality Qualified Code(s): J18.9 - Pneumonia, unspecified organism (10) Sepsis Current Visit: Yes Status: Resolved Qualifiers: Sepsis type: sepsis due to unspecified organism Qualified Code(s): A41.9 - Sepsis, unspecified organism - Time Spent With Patient less than 15 minutes - Subjective Interval history: She was seen at bedside at 1030. She denies chest pain. Pt reports that she feels better and is ready to go home. She denies headache, nausea, vomiting, abdominal pain, back pain or shortness of breath. She denies fever, chills, dysuria, new cough, or body aches. Pt denies questions or concerns about discharge. - Constitutional Vitals: Temp Pulse Resp BP Pulse Ox 97.9 F 86 18 124/76 94 05/21/17 07:00 05/21/17 07:00 05/21/17 07:00 05/21/17 07:00 05/21/17 08:15 General appearance: Present: cooperative, A&O X 3, morbidly obese, pleasant, no acute distress, answers questions appropriately - Head Head exam: Present: atraumatic, normal inspection, normocephalic - Eye Eye exam: Present: normal appearance, conjuntiva pink, sclera anicteric - Neck Neck exam general surgery: Present: supple, trachea midline. Absent: lymphadenopathy - Respiratory Respiratory exam: Present: CTAB. Absent: accessory muscle use, chest wall tenderness, decreased breath sounds, rales, respiratory distress, rhonchi, wheezes - Cardiovascular Cardiovascular exam: Present: RRR, +S1, +S2. Absent: diastolic murmur, gallop, rubs, systolic murmur - GI/Abdominal GI/Abdominal exam: Present: distended, normal bowel sounds, soft. Absent: hepatomegaly, tenderness - Extremities Exam Extremities exam: Present: warm, radial pulses palpable and symmetrical. Absent : calf tenderness, cyanotic, pedal edema, tenderness - Neurological Exam Neurological exam: Present: alert, oriented X3, no focal deficits. Absent: facial droop, speech deficit - Skin Skin exam: Present: dry, intact, normal color, warm. Absent: rash Internal Medicine: Result - Labs CBC & Chem 7: 05/20/17 04:02 05/20/17 04:02 - ABG Interpretation ABG results: PT/INR, D-dimer PT 15.8 Seconds (9.4-12.1) H 05/19/17 19:06 D-Dimer 509 ng/mLFEU (0-500) H 05/17/17 18:58 - Impressions Impressions Echocardiogram 05/20/17 18:30 Impressions: LVEF 60-65%. Mild mitral stenosis. Unable to estimate RVSP due to lack of TR jet. Left Ventricular Wall Motion: Rest Echo Findings All wall segments showed normal motion. Findings: Study Quality * Technically sub-optimal due to body habitus. * Technically adequate exam. Right Ventricle * Normal right ventricular structure and function. Left Atrium * Normal left atrial size. Right Atrium * Normal right atrial size. Interatrial Septum * No evidence of PFO by color Doppler. Aorta * Normally sized aortic root. Pericardium * The pericardium appears normal. ECG Findings * Normal sinus rhythm. Left Ventricle * LVEF 60-65%. * Indeterminate diastolic function. Mitral Valve * No mitral regurgitation. * Mild mitral annular calcification * Mitral valve not well visualized. * Mild mitral stenosis. * Mean transmitral gradient is Mean 5mmHg mmHg. Pulmonic Valve * No pulmonic stenosis. * No pulmonic regurgitation. Aortic Valve * No aortic regurgitation. * No aortic stenosis. * Aortic valve not well visualized. IVC * The IVC is not dilated. * < 50% respiratory change. Tricuspid Valve * Trace tricuspid regurgitation. * No tricuspid stenosis. * Unable to estimate RVSP due to lack of TR jet. Consult Discharge Plan - Plan Referrals: Tawanda Storm Jr, MD [Primary Care Provider] - Prescriptions: Levofloxacin [Levaquin] 750 mg PO DAILY #7 tablet
[2017-05-21 11:27] VITALS: BP 144/85
[2017-05-24] MEDS ORDERED: *HR* Methotrexate 2.5 MG TABLET PO SCH (09:00)
== END 2017-05-21 15:35 | disposition home or self-care (01) ==
LOC: 3BNU 18:26 → EMEROO 18:26 → 3BNU 21:45
PROVIDERS: ADMIT Hospitalist; ATTEND Registered Nurse

== ENCOUNTER 2017-09-02 03:02 | Inpatient (IN) ==
[2017-09-02] MEDS ORDERED: Ipratropium/Albuterol Neb 3 ML IH ONE (03:06)
[2017-09-02] MEDS ORDERED: 0.9 % Sodium Chloride 1,000 ML IVC ONE (03:06)
--- NOTE | 2017-09-02 03:12 | Emergency Department Note ---
Disposition Clinical Impression: COPD exacerbation, Hyperglycemia Disposition: Admitted As Inpatient Condition: Fair Referrals: Tawanda Storm Jr, MD [Primary Care Provider] - Forms: ED Satisfaction Letter SOB HPI - General Chief Complaint: ED Shortness of Breath/Dyspnea Stated Complaint: donna Time Seen by Provider: 09/02/17 03:06 Source: patient, EMS Mode of arrival: EMS Limitations: no limitations Nursing Notes Reviewed: Yes Vital Signs Reviewed: Yes - History of Present Illness 62-year-old female history of COPD, hypertension, diabetes, congestive heart failure presents for evaluation of shortness of breath. Patient states that she has had first of breath over the past 24 hours. Patient notes productive cough. Notes fevers. Reports chest pain related to the cough. Patient typically is on oxygen 2 L. EMS reported the patient was hypoxic at 89% on room air and transition to 4 L nasal cannula 98%. Patient denies any nausea or vomiting. No abdominal pain. Patient stated that she was evaluated in the past for her breathing and was sent home. Patient denies any recent antibiotics. - Related Data Home Medications Medication Instructions Recorded Confirmed Albuterol Sulfate [Albuterol 1 - 2 puff IH TID PRN 04/12/16 05/17/17 Inhaler] Atorvastatin Calcium [Lipitor] 20 mg PO HS 04/12/16 05/17/17 Docusate Sodium [Dok] 100 mg PO DAILY 04/12/16 05/17/17 Folic Acid 1 mg PO DAILY 04/12/16 05/17/17 Furosemide [Lasix] 80 mg PO DAILY 04/12/16 05/17/17 Levothyroxine [Synthroid] 175 mcg PO QAM 04/12/16 05/17/17 Methotrexate [Otrexup] 10 mg PO WE 04/12/16 05/17/17 Omeprazole [PriLOSEC] 40 mg PO DAILY 04/12/16 05/17/17 Oxygen 2 l NS CONT 04/12/16 05/17/17 Valsartan [Diovan] 40 mg PO DAILY 04/12/16 05/17/17 Rivaroxaban [Xarelto] 20 mg PO DAILY 07/26/16 05/17/17 Acetaminophen [Tylenol] 650 mg PO Q4H PRN 05/17/17 05/17/17 Aspirin 81 mg PO DAILY 05/17/17 05/17/17 BuPROPion SR (12 HR) [Wellbutrin 150 mg PO Q12H 05/17/17 05/17/17 SR] Clotrimazole/Betameth Dip CRM 1 appl TP QID 05/17/17 05/17/17 [Lotrisone CRM] Ergocalciferol (VITAMIN D2) 50,000 unit PO MO 05/17/17 05/17/17 [Vitamin D2] FLUoxetine HCl [Prozac] 40 mg PO DAILY 05/17/17 05/17/17 Ibuprofen [Motrin] 600 mg PO Q6HR PRN 05/17/17 05/17/17 Insulin ASPART [Novolog Flexpen] 10 - 15 unit SQ TIDWM 05/17/17 05/17/17 Insulin DETEMIR [Levemir] 45 unit SQ QAM 05/17/17 05/17/17 Isosorbide MONOnitrate (24 HR) 60 mg PO DAILY 05/17/17 05/17/17 [Imdur] Ondansetron HCl [Zofran] 4 mg PO Q6H PRN 05/17/17 05/17/17 Oxycodone HCl [Oxaydo] 5 - 10 mg PO Q4H PRN 05/17/17 05/17/17 Zinc Oxide [Boudreauxs] 1 appl TP TID 05/17/17 05/17/17 Previous Rx's Medication Instructions Recorded HYDROcodone/Acet 5/325 mg [[place] 1 tab PO Q8H PRN #15 tab 11/24/16 5-325 mg] metFORMIN [Glucophage] 500 mg PO BIDWM #60 tablet 01/18/17 Fluconazole [Diflucan] 150 mg PO DAILY #1 tab 02/04/17 Levofloxacin [Levaquin] 750 mg PO DAILY #7 tablet 05/21/17 Allergies Allergy/AdvReac Type Severity Reaction Status Date / Time Penicillins Allergy Hives Verified 07/01/17 08:54 Sulfa (Sulfonamide Allergy Rash Verified 07/01/17 08:54 Antibiotics) All systems ED: reviewed and negative except as stated. 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 - Social History Smoking Status: Never smoker Smokeless Tobacco Status: No Alcohol use: Reports: none Drug use: Reports: none Physical Exam - General Limitations: no limitations General appearance: alert, in no apparent distress, obese - Head Head exam: atraumatic, normocephalic, normal inspection - Eye Eye exam: Present: normal appearance, PERRL, EOMI - ENT ENT exam: normal exam - Neck Neck exam: Present: normal inspection - Chest Chest inspection: Present: normal inspection, symmetric chest wall rise - Respiratory Respiratory exam: Present: wheezes (scattered expiratory wheeze, diffusely diminished), accessory muscle use, prolonged expiratory phase. Absent: respiratory distress - Cardiovascular Cardiovascular exam: Present: regular rate, normal rhythm - Abdominal Exam Abdominal exam: Present: soft, Non-Tender - Extremities Exam Extremities exam: Present: normal inspection. Absent: pedal edema - Back Exam Back exam: Present: normal inspection - Neurological Exam Neurological exam: Present: alert - Skin Skin exam: Present: warm, dry, intact, normal color Course Course Narrative: Patient seen and examined upon EMS arrival. EMS reported the patient was hypoxic on room air. No interventions prior to arrival. Patient does have a history of COPD. Patient would likely benefit from nebs, fluids, antipyretics. Patient will get basic labs as well as a chest x-ray. Disposition admission. - Reevaluation(s) Reevaluation #1: Patient's breathing has improved. Patient states She is feeling better. Patient's chest x-ray shows COPD exacerbation. Time: 04:10 Vital Signs Temperature 100.8 F H 09/02/17 03:04 Pulse Rate 106 09/02/17 03:04 Respiratory Rate 20 09/02/17 03:04 Blood Pressure 173/113 09/02/17 03:04 O2 Sat by Pulse Oximetry 98 09/02/17 03:04 Temperature 100.8 F H 09/02/17 03:04 Pulse Rate 106 09/02/17 03:04 Respiratory Rate 14 09/02/17 03:22 Blood Pressure 173/113 09/02/17 03:04 O2 Sat by Pulse Oximetry 95 09/02/17 03:25 Oxygen Delivery Oxygen Delivery Nasal Cannula Shortness of Breath/Dyspnea - MDM Narrative Medical decision making narrative: Patient with history of COPD, CHF and multiple comorbidities presents for evaluation of dyspnea. Patient's symptoms are most consistent with COPD with secondary exacerbation. Patient did have a temperature triage. Patient symptom onsets of the past 24 hours. Patient workup reveals leukocytosis with left shift. Patient flu swab was negative. Patient was treated with nebs as well as steroids and IV fluids. Given the patient's temperature as well as increased work of breathing with productive cough the patient will be started on antibiotics. Patient's past labs reviewed in nature that she was hypothyroid and a TSH level was also obtained. Patient has been requiring increased oxygen supplementation with increased dyspnea from baseline. Patient' s chest pain less likely ACS related given history of COPD and lung disease. Patient's dyspnea less likely pulmonary embolism given it appears that she is anticoagulated from her medication list. Patient agrees to inpatient admission. - Lab Data Lab results reviewed: Yes I reviewed the patient's lab results. Result diagrams: 09/02/17 03:13 09/02/17 03:13 Lab Results 09/02/17 09/02/17 09/02/17 Range/Units 03:13 03:13 03:13 WBC 11.7 H (4.3-11.1) K/mcL RBC 4.52 (3.82-4.97) M/mcL Hgb 12.7 D (11.5-15.4) g/dL Hct 40.4 (35.3-44.9) % MCV 89.4 (83.0-100.0) fL MCH 28.1 (28.0-33.3) pg MCHC 31.4 L (31.6-35.5) g/dL RDW 14.6 H (11.5-14.5) % Plt Count 289 (140-400) K/mcL MPV 10.1 (9.4-12.4) fL Immature Gran % 0.5 (0-4) % Seg Neutrophils % 85.4 % Lymphocytes % 6.3 % Monocytes % 6.8 % Eosinophils % 0.7 % Basophils % 0.3 % Neutrophils # 10.0 H (1.6-8.9) K/mcL Lymphocytes # 0.7 (0.6-4.6) K/mcL Monocytes # 0.8 (0.0-1.3) K/mcL Eosinophils # 0.1 (0.0-0.6) K/mcL Basophils # 0.0 (0.0-0.2) K/mcL PT (9.4-12.1) Seconds INR APTT (26.0-36.0) Seconds Sodium 135 L (136-145) mEq/L Potassium 3.8 (3.5-5.1) mEq/L Chloride 90 L (98-107) mEq/L Carbon Dioxide 37 H (23-29) mEq/L BUN 22 (8-23) mg/dL Creatinine 0.90 (0.60-1.20) mg/dL Est GFR ( Amer) > 60 (> 60) Est GFR (Non-Af Amer) > 60 (> 60) BUN/Creatinine Ratio 24 (6-26) Glucose 390 H (70-105) mg/dL Calculated Osmolality 300 (280-300) Lactic Acid 1.1 (0.5-2.2) mmol/L Calcium 9.9 (8.6-10.3) mg/dL Troponin I (< 0.04) ng/mL B-Natriuretic Peptide (Less than 100) pg/mL 09/02/17 09/02/17 09/02/17 Range/Units 03:13 03:13 03:13 WBC (4.3-11.1) K/mcL RBC (3.82-4.97) M/mcL Hgb (11.5-15.4) g/dL Hct (35.3-44.9) % MCV (83.0-100.0) fL MCH (28.0-33.3) pg MCHC (31.6-35.5) g/dL RDW (11.5-14.5) % Plt Count (140-400) K/mcL MPV (9.4-12.4) fL Immature Gran % (0-4) % Seg Neutrophils % % Lymphocytes % % Monocytes % % Eosinophils % % Basophils % % Neutrophils # (1.6-8.9) K/mcL Lymphocytes # (0.6-4.6) K/mcL Monocytes # (0.0-1.3) K/mcL Eosinophils # (0.0-0.6) K/mcL Basophils # (0.0-0.2) K/mcL PT 11.2 (9.4-12.1) Seconds INR 1.0 APTT 30.0 (26.0-36.0) Seconds Sodium (136-145) mEq/L Potassium (3.5-5.1) mEq/L Chloride (98-107) mEq/L Carbon Dioxide (23-29) mEq/L BUN (8-23) mg/dL Creatinine (0.60-1.20) mg/dL Est GFR ( Amer) (> 60) Est GFR (Non-Af Amer) (> 60) BUN/Creatinine Ratio (6-26) Glucose (70-105) mg/dL Calculated Osmolality (280-300) Lactic Acid (0.5-2.2) mmol/L Calcium (8.6-10.3) mg/dL Troponin I < 0.03 (< 0.04) ng/mL B-Natriuretic Peptide 66 (Less than 100) pg/mL - Radiology Data Radiology results reviewed: Yes I reviewed the patient's radiology results. Chest X-Ray 09/02/17 03:06 IMPRESSION: Central bronchial thickening superimposed on COPD, likely related to acute exacerbation. D/ / Darrian Dumont MD / Darrian Dumont MD Interpreting Provider: Darrian Dumont MD - EKG Data EKG attestation: Yes I reviewed and interpreted this EKG. EKG shows normal: Reports: sinus rhythm Rate: Reports: normal Rhythm: Reports: NSR Frederick/QRS: Reports: left axis deviation, RBBB Voltage: Reports: c/w LVH Interpretation: Reports: no acute changes, nonspecific ST-T wave changes S.B.A.RUrbano - [email or web address] Situation: Demographics Background: Presenting Complaint Assessment: Vital Signs, Patient/Family Expectation Recommendation: Barrier(s) to disposition, Recommendation based on pending studies, treatments, or consults S.B.ASophia Report Given to: Dr. Georgette Donahue Repor Time: 04:29
--- NOTE | 2017-09-02 03:16 | Emergency Department Note ---
START Narrative - START START: I examined this patient and my medical decision-making was reviewed with the Resident Physician. I agree with the documented findings, disposition and treatment plan as described except to the extent set forth below. 62 year old female prsents to the ED with complaints of dyspnea, hypoxia. Chayo wear 2LNC at home and was 88% on 2LNC and is now on 4LNC. She has a fever of 100.8 and is tachycardiac. WE will do sepsis protocol secondary to SIRS criteria and admit to medicine
[2017-09-02 03:26] LABS: Basophils % 0.3 %; Eosinophils # 0.1 K/mcL (0.0-0.6); Eosinophils % 0.7 %; Hematocrit 40.4 % (35.3-44.9); Immature Granulocytes % 0.5 % (0-4); Lymphocytes # 0.7 K/mcL (0.6-4.6); Lymphocytes % 6.3 %; Mean Corpuscular HGB Conc 31.4 g/dL (31.6-35.5); Mean Corpuscular Hemoglobin 28.1 pg (28.0-33.3); Mean Corpuscular Volume 89.4 fL (83.0-100.0); Mean Platelet Volume 10.1 fL (9.4-12.4); Monocytes # 0.8 K/mcL (0.0-1.3); Monocytes % 6.8 %; Platelet Count 289 K/mcL (140-400); Red Blood Count 4.52 M/mcL (3.82-4.97); Red Cell Distribution Width 14.6 % (11.5-14.5); Segmented Neutrophils % 85.4 %
[2017-09-02 03:27] LABS: Hemoglobin 12.7 g/dL (11.5-15.4)
[2017-09-02] MEDS ORDERED: methylPREDNISolone 125 MG/2 ML VIAL IVP ONE (03:33)
[2017-09-02] MEDS ORDERED: Levofloxacin 750 MG/150 ML 750 MG/150 ML BAG IVPB ONE (03:34)
[2017-09-02 03:35] LABS: Prothrombin Time 11.2 Seconds (9.4-12.1)
[2017-09-02 03:44] LABS: BUN/Creatinine Ratio 24 (6-26); Blood Urea Nitrogen 22 mg/dL (8-23); Calcium 9.9 mg/dL (8.6-10.3); Carbon Dioxide 37 mEq/L (23-29); Chloride 90 mEq/L (98-107); Glucose 390 mg/dL (70-105); Osmolality,Calculated 300 (280-300); Potassium 3.8 mEq/L (3.5-5.1); Sodium 135 mEq/L (136-145); eGFR For Non-African Americans > 60 (> 60)
[2017-09-02] MEDS ORDERED: Insulin Regular, Human 100 UNIT/ML IV ONE (03:58)
[2017-09-02 04:35] LABS: VBG HCO3 36 mEq/L (21-27); VBG PCO2 66 mmHg (41-51); VBG PH 7.34 pH Units (7.32-7.42); VBG PO2 74 mmHg (25-50)
[2017-09-02] MEDS ORDERED: *HR* Dextrose 50 % in Water (Syg) 50 ML SYRINGE IVP PRN (05:55)
[2017-09-02] MEDS ORDERED: Dextrose Gel 15 GM/37.5 ML TUBE PO PRN ×2 (05:55)
[2017-09-02] MEDS ORDERED: D5% in Water 1,000 ML IVC PRN ×2 (05:55→07:45)
[2017-09-02] MEDS ORDERED: Insulin LISPRO 300 UNITS/3 ML VIAL SQ SCH ×2 (07:30→21:00)
[2017-09-02] MEDS ORDERED: Acetaminophen 325 MG TABLET PO PRN (07:40)
[2017-09-02] MEDS ORDERED: Naloxone 0.4 MG/ML INJ IVP PRN (07:40)
[2017-09-02] MEDS: *HR* Rivaroxaban 10 MG TABLET PO SCH (08:39)
[2017-09-02] MEDS: Aspirin 81 MG TAB.CHEW PO SCH (08:39)
[2017-09-02] MEDS: Folic Acid 1 MG TABLET PO SCH (08:39)
[2017-09-02] MEDS: FLUoxetine 20 MG CAPSULE PO SCH (08:39)
[2017-09-02] MEDS: BuPROPion SR (12 HR) 150 MG TABLET PO SCH ×2 (08:39→21:31)
[2017-09-02] MEDS: Clotrimazole/Betameth Dip CRM 45 APPL/45 GM TUBE TP SCH ×4 (08:59→21:32)
[2017-09-02] MEDS ORDERED: Valsartan 80 MG TABLET PO SCH (09:00)
[2017-09-02] MEDS: Ipratropium/Albuterol Neb 3 ML IH SCH ×5 (09:48→23:24)
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
[2017-09-02] MEDS: Insulin LISPRO 300 UNITS/3 ML VIAL SQ SCH ×3 (10:59→21:31)
[2017-09-02] MEDS: Insulin DETEMIR 100 UNIT/ML X5UNITS SQ SCH ×2 (11:00→21:31)
[2017-09-02] MEDS: MethylPREDNISolone 40 MG/ML VIAL IVP SCH ×3 (11:00→17:17)
[2017-09-02 11:23] LABS: Adenovirus Not Detected (Not Detect); Bordetella Pertussis Not Detected (Not Detect); Chlamydophila pneumoniae Not Detected (Not Detect); Coronavirus 229E Not Detected (Not Detect); Coronavirus HKU1 Not Detected (Not Detect); Coronavirus NL63 Not Detected (Not Detect); Coronavirus OC43 Not Detected (Not Detect); Human Metapneumovirus Not Detected (Not Detect); Human Rhinovirus/Enterovirus Not Detected (Not Detect); Influenza A Subtype 2009 H1 Not Detected (Not Detect); Influenza A Untypeable Not Detected (Not Detect); Influenza B Not Detected (Not Detect); Mycoplasma pneumoniae Not Detected (Not Detect); Parainfluenza Virus 1 Not Detected (Not Detect); Parainfluenza Virus 2 Not Detected (Not Detect); Parainfluenza Virus 3 Not Detected (Not Detect); Parainfluenza Virus 4 Not Detected (Not Detect); Respiratory Syncytial Virus Not Detected (Not Detect)
[2017-09-02] MEDS ORDERED: Insulin Regular, Human 100 UNIT/ML SQ ONE (15:33)
[2017-09-02] MEDS: *HR* HYDROcodone/Acet 5/325 mg TABLET PO PRN (21:31)
[2017-09-02] MEDS ORDERED: traMADol 50 MG TABLET PO ONE (22:15)
[2017-09-02] MEDS ORDERED: Ketorolac 30 MG/ML VIAL IVP ONE (22:40)
[2017-09-03] MEDS: Ipratropium/Albuterol Neb 3 ML IH SCH ×6 (03:44→23:39)
[2017-09-03] MEDS: MethylPREDNISolone 40 MG/ML VIAL IVP SCH ×2 (05:30→17:17)
[2017-09-03] MEDS ORDERED: Insulin LISPRO 300 UNITS/3 ML VIAL SQ SCH ×2 (07:30→08:15)
[2017-09-03 07:58] LABS: Calcium 9.6 mg/dL (8.6-10.3); Potassium 4.2 mEq/L (3.5-5.1)
[2017-09-03 08:00] LABS: Basophils % 0.2 %; Hematocrit 33.1 % (35.3-44.9); Immature Granulocytes % 0.6 % (0-4); Lymphocytes # 0.5 K/mcL (0.6-4.6); Lymphocytes % 3.6 %; Mean Corpuscular HGB Conc 31.4 g/dL (31.6-35.5); Mean Corpuscular Hemoglobin 27.7 pg (28.0-33.3); Mean Platelet Volume 10.4 fL (9.4-12.4); Monocytes # 0.8 K/mcL (0.0-1.3); Monocytes % 5.8 %; Neutrophils # 12.5 K/mcL (1.6-8.9); Platelet Count 304 K/mcL (140-400); Red Blood Count 3.76 M/mcL (3.82-4.97); Red Cell Distribution Width 14.5 % (11.5-14.5); Segmented Neutrophils % 89.8 %
[2017-09-03 08:09] LABS: Hemoglobin 10.4 g/dL (11.5-15.4)
[2017-09-03] MEDS ORDERED: 0.9 % Sodium Chloride 1,000 ML ONE (08:09)
[2017-09-03] MEDS: Insulin LISPRO 300 UNITS/3 ML VIAL SQ SCH ×7 (08:12→20:57)
[2017-09-03] MEDS: 0.9 % Sodium Chloride 1,000 ML IVC SCH ×2 (08:15→23:45)
[2017-09-03] MEDS: BuPROPion SR (12 HR) 150 MG TABLET PO SCH ×2 (08:16→20:57)
[2017-09-03] MEDS: FLUoxetine 20 MG CAPSULE PO SCH (08:16)
[2017-09-03] MEDS: Folic Acid 1 MG TABLET PO SCH (08:16)
[2017-09-03] MEDS: Clotrimazole/Betameth Dip CRM 45 APPL/45 GM TUBE TP SCH ×4 (08:16→20:57)
[2017-09-03] MEDS: *HR* Rivaroxaban 10 MG TABLET PO SCH (08:16)
[2017-09-03] MEDS: Aspirin 81 MG TAB.CHEW PO SCH (08:16)
[2017-09-03] MEDS ORDERED: Levofloxacin 750 MG/150 ML 750 MG/150 ML BAG IVPB SCH (09:00)
[2017-09-03] MEDS: Insulin DETEMIR 100 UNIT/ML X5UNITS SQ SCH ×2 (09:06→20:57)
--- NOTE | 2017-09-03 14:10 | Internal Med Progress Note ---
Date of Encounter: 09/03/17 Time of Encounter: 11:40 - Assessment and plan (1) Acute respiratory failure with hypoxia and hypercapnia Current Visit: Yes Status: Acute Assessment and plan: Due to COPD exacerbation in setting of morbid obesity and possibly obesity hypoventilation. Continue O2 supplementation. Treat underlying COPD exacerbation. Wean FiO2 as tolerated. Currently on 2 L nasal cannula (2) Acute kidney injury Current Visit: Yes Status: Acute Assessment and plan: Patient has elevated BUN and creatinine today. Will start patient on IV fluids. Monitor renal function closely. Hold Diovan (3) COPD exacerbation Current Visit: Yes Status: Acute Assessment and plan: Treating with IV steroids, bronchodilators, levofloxacin. (4) Morbid obesity with BMI of 50.0-59.9, adult Current Visit: Yes Status: Chronic Assessment and plan: Recommend diet control and exercise. (5) History of venous thromboembolism Current Visit: Yes Status: Chronic Assessment and plan: Continue Xarelto (6) Type 2 diabetes mellitus Current Visit: Yes Status: Chronic Assessment and plan: With acute hyperglycemia. No signs of ketoacidosis. Increase Levemir dosage to 15 units twice daily. Increase pre-meal insulin to 15 units 3 times daily. Continue ice correctional sliding scale. Diabetes exacerbated by use of intravenous steroids. Qualifiers: Diabetes mellitus complication status: with hyperglycemia Diabetes mellitus longterm insulin use: with intermediate frame tender use Qualified Code(s): E11.65 - Type 2 diabetes mellitus with hyperglycemia; Z79.4 - intermediate frame tender (current) use of insulin (7) Hypothyroidism Current Visit: Yes Status: Chronic Assessment and plan: Uncontrolled. TSH 39. We will increase levothyroxine dosage to 200 g daily. Qualifiers: Hypothyroidism type: acquired Qualified Code(s): E03.9 - Hypothyroidism, unspecified (8) Rheumatoid arthritis Current Visit: Yes Status: Chronic Assessment and plan: Takes methotrexate. We will hold this medication for one week due to acute illness. Qualifiers: Rheumatoid arthritis location: multiple sites Rheumatoid factor presence: unspecified presence Qualified Code(s): M06.9 - Rheumatoid arthritis, unspecified - Subjective Interval history: Patient complaints of shortness of breath. This is improved compared to yesterday. She does continue to have uncontrolled blood sugars. Also complains of cough. No fever reported overnight. - Constitutional Vitals: Temp Pulse Resp BP Pulse Ox 97.8 F 86 20 137/86 97 09/03/17 10:42 09/03/17 10:42 09/03/17 11:01 09/03/17 10:42 09/03/17 11:01 General appearance: Present: cooperative, mild distress, A&O X 3, morbidly obese , answers questions appropriately - Eye Eye exam: Present: EOMI, PERRL, conjuntiva pink, sclera anicteric - Neck Neck exam general surgery: Present: supple, trachea midline. Absent: lymphadenopathy - Respiratory Respiratory exam: Present: prolonged expiratory phase, wheezes. Absent: accessory muscle use, rales, rhonchi - Cardiovascular Cardiovascular exam: Present: RRR, +S1, +S2. Absent: diastolic murmur, gallop, rubs, systolic murmur - GI/Abdominal GI/Abdominal exam: Present: normal bowel sounds, soft, no peritoneal signs. Absent: distended, tenderness - Extremities Exam Extremities exam: Present: warm, radial pulses palpable and symmetrical. Absent : calf tenderness, cyanotic, pedal edema - Neurological Exam Neurological exam: Present: oriented X3, no focal deficits. Absent: facial droop, speech deficit Internal Medicine: Result - Labs CBC & Chem 7: 09/03/17 06:38 09/03/17 06:38 Labs: Short CBC 09/03/17 Range/Units 06:38 WBC 13.9 H (4.3-11.1) K/mcL Hgb 10.4 L D (11.5-15.4) g/dL Hct 33.1 L (35.3-44.9) % Plt Count 304 (140-400) K/mcL Neutrophils # 12.5 H (1.6-8.9) K/mcL BMP 09/03/17 06:38 Sodium 131 L Potassium 4.2 Chloride 95 L Carbon Dioxide 28 BUN 45 H Creatinine 1.40 H Glucose 525 H* Calcium 9.6 - ABG Interpretation ABG results: PT/INR, D-dimer PT 11.2 Seconds (9.4-12.1) 09/02/17 03:13 Consult Discharge Plan - Plan Referrals: Tawanda Storm Jr, MD [Primary Care Provider] -
[2017-09-04] MEDS: Ipratropium/Albuterol Neb 3 ML IH SCH ×3 (03:37→11:23)
[2017-09-04 03:43] LABS: Basophils % 0.1 %; Hematocrit 32.9 % (35.3-44.9); Hemoglobin 10.4 g/dL (11.5-15.4); Immature Granulocytes % 1.2 % (0-4); Lymphocytes # 0.5 K/mcL (0.6-4.6); Lymphocytes % 3.7 %; Mean Corpuscular HGB Conc 31.6 g/dL (31.6-35.5); Mean Corpuscular Volume 88.7 fL (83.0-100.0); Mean Platelet Volume 10.4 fL (9.4-12.4); Monocytes # 0.6 K/mcL (0.0-1.3); Monocytes % 3.9 %; Platelet Count 318 K/mcL (140-400); Red Blood Count 3.71 M/mcL (3.82-4.97); Red Cell Distribution Width 14.7 % (11.5-14.5); Segmented Neutrophils % 91.1 %
[2017-09-04 04:17] LABS: BUN/Creatinine Ratio 39 (6-26); Blood Urea Nitrogen 39 mg/dL (8-23); Calcium 9.6 mg/dL (8.6-10.3); Carbon Dioxide 31 mEq/L (23-29); Chloride 102 mEq/L (98-107); Glucose 192 mg/dL (70-105); Osmolality,Calculated 301 (280-300); Potassium 4.5 mEq/L (3.5-5.1); Sodium 138 mEq/L (136-145); eGFR For Non-African Americans 57 (> 60)
[2017-09-04] MEDS: MethylPREDNISolone 40 MG/ML VIAL IVP SCH (05:17)
[2017-09-04] MEDS: *HR* HYDROcodone/Acet 5/325 mg TABLET PO PRN (05:38)
[2017-09-04] MEDS: Folic Acid 1 MG TABLET PO SCH (08:59)
[2017-09-04] MEDS: Aspirin 81 MG TAB.CHEW PO SCH (08:59)
[2017-09-04] MEDS: FLUoxetine 20 MG CAPSULE PO SCH (08:59)
[2017-09-04] MEDS: BuPROPion SR (12 HR) 150 MG TABLET PO SCH (08:59)
[2017-09-04] MEDS: Insulin DETEMIR 100 UNIT/ML X5UNITS SQ SCH (08:59)
[2017-09-04] MEDS: Insulin LISPRO 300 UNITS/3 ML VIAL SQ SCH ×4 (09:00→11:50)
[2017-09-04] MEDS ORDERED: *HR* Rivaroxaban 15 MG TABLET PO SCH (09:00)
[2017-09-04] MEDS: Clotrimazole/Betameth Dip CRM 45 APPL/45 GM TUBE TP SCH (09:00)
[2017-09-04] MEDS ORDERED: Levofloxacin 750 MG/150 ML 750 MG/150 ML BAG IVPB SCH (09:00)
[2017-09-04 11:05] VITALS: BP 168/84
[2017-09-04] MEDS: 0.9 % Sodium Chloride 1,000 ML IVC SCH (11:52)
--- NOTE | 2017-09-04 13:22 | Discharge Summary ---
Orders not resulted at time of discharge: Pending orders 09/02/17 10:01 Culture,Sputum with Gram Stain [RM] Routine Legionella Antigen [RM] Routine S. Pneumoniae Antigen [RM] Routine Date of Encounter: 09/04/17 Time of Encounter: 10:15 - Discharge Diagnosis (1) Acute respiratory failure with hypoxia and hypercapnia Priority: Primary Status: Acute (2) Acute kidney injury Priority: Secondary Status: Resolved (3) COPD exacerbation Priority: Secondary Status: Acute (4) Morbid obesity with BMI of 50.0-59.9, adult Priority: Secondary Status: Chronic (5) History of venous thromboembolism Priority: Secondary Status: Chronic (6) Type 2 diabetes mellitus Priority: Secondary Status: Chronic Qualifiers: Diabetes mellitus complication status: with hyperglycemia Diabetes mellitus lobsterman insulin use: with lobsterman use Qualified Code(s): E11.65 - Type 2 diabetes mellitus with hyperglycemia; Z79.4 - skilled nursing (current) use of insulin (7) Hypothyroidism Priority: Secondary Status: Chronic Qualifiers: Hypothyroidism type: acquired Qualified Code(s): E03.9 - Hypothyroidism, unspecified (8) Rheumatoid arthritis Priority: Secondary Status: Chronic Qualifiers: Rheumatoid arthritis location: multiple sites Rheumatoid factor presence: unspecified presence Qualified Code(s): M06.9 - Rheumatoid arthritis, unspecified Hospital course: Ms. Barrios is a 62 year old female patient with a history of rheumatoid arthritis, CHF, COPD, diabetes, hypertension and hyperlipidemia who was hospitalized here with acute COPD exacerbation along with acute kidney injury. She was treated with bronchodilators and steroids with improvement in her respiratory symptoms. She has history of chronic respiratory failure and is on 2 L home oxygen. She is now back to her baseline home oxygen use. Her renal function has also normalized now. She does have uncontrolled diabetes and her blood sugars went up as high as 520 during her stay here. This is likely due to use of intravenous steroids. I am adjusting her insulin regimen accordingly. She will now be discharged on Levemir 45 units twice daily and will continue her pre-meal insulin at her prior dosage. She will follow-up with her primary care provider for further management of her chronic medical conditions. She will be discharged on a steroid taper and antibiotic regimen with Levaquin. Discharge discussed with: patient, nurse - Time Spent with Patient Total time spent providing and/or coordinating discharge services: Greater than 30 minutes (40 min) - Discharge Medications Prescriptions: Insulin DETEMIR [Levemir] 45 unit SQ BID #20 mls levoFLOXacin [Levaquin] 750 mg PO DAILY #5 tablet Levothyroxine Sodium 200 mcg PO DAILY #30 tablet predniSONE [PredniSONE] 10 mg PO DAILY 8 Days tablet Home Medications: Albuterol Sulfate [Albuterol Inhaler] 1 - 2 puff IH QID PRN 04/12/16 [History] Atorvastatin Calcium [Lipitor] 20 mg PO HS 04/12/16 [History] Docusate Sodium [Dok] 100 mg PO DAILY 04/12/16 [History] Folic Acid 1 mg PO DAILY 04/12/16 [History] Furosemide [Lasix] 80 mg PO DAILY 04/12/16 [History] Methotrexate [Otrexup] 10 mg PO WE 04/12/16 [History] Omeprazole [PriLOSEC] 40 mg PO DAILY 04/12/16 [History] Oxygen 2 l NS CONT 04/12/16 [History] Valsartan [Diovan] 40 mg PO DAILY 04/12/16 [History] Rivaroxaban [Xarelto] 20 mg PO DAILY 07/26/16 [History] Aspirin 81 mg PO DAILY 05/17/17 [History] Ergocalciferol (VITAMIN D2) [Vitamin D2] 50,000 unit PO MO 05/17/17 [History] Isosorbide MONOnitrate (24 HR) [Imdur] 60 mg PO DAILY 05/17/17 [History] Buspirone HCl [Buspar] 15 mg PO BID 09/02/17 [History] Ferrous Sulfate [Iron] 325 mg PO DAILY 09/02/17 [History] Gabapentin [Neurontin] 100 mg PO TID 09/02/17 [History] Oxycodone HCl/Acetaminophen [Percocet 5-325 mg Tablet] 1 each PO TID PRN [History] Polyethylene Glycol 3350 [MiraLAX] 17 gm PO DAILY 09/02/17 [History] Potassium Chloride [K-Tab ER] 20 meq PO BID 09/02/17 [History] Sertraline [Zoloft] 50 mg PO DAILY 09/02/17 [History] valACYclovir [Valtrex] 500 mg PO DAILY 09/02/17 [History] Insulin ASPART [Novolog Flexpen] 12 - 20 unit SQ TIDWM #0 09/04/17 [Rx] Insulin DETEMIR [Levemir] 45 unit SQ BID #20 mls 09/04/17 [Rx] Levothyroxine Sodium 200 mcg PO DAILY #30 tablet 09/04/17 [Rx] levoFLOXacin [Levaquin] 750 mg PO DAILY #5 tablet 09/04/17 [Rx] predniSONE [PredniSONE] 10 mg PO DAILY 8 Days tablet 09/04/17 [Rx] Allergies/Adverse Reactions: 3 Allergy/AdvReac Type Severity Reaction Status Date / Time Penicillins Allergy Hives Verified 07/01/17 08:54 Sulfa (Sulfonamide Allergy Rash Verified 07/01/17 08:54 Antibiotics) Date of admission: 09/02/17 07:40 Primary care physician: Tawanda Storm Jr, MD Discharging clinician: Rajani Blount Anticipated date of discharge: 09/04/17 - Constitutional Vitals: Temp Pulse Resp BP Pulse Ox 97.8 F 72 18 168/84 96 09/04/17 11:04 09/04/17 11:04 09/04/17 11:23 09/04/17 11:04 09/04/17 11:23 General appearance: Present: cooperative, mild distress, A&O X 3, morbidly obese , pleasant, answers questions appropriately - Respiratory Respiratory exam: Present: prolonged expiratory phase. Absent: accessory muscle use, rales, rhonchi, wheezes - Cardiovascular Cardiovascular exam: Present: RRR, +S1, +S2. Absent: diastolic murmur, gallop, rubs, systolic murmur - GI/Abdominal GI/Abdominal exam: Present: normal bowel sounds, soft, no peritoneal signs. Absent: distended, tenderness - Extremities Exam Extremities exam: Present: warm, radial pulses palpable and symmetrical. Absent : calf tenderness, cyanotic, pedal edema - Patient Status Disposition: Home Health Service Condition: Good Functional capacity at discharge: uses cane/walker Overall status at discharge: patient is progressing back to baseline - Discharge Instructions Instructions: Prednisone (By mouth), Levofloxacin (By mouth), Acute Respiratory Distress Syndrome (DC), Chronic Obstructive Pulmonary Disease (DC) Follow Up With: Tawanda Storm Jr, MD [Primary Care Provider] - (called and nobody answer...) - Diet and Activity Activity: increase activity as tolerated, wear oxygen at all times Diet: diabetic diet, low fat, low cholesterol, low salt diet
--- NOTE | 2017-09-04 13:31 | Physician Discharge Referral ---
Home Health/Hosp Referral Info Transfer to: Home Health Provider in Charge Post Discharge: PCP - Diagnosis (1) Acute respiratory failure with hypoxia and hypercapnia Priority: Primary Status: Acute (2) Acute kidney injury Priority: Secondary Status: Resolved (3) COPD exacerbation Priority: Secondary Status: Acute (4) Morbid obesity with BMI of 50.0-59.9, adult Priority: Secondary Status: Chronic (5) History of venous thromboembolism Priority: Secondary Status: Chronic (6) Type 2 diabetes mellitus Priority: Secondary Status: Chronic (7) Hypothyroidism Priority: Secondary Status: Chronic (8) Rheumatoid arthritis Priority: Secondary Status: Chronic - Respiratory Orders Oxygen / L per min (2) Smoking Cessation: Smoking cessation has been advised. For more information, call the [place] Tobacco Quit Line at 5-308-HVSF-NOW. - Diet/Nutrition Diet/Nutrition Orders: Cardiac, No Concentrated Sweets (diabetic) - Activity Activity Orders: Walker - Services Needed Following services are medically necessary services: Nursing, Home Health Aide, Physical Therapy, Occupational Therapy - Transfer Medications Prescriptions: levoFLOXacin [Levaquin] 750 mg PO DAILY #5 tablet Levothyroxine Sodium 200 mcg PO DAILY #30 tablet predniSONE [PredniSONE] 10 mg PO DAILY 8 Days tablet Home Medications: Albuterol Sulfate [Albuterol Inhaler] 1 - 2 puff IH QID PRN 04/12/16 [History] Atorvastatin Calcium [Lipitor] 20 mg PO HS 04/12/16 [History] Docusate Sodium [Dok] 100 mg PO DAILY 04/12/16 [History] Folic Acid 1 mg PO DAILY 04/12/16 [History] Furosemide [Lasix] 80 mg PO DAILY 04/12/16 [History] Methotrexate [Otrexup] 10 mg PO WE 04/12/16 [History] Omeprazole [PriLOSEC] 40 mg PO DAILY 04/12/16 [History] Oxygen 2 l NS CONT 04/12/16 [History] Valsartan [Diovan] 40 mg PO DAILY 04/12/16 [History] Rivaroxaban [Xarelto] 20 mg PO DAILY 07/26/16 [History] Aspirin 81 mg PO DAILY 05/17/17 [History] Ergocalciferol (VITAMIN D2) [Vitamin D2] 50,000 unit PO MO 05/17/17 [History] Insulin DETEMIR [Levemir] 12 unit SQ QAM 05/17/17 [History] Isosorbide MONOnitrate (24 HR) [Imdur] 60 mg PO DAILY 05/17/17 [History] Buspirone HCl [Buspar] 15 mg PO BID 09/02/17 [History] Ferrous Sulfate [Iron] 325 mg PO DAILY 09/02/17 [History] Gabapentin [Neurontin] 100 mg PO TID 09/02/17 [History] Oxycodone HCl/Acetaminophen [Percocet 5-325 mg Tablet] 1 each PO TID PRN [History] Polyethylene Glycol 3350 [MiraLAX] 17 gm PO DAILY 09/02/17 [History] Potassium Chloride [K-Tab ER] 20 meq PO BID 09/02/17 [History] Sertraline [Zoloft] 50 mg PO DAILY 09/02/17 [History] valACYclovir [Valtrex] 500 mg PO DAILY 09/02/17 [History] Insulin ASPART [Novolog Flexpen] 12 - 20 unit SQ TIDWM #0 09/04/17 [Rx] Levothyroxine Sodium 200 mcg PO DAILY #30 tablet 09/04/17 [Rx] levoFLOXacin [Levaquin] 750 mg PO DAILY #5 tablet 09/04/17 [Rx] predniSONE [PredniSONE] 10 mg PO DAILY 8 Days tablet 09/04/17 [Rx] Allergies/Adverse Reactions: 3 Allergy/AdvReac Type Severity Reaction Status Date / Time Penicillins Allergy Hives Verified 07/01/17 08:54 Sulfa (Sulfonamide Allergy Rash Verified 07/01/17 08:54 Antibiotics) Certification: Further, I certify that my clinical findings support that this patient is homebound (i.e. absences from home require considerable and taxing effort and are for medical reasons or sikh services or infrequently or short duration when for other reasons) because: Homebound Reason: Patient requires assistance of a person or device to safely leave home Attestation: My signature below is to certify that this patient is under my care and that I, or nurse practitioner, or a physician's geriatric nursing assistant working with me, has a face-to -face encounter with this patient.
[2017-09-04] MEDS ORDERED: *HR* Rivaroxaban 10 MG TABLET PO SCH (17:00)
[2017-09-05] MEDS ORDERED: Levofloxacin 750 MG/150 ML 750 MG/150 ML BAG IVPB SCH (09:00)
--- NOTE | 2017-09-05 18:07 | Electrocardiograph Report ---
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
[2017-09-06] MEDS ORDERED: *HR* Methotrexate 2.5 MG TABLET PO SCH (07:43)
== END 2017-09-04 15:11 | disposition home health service (06) | DRG 190 ==
LOC: 2ANU 03:02 → EMEROO 03:02 → 2ANU 05:02
PROVIDERS: ADMIT Pediatrics; ATTEND Internal Medicine

== ENCOUNTER 2017-09-06 22:07 | Inpatient (IN) ==
--- NOTE | 2017-09-06 22:38 | Emergency Department Note ---
Disposition Clinical Impression: Weakness Dyspnea Qualifiers: Dyspnea type: shortness of breath Qualified Code(s): R06.02 - Shortness of breath Disposition: Admitted As Inpatient Condition: Fair Reasons to Return/Additional Instructions: admitted as inpatient. Referrals: Tawanda Storm Jr, MD [Primary Care Provider] - Forms: ED Satisfaction Letter Time of Disposition: 01:04 SOB HPI - General Chief Complaint: ED Shortness of Breath/Dyspnea Stated Complaint: shortness of breath Time Seen by Provider: 09/06/17 22:15 Source: patient Mode of arrival: ambulatory Limitations: no limitations Nursing Notes Reviewed: Yes Vital Signs Reviewed: Yes - History of Present Illness 60-year-old female with past medical history of COPD, CHF presents emergency department with complaint of shortness of breath. She was recently discharged from this facility on 09/04/17 for COPD exacerbation. She was discharged home with prednisone taper and Levaquin. He states that shortness breath came on suddenly this morning and has been constant since. She does wear home oxygen of 2 L. She does admit to a new cough with thick sputum however she is not able to get anything up. Denies any symptoms of chest pain, fevers, chills, nausea, vomiting. Pt Subjective Complaint: shortness of breath, cough Context: recent illness Improves with: oxygen Worsens with: nothing, exertion Known history of: COPD, congestive heart failure, diabetes Associated symptoms: Reports: cough. Denies: chest pain, pain with inspiration , fever Treatment prior to arrival: none Cough present: Yes - Related Data Home oxygen amount: 2 liters Home Medications Medication Instructions Recorded Confirmed Albuterol Sulfate [Albuterol 1 - 2 puff IH QID PRN 04/12/16 09/02/17 Inhaler] Atorvastatin Calcium [Lipitor] 20 mg PO HS 04/12/16 09/02/17 Docusate Sodium [Dok] 100 mg PO DAILY 04/12/16 09/02/17 Folic Acid 1 mg PO DAILY 04/12/16 09/02/17 Furosemide [Lasix] 80 mg PO DAILY 04/12/16 09/02/17 Methotrexate [Otrexup] 10 mg PO WE 04/12/16 09/02/17 Omeprazole [PriLOSEC] 40 mg PO DAILY 04/12/16 09/02/17 Oxygen 2 l NS CONT 04/12/16 09/02/17 Valsartan [Diovan] 40 mg PO DAILY 04/12/16 09/02/17 Rivaroxaban [Xarelto] 20 mg PO DAILY 07/26/16 09/02/17 Aspirin 81 mg PO DAILY 05/17/17 09/02/17 Ergocalciferol (VITAMIN D2) 50,000 unit PO MO 05/17/17 09/02/17 [Vitamin D2] Isosorbide MONOnitrate (24 HR) 60 mg PO DAILY 05/17/17 09/02/17 [Imdur] Buspirone HCl [Buspar] 15 mg PO BID 09/02/17 09/02/17 Ferrous Sulfate [Iron] 325 mg PO DAILY 09/02/17 09/02/17 Gabapentin [Neurontin] 100 mg PO TID 09/02/17 09/02/17 Oxycodone HCl/Acetaminophen 1 each PO TID PRN 09/02/17 09/02/17 [Percocet 5-325 mg Tablet] Polyethylene Glycol 3350 [MiraLAX] 17 gm PO DAILY 09/02/17 09/02/17 Potassium Chloride [K-Tab ER] 20 meq PO BID 09/02/17 09/02/17 Sertraline [Zoloft] 50 mg PO DAILY 09/02/17 09/02/17 valACYclovir [Valtrex] 500 mg PO DAILY 09/02/17 09/02/17 Previous Rx's Medication Instructions Recorded Insulin ASPART [Novolog Flexpen] 12 - 20 unit SQ TIDWM #0 09/04/17 Insulin DETEMIR [Levemir] 45 unit SQ BID #20 mls 09/04/17 Levothyroxine Sodium 200 mcg PO DAILY #30 tablet 09/04/17 levoFLOXacin [Levaquin] 750 mg PO DAILY #5 tablet 09/04/17 predniSONE [PredniSONE] 10 mg PO DAILY 8 Days tablet 09/04/17 Allergies Allergy/AdvReac Type Severity Reaction Status Date / Time Penicillins Allergy Hives Verified 07/01/17 08:54 Sulfa (Sulfonamide Allergy Rash Verified 07/01/17 08:54 Antibiotics) All systems ED: reviewed and negative except as stated. Review of Systems: As Per HPI Past Medical History - Past Medical History Medical history: Reports: CHF, COPD, DVT, diabetes, hyperlipidemia, hypertension , thyroid disease, other Surgical history: Reports: cholecystectomy Psychiatric history: Reports: anxiety, depression KILN BURNER history: Reports: other - Social History Smoking Status: Never smoker Smokeless Tobacco Status: No Alcohol use: Reports: none Drug use: Reports: none Physical Exam - General Limitations: no limitations General appearance: alert, in no apparent distress - ENT ENT exam: normal exam, normal oropharynx, mucous membranes moist - Chest Chest inspection: Present: normal inspection, symmetric chest wall rise - Respiratory Respiratory exam: Present: normal lung sounds bilaterally - Cardiovascular Cardiovascular exam: Present: regular rate, normal rhythm, normal heart sounds - Abdominal Exam Abdominal exam: Present: soft, Non-Tender. Absent: tenderness, distention, guarding, rebound, rigidity - Neurological Exam Neurological exam: Present: alert - Psychiatric Psychiatric exam: Present: normal affect, normal mood - Skin Skin exam: Present: warm, dry, intact, normal color Course Course Narrative: 62-year-old female presenting with complaint of weakness, shortness of breath. She was recently discharged from this facility 2 days ago with diagnosis of COPD exacerbation. We will obtain labs of CBC, BMP, troponin, BNP, chest x-ray. Vital Signs Temperature 98.9 F 09/06/17 22:09 Pulse Rate 110 09/06/17 22:09 Respiratory Rate 20 09/06/17 22:09 Blood Pressure 174/122 09/06/17 22:09 O2 Sat by Pulse Oximetry 95 09/06/17 22:09 Temperature 98.9 F 09/06/17 22:09 Pulse Rate 106 09/07/17 00:27 Respiratory Rate 18 09/07/17 00:27 Blood Pressure 134/96 09/07/17 00:27 O2 Sat by Pulse Oximetry 98 09/07/17 00:27 Oxygen Delivery Oxygen Delivery Nasal Cannula Shortness of Breath/Dyspnea - [facility] Narrative Medical decision making narrative: 60-year-old female presenting with complaint of weakness, shortness of breath. She was recently discharged from this facility 2 days ago with diagnosis of COPD exacerbation. Lab results at baseline levels, chest x-ray consistent with previous. Patient was tolerating home oxygen requirement of 2 L. I did discuss with family and patient these results and they state that they feel unable to care for the patient as she has been non compliant with medications as well as having increasing weakness and falls and feels that she would benefit from placement to [facility] facility. I discussed this with the hospitalist who is agree for observation admission with the goal of placement. - Lab Data Result diagrams: 09/06/17 22:53 09/06/17 22:53 Lab Results 09/06/17 09/06/17 09/06/17 Range/Units 22:14 22:15 22:53 WBC 7.5 (4.3-11.1) K/mcL RBC 4.18 (3.82-4.97) M/mcL Hgb 11.6 (11.5-15.4) g/dL Hct 36.8 (35.3-44.9) % MCV 88.0 (83.0-100.0) fL MCH 27.8 L (28.0-33.3) pg MCHC 31.5 L (31.6-35.5) g/dL RDW 14.6 H (11.5-14.5) % Plt Count 246 (140-400) K/mcL MPV 9.6 (9.4-12.4) fL Immature Gran % 0.8 (0-4) % Seg Neutrophils % 86.3 % Lymphocytes % 5.0 % Monocytes % 7.2 % Eosinophils % 0.4 % Basophils % 0.3 % Neutrophils # 6.4 (1.6-8.9) K/mcL Lymphocytes # 0.4 L (0.6-4.6) K/mcL Monocytes # 0.5 (0.0-1.3) K/mcL Eosinophils # 0.0 (0.0-0.6) K/mcL Basophils # 0.0 (0.0-0.2) K/mcL Sodium (136-145) mEq/L Potassium (3.5-5.1) mEq/L Chloride (98-107) mEq/L Carbon Dioxide (23-29) mEq/L BUN (8-23) mg/dL Creatinine (0.60-1.20) mg/dL Est GFR ( Amer) (> 60) Est GFR (Non-Af Amer) (> 60) BUN/Creatinine Ratio (6-26) Glucose (70-105) mg/dL POC Glucose 573 H* 568 H* (58-89) Calculated Osmolality (280-300) Lactic Acid (0.5-2.2) mmol/L Calcium (8.6-10.3) mg/dL Troponin I (< 0.04) ng/mL B-Natriuretic Peptide (Less than 100) pg/mL 09/06/17 09/06/17 09/06/17 Range/Units 22:53 22:53 22:53 WBC (4.3-11.1) K/mcL RBC (3.82-4.97) M/mcL Hgb (11.5-15.4) g/dL Hct (35.3-44.9) % MCV (83.0-100.0) fL MCH (28.0-33.3) pg MCHC (31.6-35.5) g/dL RDW (11.5-14.5) % Plt Count (140-400) K/mcL MPV (9.4-12.4) fL Immature Gran % (0-4) % Seg Neutrophils % % Lymphocytes % % Monocytes % % Eosinophils % % Basophils % % Neutrophils # (1.6-8.9) K/mcL Lymphocytes # (0.6-4.6) K/mcL Monocytes # (0.0-1.3) K/mcL Eosinophils # (0.0-0.6) K/mcL Basophils # (0.0-0.2) K/mcL Sodium 134 L (136-145) mEq/L Potassium 3.8 (3.5-5.1) mEq/L Chloride 90 L (98-107) mEq/L Carbon Dioxide 37 H (23-29) mEq/L BUN 26 H (8-23) mg/dL Creatinine 0.91 (0.60-1.20) mg/dL Est GFR ( Amer) > 60 (> 60) Est GFR (Non-Af Amer) > 60 (> 60) BUN/Creatinine Ratio 29 H (6-26) Glucose 523 H* (70-105) mg/dL POC Glucose (58-89) Calculated Osmolality 306 H (280-300) Lactic Acid 0.8 (0.5-2.2) mmol/L Calcium 9.3 (8.6-10.3) mg/dL Troponin I 0.03 (< 0.04) ng/mL B-Natriuretic Peptide (Less than 100) pg/mL 09/06/17 Range/Units 22:53 WBC (4.3-11.1) K/mcL RBC (3.82-4.97) M/mcL Hgb (11.5-15.4) g/dL Hct (35.3-44.9) % MCV (83.0-100.0) fL MCH (28.0-33.3) pg MCHC (31.6-35.5) g/dL RDW (11.5-14.5) % Plt Count (140-400) K/mcL MPV (9.4-12.4) fL Immature Gran % (0-4) % Seg Neutrophils % % Lymphocytes % % Monocytes % % Eosinophils % % Basophils % % Neutrophils # (1.6-8.9) K/mcL Lymphocytes # (0.6-4.6) K/mcL Monocytes # (0.0-1.3) K/mcL Eosinophils # (0.0-0.6) K/mcL Basophils # (0.0-0.2) K/mcL Sodium (136-145) mEq/L Potassium (3.5-5.1) mEq/L Chloride (98-107) mEq/L Carbon Dioxide (23-29) mEq/L BUN (8-23) mg/dL Creatinine (0.60-1.20) mg/dL Est GFR ( Amer) (> 60) Est GFR (Non-Af Amer) (> 60) BUN/Creatinine Ratio (6-26) Glucose (70-105) mg/dL POC Glucose (58-89) Calculated Osmolality (280-300) Lactic Acid (0.5-2.2) mmol/L Calcium (8.6-10.3) mg/dL Troponin I (< 0.04) ng/mL B-Natriuretic Peptide 64 (Less than 100) pg/mL Attestation Statement - Attestation Attestation: I, Vasile Santacruz MD, personally evaluated this patient and discussed their management with the resident physician. I reviewed the resident's note and agree with the documented findings, medical decision making, and plan of care. 62-year-old female with history of CHF and COPD presents to the emergency department complaining of increased shortness of breath as well as generalized weakness. Patient was just discharged from the hospital 2 days ago. reports that he does not feel she was ready to go home and he is been unable to take care of her at home. She has increased her oxygen today but continued to feel short of breath. On examination patient is a well-developed morbidly obese female in no acute distress. She is alert and oriented 3. There is no cyanosis or diaphoresis. Breath sounds are decreased bilaterally. Heart regular with a mild tachycardia. Abdomen soft with normal bowel sounds. Laboratory reviewed. Chest x-ray shows no acute abnormality. EKG shows a sinus tachycardia with ventricular rate of 107. Right bundle branch block. No significant change from prior EKG dated 09/02/17. The hospitalist, Dr. Canchola, was consulted and accepted admission of the patient.
[2017-09-06] MEDS ORDERED: Ipratropium/Albuterol Neb 3 ML IH ONE (22:40)
[2017-09-06] MEDS ORDERED: methylPREDNISolone 125 MG/2 ML VIAL IVP ONE (22:40)
[2017-09-06 23:14] LABS: Basophils % 0.3 %; Eosinophils % 0.4 %; Hematocrit 36.8 % (35.3-44.9); Hemoglobin 11.6 g/dL (11.5-15.4); Immature Granulocytes % 0.8 % (0-4); Lymphocytes # 0.4 K/mcL (0.6-4.6); Mean Corpuscular HGB Conc 31.5 g/dL (31.6-35.5); Mean Corpuscular Hemoglobin 27.8 pg (28.0-33.3); Mean Platelet Volume 9.6 fL (9.4-12.4); Monocytes # 0.5 K/mcL (0.0-1.3); Monocytes % 7.2 %; Neutrophils # 6.4 K/mcL (1.6-8.9); Platelet Count 246 K/mcL (140-400); Red Blood Count 4.18 M/mcL (3.82-4.97); Red Cell Distribution Width 14.6 % (11.5-14.5); Segmented Neutrophils % 86.3 %
[2017-09-06 23:56] LABS: BUN/Creatinine Ratio 29 (6-26); Blood Urea Nitrogen 26 mg/dL (8-23); Calcium 9.3 mg/dL (8.6-10.3); Carbon Dioxide 37 mEq/L (23-29); Chloride 90 mEq/L (98-107); Glucose 523 mg/dL (70-105); Osmolality,Calculated 306 (280-300); Potassium 3.8 mEq/L (3.5-5.1); Sodium 134 mEq/L (136-145); eGFR For Non-African Americans > 60 (> 60)
[2017-09-07] MEDS ORDERED: 0.9 % Sodium Chloride 250 ML IVC ONE (00:04)
[2017-09-07] MEDS ORDERED: Acetaminophen 325 MG TABLET PO PRN (02:26)
[2017-09-07] MEDS ORDERED: Naloxone 0.4 MG/ML INJ IVP PRN (02:26)
--- NOTE | 2017-09-07 02:26 | Internal Med History&Physical ---
<MahijoseLeodan - Last Filed: 09/07/17 03:17> Date of Encounter: 09/07/17 Time of Encounter: 02:25 Assessment and Plan (1) COPD exacerbation Current visit: No Status: Acute Patient recently discharged for COPD exacerbation on 09/04/17. Patient reports cough with thick sputum lungs sound clear patient had just had a breathing treatment. no pedal edema on exam BNP wnl CXR: "The lung volumes are low. No definite focal consolidation, overt edema, nor effusion is seen." Patient was discharged on prednisone taper and oral levaquin Plan: continue Prednisone and oral levaquin scheduled duonebs Q6H and PRN q4H (2) Diastolic CHF, chronic Current visit: No Status: Chronic Pt does not appear to be fluid overloaded lungs sudn clear, no signs of edema on cxr, no pedal edema. plan: continue home lasix, arb (3) Hyperglycemia Current visit: No Status: Acute Patient sugar 573 upon admission GAP 7 Patient not complient with home medications. Patient was discharged on 45 units levmir BID Plan: restart home levemir and start medium dose SSI (4) Hypothyroidism Current visit: No Status: Chronic Continue home levothyroxine Qualifiers: Hypothyroidism type: unspecified Qualified Code(s): E03.9 - Hypothyroidism , unspecified (5) Type 2 diabetes mellitus Current visit: No Status: Chronic Patient sugar 573 upon admission GAP 7 Patient not complient with home medications. Patient was discharged on 45 units levmir BID Plan: restart home levemir and start medium dose SSI diabetic diet ACHS accuchecks Qualifiers: Diabetes mellitus complication status: with hyperglycemia Diabetes mellitus long-term insulin use: with intermodal dispatcher use Qualified Code(s): E11.65 - Type 2 diabetes mellitus with hyperglycemia; Z79.4 - shelter (current) use of insulin (6) DVT prophylaxis Current visit: No Status: Acute continue home xarelto (7) Rheumatoid arthritis Current visit: No Status: Chronic Pt with hx of RA on home Methotrexate 10 pills weekly and folic acid daily. Last admission held due to illness. consider restarting home meds in the morning. Qualifiers: Rheumatoid arthritis location: multiple sites Rheumatoid factor presence: unspecified presence Qualified Code(s): M06.9 - Rheumatoid arthritis, unspecified (8) Obesity, morbid, BMI 40.0-49.9 Current visit: No Status: Chronic (9) Weakness Current visit: Yes Status: Chronic Pt diffusely weak and morbidly obese. Placed consult for PT and OT to evaluate patient for placement needs. Internal Medicine - H&P: HPI Chief complaint: SOB Admitted From: Emergency Dept Plans for Post Hospital Care: Transfer Custodial Facility History of present illness: Ms. Barrios is a 62 year old female c PMHx of COPD on 2L home O2, Diastolic CHF , DM, HTN, HLD, Hypothyroidism, DVT, Rheumatoid arthritis presents to the ED c/ o sohortness of breath. Patient was just hospitalized on the and discharged home on the for COPD exacerbation. Patient reports sob developed this morning, but has improved since being in the ED and receiving breathing treatment. Per records patient is very noncompliant with her medications. She was discharged on prednisone taper and PO levaquin. Patient does report cough with thick sputum she is unable to cough up. Patient denies Fever/chills, chest pain, N, V, D, urinary sxs. In the ED patient got 125mg solumderol, duoneb breathign treatment, and 250ml bolus. Labs were notable for nl WBC, BNP 64, negative troponin, nl LA, Glucose 523. CXR showed:"The lung volumes are low. No definite focal consolidation, overt edema, nor effusion is seen." Past Med Surg Social Fam HX - Past Medical History Medical history: CHF, COPD, DVT, diabetes, hyperlipidemia, hypertension, thyroid disease, other Psychiatric history: anxiety, depression - Past Surgical History Surgical History: cholecystectomy - Social History Smoking Status: Never smoker Smokeless Tobacco Status: No Alcohol use: none Drug use: none - Family History Mother Living Status: Hx Family Cardiac Disorders: Yes (chf) Hx Family Endocrine Disorder: Yes Father Living Status: Hx Family Cardiac Disorders: Yes ([place]) Hx Family Endocrine Disorder: Yes Internal Medicine - H&P: Meds Albuterol Sulfate [Albuterol Inhaler] 1 - 2 puff IH QID PRN 04/12/16 [History] Atorvastatin Calcium [Lipitor] 20 mg PO HS 04/12/16 [History] Docusate Sodium [Dok] 100 mg PO DAILY 04/12/16 [History] Folic Acid 1 mg PO DAILY 04/12/16 [History] Furosemide [Lasix] 80 mg PO DAILY 04/12/16 [History] Methotrexate [Otrexup] 10 mg PO WE 04/12/16 [History] Omeprazole [PriLOSEC] 40 mg PO DAILY 04/12/16 [History] Oxygen 2 l NS CONT 04/12/16 [History] Valsartan [Diovan] 40 mg PO DAILY 04/12/16 [History] Rivaroxaban [Xarelto] 20 mg PO DAILY 07/26/16 [History] Aspirin 81 mg PO DAILY 05/17/17 [History] Ergocalciferol (VITAMIN D2) [Vitamin D2] 50,000 unit PO MO 05/17/17 [History] Isosorbide MONOnitrate (24 HR) [Imdur] 60 mg PO DAILY 05/17/17 [History] Buspirone HCl [Buspar] 15 mg PO BID 09/02/17 [History] Ferrous Sulfate [Iron] 325 mg PO DAILY 09/02/17 [History] Gabapentin [Neurontin] 100 mg PO TID 09/02/17 [History] Oxycodone HCl/Acetaminophen [Percocet 5-325 mg Tablet] 1 each PO TID PRN [History] Polyethylene Glycol 3350 [MiraLAX] 17 gm PO DAILY 09/02/17 [History] Potassium Chloride [K-Tab ER] 20 meq PO BID 09/02/17 [History] Sertraline [Zoloft] 50 mg PO DAILY 09/02/17 [History] valACYclovir [Valtrex] 500 mg PO DAILY 09/02/17 [History] Insulin ASPART [Novolog Flexpen] 12 - 20 unit SQ TIDWM #0 09/04/17 [Rx] Insulin DETEMIR [Levemir] 45 unit SQ BID #20 mls 09/04/17 [Rx] Levothyroxine Sodium 200 mcg PO DAILY #30 tablet 09/04/17 [Rx] levoFLOXacin [Levaquin] 750 mg PO DAILY #5 tablet 09/04/17 [Rx] predniSONE [PredniSONE] 10 mg PO DAILY 8 Days tablet 09/04/17 [Rx] 3 Allergy/AdvReac Type Severity Reaction Status Date / Time Penicillins Allergy Hives Verified 07/01/17 08:54 Sulfa (Sulfonamide Allergy Rash Verified 07/01/17 08:54 Antibiotics) All Systems PM: A 14-system review of systems was performed and is negative for pertinent findings except as documented above in the HPI. - Constitutional Vitals: Temp Pulse Resp BP Pulse Ox 98.9 F 94 18 160/93 97 09/06/17 22:09 09/07/17 01:55 09/07/17 01:55 09/07/17 01:55 09/07/17 01:55 General appearance: Present: morbidly obese, no acute distress, answers questions appropriately - Head Head exam: Present: atraumatic, normocephalic - Eye Eye exam: Present: PERRL, conjuntiva pink, sclera anicteric Pupils: Present: PERRL - Neck Neck exam general surgery: Present: supple, trachea midline - Respiratory Respiratory exam: Present: decreased breath sounds, CTAB. Absent: accessory muscle use, rales, rhonchi, wheezes - Cardiovascular Cardiovascular exam: Present: RRR, +S1, +S2. Absent: diastolic murmur, gallop, rubs, systolic murmur - GI/Abdominal GI/Abdominal exam: Present: normal bowel sounds, soft, no peritoneal signs. Absent: distended, tenderness - Extremities Exam Extremities exam: Present: warm, radial pulses palpable and symmetrical. Absent : calf tenderness, cyanotic, pedal edema - Neurological Exam Neurological exam: Present: alert, no focal deficits. Absent: facial droop, speech deficit - Skin Skin exam: Present: dry, intact Internal Med - H&P Results - Labs CBC & Chem 7: 09/06/17 22:53 09/06/17 22:53 Labs: Short CBC 09/06/17 Range/Units 22:53 WBC 7.5 (4.3-11.1) K/mcL Hgb 11.6 (11.5-15.4) g/dL Hct 36.8 (35.3-44.9) % Plt Count 246 (140-400) K/mcL Neutrophils # 6.4 (1.6-8.9) K/mcL BMP 09/06/17 22:53 Sodium 134 L Potassium 3.8 Chloride 90 L Carbon Dioxide 37 H BUN 26 H Creatinine 0.91 Glucose 523 H* Calcium 9.3 Cardiac Enzymes 09/06/17 Range/Units 22:53 Troponin I 0.03 (< 0.04) ng/mL - Impressions ITS Impressions Chest X-Ray 09/06/17 22:17 IMPRESSION: Stable portable study. D/ / Jackie Alexis Cha, MD / Jackie Alexis Cha, MD Interpreting Provider: Jackie Alexis Cha, MD <Sandra Looney - Last Filed: 09/07/17 06:25> Date of Encounter: 09/07/17 Internal Medicine - H&P: HPI History of present illness: Ms. Barrios is a 62 year old female All Systems PM: A 10-system review of systems was performed and is negative for pertinent findings except as documented above in the HPI. - Constitutional Vitals: Temp Pulse Resp BP Pulse Ox 97.8 F 89 17 131/75 95 09/07/17 04:50 09/07/17 04:50 09/07/17 04:50 09/07/17 04:50 09/07/17 04:50 Internal Med - H&P Results - Labs CBC & Chem 7: 09/07/17 04:01 09/07/17 04:01 - Attending Attestation I have seen and examined this patient independently. I have discussed with resident physician Dr. Hatch regarding the management plan. Agree with the documentation.
[2017-09-07] MEDS ORDERED: *HR* Dextrose 50 % in Water (Syg) 50 ML SYRINGE IVP PRN (02:35)
[2017-09-07] MEDS ORDERED: Dextrose Gel 15 GM/37.5 ML TUBE PO PRN ×2 (02:35)
[2017-09-07] MEDS ORDERED: D5% in Water 1,000 ML IVC PRN (02:35)
[2017-09-07] MEDS ORDERED: *HR* OxyCODONE/APAP 5/325 TABLET PO PRN (02:40)
[2017-09-07] MEDS ORDERED: *HR* Methotrexate 2.5 MG TABLET PO SCH (02:45)
[2017-09-07] MEDS ORDERED: Insulin LISPRO 300 UNITS/3 ML VIAL SQ SCH ×2 (02:45→07:30)
[2017-09-07] MEDS ORDERED: Ipratropium/Albuterol Neb 3 ML IH PRN (03:58)
[2017-09-07 04:36] LABS: Basophils % 0.3 %; Hematocrit 37.8 % (35.3-44.9); Hemoglobin 11.9 g/dL (11.5-15.4); Immature Granulocytes % 0.8 % (0-4); Lymphocytes # 0.3 K/mcL (0.6-4.6); Lymphocytes % 2.9 %; Mean Corpuscular HGB Conc 31.5 g/dL (31.6-35.5); Mean Corpuscular Hemoglobin 27.7 pg (28.0-33.3); Mean Corpuscular Volume 87.9 fL (83.0-100.0); Mean Platelet Volume 9.8 fL (9.4-12.4); Monocytes # 0.2 K/mcL (0.0-1.3); Monocytes % 1.9 %; Neutrophils # 8.3 K/mcL (1.6-8.9); Platelet Count 229 K/mcL (140-400); Red Cell Distribution Width 14.6 % (11.5-14.5); Segmented Neutrophils % 94.1 %
[2017-09-07 04:50] LABS: BUN/Creatinine Ratio 30 (6-26); Blood Urea Nitrogen 27 mg/dL (8-23); Calcium 9.7 mg/dL (8.6-10.3); Carbon Dioxide 32 mEq/L (23-29); Chloride 90 mEq/L (98-107); Glucose 498 mg/dL (70-105); Osmolality,Calculated 305 (280-300); Sodium 134 mEq/L (136-145); eGFR For Non-African Americans > 60 (> 60)
[2017-09-07] MEDS: Insulin DETEMIR 100 UNIT/ML X5UNITS SQ SCH ×3 (04:53→21:08)
[2017-09-07] MEDS: Ipratropium/Albuterol Neb 3 ML IH SCH ×4 (05:27→23:08)
[2017-09-07] MEDS: levoFLOXacin 750 MG TABLET PO SCH (07:45)
[2017-09-07] MEDS: Valsartan 80 MG TABLET PO SCH (07:45)
[2017-09-07] MEDS: Isosorbide MONOnitrate (24 HR) 60 MG TAB.ER.24H PO SCH (07:45)
[2017-09-07] MEDS: Furosemide 20 MG TABLET PO SCH (07:45)
[2017-09-07] MEDS: Gabapentin 100 MG CAPSULE PO SCH ×4 (07:46→21:13)
[2017-09-07] MEDS: predniSONE 10 MG TABLET PO SCH (07:46)
[2017-09-07] MEDS: Aspirin 81 MG TAB.CHEW PO SCH (07:46)
[2017-09-07] MEDS: Folic Acid 1 MG TABLET PO SCH (07:46)
[2017-09-07] MEDS: Insulin LISPRO 300 UNITS/3 ML VIAL SQ SCH ×5 (10:08→23:12)
--- NOTE | 2017-09-07 12:25 | Event Note ---
Date of Encounter: 09/07/17 Time of Encounter: 12:19 I did examine patient bedside presently denies any shortness of breath she does have a cough with thick sputum. She does not appear to be respiratory distress- patient does have some hyperglycemia she was 573 on admission with a gap of 7 patient is noncompliant on home medications she is on Levemir 45 units twice a day at home-she is now on steroids which has made blood sugars challenging. We will increase sliding scale to high scale-they need to increase Levemir- continue with bronchodilators no signs of fluid overload continue his home Lasix -history of DVT- on Xarelto will continue
[2017-09-07] MEDS: *HR* Rivaroxaban 10 MG TABLET PO SCH (17:03)
[2017-09-08] MEDS: Ipratropium/Albuterol Neb 3 ML IH SCH ×4 (04:53→21:22)
[2017-09-08] MEDS: Insulin LISPRO 300 UNITS/3 ML VIAL SQ SCH ×6 (06:04→17:11)
[2017-09-08] MEDS: Folic Acid 1 MG TABLET PO SCH (08:04)
[2017-09-08] MEDS: Aspirin 81 MG TAB.CHEW PO SCH (08:04)
[2017-09-08] MEDS: Valsartan 80 MG TABLET PO SCH (08:04)
[2017-09-08] MEDS: Furosemide 20 MG TABLET PO SCH (08:05)
[2017-09-08] MEDS: predniSONE 10 MG TABLET PO SCH (08:05)
[2017-09-08] MEDS: Gabapentin 100 MG CAPSULE PO SCH ×3 (08:05→21:04)
[2017-09-08] MEDS: Isosorbide MONOnitrate (24 HR) 60 MG TAB.ER.24H PO SCH (08:05)
[2017-09-08] MEDS: levoFLOXacin 750 MG TABLET PO SCH (08:05)
[2017-09-08] MEDS: Insulin DETEMIR 100 UNIT/ML X5UNITS SQ SCH ×2 (12:31→21:03)
[2017-09-08] MEDS: *HR* Rivaroxaban 10 MG TABLET PO SCH (16:49)
--- NOTE | 2017-09-08 17:35 | Internal Med Progress Note ---
Date of Encounter: 09/08/17 Time of Encounter: 17:33 - Assessment and plan (1) COPD exacerbation Current Visit: No Status: Acute Assessment and plan: Patient recently discharged for COPD exacerbation on 09/04/17 patient had been experiencing cough with thick sputum. Assessment patient's lungs are clear at this time encouraged patient to cough and deep breathe will continue with prednisone and oral Levaquin. Continue with bronchodilators Oxygen as needed-saturations have been stable 97-98 on 2 L (2) Diastolic CHF, chronic Current Visit: No Status: Chronic Assessment and plan: Does not be fluid overloaded at this time will continue with home Lasix as well as arb Monitor intake and output (3) Hyperglycemia Current Visit: No Status: Chronic Assessment and plan: Patient's blood sugars were 573 upon arrival to ER. Gap was 7. Patient not compliant with medications at home she was initially discharged on 45 units of Levemir from previous admission. We will continue with Levemir insulin scale insulin. Blood sugars are improving ranging from upper 200 to upper 100. (4) Rheumatoid arthritis Current Visit: No Status: Chronic Assessment and plan: History of RA continue with methotrexate and folic acid Qualifiers: Rheumatoid arthritis location: multiple sites Rheumatoid factor presence: unspecified presence Qualified Code(s): M06.9 - Rheumatoid arthritis, unspecified (5) Type 2 diabetes mellitus Current Visit: No Status: Chronic Assessment and plan: 1 continue with Accu-Cheks before meals at bedtime sliding scale insulin as well as basal insulin-blood sugars had been elevated however they are improving Diabetic diet Qualifiers: Diabetes mellitus complication status: with hyperglycemia Diabetes mellitus longterm insulin use: with long term care social worker use Qualified Code(s): E11.65 - Type 2 diabetes mellitus with hyperglycemia; Z79.4 - terminal operator (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 PT and OT has been called consulted for strengthening (8) DVT prophylaxis Current Visit: No Status: Acute Assessment and plan: on Xarelto - Subjective Interval history: I examined the patient at bedside Patient has been experiencing cough, has not been coughing anything up at this time. She states she feels tired has a good appetite no shortness of breath on exertion at this time. Encourage patient to ambulate in room. Denies any chest pain - Constitutional Vitals: Temp Pulse Resp BP Pulse Ox 97.3 F L 93 17 106/71 98 09/08/17 16:58 09/08/17 16:58 09/08/17 16:58 09/08/17 16:58 09/08/17 16:58 General appearance: Present: morbidly obese, no acute distress, answers questions appropriately - Head Head exam: Present: atraumatic, normocephalic - Eye Eye exam: Present: PERRL, conjuntiva pink, sclera anicteric Pupils: Present: PERRL - Neck Neck exam general surgery: Present: supple, trachea midline. Absent: lymphadenopathy - Respiratory Respiratory exam: Present: CTAB. Absent: accessory muscle use, rales, rhonchi, wheezes - Cardiovascular Cardiovascular exam: Present: RRR, +S1, +S2. Absent: diastolic murmur, gallop, rubs, systolic murmur - GI/Abdominal GI/Abdominal exam: Present: normal bowel sounds, soft, no peritoneal signs. Absent: distended, tenderness - Extremities Exam Extremities exam: Present: warm, radial pulses palpable and symmetrical. Absent : calf tenderness, cyanotic, pedal edema - Neurological Exam Neurological exam: Present: CN II-XII intact, oriented X3, no focal deficits. Absent: pronater drift, facial droop, speech deficit - Skin Skin exam: Present: dry, intact Internal Medicine: Result - Labs CBC & Chem 7: 09/07/17 04:01 09/07/17 04:01 Consult Discharge Plan - Plan Referrals: Kenzie Nelson, PhD [Partnered Physician] - 10/10/17 2:00 pm Tawanda Storm Jr, MD [Primary Care Provider] -
--- NOTE | 2017-09-08 20:37 | Electrocardiograph Report ---
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
[2017-09-09] MEDS: Insulin LISPRO 300 UNITS/3 ML VIAL SQ SCH ×6 (01:22→16:58)
[2017-09-09] MEDS: Ipratropium/Albuterol Neb 3 ML IH SCH ×4 (03:49→22:30)
[2017-09-09 05:40] LABS: Basophils % 0.1 %; Eosinophils # 0.2 K/mcL (0.0-0.6); Eosinophils % 1.7 %; Hematocrit 34.7 % (35.3-44.9); Hemoglobin 10.7 g/dL (11.5-15.4); Mean Corpuscular HGB Conc 30.8 g/dL (31.6-35.5); Mean Corpuscular Volume 90.8 fL (83.0-100.0); Mean Platelet Volume 10.1 fL (9.4-12.4); Monocytes # 0.8 K/mcL (0.0-1.3); Monocytes % 7.3 %; Neutrophils # 8.3 K/mcL (1.6-8.9); Platelet Count 292 K/mcL (140-400); Red Blood Count 3.82 M/mcL (3.82-4.97); Red Cell Distribution Width 14.8 % (11.5-14.5); Segmented Neutrophils % 79.9 %
[2017-09-09 05:52] LABS: Calcium 9.9 mg/dL (8.6-10.3); Potassium 4.3 mEq/L (3.5-5.1)
[2017-09-09] MEDS: Furosemide 20 MG TABLET PO SCH (09:31)
[2017-09-09] MEDS: Isosorbide MONOnitrate (24 HR) 60 MG TAB.ER.24H PO SCH (09:31)
[2017-09-09] MEDS: Valsartan 80 MG TABLET PO SCH (09:32)
[2017-09-09] MEDS: predniSONE 10 MG TABLET PO SCH (09:32)
[2017-09-09] MEDS: Aspirin 81 MG TAB.CHEW PO SCH (09:33)
[2017-09-09] MEDS: levoFLOXacin 750 MG TABLET PO SCH (09:33)
[2017-09-09] MEDS: Folic Acid 1 MG TABLET PO SCH (09:33)
[2017-09-09] MEDS: Gabapentin 100 MG CAPSULE PO SCH ×3 (09:34→21:31)
[2017-09-09] MEDS: Insulin DETEMIR 100 UNIT/ML X5UNITS SQ SCH ×2 (09:34→21:30)
--- NOTE | 2017-09-09 11:42 | Internal Med Progress Note ---
Date of Encounter: 09/09/17 Time of Encounter: 11:40 - Assessment and plan (1) COPD exacerbation Current Visit: No Status: Acute Assessment and plan: Patient recently discharged for COPD exacerbation on 09/04/17 patient had been experiencing cough with thick sputum. Assessment patient's lungs are clear at this time encouraged patient to cough and deep breathe will continue with prednisone and oral Levaquin. Continue with bronchodilators Oxygen as needed-saturations have been stable 97-98 on 2 L will check resp panel (2) Diastolic CHF, chronic Current Visit: No Status: Chronic Assessment and plan: Does not be fluid overloaded at this time will continue with home Lasix as well as arb Monitor intake and output (3) Hyperglycemia Current Visit: No Status: Chronic Assessment and plan: Improving Patient's blood sugars were 573 upon arrival to ER. Gap was 7. Patient not compliant with medications at home she was initially discharged on 45 units of Levemir from previous admission. We will continue with Levemir insulin scale insulin. Blood sugars are ranging from upper 200 to upper 100. (4) Rheumatoid arthritis Current Visit: No Status: Chronic Assessment and plan: History of RA continue with methotrexate and folic acid Qualifiers: Rheumatoid arthritis location: multiple sites Rheumatoid factor presence: unspecified presence Qualified Code(s): M06.9 - Rheumatoid arthritis, unspecified (5) Type 2 diabetes mellitus Current Visit: No Status: Chronic Assessment and plan: 1 continue with Accu-Cheks before meals at bedtime sliding scale insulin as well as basal insulin-blood sugars had been elevated however they are improving Diabetic diet Qualifiers: Diabetes mellitus complication status: with hyperglycemia 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 PT and OT has been called consulted for strengthening (8) DVT prophylaxis Current Visit: No Status: Acute Assessment and plan: on Xarelto - Time Spent With Patient less than 15 minutes - Subjective Interval history: I examined the patient at bedside Patient has been experiencing cough, nonproductive. She complains of general mailase no fever Has been eating and drinking. No SOB or CP voiced - Constitutional Vitals: Temp Pulse Resp BP Pulse Ox 97.8 F 79 16 136/74 100 09/09/17 07:28 09/09/17 07:28 09/09/17 09:52 09/09/17 07:28 09/09/17 09:52 General appearance: Present: morbidly obese, no acute distress, answers questions appropriately - Head Head exam: Present: atraumatic, normocephalic - Eye Eye exam: Present: PERRL, conjuntiva pink, sclera anicteric Pupils: Present: PERRL - Neck Neck exam general surgery: Present: supple, trachea midline. Absent: lymphadenopathy - Respiratory Respiratory exam: Present: CTAB. Absent: accessory muscle use, rales, rhonchi, wheezes - Cardiovascular Cardiovascular exam: Present: RRR, +S1, +S2. Absent: diastolic murmur, gallop, rubs, systolic murmur - GI/Abdominal GI/Abdominal exam: Present: normal bowel sounds, soft, no peritoneal signs. Absent: distended, tenderness - Extremities Exam Extremities exam: Present: warm, radial pulses palpable and symmetrical. Absent : calf tenderness, cyanotic, pedal edema - Neurological Exam Neurological exam: Present: CN II-XII intact, oriented X3, no focal deficits. Absent: pronater drift, facial droop, speech deficit - Skin Skin exam: Present: dry, intact Internal Medicine: Result - Labs CBC & Chem 7: 09/09/17 04:51 09/09/17 04:51 Labs: Short CBC 09/09/17 Range/Units 04:51 WBC 10.4 (4.3-11.1) K/mcL Hgb 10.7 L (11.5-15.4) g/dL Hct 34.7 L (35.3-44.9) % Plt Count 292 (140-400) K/mcL Neutrophils # 8.3 (1.6-8.9) K/mcL BMP 09/09/17 04:51 Sodium 138 Potassium 4.3 Chloride 96 L Carbon Dioxide 37 H BUN 46 H Creatinine 1.15 Glucose 208 H Calcium 9.9 Consult Discharge Plan - Plan Referrals: Kenzie Nelson, PhD [Partnered Physician] - 10/10/17 2:00 pm Tawanda Storm Jr, MD [Primary Care Provider] -
[2017-09-09 16:36] LABS: Adenovirus Not Detected (Not Detect); Bordetella Pertussis Not Detected (Not Detect); Chlamydophila pneumoniae Not Detected (Not Detect); Coronavirus 229E Not Detected (Not Detect); Coronavirus HKU1 Not Detected (Not Detect); Coronavirus NL63 Not Detected (Not Detect); Coronavirus OC43 Not Detected (Not Detect); Human Metapneumovirus Not Detected (Not Detect); Human Rhinovirus/Enterovirus Not Detected (Not Detect); Influenza A Subtype 2009 H1 Not Detected (Not Detect); Influenza A Untypeable Not Detected (Not Detect); Influenza B Not Detected (Not Detect); Mycoplasma pneumoniae Not Detected (Not Detect); Parainfluenza Virus 1 Not Detected (Not Detect); Parainfluenza Virus 2 Not Detected (Not Detect); Parainfluenza Virus 3 Not Detected (Not Detect); Parainfluenza Virus 4 Not Detected (Not Detect); Respiratory Syncytial Virus Not Detected (Not Detect)
[2017-09-09] MEDS: *HR* Rivaroxaban 10 MG TABLET PO SCH (16:58)
[2017-09-10] MEDS: Ipratropium/Albuterol Neb 3 ML IH SCH ×2 (03:27→10:05)
[2017-09-10 07:44] VITALS: BP 129/84
--- NOTE | 2017-09-10 07:55 | Discharge Summary ---
Date of Encounter: 09/10/17 Time of Encounter: 07:53 - Discharge Diagnosis (1) COPD exacerbation Priority: Primary Status: Acute (2) Diastolic CHF, chronic Priority: Secondary Status: Chronic (3) Hyperglycemia Priority: Secondary Status: Chronic (4) Rheumatoid arthritis Priority: Secondary Status: Chronic Qualifiers: Rheumatoid arthritis location: multiple sites Rheumatoid factor presence: unspecified presence Qualified Code(s): M06.9 - Rheumatoid arthritis, unspecified (5) Type 2 diabetes mellitus Priority: Secondary Status: Chronic Qualifiers: Diabetes mellitus complication status: with hyperglycemia Diabetes mellitus long-term insulin use: with long-term use Qualified Code(s): E11.65 - Type 2 diabetes mellitus with hyperglycemia; 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 Barrios is a 62 year old female past medical history of COPD on home oxygen at 2 L diastolic heart failure diabetes hypertension hyperlipidemia hypothyroid DVT rheumatoid arthritis she was recently hospitalized at this facility on the and was discharged on the for COPD exacerbation. While at home she developed increasing shortness of breath, and complaint of weakness. Patient is very noncompliant with her medications she was discharged home on prednisone taper and by mouth Levaquin. Patient was given bronchodilators as well as continued on Levaquin and steroids. She was evaluated by PT and OT and recommended further rehabilitation inpatient. health services information specialist has obtained bed at [facility] for further rehabilitation. Patient complains of general malaise-respiratory panel complete which was negative chest x-ray with no acute process, while here patient's blood sugars were elevated she received basal as well as sliding scale insulin and blood sugars have improved. Respiratory status had improved, she is hemodynamically stable and ready for discharge. She will be discharged to [facility]-confirmed bed availability prior to discharge Discharge discussed with: patient - Time Spent with Patient Total time spent providing and/or coordinating discharge services: - Discharge Medications Home Medications: Albuterol Sulfate [Albuterol Inhaler] 1 - 2 puff IH QID PRN 04/12/16 [History] Atorvastatin Calcium [Lipitor] 20 mg PO HS 04/12/16 [History] Docusate Sodium [Dok] 100 mg PO DAILY 04/12/16 [History] Folic Acid 1 mg PO DAILY 04/12/16 [History] Furosemide [Lasix] 80 mg PO DAILY 04/12/16 [History] Methotrexate [Otrexup] 10 mg PO WE 04/12/16 [History] Omeprazole [PriLOSEC] 40 mg PO DAILY 04/12/16 [History] Oxygen 2 l NS CONT 04/12/16 [History] Valsartan [Diovan] 40 mg PO DAILY 04/12/16 [History] Rivaroxaban [Xarelto] 20 mg PO DAILY 07/26/16 [History] Aspirin 81 mg PO DAILY 05/17/17 [History] Ergocalciferol (VITAMIN D2) [Vitamin D2] 50,000 unit PO MO 05/17/17 [History] Isosorbide MONOnitrate (24 HR) [Imdur] 60 mg PO DAILY 05/17/17 [History] Buspirone HCl [Buspar] 15 mg PO BID 09/02/17 [History] Ferrous Sulfate [Iron] 325 mg PO DAILY 09/02/17 [History] Gabapentin [Neurontin] 100 mg PO TID 09/02/17 [History] Oxycodone HCl/Acetaminophen [Percocet 5-325 mg Tablet] 1 each PO TID PRN [History] Polyethylene Glycol 3350 [MiraLAX] 17 gm PO DAILY 09/02/17 [History] Potassium Chloride [K-Tab ER] 20 meq PO BID 09/02/17 [History] Sertraline [Zoloft] 50 mg PO DAILY 09/02/17 [History] valACYclovir [Valtrex] 500 mg PO DAILY 09/02/17 [History] Insulin ASPART [Novolog Flexpen] 12 - 20 unit SQ TIDWM #0 09/04/17 [Rx] Insulin DETEMIR [Levemir] 45 unit SQ BID #20 mls 09/04/17 [Rx] Levothyroxine Sodium 200 mcg PO DAILY #30 tablet 09/04/17 [Rx] predniSONE [PredniSONE] 10 mg PO DAILY 09/07/17 [History] Ipratropium/Albuterol Neb [Duoneb] 3 ml IH [id number] PRN inhsol 09/10/17 [Rx] Ipratropium/Albuterol Neb [Duoneb] 3 ml IH [id number] inhsol 09/10/17 [Rx] predniSONE [PredniSONE] 10 mg PO DAILY #2 tablet 09/10/17 [Rx] Allergies/Adverse Reactions: 3 Allergy/AdvReac Type Severity Reaction Status Date / Time Penicillins Allergy Hives Verified 07/01/17 08:54 Sulfa (Sulfonamide Allergy Rash Verified 07/01/17 08:54 Antibiotics) Date of admission: 09/08/17 19:13 Primary care physician: Tawanda Storm Jr, MD Discharging clinician: Malinda Michelle Anticipated date of discharge: 09/10/17 - Constitutional Vitals: Temp Pulse Resp BP Pulse Ox 98.6 F 91 16 129/84 99 09/10/17 07:43 09/10/17 07:43 09/10/17 07:43 09/10/17 07:43 09/10/17 07:43 General appearance: Present: morbidly obese, no acute distress, answers questions appropriately - Head Head exam: Present: atraumatic, normocephalic - Eye Eye exam: Present: PERRL, conjuntiva pink, sclera anicteric Pupils: Present: PERRL - Neck Neck exam general surgery: Present: supple, trachea midline. Absent: lymphadenopathy - Respiratory Respiratory exam: Present: CTAB. Absent: accessory muscle use, rales, rhonchi, wheezes - Cardiovascular Cardiovascular exam: Present: RRR, +S1, +S2. Absent: diastolic murmur, gallop, rubs, systolic murmur - GI/Abdominal GI/Abdominal exam: Present: normal bowel sounds, soft, no peritoneal signs. Absent: distended, tenderness - Extremities Exam Extremities exam: Present: warm, radial pulses palpable and symmetrical. Absent : calf tenderness, cyanotic, pedal edema - Neurological Exam Neurological exam: Present: CN II-XII intact, oriented X3, no focal deficits. Absent: pronater drift, facial droop, speech deficit - Skin Skin exam: Present: dry, intact - Patient Status Disposition: Transfer SNF Condition: Fair Functional capacity at discharge: independent ambulation Overall status at discharge: patient is progressing back to baseline - Discharge Instructions Instructions: Heart Failure (DC), Hypothyroidism (DC), Diabetes Mellitus Type 2 in Adults (DC), Chronic Obstructive Pulmonary Disease (DC) Follow Up With: Kenzie Nelson, PhD [Partnered Physician] - 10/10/17 2:00 pm Tawanda Storm Jr, MD [Primary Care Provider] - - Diet and Activity Activity: wear oxygen at night Diet: diabetic diet
[2017-09-10] MEDS: Insulin LISPRO 300 UNITS/3 ML VIAL SQ SCH (09:30)
[2017-09-10] MEDS: Folic Acid 1 MG TABLET PO SCH (09:31)
[2017-09-10] MEDS: Furosemide 20 MG TABLET PO SCH (09:31)
[2017-09-10] MEDS: levoFLOXacin 750 MG TABLET PO SCH (09:32)
[2017-09-10] MEDS: Isosorbide MONOnitrate (24 HR) 60 MG TAB.ER.24H PO SCH (09:32)
[2017-09-10] MEDS: Valsartan 80 MG TABLET PO SCH (09:32)
[2017-09-10] MEDS: Aspirin 81 MG TAB.CHEW PO SCH (09:32)
[2017-09-10] MEDS: Gabapentin 100 MG CAPSULE PO SCH (09:32)
[2017-09-10] MEDS: predniSONE 10 MG TABLET PO SCH (09:33)
[2017-09-10] MEDS: Insulin DETEMIR 100 UNIT/ML X5UNITS SQ SCH (09:35)
--- NOTE | 2017-09-10 10:46 | Physician Discharge Referral ---
ExtendedCare Referral Info Transfer To: [facility] Provider in Charge: Malinda Michelle Provider in Charge after Transfer: PCP Institutional Level of Care: Skilled - Diagnosis (1) COPD exacerbation Priority: Primary Status: Acute (2) Diastolic CHF, chronic Priority: Secondary Status: Chronic (3) Hyperglycemia Priority: Secondary Status: Chronic (4) Rheumatoid arthritis Priority: Secondary Status: Chronic (5) Type 2 diabetes mellitus Priority: Secondary Status: Chronic (6) Hx of deep venous thrombosis Priority: Secondary Status: Acute (7) Weakness Priority: Secondary Status: Acute Prognosis: Fair Aware of Diagnosis: Patient Aware of Prognosis: Patient - Transfer Medications Home Medications: Albuterol Sulfate [Albuterol Inhaler] 1 - 2 puff IH QID PRN 04/12/16 [History] Atorvastatin Calcium [Lipitor] 20 mg PO HS 04/12/16 [History] Docusate Sodium [Dok] 100 mg PO DAILY 04/12/16 [History] Folic Acid 1 mg PO DAILY 04/12/16 [History] Furosemide [Lasix] 80 mg PO DAILY 04/12/16 [History] Methotrexate [Otrexup] 10 mg PO WE 04/12/16 [History] Omeprazole [PriLOSEC] 40 mg PO DAILY 04/12/16 [History] Oxygen 2 l NS CONT 04/12/16 [History] Valsartan [Diovan] 40 mg PO DAILY 04/12/16 [History] Rivaroxaban [Xarelto] 20 mg PO DAILY 07/26/16 [History] Aspirin 81 mg PO DAILY 05/17/17 [History] Ergocalciferol (VITAMIN D2) [Vitamin D2] 50,000 unit PO MO 05/17/17 [History] Isosorbide MONOnitrate (24 HR) [Imdur] 60 mg PO DAILY 05/17/17 [History] Buspirone HCl [Buspar] 15 mg PO BID 09/02/17 [History] Ferrous Sulfate [Iron] 325 mg PO DAILY 09/02/17 [History] Gabapentin [Neurontin] 100 mg PO TID 09/02/17 [History] Oxycodone HCl/Acetaminophen [Percocet 5-325 mg Tablet] 1 each PO TID PRN [History] Polyethylene Glycol 3350 [MiraLAX] 17 gm PO DAILY 09/02/17 [History] Potassium Chloride [K-Tab ER] 20 meq PO BID 09/02/17 [History] Sertraline [Zoloft] 50 mg PO DAILY 09/02/17 [History] valACYclovir [Valtrex] 500 mg PO DAILY 09/02/17 [History] Insulin ASPART [Novolog Flexpen] 12 - 20 unit SQ TIDWM #0 09/04/17 [Rx] Insulin DETEMIR [Levemir] 45 unit SQ BID #20 mls 09/04/17 [Rx] Levothyroxine Sodium 200 mcg PO DAILY #30 tablet 09/04/17 [Rx] predniSONE [PredniSONE] 10 mg PO DAILY 09/07/17 [History] Ipratropium/Albuterol Neb [Duoneb] 3 ml IH [id number] PRN inhsol 09/10/17 [Rx] Ipratropium/Albuterol Neb [Duoneb] 3 ml IH [id number] inhsol 09/10/17 [Rx] predniSONE [PredniSONE] 10 mg PO DAILY #2 tablet 09/10/17 [Rx] Allergies/Adverse Reactions: 3 Allergy/AdvReac Type Severity Reaction Status Date / Time Penicillins Allergy Hives Verified 07/01/17 08:54 Sulfa (Sulfonamide Allergy Rash Verified 07/01/17 08:54 Antibiotics) - Respiratory Orders Oxygen / L per min (2L NC) Smoking Cessation: Smoking cessation has been advised. For more information, call the [place] Tobacco Quit Line at 1-244-VDVG-NOW. - Advance Directives Living Will: No Power of Machine Stemmer: No Code Status: Full Code - Mobility Orders Ambulate - Rehabiliation Orders Rehab Potential: Fair Rehab Orders: Evaluation for Physical Therapy, Evaluation for Occupational Therapy - Diet Orders No Concentrated Sweets CERTIFICATION: I certify that the transfer of the above named patient to an Extended Care Facility is necessary for the continuing treatment of the diagnosis listed. The above information is true and accurate reflection of patient's current condition. Confidential - Redisclosure prohibited without a patient's written consent.
== END 2017-09-10 13:55 | DRG 191 ==
LOC: EMEROO 22:07 → 3BNU 22:07
PROVIDERS: ADMIT Internal Medicine; ATTEND Registered Nurse

== ENCOUNTER 2017-11-23 11:35 | Inpatient (IN) ==
--- NOTE | 2017-11-23 12:00 | Emergency Department Note ---
Disposition Clinical Impression: Pain in genitalia Cellulitis Qualifiers: Site of cellulitis: extremity Site of cellulitis of extremity: lower extremity Laterality: unspecified laterality Qualified Code(s): L03.119 - Cellulitis of unspecified part of limb Genital herpes Qualifiers: Herpes simplex infection site: vulvovaginitis Qualified Code(s): A60.04 - Herpesviral vulvovaginitis Disposition: Admitted As Inpatient Condition: Good Time of Disposition: 16:18 General Adult HPI - General Chief complaint: ED Urogenital-Female Stated complaint: Vaginal discharge Time Seen by Provider: 11/23/17 11:43 Source: patient, EMS Mode of arrival: EMS Limitations: no limitations Nursing Notes Reviewed: Yes Vital Signs Reviewed: Yes - History of Present Illness HPI Narrative: Patient is a 62-year-old female that presents the emergency department for vaginal pain. Patient has any vaginal discharge or bleeding at this time. Patient states that the pain started yesterday and has gotten worse. Patient denies any urinary symptoms. Patient denies any abdominal pain. Patient states that nothing seems to make the pain any better or worse. Pain Scale: 8 - Related Data Home Medications Medication Instructions Recorded Confirmed Albuterol Sulfate [Albuterol 1 - 2 puff IH QID PRN 04/12/16 11/23/17 Inhaler] Atorvastatin Calcium [Lipitor] 20 mg PO HS 04/12/16 11/23/17 Docusate Sodium [Dok] 100 mg PO DAILY 04/12/16 11/23/17 Folic Acid 1 mg PO DAILY 04/12/16 11/23/17 Methotrexate [Otrexup] 10 mg PO WE 04/12/16 11/23/17 Omeprazole [PriLOSEC] 40 mg PO DAILY 04/12/16 11/23/17 Oxygen 2 l NS CONT 04/12/16 11/23/17 Valsartan [Diovan] 40 mg PO DAILY 04/12/16 11/23/17 Rivaroxaban [Xarelto] 20 mg PO DAILY 07/26/16 11/23/17 Aspirin 81 mg PO DAILY 05/17/17 11/23/17 Ergocalciferol (VITAMIN D2) 50,000 unit PO MO 05/17/17 11/23/17 [Vitamin D2] Isosorbide MONOnitrate (24 HR) 60 mg PO DAILY 05/17/17 11/23/17 [Imdur] Buspirone HCl [Buspar] 15 mg PO BID 09/02/17 11/23/17 Ferrous Sulfate [Iron] 325 mg PO DAILY 09/02/17 11/23/17 Gabapentin [Neurontin] 100 mg PO TID 09/02/17 11/23/17 Oxycodone HCl/Acetaminophen 1 each PO TID PRN 09/02/17 11/23/17 [Percocet 5-325 mg Tablet] Polyethylene Glycol 3350 [MiraLAX] 17 gm PO DAILY 09/02/17 11/23/17 Potassium Chloride [K-Tab ER] 20 meq PO BID 09/02/17 11/23/17 Sertraline [Zoloft] 50 mg PO DAILY 09/02/17 11/23/17 Furosemide [Lasix] 80 mg PO DAILY 11/23/17 11/23/17 Insulin ASPART [Novolog Flexpen] 5 unit SQ TIDWM 11/23/17 11/23/17 Insulin DETEMIR [Levemir] 50 unit SQ BID 11/23/17 11/23/17 Previous Rx's Medication Instructions Recorded Levothyroxine Sodium 200 mcg PO DAILY #30 tablet 09/04/17 Ipratropium/Albuterol Neb [Duoneb] 3 ml IH [id number] inhsol 09/10/17 Allergies Allergy/AdvReac Type Severity Reaction Status Date / Time Penicillins Allergy Hives Verified 07/01/17 08:54 Sulfa (Sulfonamide Allergy Rash Verified 07/01/17 08:54 Antibiotics) All systems ED: reviewed and negative except as stated. Cardiovascular: Denies: chest pain Respiratory: Reports: dyspnea (chronic) Gastrointestinal: Denies: abdominal pain, nausea, vomiting Genitourinary: Reports: other (pain in her vagina). Denies: urgency, dysuria, frequency, hematuria Past Medical History - Past Medical History Medical history: Reports: CHF, COPD, DVT, diabetes, hyperlipidemia, hypertension , thyroid disease, other Surgical history: Reports: cholecystectomy Psychiatric history: Reports: anxiety, depression [employer] history: Reports: other - Social History Smoking Status: Never smoker Smokeless Tobacco Status: No Alcohol use: Reports: none Drug use: Reports: none Physical Exam - General Limitations: no limitations General appearance: alert, in no apparent distress - Head Head exam: atraumatic, normocephalic - Eye Eye exam: Present: normal appearance, EOMI - Neck Neck exam: Present: normal inspection, full ROM, trachea midline - Respiratory Respiratory exam: Present: normal lung sounds bilaterally. Absent: respiratory distress, wheezes - Cardiovascular Cardiovascular exam: Present: regular rate, normal rhythm, normal heart sounds, +S1, +S2 - Abdominal Exam Abdominal exam: Present: soft, Non-Tender, normal bowel sounds - Neurological Exam Neurological exam: Present: alert, oriented X3 - Psychiatric Psychiatric exam: Present: normal affect, normal mood - Skin Skin exam: Present: warm, dry, intact Course Vital Signs Temperature 98.3 F 11/23/17 11:38 Pulse Rate 88 11/23/17 11:38 Respiratory Rate 16 11/23/17 11:38 Blood Pressure 113/74 11/23/17 11:38 O2 Sat by Pulse Oximetry 100 11/23/17 11:38 Temperature 98.1 F 11/23/17 16:36 Pulse Rate 87 11/23/17 16:36 Respiratory Rate 18 11/23/17 16:36 Blood Pressure 125/67 11/23/17 16:36 O2 Sat by Pulse Oximetry 97 11/23/17 16:36 Oxygen Delivery Oxygen Delivery Nasal Cannula Medical Decision Making - [facility] Narrative Medical decision making narrative: Patient presenting with a complaint of vaginal pain we will obtain a urinalysis and perform a pelvic exam when the patient is able to be placed in a room with a door. Upon pelvic exam there was significant skin breakdown around the vagina as well as herpetic lesions on the left labia and inner thigh. Also upon further physical exam and appears that the patient does have cellulitis to the lower extremities. Due to the patient having significant amount of pain around the vagina and the cellulitis of the lower extremities without any further information the patient will be started on IV clindamycin and we will admit her to the hospital for further evaluation and management. Basic laboratory testing was obtained. Patient had an anemia of 8.9 however this appears to be chronic for her. Patient also had an elevated CO2 level of 43. Patient does appear to be a CO2 retainer on previous laboratory testing. Consult the hospitalist and they have accepted their service. The exerting physician was Dr. Weems. Patient will be admitted to the hospital this time for further evaluation and management. - Medical Records Medical records reviewed: Yes I reviewed the patient's medical records. - Lab Data Lab results reviewed: Yes I reviewed the patient's lab results. Result diagrams: 11/23/17 13:48 11/23/17 13:48 Lab Results 11/23/17 11/23/17 11/23/17 Range/Units 13:27 13:48 13:48 WBC 9.8 (4.3-11.1) K/mcL RBC 3.03 L (3.82-4.97) M/mcL Hgb 8.9 L (11.5-15.4) g/dL Hct 28.7 L (35.3-44.9) % MCV 94.7 (83.0-100.0) fL MCH 29.4 (28.0-33.3) pg MCHC 31.0 L (31.6-35.5) g/dL RDW 15.5 H (11.5-14.5) % Plt Count 263 (140-400) K/mcL MPV 9.9 (9.4-12.4) fL Immature Gran % 0.5 (0-4) % Seg Neutrophils % 85.0 % Lymphocytes % 7.6 % Monocytes % 4.6 % Eosinophils % 2.1 % Basophils % 0.2 % Neutrophils # 8.4 (1.6-8.9) K/mcL Lymphocytes # 0.8 (0.6-4.6) K/mcL Monocytes # 0.5 (0.0-1.3) K/mcL Eosinophils # 0.2 (0.0-0.6) K/mcL Basophils # 0.0 (0.0-0.2) K/mcL Sodium 142 (136-145) mEq/L Potassium 4.3 (3.5-5.1) mEq/L Chloride 95 L (98-107) mEq/L Carbon Dioxide 43 H* (23-29) mEq/L BUN 24 H (8-23) mg/dL Creatinine 0.72 (0.60-1.20) mg/dL Est GFR ( Amer) > 60 (> 60) Est GFR (Non-Af Amer) > 60 (> 60) BUN/Creatinine Ratio 33 H (6-26) Glucose 142 H (70-105) mg/dL Calculated Osmolality 300 (280-300) Calcium 9.7 (8.6-10.3) mg/dL Urine Color Yellow (Yellow) Urine Clarity Clear (Clear) Urine pH 5.5 (5.0-8.0) pH Units Ur Specific Gay 1.021 (1.010-1.025) Urine Protein Negative (Neg-Trace) mg/dL Urine Glucose (UA) Normal (Normal) mg/dL Urine Ketones Negative (Negative) mg/dL Urine Blood Trace H (Negative) Urine Nitrite Negative (Negative) Urine Bilirubin Negative (Negative) Urine Urobilinogen Normal (Normal) mg/dL Ur Leukocyte Esterase Negative (Negative) Urine Microscopic RBC 0-3 (0-3) per hpf Urine Microscopic WBC 0-3 (0-3) per hpf Ur Squamous Epith Cells Many H (None-Few) per lpf Urine Bacteria None Seen (None-Few) per hpf Hyaline Casts None Seen (None-Few) per lpf Ur Culture Indicated? NO (NO) Attestation Statement - Attestation Attestation: I examined this patient and my medical decision-making was reviewed with the Resident Physician, Dr. Rubin. I agree with the documented findings, disposition and treatment plan as described except to the extent set forth below. Patient is a 62-year-old white female with multiple medical problems including diabetes who comes to the emergency department with a 2 day history of vaginal pain. Patient does have a history of chronic recurrent herpes in the area and is on Valtrex. Patient states that she is just had gradually worsening pain and painful urination as well. Patient denies any vaginal bleeding or discharge. She commented that she was at [facility] and had a lesion taken off her cervix last week at [facility] but denies any complications and has not followed up. Patient denies any fevers or chills, no nausea vomiting, no back pain or flank pain, no abdominal pain no other associated symptoms. I agree with patient's physical exam findings as documented in I personally evaluated the patient at bedside and also supervised the pelvic exam. Vital signs are stable. Patient had baseline labs drawn as well as a blood culture and we performed a pelvic exam external and speculum. Speculum exam did not show any cervical changes that looked concerning there is no vaginal bleeding or discharge. Patient does have extensive skin sloughing of the area and a very small area on the left labia of a herpetic outbreak. Patient has exquisite tenderness in this area and the entire area of skin breakdown is erythematous. There is no drainage to the area no area of induration or abscess. Patient also has new erythema of her lower extremities that were just demarcated today at the extended care facility where she resides. Patient has not been started on any antibiotics as far she is aware. Patient remains hemodynamically stable labs are within normal limits blood sugars well-controlled. We will start her on IV antibiotics and admit her for further evaluation as she is at high risk for developing gangrene or worsening infection of the area and has progressing cellulitis of the lower extremities. Case was discussed with Dr. Vásquez was accepted patient for admission.
[2017-11-23 13:34] LABS: Bilirubin,Urine Negative (Negative); Blood,Urine Trace (Negative); Clarity,Urine Clear (Clear); Color,Urine Yellow (Yellow); Glucose,Urine (UA) Normal (Normal); Ketones,Urine Negative (Negative); Leukocyte Esterase,Urine Negative (Negative); Nitrite,Urine Negative (Negative); PH,Urine 5.5 pH Units (5.0-8.0); Protein,Urine Negative (Neg-Trace); Specific Gravity,Urine 1.021 (1.010-1.025); Urobilinogen,Urine Normal (Normal)
[2017-11-23 13:36] LABS: Bacteria,Urine None Seen per hpf (None-Few); Hyaline Casts,Urine None Seen per lpf (None-Few); RBC,Urine 0-3 per hpf (0-3); Squamous Epithelial Cell,Urine Many per lpf (None-Few); WBC,Urine 0-3 per hpf (0-3)
[2017-11-23] MEDS ORDERED: Clindamycin 600 MG/50 ML 600 MG/50 ML IV.SOLN IVPB ONE (13:42)
[2017-11-23 14:22] LABS: Basophils % 0.2 %; Eosinophils # 0.2 K/mcL (0.0-0.6); Eosinophils % 2.1 %; Hematocrit 28.7 % (35.3-44.9); Hemoglobin 8.9 g/dL (11.5-15.4); Immature Granulocytes % 0.5 % (0-4); Lymphocytes # 0.8 K/mcL (0.6-4.6); Lymphocytes % 7.6 %; Mean Corpuscular Hemoglobin 29.4 pg (28.0-33.3); Mean Corpuscular Volume 94.7 fL (83.0-100.0); Mean Platelet Volume 9.9 fL (9.4-12.4); Monocytes # 0.5 K/mcL (0.0-1.3); Monocytes % 4.6 %; Neutrophils # 8.4 K/mcL (1.6-8.9); Platelet Count 263 K/mcL (140-400); Red Blood Count 3.03 M/mcL (3.82-4.97); Red Cell Distribution Width 15.5 % (11.5-14.5)
[2017-11-23 14:35] LABS: BUN/Creatinine Ratio 33 (6-26); Blood Urea Nitrogen 24 mg/dL (8-23); Calcium 9.7 mg/dL (8.6-10.3); Carbon Dioxide 43 mEq/L (23-29); Chloride 95 mEq/L (98-107); Glucose 142 mg/dL (70-105); Osmolality,Calculated 300 (280-300); Potassium 4.3 mEq/L (3.5-5.1); Sodium 142 mEq/L (136-145); eGFR For African Americans > 60 (> 60); eGFR For Non-African Americans > 60 (> 60)
[2017-11-23] MEDS ORDERED: Naloxone 0.4 MG/ML INJ IVP PRN (17:40)
[2017-11-23] MEDS ORDERED: NON-FORMULARY MEDICATION 1 EACH EACH (Oxygen [Oxygen] 2 L) NS SCH (18:00)
--- NOTE | 2017-11-23 18:01 | Internal Med History&Physical ---
Date of Encounter: 11/23/17 Time of Encounter: 17:46 Internal Medicine - H&P: HPI Chief complaint: Lower extremity pain and swelling and vagina pain Admitted From: Long-term Nursing Facility Plans for Post Hospital Care: Transfer [facility] [employer] [facility] History of present illness: Ms. Barrios is a 62 year old female who is a resident of skilled nursing with past medical history of COPD on home oxygen at 2 L and chronic CO2 retainer, diastolic heart failure, diabetes, hypertension, hyperlipidemia , hypothyroid , DVT on Xarelto , rheumatoid arthritis was sent to ER with concern of both leg swelling redness and also worsening of vagina pain. In ER with pelvic exam was done with finding of genital herpes and excoriated skin in vulva and also finding of suspected cellulitis in both lower extremity therefore your physician called on-call hospitalists for the admission and further workup. Patient denies fever, chills, nausea, vomiting, headache, dizziness, chest pain , shortness of breath, abdominal pain, urinary or bowel complaint, vaginal discharge Past Med Surg Social Fam HX - Past Medical History Medical history: CHF, COPD, DVT, diabetes, hyperlipidemia, hypertension, thyroid disease, other Psychiatric history: anxiety, depression - Past Surgical History Surgical History: cholecystectomy - Social History Smoking Status: Never smoker Smokeless Tobacco Status: No Alcohol use: none Drug use: none - Family History Mother Living Status: Hx Family Cardiac Disorders: Yes (chf) Hx Family Endocrine Disorder: Yes Father Living Status: Hx Family Cardiac Disorders: Yes ([place]) Hx Family Endocrine Disorder: Yes Internal Medicine - H&P: Meds Albuterol Sulfate [Albuterol Inhaler] 1 - 2 puff IH QID PRN 04/12/16 [History] Atorvastatin Calcium [Lipitor] 20 mg PO HS 04/12/16 [History] Docusate Sodium [Dok] 100 mg PO DAILY 04/12/16 [History] Folic Acid 1 mg PO DAILY 04/12/16 [History] Methotrexate [Otrexup] 10 mg PO WE 04/12/16 [History] Omeprazole [PriLOSEC] 40 mg PO DAILY 04/12/16 [History] Oxygen 2 l NS CONT 04/12/16 [History] Valsartan [Diovan] 40 mg PO DAILY 04/12/16 [History] Rivaroxaban [Xarelto] 20 mg PO DAILY 07/26/16 [History] Aspirin 81 mg PO DAILY 05/17/17 [History] Ergocalciferol (VITAMIN D2) [Vitamin D2] 50,000 unit PO MO 05/17/17 [History] Isosorbide MONOnitrate (24 HR) [Imdur] 60 mg PO DAILY 05/17/17 [History] Buspirone HCl [Buspar] 15 mg PO BID 09/02/17 [History] Ferrous Sulfate [Iron] 325 mg PO DAILY 09/02/17 [History] Gabapentin [Neurontin] 100 mg PO TID 09/02/17 [History] Oxycodone HCl/Acetaminophen [Percocet 5-325 mg Tablet] 1 each PO TID PRN [History] Polyethylene Glycol 3350 [MiraLAX] 17 gm PO DAILY 09/02/17 [History] Potassium Chloride [K-Tab ER] 20 meq PO BID 09/02/17 [History] Sertraline [Zoloft] 50 mg PO DAILY 09/02/17 [History] Levothyroxine Sodium 200 mcg PO DAILY #30 tablet 09/04/17 [Rx] Ipratropium/Albuterol Neb [Duoneb] 3 ml IH [id number] inhsol 09/10/17 [Rx] Furosemide [Lasix] 80 mg PO DAILY 11/23/17 [History] Insulin ASPART [Novolog Flexpen] 5 unit SQ TIDWM 11/23/17 [History] Insulin DETEMIR [Levemir] 50 unit SQ BID 11/23/17 [History] 3 Allergy/AdvReac Type Severity Reaction Status Date / Time Penicillins Allergy Hives Verified 07/01/17 08:54 Sulfa (Sulfonamide Allergy Rash Verified 07/01/17 08:54 Antibiotics) All Systems PM: as documented above in the HPI. - Constitutional Vitals: Temp Pulse Resp BP Pulse Ox 98.1 F 87 18 125/67 97 11/23/17 16:36 11/23/17 16:36 11/23/17 16:36 11/23/17 16:36 11/23/17 16:36 Exam: General appearance: No acute distress, A&O X 3, 2 L oxygen by nasal cannula, morbidly obese Head exam: Atraumatic Eye exam: EOMI, PERRLA ENT exam: Moist oral mucosa Neck nontender, supple Respiratory exam: Decreased breath sound bilaterally most likely due to body habitus Cardiovascular exam: Regular rate and rhythm, no systolic murmur Abdominal exam: Soft, nontender, nondistended, positive bowel sounds , morbidly obese Extremities exam: Bilateral lower extremity skin warm, tender, redness with swelling more on the left side above the ankle to mid calf Genital exam-herpetic lesion on medial side of left labia surrounded by excoriative skin involved whole vulva and extending to labia bilaterally Neurological exam: Alert, awake, oriented 3, CN II-XII intact, no focal deficits. No facial droop. Normal speech. Internal Med - H&P Results - Labs CBC & Chem 7: 11/23/17 13:48 11/23/17 13:48 - Assessment and plan (1) Cellulitis Current Visit: Yes Status: Acute Assessment and plan: Bilateral. Normal white count. IV clindamycin was restarted in the ER therefore will continue. No abscess or open wound. Doppler venous ultrasound ordered to rule out DVT Qualifiers: Site of cellulitis: extremity Site of cellulitis of extremity: lower extremity Qualified Code(s): L03.119 - Cellulitis of unspecified part of limb (2) Genital herpes Current Visit: Yes Status: Acute Assessment and plan: Acute with moderate to severe pain. Pain management. Pelvic exam by speculum was done in the ER. I examine external genitalia and agreed with the findings. Started acyclovir. Qualifiers: Herpes simplex infection site: vulvovaginitis Qualified Code(s): A60.04 - Herpesviral vulvovaginitis (3) Diabetes mellitus Current Visit: Yes Status: Acute Assessment and plan: Accu-Chek. Continue home insulin dose Qualifiers: Diabetes mellitus type: type 2 Diabetes mellitus twister hand insulin use: with senior living use Diabetes mellitus complication status: without complication Qualified Code(s): E11.9 - Type 2 diabetes mellitus without complications; Z79.4 - retirement (current) use of insulin (4) Hypertension Current Visit: Yes Status: Acute Assessment and plan: Continue home medicine. Close monitoring Qualifiers: Hypertension type: essential hypertension Qualified Code(s): I10 - Essential (primary) hypertension (5) COPD (chronic obstructive pulmonary disease) Current Visit: Yes Status: Chronic Assessment and plan: Stable. Continue home medicine. Continue home oxygen Qualifiers: COPD type: unspecified COPD Qualified Code(s): J44.9 - Chronic obstructive pulmonary disease, unspecified (6) CHF (congestive heart failure) Current Visit: Yes Status: Chronic Assessment and plan: Stable. Continue home medicine Qualifiers: Heart failure type: diastolic Qualified Code(s): I50.30 - Unspecified diastolic (congestive) heart failure (7) DVT prophylaxis Current Visit: Yes Status: Acute Assessment and plan: Continue Xarelto - Time Spent With Patient Total time spent is greater than 50% in coordination of care (as documented) at patient's floor/unit and/or counseling patient: 25 - 35 minutes
[2017-11-23] MEDS: Clindamycin 600 MG/50 ML 600 MG/50 ML IV.SOLN IVPB SCH (18:49)
[2017-11-23] MEDS: Ipratropium/Albuterol Neb 3 ML IH SCH (19:54)
[2017-11-23] MEDS: Nystatin OINT 15 GM TUBE TP SCH (21:41)
[2017-11-23] MEDS: Acyclovir 200 MG CAPSULE PO SCH (21:42)
[2017-11-23] MEDS: Gabapentin 100 MG CAPSULE PO SCH (21:42)
[2017-11-23] MEDS: Insulin DETEMIR 100 UNIT/ML X5UNITS SQ SCH (22:07)
[2017-11-24] MEDS: Clindamycin 600 MG/50 ML 600 MG/50 ML IV.SOLN IVPB SCH ×3 (02:22→17:45)
[2017-11-24] MEDS: *HR* OxyCODONE/APAP 5/325 TABLET PO PRN ×3 (02:51→19:28)
[2017-11-24 05:13] LABS: Basophils % 0.3 %; Eosinophils # 0.2 K/mcL (0.0-0.6); Eosinophils % 2.2 %; Hematocrit 27.6 % (35.3-44.9); Hemoglobin 8.5 g/dL (11.5-15.4); Immature Granulocytes % 0.4 % (0-4); Lymphocytes # 0.9 K/mcL (0.6-4.6); Lymphocytes % 9.1 %; Mean Corpuscular HGB Conc 30.8 g/dL (31.6-35.5); Mean Corpuscular Hemoglobin 28.6 pg (28.0-33.3); Mean Corpuscular Volume 92.9 fL (83.0-100.0); Monocytes # 0.5 K/mcL (0.0-1.3); Monocytes % 4.9 %; Neutrophils # 7.9 K/mcL (1.6-8.9); Platelet Count 283 K/mcL (140-400); Red Blood Count 2.97 M/mcL (3.82-4.97); Red Cell Distribution Width 15.8 % (11.5-14.5); Segmented Neutrophils % 83.1 %
[2017-11-24] MEDS: Ipratropium/Albuterol Neb 3 ML IH SCH ×3 (05:17→16:22)
[2017-11-24 05:43] LABS: BUN/Creatinine Ratio 33 (6-26); Blood Urea Nitrogen 22 mg/dL (8-23); Calcium 9.7 mg/dL (8.6-10.3); Carbon Dioxide 40 mEq/L (23-29); Chloride 98 mEq/L (98-107); Glucose 112 mg/dL (70-105); Osmolality,Calculated 306 (280-300); Potassium 4.2 mEq/L (3.5-5.1); Sodium 146 mEq/L (136-145); eGFR For African Americans > 60 (> 60); eGFR For Non-African Americans > 60 (> 60)
[2017-11-24] MEDS: Nystatin OINT 15 GM TUBE TP SCH ×3 (06:22→16:00)
[2017-11-24] MEDS: Gabapentin 100 MG CAPSULE PO SCH ×2 (07:51→15:30)
[2017-11-24] MEDS ORDERED: Furosemide 40 MG TABLET PO SCH (09:00)
[2017-11-24] MEDS ORDERED: Valsartan 80 MG TABLET PO SCH (09:00)
[2017-11-24] MEDS ORDERED: Isosorbide MONOnitrate (24 HR) 60 MG TAB.ER.24H PO SCH (09:00)
[2017-11-24] MEDS ORDERED: Folic Acid 1 MG TABLET PO SCH (09:00)
[2017-11-24] MEDS ORDERED: Aspirin 81 MG TAB.CHEW PO SCH (09:00)
[2017-11-24] MEDS: Acyclovir 200 MG CAPSULE PO SCH (09:30)
--- NOTE | 2017-11-24 12:59 | OB/GYN Consult Note ---
Date of Encounter: 11/24/17 Time of Encounter: 12:59 Assessment and Plan (1) Vulval edema Current Visit: Yes Status: Acute Exam on patient difficult due to patient pain. Excoriation of bilateral vulva and into inner thighs. Purulent discharge noted to the vulvar region. Vulva remains very pink and edematous. Unable to see surgical incision site due to patient cooperation. Noted ED's assessment of genital herpes, due to left labial vulvectomy and surgical healing unable to visualize the lesions they saw at this time, but is a low suspicion, cultures not sent by ED for diagnostic purposes. Discussed with Dr. Brannon. Due to patient's recent vulvectomy at [facility] and with presentation of edema, redness and swelling of vulva, indications of the surgical site infection, recommend transfer back to [facility] for evaluation and treatment. Discussed recommendation for patient transfer with Dr. Rodrigez (2) Vulval cellulitis Current Visit: Yes Status: Acute History of Present Illness Consult date: 11/24/17 Requesting physician: Arthur Rodrigez Reason for consult: other (Recent vuvlectomy, vaginal labial pain ) Chief complaint: Vaginal pain History of present illness: 62-year-old female admitted status post vulvectomy on 11/10 at [facility] by Dr. Fowler. Presented to ED yesterday with complaints of vaginal pain and discomfort. Prior to admission patient has been living at [facility] facility. Patient states she has been having consistent vaginal pain and discomfort since 1 day post vulvectomy, per ED notes pain increased yesterday was sent here for an evaluation. 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 No vaginal bleeding, but significant pain or discomfort reported by patient Past Med Surg Social Fam HX - Past Medical History Medical history: CHF, COPD, DVT, diabetes, hyperlipidemia, hypertension, thyroid disease, other Psychiatric history: anxiety, depression - Past Surgical History Surgical History: cholecystectomy - Social History Smoking Status: Never smoker Smokeless Tobacco Status: No Alcohol use: none Drug use: none - Family History Mother Living Status: Hx Family Cardiac Disorders: Yes (chf) Hx Family Endocrine Disorder: Yes Father Living Status: Hx Family Cardiac Disorders: Yes ([place]) Hx Family Endocrine Disorder: Yes Medications and Allergies Albuterol Sulfate [Albuterol Inhaler] 1 - 2 puff IH QID PRN 10/04/16 [History] Atorvastatin Calcium [Lipitor] 20 mg PO HS 04/12/16 [History] Docusate Sodium [Dok] 100 mg PO DAILY 04/12/16 [History] Folic Acid 1 mg PO DAILY 04/12/16 [History] Methotrexate [Otrexup] 10 mg PO WE 04/12/16 [History] Omeprazole [PriLOSEC] 40 mg PO DAILY 04/12/16 [History] Oxygen 2 l NS CONT 04/12/16 [History] Valsartan [Diovan] 40 mg PO DAILY 04/12/16 [History] Rivaroxaban [Xarelto] 20 mg PO DAILY 07/26/16 [History] Aspirin 81 mg PO DAILY 05/17/17 [History] Ergocalciferol (VITAMIN D2) [Vitamin D2] 50,000 unit PO MO 05/17/17 [History] Isosorbide MONOnitrate (24 HR) [Imdur] 60 mg PO DAILY 05/17/17 [History] Buspirone HCl [Buspar] 15 mg PO BID 09/02/17 [History] Ferrous Sulfate [Iron] 325 mg PO DAILY 09/02/17 [History] Gabapentin [Neurontin] 100 mg PO TID 09/02/17 [History] Oxycodone HCl/Acetaminophen [Percocet 5-325 mg Tablet] 1 each PO TID PRN [History] Polyethylene Glycol 3350 [MiraLAX] 17 gm PO DAILY 09/02/17 [History] Potassium Chloride [K-Tab ER] 20 meq PO BID 09/02/17 [History] Sertraline [Zoloft] 50 mg PO DAILY 09/02/17 [History] Levothyroxine Sodium 200 mcg PO DAILY #30 tablet 09/04/17 [Rx] Ipratropium/Albuterol Neb [Duoneb] 3 ml IH [id number] inhsol 09/10/17 [Rx] Furosemide [Lasix] 80 mg PO DAILY 11/23/17 [History] Insulin ASPART [Novolog Flexpen] 5 unit SQ TIDWM 11/23/17 [History] Insulin DETEMIR [Levemir] 50 unit SQ BID 11/23/17 [History] 3 Allergy/AdvReac Type Severity Reaction Status Date / Time Penicillins Allergy Hives Verified 12/23/17 08:54 Sulfa (Sulfonamide Allergy Rash Verified 07/01/17 08:54 Antibiotics) Review of Systems Constitutional: as per HPI Genitourinary Female: genital lesions, genital pruritis, vaginal discharge, vaginal odor, vaginal pruritis Exam - Vital Signs Vital signs: Initial Vital Signs Temp Pulse Resp BP Pulse Ox 98.3 F 88 16 113/74 100 11/23/17 11:38 11/23/17 11:38 11/23/17 11:38 11/23/17 11:38 11/23/17 11:38 - Vulva Vulva: bilateral: ulceration (Left vulvectomy and partial right vulvectomy noted. Excoriation noted to complete bilateral remaining vulva down into inner thighs, patient was extreme pain with exam unable to do full exam, yellow-green discharge noted, vulva pink in color, and very edematous) Results Result Diagrams: 11/24/17 03:59 11/24/17 03:59 Abnormal lab results RBC 2.97 M/mcL (3.82-4.97) L 11/24/17 03:59 Hgb 8.5 g/dL (11.5-15.4) L 11/24/17 03:59 Hct 27.6 % (35.3-44.9) L 11/24/17 03:59 MCHC 30.8 g/dL (31.6-35.5) L 11/24/17 03:59 RDW 15.8 % (11.5-14.5) H 11/24/17 03:59 Sodium 146 mEq/L (136-145) H 11/24/17 03:59 Carbon Dioxide 40 mEq/L (23-29) H* 11/24/17 03:59 BUN/Creatinine Ratio 33 (6-26) H 11/24/17 03:59 Glucose 112 mg/dL (70-105) H 11/24/17 03:59 Calculated Osmolality 306 (280-300) H 11/24/17 03:59 Urine Blood Trace (Negative) H 11/23/17 13:27 Ur Squamous Epith Cells Many per lpf (None-Few) H 11/23/17 13:27 All other labs normal. Consult Discharge Plan - Plan Referrals: Tawanda Storm Jr, MD [Primary Care Provider] -
--- NOTE | 2017-11-24 15:23 | Discharge Summary ---
Date of Encounter: 11/24/17 Time of Encounter: 15:21 - Discharge Diagnosis (1) Infection of vulvovaginal region Priority: Primary Status: Acute (2) Cellulitis Priority: Primary Status: Acute Qualifiers: Site of cellulitis: extremity Site of cellulitis of extremity: lower extremity Laterality: unspecified laterality Qualified Code(s): L03.119 - Cellulitis of unspecified part of limb (3) Genital herpes Priority: Primary Status: Suspected Qualifiers: Herpes simplex infection site: vulvovaginitis Qualified Code(s): A60.04 - Herpesviral vulvovaginitis (4) Diabetes mellitus Priority: Secondary Status: Acute Qualifiers: Diabetes mellitus type: type 2 Diabetes mellitus exterminator termite insulin use: with mcfp use Diabetes mellitus complication status: without complication Qualified Code(s): E11.9 - Type 2 diabetes mellitus without complications; Z79.4 - skilled nursing (current) use of insulin (5) Hypertension Priority: Secondary Status: Chronic Qualifiers: Hypertension type: essential hypertension Qualified Code(s): I10 - Essential (primary) hypertension (6) COPD (chronic obstructive pulmonary disease) Priority: Secondary Status: Chronic Qualifiers: COPD type: unspecified COPD Qualified Code(s): J44.9 - Chronic obstructive pulmonary disease, unspecified (7) CHF (congestive heart failure) Priority: Secondary Status: Chronic Qualifiers: Heart failure type: diastolic Heart failure chronicity: unspecified Qualified Code(s): I50.30 - Unspecified diastolic (congestive) heart failure (8) History of cancer of vulva Priority: Secondary Status: Chronic (9) Hx of deep venous thrombosis Priority: Secondary Status: Chronic Hospital course: Ms. Barrios is a 62 year old female's past medical history of COPD, diabetes, CHF, rheumatoid arthritis, DVT on Xarelto, and vulvar cancer status post vulvectomy presented with bilateral lower extremity cellulitis and vulvar and vaginal infection. She recently was found to have vulvar cancer and had bilateral vulvectomy at [facility]. She was discharged to assisted. During last week, she experienced more vaginal pain and discharge, she also has bilateral leg swelling and redness. She was sent to the ED on 11/23/2017, was admitted for cellulitis. She was started on clindamycin IV, her cellulitis has improved, however, patient reported severe vaginal/vulvar pain and itchiness. Vulvar area also was very swollen. LONG TERM CARE PHARMACIST was consulted, she recommended to transfer the patient to [facility], where the surgery was performed. [facility] was contacted and her situation was reported to the on-call oncologist. Patient was accepted to [facility]. Time spent discussing smoking cessation with patient: more than 10 minutes - Time Spent with Patient Total time spent providing and/or coordinating discharge services: Greater than 30 minutes - Discharge Medications Prescriptions: Clindamycin 600 MG/50 ML [Cleocin Premix 600 MG/50 ML] 600 mg IVPB Q8H #2 bag Home Medications: Albuterol Sulfate [Albuterol Inhaler] 1 - 2 puff IH QID PRN 04/12/16 [History] Atorvastatin Calcium [Lipitor] 20 mg PO HS 04/12/16 [History] Docusate Sodium [Dok] 100 mg PO DAILY 04/12/16 [History] Folic Acid 1 mg PO DAILY 04/12/16 [History] Methotrexate [Otrexup] 10 mg PO WE 04/12/16 [History] Omeprazole [PriLOSEC] 40 mg PO DAILY 04/12/16 [History] Oxygen 2 l NS CONT 04/12/16 [History] Valsartan [Diovan] 40 mg PO DAILY 04/12/16 [History] Rivaroxaban [Xarelto] 20 mg PO DAILY 07/26/16 [History] Aspirin 81 mg PO DAILY 05/17/17 [History] Ergocalciferol (VITAMIN D2) [Vitamin D2] 50,000 unit PO MO 05/17/17 [History] Isosorbide MONOnitrate (24 HR) [Imdur] 60 mg PO DAILY 05/17/17 [History] Buspirone HCl [Buspar] 15 mg PO BID 09/02/17 [History] Ferrous Sulfate [Iron] 325 mg PO DAILY 09/02/17 [History] Gabapentin [Neurontin] 100 mg PO TID 09/02/17 [History] Oxycodone HCl/Acetaminophen [Percocet 5-325 mg Tablet] 1 each PO TID PRN [History] Polyethylene Glycol 3350 [MiraLAX] 17 gm PO DAILY 09/02/17 [History] Potassium Chloride [K-Tab ER] 20 meq PO BID 09/02/17 [History] Sertraline [Zoloft] 50 mg PO DAILY 09/02/17 [History] Levothyroxine Sodium 200 mcg PO DAILY #30 tablet 09/04/17 [Rx] Ipratropium/Albuterol Neb [Duoneb] 3 ml IH [id number] inhsol 09/10/17 [Rx] Furosemide [Lasix] 80 mg PO DAILY 11/23/17 [History] Insulin ASPART [Novolog Flexpen] 5 unit SQ TIDWM 11/23/17 [History] Insulin DETEMIR [Levemir] 50 unit SQ BID 11/23/17 [History] Acyclovir [Zovirax] 400 mg PO TID capsule 11/24/17 [Rx] Clindamycin 600 MG/50 ML [Cleocin Premix 600 MG/50 ML] 600 mg IVPB Q8H #2 bag [Rx] Nystatin OINT [Mycostatin] 1 appl TP QID tube 11/24/17 [Rx] Allergies/Adverse Reactions: 3 Allergy/AdvReac Type Severity Reaction Status Date / Time Penicillins Allergy Hives Verified 07/01/17 08:54 Sulfa (Sulfonamide Allergy Rash Verified 07/01/17 08:54 Antibiotics) Date of admission: 11/24/17 12:17 Primary care physician: Tawanda Storm Jr, MD Anticipated date of discharge: 11/24/17 - Constitutional Vitals: Temp Pulse Resp BP Pulse Ox 98.1 F 88 16 116/78 100 11/24/17 15:05 11/24/17 15:05 11/24/17 15:05 11/24/17 15:05 11/24/17 15:05 General appearance: Present: A&O X 2 Exam: PHYSICAL EXAMINATION: GENERAL APPEARANCE: The patient is alert, oriented and in no acute distress. HEENT: Head is normocephalic. The sinuses are nontender. Pupils are equal and reactive. The nares are patent. Oropharynx clear without lesions. NECK: Supple without lymphadenopathy. HEART: Regular rate and rhythm. LUNGS: No crackles or wheezes are heard. ABDOMEN: Soft, nontender, nondistended with good bowel sounds heard. Inguinal area is normal. EXTREMITIES: bilateral LE rash. NEUROLOGICAL: Gross nonfocal. SKIN: Warm and dry without any rash. - Patient Status Disposition: Transfer Critical Access Hosp Condition: Fair Functional capacity at discharge: independent ambulation Overall status at discharge: patient is not back to baseline - Discharge Instructions Follow Up With: Tawanda Storm Jr, MD [Primary Care Provider] - - Diet and Activity Activity: increase activity as tolerated Diet: diabetic diet
[2017-11-24] MEDS ORDERED: Dextrose Gel 15 GM/37.5 ML TUBE PO PRN ×2 (15:33)
[2017-11-24] MEDS ORDERED: *HR* Dextrose 50 % in Water (Syg) 50 ML SYRINGE IVP PRN (15:33)
[2017-11-24] MEDS ORDERED: D5% in Water 1,000 ML IVC PRN (15:33)
[2017-11-24] MEDS ORDERED: *HR* Rivaroxaban 10 MG TABLET PO SCH (17:00)
[2017-11-24] MEDS: Insulin LISPRO 300 UNITS/3 ML VIAL SQ SCH ×2 (17:30→19:31)
[2017-11-24] MEDS: Insulin DETEMIR 100 UNIT/ML X5UNITS SQ SCH (17:30)
[2017-11-24 18:47] VITALS: BP 107/70
[2017-11-29] MEDS ORDERED: *HR* Methotrexate 2.5 MG TABLET PO SCH (17:51)
== END 2017-11-24 19:49 | disposition other institution (70) | DRG 758 ==
LOC: 3ANU 11:35 → EMEROO 11:35 → 3ANU 16:23
PROVIDERS: ADMIT Student in an Organized Health Care Education/Training Program; ATTEND General Practice

== ENCOUNTER 2018-10-05 01:34 | Observation (INO) ==
[2018-10-05] MEDS ORDERED: Aspirin 81 MG TAB.CHEW PO ONE (01:42)
--- NOTE | 2018-10-05 01:46 | Emergency Department Note ---
Disposition Clinical Impression: Shortness of breath, History of COPD Chest pain Qualifiers: Chest pain type: unspecified Qualified Code(s): R07.9 - Chest pain, unspecified Disposition: Admitted As Inpatient Condition: Good Time of Disposition: 05:11 Chest Pain HPI - General Chief Complaint: ED Chest Pain Stated Complaint: chest pain Time Seen by Provider: 10/05/18 01:37 Source: patient, EMS Mode of arrival: EMS Limitations: no limitations Vital Signs Reviewed: Yes Nursing Notes Reviewed: Yes - History of Present Illness HPI Narrative: Patient is a 63-year-old female with past medical history of hypertension, hyperlipidemia, COPD, CHF. She presents today via EMS from [facility] due to concern for chest pain and shortness of breath. Patient states that she woke up this morning with right-sided chest discomfort she describes as sharp in nature with no radiation anywhere else. Admits to associated shortness of breath. Also admits to cough. Denies any productive sputum, fevers, nausea, vomiting, sweating, fevers, abdominal pain, diarrhea, constipation. She denies any previous heart attacks or stent placement. She denies any previous DVT, however, there is a history of DVT started previously. Patient denies this. She did not take any aspirin or nitroglycerin prior to arrival. She does state that she wears 2 L nasal cannula chronically. She has not required any increase in her oxygen recently. She also has a history of a right-sided breast biopsy within the past 2 weeks. However, patient states that she does not believe that this pain is related to that procedure as it just started today. - Related Data Home Medications Medication Instructions Recorded Confirmed RX: Albuterol Sulfate [Albuterol 1 - 2 puff IH QID PRN 04/12/16 11/23/17 Inhaler] RX: Atorvastatin Calcium [Lipitor] 20 mg PO HS 04/12/16 11/23/17 RX: Docusate Sodium [Dok] 100 mg PO DAILY 04/12/16 11/23/17 RX: Folic Acid 1 mg PO DAILY 04/12/16 11/23/17 RX: Methotrexate [Otrexup] 10 mg PO WE 04/12/16 11/23/17 RX: Omeprazole [PriLOSEC] 40 mg PO DAILY 04/12/16 11/23/17 RX: Oxygen 2 l NS CONT 04/12/16 11/23/17 RX: Valsartan [Diovan] 40 mg PO DAILY 04/12/16 11/23/17 RX: Rivaroxaban [Xarelto] 20 mg PO DAILY 07/26/16 11/23/17 RX: Aspirin 81 mg PO DAILY 05/17/17 11/23/17 RX: Ergocalciferol (VITAMIN D2) 50,000 unit PO MO 05/17/17 11/23/17 [Vitamin D2] RX: Isosorbide MONOnitrate (24 HR) 60 mg PO DAILY 05/17/17 11/23/17 [Imdur] RX: Buspirone HCl [Buspar] 15 mg PO BID 09/02/17 11/23/17 RX: Ferrous Sulfate [Iron] 325 mg PO DAILY 09/02/17 11/23/17 RX: Gabapentin [Neurontin] 100 mg PO TID 09/02/17 11/23/17 RX: Oxycodone HCl/Acetaminophen 1 each PO TID PRN 09/02/17 11/23/17 [Percocet 5-325 mg Tablet] RX: Polyethylene Glycol 3350 17 gm PO DAILY 09/02/17 11/23/17 [MiraLAX] RX: Potassium Chloride [K-Tab ER] 20 meq PO BID 09/02/17 11/23/17 RX: Sertraline [Zoloft] 50 mg PO DAILY 09/02/17 11/23/17 RX: Furosemide [Lasix] 80 mg PO DAILY 11/23/17 11/23/17 RX: Insulin ASPART [Novolog 5 unit SQ TIDWM 11/23/17 11/23/17 Flexpen] RX: Insulin DETEMIR [Levemir] 50 unit SQ BID 11/23/17 11/23/17 Previous Rx's Medication Instructions Recorded RX: Levothyroxine Sodium 200 mcg PO DAILY #30 tablet 09/04/17 RX: Ipratropium/Albuterol Neb 3 ml IH [id number] inhsol 09/10/17 [Duoneb] RX: Acyclovir [Zovirax] 400 mg PO TID capsule 11/24/17 RX: Clindamycin 600 MG/50 ML 600 mg IVPB Q8H #2 bag 11/24/17 [Cleocin Premix 600 MG/50 ML] RX: Nystatin OINT [Mycostatin] 1 appl TP QID tube 11/24/17 Allergies Allergy/AdvReac Type Severity Reaction Status Date / Time Penicillins Allergy Hives Verified 10/05/18 01:42 Sulfa (Sulfonamide Allergy Rash Verified 10/05/18 01:42 Antibiotics) All systems ED: reviewed and negative except as stated. Constitutional: Denies: fever Cardiovascular: Reports: chest pain Respiratory: Reports: cough, dyspnea. 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 - Social History Smoking Status: Never smoker Alcohol use: Reports: none Drug use: Reports: none Physical Exam - General Limitations: no limitations General appearance: alert, in no apparent distress - Head Head exam: atraumatic, normocephalic, normal inspection - Eye Eye exam: Present: normal appearance, PERRL, EOMI - ENT ENT exam: normal exam, normal oropharynx, mucous membranes moist - Neck Neck exam: Present: normal inspection, full ROM, trachea midline - Chest Chest inspection: Present: normal inspection, symmetric chest wall rise, other (right breast incision site well healing, no erythema, edema, pus drainage or tenderness of right breast or incision site. ) - Respiratory Respiratory exam: Present: normal lung sounds bilaterally - Cardiovascular Cardiovascular exam: Present: regular rate, normal rhythm, normal heart sounds - Abdominal Exam Abdominal exam: Present: soft, Non-Tender. Absent: tenderness, distention, guarding, rebound, rigidity - Extremities Exam Extremities exam: Present: normal inspection, full ROM. Absent: tenderness, p edal edema - Neurological Exam Neurological exam: Present: alert, oriented X3 - Psychiatric Psychiatric exam: Present: normal affect, normal mood - Skin Skin exam: Present: warm, dry, intact, normal color Course Course Narrative: Vital stable. Physical exam benign. We will obtain EKG, chest x-ray, basic blood work, troponin. We will give the patient aspirin and nitroglycerin. Patient also had some mild coarse breath sounds on the left, will give DuoNeb treatment and see if this improves. 04:39 EKG showed normal sinus rhythm with no acute ST changes. Troponin was negative. No major abnormality and basic bloodwork. Chest x-ray showed a questionable left-sided pneumonia. CT angiogram of the chest was obtained for further evaluation. Chest CTA shows no evidence for pulmonary embolism, no evidence of any pneumonia. There was a reading of right-sided mastitis. Clinically, patient has no redness, tenderness of the right breast or right breast surgical incision site. We will not start antibiotic at this time. Patient was reassessed. She has no current chest discomfort. She does have continued shortness of breath, appears to be mildly labored. Her lung exam remains the same despite DuoNeb treatment. We will go ahead and give the patient steroids. We will admit for shortness of breath, chest discomfort, chest pain rule out, mild COPD exacerbation. Chest X-Ray 10/05/18 01:42 IMPRESSION: Left upper lobe atelectasis or pneumonia. D/ / Mario Alberto Melgar MD / Mario Alberto Melgar MD Interpreting Provider: Mario Alberto Melgar MD Chest CTA 10/05/18 02:50 IMPRESSION: 1. No scan evidence for pulmonary embolus. 2. Right-sided mastitis. Underlying abnormal density in the breast could be postoperative change or tumor. D/ / Mario Alberto Melgar MD / Mario Alberto eMlgar MD Interpreting Provider: Mario Alberto Melgar MD Vital Signs O2 Sat by Pulse Oximetry 95 10/05/18 01:44 Temperature 98.2 F 10/05/18 01:49 Pulse Rate 92 10/05/18 04:14 Respiratory Rate 20 10/05/18 04:14 Blood Pressure 124/69 10/05/18 04:14 O2 Sat by Pulse Oximetry 100 10/05/18 04:14 Oxygen Delivery Oxygen Delivery Nasal Cannula Chest Pain - MDM Narrative Medical decision making narrative: Vital stable. Physical exam benign. We will obtain EKG, chest x-ray, basic blood work, troponin. We will give the patient aspirin and nitroglycerin. Patient also had some mild coarse breath sounds on the left, will give DuoNeb treatment and see if this improves. 04:39 EKG showed normal sinus rhythm with no acute ST changes. Troponin was negative. No major abnormality and basic bloodwork. Chest x-ray showed a questionable left-sided pneumonia. CT angiogram of the chest was obtained for further evaluation. Chest CTA shows no evidence for pulmonary embolism, no evidence of any pneumonia. There was a reading of right-sided mastitis. Clinically, patient has no redness, tenderness of the right breast or right breast surgical incision site. We will not start antibiotic at this time. P waqas was reassessed. She has no current chest discomfort. She does have continued shortness of breath, appears to be mildly labored. Her lung exam remains the same despite DuoNeb treatment. We will go ahead and give the patient steroids. We will admit for shortness of breath, chest discomfort, chest pain rule out, mild COPD exacerbation. - Medical Records Medical records reviewed: Yes I reviewed the patient's medical records. - Lab Data Lab results reviewed: Yes I reviewed the patient's lab results. Result diagrams: 10/05/18 02:10 10/05/18 02:10 Lab Results 10/05/18 10/05/18 10/05/18 Range/Units 02:10 02:10 02:10 WBC 9.1 (4.3-11.1) K/mcL RBC 4.05 (3.82-4.97) M/mcL Hgb 11.5 (11.5-15.4) g/dL Hct 36.7 (35.3-44.9) % MCV 90.6 (83.0-100.0) fL MCH 28.4 (28.0-33.3) pg MCHC 31.3 L (31.6-35.5) g/dL RDW 15.8 H (11.5-14.5) % Plt Count 244 (140-400) K/mcL MPV 9.5 (9.4-12.4) fL Immature Gran % 0.4 (0-4) % Seg Neutrophils % 85.0 % Lymphocytes % 7.9 % Monocytes % 3.8 % Eosinophils % 2.6 % Basophils % 0.3 % Neutrophils # 7.7 (1.6-8.9) K/mcL Lymphocytes # 0.7 (0.6-4.6) K/mcL Monocytes # 0.4 (0.0-1.3) K/mcL Eosinophils # 0.2 (0.0-0.6) K/mcL Basophils # 0.0 (0.0-0.2) K/mcL PT 11.7 (9.4-12.1) Seconds INR 1.0 APTT 28.6 (26.0-36.0) Seconds Sodium 138 (136-145) mEq/L Potassium 3.8 (3.5-5.1) mEq/L Chloride 94 L (98-107) mEq/L Carbon Dioxide 38 H (23-29) mEq/L BUN 30 H (8-23) mg/dL Creatinine 0.82 (0.60-1.20) mg/dL Est GFR ( Amer) > 60 (> 60) Est GFR (Non-Af Amer) > 60 (> 60) BUN/Creatinine Ratio 37 H (6-26) Glucose 219 H (70-105) mg/dL Calculated Osmolality 299 (280-300) Calcium 9.6 (8.6-10.3) mg/dL Troponin I < 0.03 (< 0.04) ng/mL - Radiology Data Radiology results reviewed: Yes I reviewed the patient's radiology results. Chest X-Ray 10/05/18 01:42 IMPRESSION: Left upper lobe atelectasis or pneumonia. D/ / Mario Alberto Melgar MD / Mario Alberto Melgar MD Interpreting Provider: Mario Alberto Melgar MD Chest CTA 10/05/18 02:50 IMPRESSION: 1. No scan evidence for pulmonary embolus. 2. Right-sided mastitis. Underlying abnormal density in the breast could be postoperative change or tumor. D/ / Mario Alberto Melgar MD / Mario Alberto Melgar MD Interpreting Provider: Mario Alberto Melgar MD - EKG Data EKG attestation: Yes I reviewed and interpreted this EKG. EKG results narrative: 10/05/2018 at 01:48. Sinus rhythm. Rate 93. NV 196. QRS 145. QTc 499. Left axis deviation. No acute STelevation or depression. No acute changes from previous EKG on 06/28/2018 Heart Score - Score History: Moderately Suspicious EKG: Normal Age: 45-65 Risk Factors: Equal/Greater than 3 risk factor or history of atherosclerotic d isease Troponin: Less than normal limit HEART Score Total: 4 S.[email or web address].Tonya - Godfrey Situation: Demographics, MOA Background: Presenting Complaint, Relevant PMH, Meds, & Allergies Assessment: Vital Signs, Course and respsone to treatment, Exam Concerns, Patient/Family Expectation, Pertinant Lab Results Recommendation: Barrier(s) to disposition, Recommendation based on pending studies, treatments, or consults S.[email or web address].Tonya Report Given to: Dr. Marcela Donahue Repor Time: 05:11 Attestation Statement - Attestation Attestation: Resident Attestation: I examined this patient and my medical decision making was reviewed with the Resident Physician. I agree with the documented findings, disposition and treatment plan as described except to the extent set forth below. We independently had [id number] contact with the patient. Patient presenting for evaluation of chest pain radiating to the shoulder as well as the neck. Patient from [facility]. Patient will undergo further evaluation for underlying cardiac disease. At this time the patient is resting in the bed, complaints of mild chest pain, regular rhythm, clear to auscultation bilaterally, abdomen soft nontender palpation, no significant peripheral edema. Patient underwent further workup including CTA. No specific underlying etiology found. Patient continues to have mild distress limiting her from going home but will not benefit from BiPAP at this time. Patient will be brought to the hospital for further evaluation.
[2018-10-05] MEDS: Nitroglycerin 0.4 MG TAB.SUBL SL PRN ×2 (02:27→02:32)
[2018-10-05 02:31] LABS: Basophils % 0.3 %; Eosinophils # 0.2 K/mcL (0.0-0.6); Eosinophils % 2.6 %; Hematocrit 36.7 % (35.3-44.9); Hemoglobin 11.5 g/dL (11.5-15.4); Immature Granulocytes % 0.4 % (0-4); Lymphocytes # 0.7 K/mcL (0.6-4.6); Lymphocytes % 7.9 %; Mean Corpuscular HGB Conc 31.3 g/dL (31.6-35.5); Mean Corpuscular Hemoglobin 28.4 pg (28.0-33.3); Mean Corpuscular Volume 90.6 fL (83.0-100.0); Mean Platelet Volume 9.5 fL (9.4-12.4); Monocytes # 0.4 K/mcL (0.0-1.3); Monocytes % 3.8 %; Neutrophils # 7.7 K/mcL (1.6-8.9); Platelet Count 244 K/mcL (140-400); Red Blood Count 4.05 M/mcL (3.82-4.97); Red Cell Distribution Width 15.8 % (11.5-14.5)
[2018-10-05 02:43] LABS: Prothrombin Time 11.7 Seconds (9.4-12.1)
[2018-10-05 02:46] LABS: Activated Partial Thrombo Time 28.6 Seconds (26.0-36.0)
[2018-10-05] MEDS ORDERED: Isovue-370 500 ML BOTTLE IVP ONE (02:50)
[2018-10-05 02:52] LABS: BUN/Creatinine Ratio 37 (6-26); Blood Urea Nitrogen 30 mg/dL (8-23); Calcium 9.6 mg/dL (8.6-10.3); Carbon Dioxide 38 mEq/L (23-29); Chloride 94 mEq/L (98-107); Glucose 219 mg/dL (70-105); Osmolality,Calculated 299 (280-300); Potassium 3.8 mEq/L (3.5-5.1); Sodium 138 mEq/L (136-145); Troponin I < 0.03 ng/mL (< 0.04); eGFR For Non-African Americans > 60 (> 60)
[2018-10-05] MEDS ORDERED: 0.9 % Sodium Chloride 1,000 ML IVC ONE (03:04)
[2018-10-05] MEDS ORDERED: Ipratropium/Albuterol Neb 3 ML IH ONE (03:30)
[2018-10-05] MEDS ORDERED: methylPREDNISolone 125 MG/2 ML VIAL IVP ONE (04:43)
[2018-10-05] MEDS ORDERED: Ondansetron 4 MG/2 ML VIAL IVP PRN (06:06)
[2018-10-05] MEDS ORDERED: Acetaminophen 325 MG TABLET PO PRN (06:06)
[2018-10-05] MEDS ORDERED: Naloxone 0.4 MG/ML INJ IVP PRN (06:06)
[2018-10-05] MEDS ORDERED: traMADol 50 MG TABLET PO PRN (06:06)
[2018-10-05] MEDS ORDERED: D5% in Water 1,000 ML IVC PRN (06:13)
[2018-10-05] MEDS ORDERED: Dextrose Gel 15 GM/37.5 ML TUBE PO PRN ×2 (06:13)
[2018-10-05] MEDS ORDERED: *HR* Dextrose 50 % in Water (Syg) 50 ML SYRINGE IVP PRN (06:13)
--- NOTE | 2018-10-05 06:23 | Internal Med History&Physical ---
Date of Encounter: 10/05/18 Time of Encounter: 05:00 Internal Medicine - H&P: HPI Chief complaint: CP Admitted From: Emergency Dept Plans for Post Hospital Care: Transfer [facility] History of present illness: Ms. Barrios is a 63 year old female w/PMH of CHF, COPD, reveals DVT, diabetes controlled with oral anti-hyperglycemics, HLD, HTN, thyroid disease, anxiety, and depression presents from the ED with chief complaint of chest pain that began while she was sleeping this morning. Patient describes pain as right- sided chest pain that alternated sharp/stabbing pain with pressure and was constant. No alleviating or aggravating factors. Radiation to right jaw and back. Associated symptoms: Headache, SOB, and dizziness. Patient denies nausea, vomiting, diaphoresis. Patient denies pain similar to this previously. Reports wearing home O2 at 2 L via nasal cannula daily. Patient has history of right-sided breast biopsy with the past 2 weeks but feels this pain is more cardiac related. Patient denies recent illness, fever, chills, nausea, vomiting, changes in vision, unusual bleeding, previous heart attack or stent placement, abdominal pain, diarrhea, constipation, numbness, tingling, pre- syncope, or syncope. Past Med Surg Social Fam HX - Past Medical History Source: patient, old records reviewed Medical history: CHF, COPD, DVT, diabetes, hyperlipidemia, hypertension, thyroid disease, other Additional medical history: HERPES Psychiatric history: anxiety, depression - Past Surgical History Surgical History: cholecystectomy Additional surgical history: Bowel perforation repair, right breast biopsy, tonsillectomy, bilateral cataract surgery - Social History Smoking Status: Never smoker Smokeless Tobacco Status: No Alcohol use: none Drug use: none Current living situation: [facility] Activity Level: Independent ambulation Recent Out of Country Travel Within the Last 8 Weeks: No Exposure or Possible Exposure to Illness During Travel: No - Family History Mother Race: Family Member Ethnicity: Non- Living Status: Age at : 66 Cause of : HF Hx Family Cardiac Disorders: Yes (CAD, LA, Heart failure) Father Race: Family Member Ethnicity: Non- Living Status: Age at : 74 Cause of : LA Hx Family Cardiac Disorders: Yes (LA x 19, CABG) Hx Family Endocrine Disorder: Yes (DM) Brother Race: Family Member Ethnicity: Non- Living Status: Still Living Hx Family Medical Disorders: No Sister Race: Family Member Ethnicity: Non- Living Status: Still Living Hx Family Cardiac Disorders: Yes (CAD) Internal Medicine - H&P: Meds Albuterol Sulfate [Albuterol Inhaler] 1 - 2 puff IH QID PRN 04/12/16 [History] Atorvastatin Calcium [Lipitor] 20 mg PO HS 04/12/16 [History] Docusate Sodium [Dok] 100 mg PO DAILY 04/12/16 [History] Folic Acid 1 mg PO DAILY 04/12/16 [History] Methotrexate [Otrexup] 10 mg PO WE 04/12/16 [History] Omeprazole [PriLOSEC] 40 mg PO DAILY 04/12/16 [History] Oxygen 2 l NS CONT 04/12/16 [History] Valsartan [Diovan] 40 mg PO DAILY 04/12/16 [History] Rivaroxaban [Xarelto] 20 mg PO DAILY 07/26/16 [History] Aspirin 81 mg PO DAILY 05/17/17 [History] Ergocalciferol (VITAMIN D2) [Vitamin D2] 50,000 unit PO MO 05/17/17 [History] Isosorbide MONOnitrate (24 HR) [Imdur] 60 mg PO DAILY 05/17/17 [History] Buspirone HCl [Buspar] 15 mg PO BID 09/02/17 [History] Ferrous Sulfate [Iron] 325 mg PO DAILY 09/02/17 [History] Gabapentin [Neurontin] 100 mg PO TID 09/02/17 [History] Oxycodone HCl/Acetaminophen [Percocet 5-325 mg Tablet] 1 each PO TID PRN 09/02/17 [History] Polyethylene Glycol 3350 [MiraLAX] 17 gm PO DAILY 09/02/17 [History] Potassium Chloride [K-Tab ER] 20 meq PO BID 09/02/17 [History] Sertraline [Zoloft] 50 mg PO DAILY 09/02/17 [History] Levothyroxine Sodium 200 mcg PO DAILY #30 tablet 09/04/17 [Rx] Ipratropium/Albuterol Neb [Duoneb] 3 ml IH [id number] inhsol 09/10/17 [Rx] Furosemide [Lasix] 80 mg PO DAILY 11/23/17 [History] Insulin ASPART [Novolog Flexpen] 5 unit SQ TIDWM 11/23/17 [History] Insulin DETEMIR [Levemir] 50 unit SQ BID 11/23/17 [History] Acyclovir [Zovirax] 400 mg PO TID capsule 11/24/17 [Rx] Clindamycin 600 MG/50 ML [Cleocin Premix 600 MG/50 ML] 600 mg IVPB Q8H #2 bag 11/24/17 [Rx] Nystatin OINT [Mycostatin] 1 appl TP QID tube 11/24/17 [Rx] Allergy/AdvReac Type Severity Reaction Status Date / Time Penicillins Allergy Hives Verified 10/05/18 01:42 Sulfa (Sulfonamide Allergy Rash Verified 10/05/18 01:42 Antibiotics) All Systems PM: A 10-system review of systems was performed and is negative for pertinent findings except as documented above in the HPI. - Constitutional Constitutional: no chills, no fever(s), no night sweats - EENT Eyes: no change in vision, no discharge, no pain, no photophobia Ears: no ear discharge, no ear pain, no tinnitus Nose, mouth and throat: no dysphagia, no nasal discharge, no neck pain, no sore throat - Breasts Breasts: as per HPI - Cardiovascular Cardiovascular ROS IM: as per HPI, chest pain, dyspnea, dyspnea on exertion, lightheadedness, no diaphoresis, no palpitations, no syncope - Respiratory Respiratory: as per HPI, dyspnea, dyspnea on exertion, no cough, no wheezing, no excessive phlegm production - Gastrointestinal Gastrointestinal: no abdominal pain, no diarrhea, no hematemesis, no hematochezia, no melena, no nausea, no vomiting - Genitourinary Genitourinary: no change in urinary stream, no dysuria, no flank pain, no hematuria Menstruation: as per HPI - Musculoskeletal Musculoskeletal ROS IM: no numbness, no tingling - Integumentary Integumentary IM: no rash, no unusual bruising - Neurological Neurological ROS: as per HPI, dizziness, headache(s), no confusion, no convulsions, no focal weakness, no numbness, no tingling, no tremor(s) - Psychiatric Psychiatric: as per HPI, anxiety, depression - Endocrine Endocrine IM: as per HPI - Hematologic/Lymphatic Hematologic/Lymphatic: no easy bruising - Allergic/Immunologic Allergic/Immunologic: as per HPI - Constitutional Vitals: Temp Pulse Resp BP Pulse Ox 98.2 F 92 20 116/66 100 10/05/18 01:49 10/05/18 04:14 10/05/18 05:43 10/05/18 05:43 10/05/18 04:14 General appearance: Present: cooperative, mild distress, A&O X 3, morbidly obese, pleasant, answers questions appropriately Exam: Patient examined at bedside in ED. Reports mild SOB and CP. Denies any other sx or complaints on exam. VS: 98.2F temp, HR 92, RR 20, BP 124/69, SPO2 100% on 2 L via nasal cannula. - Head Head exam: Present: atraumatic, normocephalic - Eye Eye exam: Present: PERRL, conjuntiva pink, sclera anicteric Pupils: Present: PERRL - ENT ENT exam: Present: normal exam - Neck Neck exam general surgery: Present: normal inspection, supple, trachea midline. Absent: lymphadenopathy - Respiratory Respiratory exam: Present: CTAB. Absent: accessory muscle use, rales, rhonchi, wheezes - Cardiovascular Cardiovascular exam: Present: RRR, +S1, +S2. Absent: diastolic murmur, gallop, rubs, systolic murmur - GI/Abdominal GI/Abdominal exam: Present: normal bowel sounds, soft, no peritoneal signs. Absent: distended, tenderness - Rectal Rectal exam: Present: deferred - Additional comments: exam deferred. - Extremities Exam Extremities exam: Present: pedal edema, warm, radial pulses palpable and symmetrical. Absent: calf tenderness, cyanotic - Back Exam Back exam: Present: normal inspection - Neurological Exam Neurological exam: Present: alert, CN II-XII intact, oriented X3, no focal deficits. Absent: pronater drift, facial droop, speech deficit - Psychiatric Psychiatric exam: Present: normal affect, normal mood - Skin Skin exam: Present: dry, intact Internal Med - H&P Results - Labs CBC & Chem 7: 10/05/18 02:10 10/05/18 02:10 Labs: Short CBC 10/05/18 Range/Units 02:10 WBC 9.1 (4.3-11.1) K/mcL Hgb 11.5 (11.5-15.4) g/dL Hct 36.7 (35.3-44.9) % Plt Count 244 (140-400) K/mcL Neutrophils # 7.7 (1.6-8.9) K/mcL BMP 10/05/18 02:10 Sodium 138 Potassium 3.8 Chloride 94 L Carbon Dioxide 38 H BUN 30 H Creatinine 0.82 Glucose 219 H Calcium 9.6 Cardiac Enzymes 10/05/18 Range/Units 02:10 Troponin I < 0.03 (< 0.04) ng/mL - EKG Data EKG shows normal: sinus rhythm - EKG Data Prior EKG available for review: yes EKG comments: 10/05/18 06:33 EKG dated 06/28/18 shows sinus rhythm with RBBB and LAFB. Probable left ventricular hypertrophy. Inferior infarct, acute. Lateral leads are also involved. EKG dated 10/05/18 shows sinus rhythm with RBBB and LAFB. Probable left ventricular hypertrophy. - Impressions ITS Impressions Chest X-Ray 10/05/18 01:42 IMPRESSION: Left upper lobe atelectasis or pneumonia. D/ / Mario Alberto Melgar MD / Mario Alberto Melgar MD Interpreting Provider: Mario Alberto Melgar MD Chest CTA 10/05/18 02:50 IMPRESSION: 1. No scan evidence for pulmonary embolus. 2. Right-sided mastitis. Underlying abnormal density in the breast could be postoperative change or tumor. D/ / Mario Alberto Melgar MD / Mario Alberto Melgar MD Interpreting Provider: Mario Alberto Melgar MD - Diagnostic Studies Chest x-ray Additional comments: Impressions Chest X-Ray 10/05/18 01:42 IMPRESSION: Left upper lobe atelectasis or pneumonia. D/ / Mario Alberto Melgar MD / Mario Alberto Melgar MD Interpreting Provider: Mario Alberto Melgar MD CT scan - chest Additional comments: Impressions Chest CTA 10/05/18 02:50 IMPRESSION: 1. No scan evidence for pulmonary embolus. 2. Right-sided mastitis. Underlying abnormal density in the breast could be postoperative change or tumor. D/ / Mario Alberto Melgar MD / Mario Alberto Melgar MD Interpreting Provider: Mario Alberto Melgar MD - Assessment and Plan (1) Chest pain Current Visit: Yes Status: Acute Assessment and plan: Acute CP that pt. reports began while she was sleeping this morning. Patient describes pain as right-sided chest pain that alternated sharp/stabbing pain with pressure and was constant. No alleviating or aggravating factors. Radiation to right jaw and back. Associated symptoms: Headache, SOB, and dizziness. Patient denies nausea, vomiting, diaphoresis. Patient denies pain similar to this previously. Initial troponin <0.03. Trending. ASA. 80 mg Lipitor once. SL nitro PRN. Last echocardiogram 08/23/17. Echocardiogram ordered. Last nuclear stress test 07/26/16. Nuclear stress test ordered for Monday if patient's troponins remain within normal limits. NPO on Monday at 00:01. Consider Cardiology consult if patient's troponins, Echocardiogram, and/or stress test results abnormal. Patient is high risk for cardiac event and further morbidity based on current unprovoked chest pain at rest without alleviating or aggravating factors, extensive family history of CAD and LA (mother and father w/LA x19), hx; and current risk factors of CHF, DM, HLD, HTN, and morbid obesity. Observation. Qualifiers: Chest pain type: unspecified Qualified Code(s): R07.9 - Chest pain, unspecified (2) Shortness of breath Current Visit: Yes Status: Acute Assessment and plan: Acute SOB accompanying CP sx. Patient has history of COPD and CHF. Currently stable. Reports home O2 use of 2 L via nasal cannula chronically. Supplemental O2 with titration and SPO2 monitoring. Xopenex IH. (3) Dizziness Current Visit: Yes Status: Acute Assessment and plan: Acute dizziness accompanying CP sx. Falls/safety precautions and up with assist only. (4) CHF (congestive heart failure) Current Visit: Yes Status: Chronic Assessment and plan: Hx of chronic CHF. Stable. No evidence of fluid overload at this time. Echocardiogram dated shows technically suboptimal imaging due to poor echocardiographic windows. LVEF 60-65%. Normal LV chamber size, wall thickness, and function. Mild left ventricular diastolic dysfunction. Normal right ventricular structure and function. Mitral valve not well visualized. Grossly, the mitral annulus and leaflets are calcified. No significant mitral stenosis by Doppler. Mean gradient 2 mmHg (HR 77). Daily fluid restriction of 1.5L ordered. Monitor I&O. Echocardiogram ordered. Qualifiers: Heart failure type: diastolic Heart failure chronicity: chronic Qualified Code(s): I50.32 - Chronic diastolic (congestive) heart failure (5) COPD (chronic obstructive pulmonary disease) Current Visit: Yes Status: Chronic Assessment and plan: Hx of chronic COPD. Pt. reports home O2 use at 2 L via nasal cannula. Stable. CXR shows left upper lobe atelectasis or pneumonia. CTA of chest shows no scan evidence for PE. Right-sided mastoiditis. Underlying abnormal density in the breast could be postoperative change or tumor. Supplemental O2 with titration and SPO2 monitoring. Xopenex IH. Qualifiers: COPD type: unspecified COPD Qualified Code(s): J44.9 - Chronic obstructive pulmonary disease, unspecified (6) Diabetes Current Visit: Yes Status: Chronic Assessment and plan: Hx of chronic diabetes controlled by oral anti-hyperglycemics. Holding oral medications and administer low-dose correction sliding scale insulin with hypoglycemic protocol. A1c in a.m. labs. BG checks before meals at bedtime and every 6 when patient is nothing by mouth for scheduled stress test. 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 Lipid panel in a.m. labs. Continue pts. Lipitor. Qualifiers: Hyperlipidemia type: pure hypercholesterolemia Qualified Code(s): E78.00 - Pure hypercholesterolemia, unspecified; E78.0 - Pure hypercholesterolemia (8) HTN (hypertension) Current Visit: Yes Status: Chronic Assessment and plan: Hx of chronic HTN. Monitor pt. and VS. Continue pts. HTN medications. Monitor pt. for hypotension. Qualifiers: Hypertension type: essential hypertension Qualified Code(s): I10 - Essential (primary) hypertension (9) Thyroid disease Current Visit: Yes Status: Chronic Assessment and plan: Hx of chronic thyroid disease. Free T4 and TSH ordered. Continue pts. Levo thyroxine sodium. (10) Hx of deep venous thrombosis Current Visit: Yes Status: Resolved Assessment and plan: Hx of previous DVT in LE. Resolved. Pt. now on Xarelto. Monitor. (11) DVT prophylaxis Current Visit: Yes Status: Acute Assessment and plan: Continue pts. Xarelto for DVT prophylaxis. Monitor pt. for signs of bleeding. - Time Spent With Patient Total time spent is greater than 50% in coordination of care (as documented) at patient's floor/unit and/or counseling patient: Greater than 35 minutes
[2018-10-05] MEDS ORDERED: Regadenoson 0.4 MG/5 ML SYRINGE IVP ONE (06:30)
[2018-10-05 06:55] LABS: Thyroid Stimulating Hormone 2.671 mcIU/mL (0.340-5.600)
[2018-10-05] MEDS: Insulin LISPRO 300 UNITS/3 ML VIAL SQ SCH ×5 (07:46→16:48)
--- NOTE | 2018-10-05 09:03 | Event Note ---
Date of Encounter: 10/05/18 Time of Encounter: 09:01 Patient was seen and examined earlier this am by hospitalist services Currently she is not in any resp distress Denies any pain or discomfort
[2018-10-05] MEDS: Levalbuterol Neb 1.25 MG/3 ML IH SCH ×3 (11:00→21:58)
[2018-10-05] MEDS: *HR* Rivaroxaban 10 MG TABLET PO SCH (16:47)
[2018-10-05] MEDS ORDERED: Insulin LISPRO 300 UNITS/3 ML VIAL SQ SCH (21:00)
[2018-10-06] MEDS: Insulin LISPRO 300 UNITS/3 ML VIAL SQ SCH ×7 (00:58→16:39)
[2018-10-06] MEDS: Levalbuterol Neb 1.25 MG/3 ML IH SCH ×3 (03:42→15:19)
[2018-10-06 06:25] LABS: Hematocrit 35.9 % (35.3-44.9); Hemoglobin 11.3 g/dL (11.5-15.4); Mean Corpuscular HGB Conc 31.5 g/dL (31.6-35.5); Mean Corpuscular Hemoglobin 28.3 pg (28.0-33.3); Mean Corpuscular Volume 89.8 fL (83.0-100.0); Platelet Count 260 K/mcL (140-400); Red Cell Distribution Width 15.7 % (11.5-14.5)
[2018-10-06 06:36] LABS: INR 1.4; Prothrombin Time 15.4 Seconds (9.4-12.1)
[2018-10-06 06:38] LABS: Activated Partial Thrombo Time 33.3 Seconds (26.0-36.0)
[2018-10-06 06:45] LABS: BUN/Creatinine Ratio 31 (6-26); Blood Urea Nitrogen 26 mg/dL (8-23); Calcium 9.9 mg/dL (8.6-10.3); Carbon Dioxide 36 mEq/L (23-29); Chloride 101 mEq/L (98-107); Chol/HDL Ratio 4.6 (0-4.9); Cholesterol 210 mg/dL (< 200); Glucose 143 mg/dL (70-105); HDL Cholesterol 46 mg/dL (40-59); LDL Cholesterol,Calculated 143 mg/dL (0-99); Magnesium 2.2 mg/dL (1.6-2.6); Osmolality,Calculated 307 (280-300); Potassium 3.8 mEq/L (3.5-5.1); Sodium 145 mEq/L (136-145); Triglycerides 105 mg/dL (< 150); eGFR For Non-African Americans > 60 (> 60)
[2018-10-06] MEDS ORDERED: Ipratropium/Albuterol Neb 3 ML IH PRN (08:14)
[2018-10-06] MEDS ORDERED: Aspirin Enteric Coated 81 MG Tablet PO SCH (09:00)
[2018-10-06] MEDS ORDERED: BuPROPion XL (24 HR) 150 MG TABLET PO SCH (12:00)
[2018-10-06] MEDS ORDERED: Gabapentin 100 MG CAPSULE PO SCH (12:00)
--- NOTE | 2018-10-06 12:59 | Discharge Summary ---
- NOTES TO OUTPATIENT PROVIDER Notes to Outpatient Provider: Stented with chest pain underwent a 2 day stress test which was negative for any ischemia or infarct pharmacological stress EKGs negative for ischemia level heart rate achieved gated EF was greater than 70 Orders not resulted at time of discharge: Pending orders 10/05/18 08:00 NM piper perf SPECT multi [NM] Routine 10/06/18 04:21 Hgb A1C Routine 10/07/18 04:00 Basic Metabolic Panel AM 0400 Complete Blood Count w/o Diff [HEME] AM 0400 10/08/18 04:00 Basic Metabolic Panel AM 0400 Complete Blood Count w/o Diff [HEME] AM 0400 Date of Encounter: 10/06/18 Time of Encounter: 13:19 - Discharge Diagnosis (1) Chest pain Priority: Primary Status: Acute Qualifiers: Chest pain type: unspecified Qualified Code(s): R07.9 - Chest pain, unspecified (2) Shortness of breath Priority: Secondary Status: Acute (3) Dizziness Priority: Secondary Status: Acute (4) CHF (congestive heart failure) Priority: Secondary Status: Chronic Qualifiers: Heart failure type: diastolic Heart failure chronicity: chronic Qualified Code(s): I50.32 - Chronic diastolic (congestive) heart failure (5) COPD (chronic obstructive pulmonary disease) Priority: Secondary Status: Chronic Qualifiers: COPD type: unspecified COPD Qualified Code(s): J44.9 - Chronic obstructive pulmonary disease, unspecified (6) Hx of deep venous thrombosis Priority: Secondary Status: Resolved (7) Diabetes Priority: Secondary Status: Chronic Qualifiers: Diabetes mellitus type: type 2 Diabetes mellitus penitentiary insulin use: without penitentiary use Diabetes mellitus complication status: with unspecified complications Qualified Code(s): E11.8 - Type 2 diabetes mellitus with unspecified complications (8) HLD (hyperlipidemia) Priority: Secondary Status: Chronic Qualifiers: Hyperlipidemia type: pure hypercholesterolemia Qualified Code(s): E78.00 - Pure hypercholesterolemia, unspecified; E78.0 - Pure hypercholesterolemia (9) HTN (hypertension) Priority: Secondary Status: Chronic Qualifiers: Hypertension type: essential hypertension Qualified Code(s): I10 - Essential (primary) hypertension (10) Thyroid disease Priority: Secondary Status: Chronic Hospital course: Ms. Barrios is a 63 year old female astragal history of CHF COPD oxygen hypoventilation associated with obesity vulvar intraepithelial neoplasia dependent DVT diabetes hyperlipidemia hypertension and thyroid disease anxiety depression invasive ductal carcinoma of the right breast patient presented to [facility] ED after experiencing chest pain that began while she was sleeping. Described pain as right-sided sharp/stabbing which is constant no alleviating or aggravating factors radiating to right jaw and back. EKG with no ST-T wave abnormalities troponins negative 3 CTA performed with no PE. Cardiac echo EF of 65% mild left ventricular diastolic dysfunction normal right ventricular structure and function mitral valve not optimally visualized in all views. Grossly there is leaflet excursions. Elevated mean gradient 4 mmHg a setting of elevated HR 93 BPM may be falsely elevated. No identifiable mitral stenosis no pulmonary hypertension. She underwent 2 day cardiac stress test which was negative for any ischemia or infarct she has not had a chest pain during this admission. Advised patient follow-up with primary care provider and to continue outpatient treatment with [facility] to [facility] currently she is hemodynamically stable and she is ready for discharge at this time. - Time Spent with Patient Total time spent providing and/or coordinating discharge services: - Discharge Medications Prescriptions: New Rivaroxaban [Xarelto] 20 mg PO 1700 tablet Continue Omeprazole [PriLOSEC] 40 mg PO 0800 Methotrexate [Otrexup] 10 mg PO WE Docusate Sodium [Dok] 100 mg PO 0800,1600 Atorvastatin Calcium [Lipitor] 20 mg PO 2000 Albuterol Sulfate [Albuterol Inhaler] 1 - 2 puff IH 0800,1600,2000 PRN PRN Reason: Shortness Of Breath Folic Acid 1 mg PO 0800 Aspirin 81 mg PO 0800 Isosorbide MONOnitrate (24 HR) [Imdur] 60 mg PO 0800 Gabapentin [Neurontin] 100 mg PO 0800,1200,2000 Potassium Chloride [K-Tab ER] 20 meq PO 0800,2000 Polyethylene Glycol 3350 [MiraLAX] 17 gm PO 0800 Ferrous Sulfate [Iron] 325 mg PO 1200 Furosemide [Lasix] 80 mg PO 0800 Insulin DETEMIR [Levemir] 50 unit SQ 0800,2000 Acetaminophen [Non-Aspirin] 650 mg PO Q6H PRN PRN Reason: Pain Bupropion HCl [Wellbutrin Xl] 300 mg PO 0800 BuPROPion XL (24 HR) [Wellbutrin Xl] 150 mg PO 1200 Buspirone HCl [Buspar] 15 mg PO 0800,1999 Ergocalciferol (VITAMIN D2) [Vitamin D2] 50,000 unit PO MO Insulin ASPART [NovoLOG] 5 unit SQ 0800,1200,1600 Ipratropium/Albuterol Neb [Duoneb] 3 ml IH [id number] PRN PRN Reason: Shortness Of Breath Levothyroxine Sodium [Synthroid] 300 mcg PO 0500 Losartan Potassium 25 mg PO 0800 Sertraline [Zoloft] 200 mg PO 1999 No Action Oxygen 2 l NS CONT Ibuprofen [Ibu-200] 600 mg PO Q6H PRN PRN Reason: Pain Oxycodone HCl 5 mg PO Q6H PRN PRN Reason: Breakthrough Pain OxyCODONE/APAP 5/325 [Percocet 5/325 MG] 1 tab PO TID PRN PRN Reason: Pain Promethazine/Dextromethorphan [Promethazine-Dm Syrup] 5 ml PO Q4H PRN PRN Reason: Cough Home Medications: Albuterol Sulfate [Albuterol Inhaler] 1 - 2 puff IH 0800,1600,1999 PRN 04/12/16 [History] Atorvastatin Calcium [Lipitor] 20 mg PO 199904/12/16 [History] Docusate Sodium [Dok] 100 mg PO 0800,1600 04/12/16 [History] Folic Acid 1 mg PO 0800 04/12/16 [History] Methotrexate [Otrexup] 10 mg PO 04/12/16 [History] Omeprazole [PriLOSEC] 40 mg PO 0800 04/12/16 [History] Oxygen 2 l NS CONT 04/12/16 [History] Aspirin 81 mg PO 0800 05/17/17 [History] Isosorbide MONOnitrate (24 HR) [Imdur] 60 mg PO 0800 05/17/17 [History] Ferrous Sulfate [Iron] 325 mg PO 1200 09/02/17 [History] Gabapentin [Neurontin] 100 mg PO 0800,1200,199909/02/17 [History] Polyethylene Glycol 3350 [MiraLAX] 17 gm PO 0800 09/02/17 [History] Potassium Chloride [K-Tab ER] 20 meq PO 0800,199909/02/17 [History] Furosemide [Lasix] 80 mg PO 0800 11/23/17 [History] Insulin DETEMIR [Levemir] 50 unit SQ 0800,199911/23/17 [History] Acetaminophen [Non-Aspirin] 650 mg PO Q6H PRN 10/05/18 [History] BuPROPion XL (24 HR) [Wellbutrin Xl] 150 mg PO 1200 10/05/18 [History] Bupropion HCl [Wellbutrin Xl] 300 mg PO 0800 10/05/18 [History] Buspirone HCl [Buspar] 15 mg PO 0800,199910/05/18 [History] Ergocalciferol (VITAMIN D2) [Vitamin D2] 50,000 unit PO MO 10/05/18 [History] Ibuprofen [Ibu-200] 600 mg PO Q6H PRN 10/05/18 [History] Insulin ASPART [NovoLOG] 5 unit SQ 0800,1200,1600 10/05/18 [History] Ipratropium/Albuterol Neb [Duoneb] 3 ml IH [id number] PRN 10/05/18 [History] Levothyroxine Sodium [Synthroid] 300 mcg PO 0500 10/05/18 [History] Losartan Potassium 25 mg PO 0800 10/05/18 [History] OxyCODONE/APAP 5/325 [Percocet 5/325 MG] 1 tab PO TID PRN 10/05/18 [History] Oxycodone HCl 5 mg PO Q6H PRN 10/05/18 [History] Promethazine/Dextromethorphan [Promethazine-Dm Syrup] 5 ml PO Q4H PRN 10/05/18 [History] Sertraline [Zoloft] 200 mg PO 199910/05/18 [History] Rivaroxaban [Xarelto] 20 mg PO 1700 tablet 10/06/18 [Rx] Allergies/Adverse Reactions: Allergy/AdvReac Type Severity Reaction Status Date / Time Penicillins Allergy Hives Verified 10/05/18 01:42 Sulfa (Sulfonamide Allergy Rash Verified 10/05/18 01:42 Antibiotics) Date of admission: 10/05/18 05:15 Primary care physician: Tawanda Storm Jr, MD Consults: 10/05/18 06:08 Consult to [employer] [CONS] Routine Reason for SW Consult: Please assess for possible home needs for post- discharge planning. 10/05/18 07:53 Consult to [employer]er [CONS] Routine Reason for SW Consult: PATIENT FROM SIGNATURE Discharging clinician: Malinda Michelle Anticipated date of discharge: 10/06/18 - Constitutional Vitals: Temp Pulse Resp BP Pulse Ox 98.2 F 92 16 130/84 98 10/06/18 11:35 10/06/18 11:35 10/06/18 11:35 10/06/18 11:35 10/06/18 11:35 General appearance: Present: cooperative, mild distress, A&O X 3, morbidly obese, pleasant, answers questions appropriately Exam: Skin: Free of rash and discoloration. Patient does have incision sites to right breast which are well approximated no redness swelling or drainage Eyes: Sclera is white. There is no discharge from eyes. ENMT: Oral/pharyngeal mucosa is normal in appearance. There is no discharge from nose or ears. Respiratory: Normal breath sounds with no crackles and wheezes bilaterally. CV: Heart is regular with no gallop or murmur. GI: Abdomen is flat and soft with no palpable mass or visceromegaly. : There is no tenderness in patient's flanks bilaterally. Neuro exam: He has good strength in upper and lower extremities. He has normal eye movements. Psychiatric: He has normal affect. His thought process is appropriate to the situation. - Patient Status Disposition: Transfer SNF Condition: Good Overall status at discharge: patient is back to baseline - Discharge Instructions Instructions: Chest Pain (DC) Follow Up With: Tawanda Storm Jr, MD [Primary Care Provider] - - Diet and Activity Activity: increase activity as tolerated Diet: advance to your usual diet
--- NOTE | 2018-10-06 14:15 | Electrocardiograph Report ---
[place] [id number] Test Date: 2018-10-05 Pat Name: Meagan Barrios Department: EXAM2 Room: 3B12 Gender: F [employer] Coordinator: : 1955 Requested By: Slava Napoles Order Number: [id number] Reading MD: Zaria Dobson Measurements Intervals North Rate: 93 P: 0 VA: 196 QRS: -62 QRSD: 145 T: 59 QT: 401 QTc: 499 Interpretive Statements Sinus rhythm RBBB and LAFB Probable left ventricular hypertrophy Electronically Signed On 10-06-2018 14:13:54 EDT by Zaria Dobson
[2018-10-06 16:13] VITALS: BP 154/84
--- NOTE | 2018-10-06 16:13 | Physician Discharge Referral ---
[facility] Referral Info Transfer To: [facility] Provider in Charge: Miguel Michelle Provider in Charge after Transfer: PCP Institutional Level of Care: Skilled - Diagnosis (1) Chest pain Priority: Primary Status: Acute (2) Shortness of breath Priority: Secondary Status: Acute (3) Dizziness Priority: Secondary Status: Acute (4) CHF (congestive heart failure) Priority: Secondary Status: Chronic (5) COPD (chronic obstructive pulmonary disease) Priority: Secondary Status: Chronic (6) Hx of deep venous thrombosis Priority: Secondary Status: Resolved (7) Diabetes Priority: Secondary Status: Chronic (8) HLD (hyperlipidemia) Priority: Secondary Status: Chronic (9) HTN (hypertension) Priority: Secondary Status: Chronic (10) Thyroid disease Priority: Secondary Status: Chronic - Transfer Medications Home Medications: Albuterol Sulfate [Albuterol Inhaler] 1 - 2 puff IH 0800,1600,1999 PRN 04/12/16 [History] Atorvastatin Calcium [Lipitor] 20 mg PO 199904/12/16 [History] Docusate Sodium [Dok] 100 mg PO 0800,1600 04/12/16 [History] Folic Acid 1 mg PO 0800 04/12/16 [History] Methotrexate [Otrexup] 10 mg PO 04/12/16 [History] Omeprazole [PriLOSEC] 40 mg PO 0800 04/12/16 [History] Oxygen 2 l NS CONT 04/12/16 [History] Aspirin 81 mg PO 0800 05/17/17 [History] Isosorbide MONOnitrate (24 HR) [Imdur] 60 mg PO 0800 05/17/17 [History] Ferrous Sulfate [Iron] 325 mg PO 1200 09/02/17 [History] Gabapentin [Neurontin] 100 mg PO 0800,1200,199909/02/17 [History] Polyethylene Glycol 3350 [MiraLAX] 17 gm PO 0800 09/02/17 [History] Potassium Chloride [K-Tab ER] 20 meq PO 0800,199909/02/17 [History] Furosemide [Lasix] 80 mg PO 0800 11/23/17 [History] Insulin DETEMIR [Levemir] 50 unit SQ 0800,199911/23/17 [History] Acetaminophen [Non-Aspirin] 650 mg PO Q6H PRN 10/05/18 [History] BuPROPion XL (24 HR) [Wellbutrin Xl] 150 mg PO 1200 10/05/18 [History] Bupropion HCl [Wellbutrin Xl] 300 mg PO 0800 10/05/18 [History] Buspirone HCl [Buspar] 15 mg PO 0800,199910/05/18 [History] Ergocalciferol (VITAMIN D2) [Vitamin D2] 50,000 unit PO MO 10/05/18 [History] Ibuprofen [Ibu-200] 600 mg PO Q6H PRN 10/05/18 [History] Insulin ASPART [NovoLOG] 5 unit SQ 0800,1200,1600 10/05/18 [History] Ipratropium/Albuterol Neb [Duoneb] 3 ml IH [id number] PRN 10/05/18 [History] Levothyroxine Sodium [Synthroid] 300 mcg PO 0500 10/05/18 [History] Losartan Potassium 25 mg PO 0800 10/05/18 [History] OxyCODONE/APAP 5/325 [Percocet 5/325 MG] 1 tab PO TID PRN 10/05/18 [History] Oxycodone HCl 5 mg PO Q6H PRN 10/05/18 [History] Promethazine/Dextromethorphan [Promethazine-Dm Syrup] 5 ml PO Q4H PRN 10/05/18 [History] Sertraline [Zoloft] 200 mg PO 199910/05/18 [History] Rivaroxaban [Xarelto] 20 mg PO 1700 tablet 10/06/18 [Rx] Allergies/Adverse Reactions: Allergy/AdvReac Type Severity Reaction Status Date / Time Penicillins Allergy Hives Verified 10/05/18 01:42 Sulfa (Sulfonamide Allergy Rash Verified 10/05/18 01:42 Antibiotics) - Respiratory Orders Oxygen / L per min (2L NC cont) Smoking Cessation: Smoking cessation has been advised. For more information, call the [place] Tobacco Quit Line at 2-120-RXAK-NOW. - Advance Directives Code Status: Full Code - Mobility Orders Ambulate - Rehabiliation Orders Rehab Potential: Good - Diet Orders No Concentrated Sweets, Cardiac CERTIFICATION: I certify that the transfer of the above named patient to an Extended Care Facility is necessary for the continuing treatment of the diagnosis listed. The above information is true and accurate reflection of patient's current condition. Confidential - Redisclosure prohibited without a patient's written consent.
[2018-10-06] MEDS: *HR* Rivaroxaban 10 MG TABLET PO SCH (16:42)
[2018-10-06] MEDS ORDERED: Insulin DETEMIR 100 UNIT/ML X5UNITS SQ SCH (20:00)
[2018-10-07 07:29] LABS: Estimated Average Glucose 200 mg/dl; Hemoglobin A1C 8.6 %
[2018-10-07] MEDS ORDERED: BuPROPion XL (24 HR) 150 MG TABLET PO SCH (08:00)
[2018-10-07] MEDS ORDERED: Isosorbide MONOnitrate (24 HR) 60 MG TAB.ER.24H PO SCH (08:00)
[2018-10-07] MEDS ORDERED: Furosemide 40 MG TABLET PO SCH (08:00)
[2018-10-07] MEDS ORDERED: Folic Acid 1 MG TABLET PO SCH (08:00)
[2018-10-10] MEDS ORDERED: *HR* Methotrexate 2.5 MG TABLET PO SCH (08:14)
== END 2018-10-06 18:17 ==
LOC: EMEROOARM 01:34 → 3BNU 01:34
PROVIDERS: ADMIT Internal Medicine; ATTEND Internal Medicine

== ENCOUNTER 2021-01-10 01:36 | Inpatient (IN) ==
[2021-01-10] MEDS ORDERED: *HR* Midazolam HCl 2 MG/2 ML VIAL IVP ONE ×4 (01:47→04:05)
[2021-01-10 02:04] LABS: Basophils # 0.1 K/mcL (0.0-0.2); Basophils % 0.4 %; Eosinophils # 0.2 K/mcL (0.0-0.6); Eosinophils % 1.1 %; Hematocrit 34.5 % (35.3-44.9); Hemoglobin 10.3 g/dL (11.5-15.4); Immature Granulocytes % 0.5 % (0-4); Lymphocytes # 1.2 K/mcL (0.6-4.6); Lymphocytes % 7.4 %; Mean Corpuscular HGB Conc 29.9 g/dL (31.6-35.5); Mean Corpuscular Hemoglobin 28.2 pg (28.0-33.3); Mean Corpuscular Volume 94.5 fL (83.0-100.0); Mean Platelet Volume 10.6 fL (9.4-12.4); Monocytes # 0.8 K/mcL (0.0-1.3); Neutrophils # 14.3 K/mcL (1.6-8.9); Nucleated Red Blood Cells 0.1 /100 WBC (0); Platelet Count 300 K/mcL (140-400); Red Blood Count 3.65 M/mcL (3.82-4.97); Red Cell Distribution Width 15.4 % (11.5-14.5); Segmented Neutrophils % 85.6 %; White Blood Count 16.6 K/mcL (4.3-11.1)
[2021-01-10] MEDS: EPINEPHrine 1 MG in D5% in Water 250 ML IVC SCH ×2 (02:10→19:08)
[2021-01-10 02:15] LABS: INR 1.2
[2021-01-10 02:17] LABS: Activated Partial Thrombo Time 32.3 Seconds (26.0-36.0)
[2021-01-10 02:30] LABS: Alanine Aminotransferase 16 Units/L (7-52); Albumin 4.1 g/dL (3.5-5.7); Albumin/Globulin Ratio 1.2 (1.1-2.2); Alkaline Phosphatase 136 Units/L (34-104); Aspartate Amino Transferase 19 Units/L (13-39); BUN/Creatinine Ratio 29 (6-26); Bilirubin,Indirect 0.4 mg/dL (0.0-1.0); Bilirubin,Total 0.4 mg/dL (0.3-1.0); Blood Urea Nitrogen 62 mg/dL (8-23); Calcium 9.4 mg/dL (8.6-10.3); Carbon Dioxide 28 mEq/L (23-29); Chloride 96 mEq/L (98-107); Globulin 3.3 g/dL (2.4-3.5); Glucose 294 mg/dL (70-105); Osmolality,Calculated 308 (280-300); Potassium 5.9 mEq/L (3.5-5.1); Sodium 135 mEq/L (136-145); Total Protein 7.4 g/dL (6.4-8.9); eGFR For African Americans 28 (> 60); eGFR For Non-African Americans 23 (> 60)
[2021-01-10 02:31] LABS: Troponin I < 0.03 ng/mL (< 0.04)
[2021-01-10] MEDS ORDERED: 0.9 % Sodium Chloride 2,000 ML ONE (02:36)
[2021-01-10] MEDS ORDERED: *HR* Heparin 10,000 UNIT/10 ML VIAL ONE (02:36)
[2021-01-10] MEDS ORDERED: ISOVUE-370 200 ML INFUS..BTL ONE (02:39)
[2021-01-10] MEDS ORDERED: Calcium Gluconate 1gm/50mL 1 GM/50 ML BAG IVPB ONE ×2 (02:55→03:01)
[2021-01-10] MEDS ORDERED: Insulin Human Regular 10 UNIT in 0.9 % Sodium Chloride 10 ML IV ONE ×2 (03:00→03:29)
[2021-01-10] MEDS ORDERED: Insulin Regular, Human 100 UNIT/ML ONE (03:10)
[2021-01-10] MEDS ORDERED: *HR* Dextrose 50 % in Water (Vial) 50 ML VIAL ONE (03:15)
[2021-01-10] MEDS ORDERED: *HR* Dextrose 50 % in Water (Vial) 50 ML VIAL IVP ONE (03:18)
[2021-01-10] MEDS ORDERED: *HR* Midazolam HCl 5 MG/5 ML VIAL IVP ONE (03:38)
[2021-01-10] MEDS ORDERED: Cefepime HCl 2,000 MG in Water for inj. (sterile) 20 ML IVP ONE (05:00)
[2021-01-10] MEDS ORDERED: Vancomycin 1,500 MG/265 ML IV.SOLN IVPB ONE (05:00)
[2021-01-10] MEDS ORDERED: Vancomycin (wt based) 1,000 MG VIAL IVPB SCH (05:00)
[2021-01-10] MEDS ORDERED: Azithromycin 500 MG in 0.9 % Sodium Chloride 250 ML IVPB ONE (05:00)
[2021-01-10 06:43] LABS: Bacteria,Urine Few per hpf (None-Few); Bilirubin,Urine Negative (Negative); Blood,Urine Negative (Negative); Clarity,Urine Turbid (Clear); Color,Urine Yellow (Yellow); Glucose,Urine (UA) Normal (Normal); Hyaline Casts,Urine Few per lpf (None Seen); Ketones,Urine Negative (Negative); Leukocyte Esterase,Urine Negative (Negative); Mucus,Urine Few per lpf (None-Few); Nitrite,Urine Negative (Negative); PH,Urine 5.5 pH Units (5.0-8.0); Protein,Urine 50 mg/dL (Neg-Trace); RBC,Urine 0-3 per hpf (0-3); Specific Gravity,Urine 1.014 (1.010-1.025); Squamous Epithelial Cell,Urine Few per hpf (None-Few); Urobilinogen,Urine Normal (Normal)
[2021-01-10 07:14] LABS: Adenovirus Not Detected (Not Detect); Bordetella Pertussis Not Detected (Not Detect); Chlamydophila pneumoniae Not Detected (Not Detect); Coronavirus 229E Not Detected (Not Detect); Coronavirus HKU1 Not Detected (Not Detect); Coronavirus NL63 Not Detected (Not Detect); Coronavirus OC43 Not Detected (Not Detect); Human Metapneumovirus Not Detected (Not Detect); Human Rhinovirus/Enterovirus Not Detected (Not Detect); Influenza A Subtype 2009 H1 Not Detected (Not Detect); Influenza B Not Detected (Not Detect); Mycoplasma pneumoniae Not Detected (Not Detect); Parainfluenza Virus 1 Not Detected (Not Detect); Parainfluenza Virus 2 Not Detected (Not Detect); Parainfluenza Virus 3 Not Detected (Not Detect); Parainfluenza Virus 4 Not Detected (Not Detect); Respiratory Syncytial Virus Not Detected (Not Detect); SARS-CoV-2 Not Detected (Not Detect)
[2021-01-10] MEDS ORDERED: Perflutren Lipid Microsphere 1.3 ML in 0.9 % Sodium Chloride 8.7 ML IVP PRN (07:49)
[2021-01-10 08:32] LABS: VBG Ionized Calcium 1.18 mmol/L (1.15-1.35)
[2021-01-10 08:43] LABS: Calcium 8.3 mg/dL (8.6-10.3); Potassium 5.4 mEq/L (3.5-5.1)
[2021-01-10 08:45] LABS: Magnesium 2.3 mg/dL (1.6-2.6)
[2021-01-10 08:57] LABS: Thyroid Stimulating Hormone 0.18 mcIU/mL (0.340-5.600)
[2021-01-10] MEDS ORDERED: Naloxone 0.4 MG/ML INJ IVP PRN (11:19)
[2021-01-10] MEDS ORDERED: Acetaminophen 325 MG TABLET PO PRN (12:13)
[2021-01-10] MEDS ORDERED: Ipratropium/Albuterol Neb 3 ML IH PRN (12:13)
[2021-01-10] MEDS ORDERED: *HR* OxyCODONE Immed Rel 5 MG TABLET PO PRN (12:13)
[2021-01-10] MEDS ORDERED: D5% in Water 1,000 ML IVC PRN (12:15)
[2021-01-10] MEDS ORDERED: *HR* Dextrose 50 % in Water (Vial) 50 ML VIAL IVP PRN (12:15)
[2021-01-10] MEDS ORDERED: Dextrose Gel 15 GM/37.5 ML TUBE PO PRN ×2 (12:15)
[2021-01-10] MEDS ORDERED: Albuterol 2.5 MG/3 ML NEBULIZER IH PRN (12:45)
[2021-01-10] MEDS: Ipratropium/Albuterol Neb 3 ML IH SCH ×2 (16:27→21:29)
[2021-01-10] MEDS: Insulin LISPRO 300 UNITS/3 ML VIAL SUBQ SCH (17:53)
[2021-01-10] MEDS: Gabapentin 100 MG CAPSULE PO SCH (19:06)
[2021-01-10] MEDS ORDERED: Insulin DETEMIR 100 UNIT/ML X5UNITS SUBQ SCH (21:00)
[2021-01-10] MEDS: Budesonide/Formoterol 160/4.5 1 PUFF INH IH SCH (21:29)
[2021-01-11] MEDS: Insulin LISPRO 300 UNITS/3 ML VIAL SUBQ SCH ×3 (00:20→13:40)
[2021-01-11 02:58] LABS: White Blood Count 12.8 K/mcL (4.3-11.1)
[2021-01-11 02:59] LABS: Basophils % 0.3 %; Eosinophils # 0.1 K/mcL (0.0-0.6); Eosinophils % 0.7 %; Hematocrit 28.6 % (35.3-44.9); Hemoglobin 8.7 g/dL (11.5-15.4); Immature Granulocytes % 0.5 % (0-4); Lymphocytes # 0.4 K/mcL (0.6-4.6); Lymphocytes % 3.2 %; Mean Corpuscular HGB Conc 30.4 g/dL (31.6-35.5); Mean Corpuscular Hemoglobin 28.6 pg (28.0-33.3); Mean Corpuscular Volume 94.1 fL (83.0-100.0); Mean Platelet Volume 10.4 fL (9.4-12.4); Monocytes # 0.7 K/mcL (0.0-1.3); Monocytes % 5.3 %; Neutrophils # 11.6 K/mcL (1.6-8.9); Platelet Count 202 K/mcL (140-400); Red Blood Count 3.04 M/mcL (3.82-4.97); Red Cell Distribution Width 15.4 % (11.5-14.5)
[2021-01-11 03:18] LABS: Albumin 3.4 g/dL (3.5-5.7); Albumin/Globulin Ratio 1.1 (1.1-2.2); Bilirubin,Total 0.4 mg/dL (0.3-1.0); Globulin 3.1 g/dL (2.4-3.5); Magnesium 2.4 mg/dL (1.6-2.6); Potassium 4.5 mEq/L (3.5-5.1); Total Protein 6.5 g/dL (6.4-8.9)
[2021-01-11] MEDS: Ipratropium/Albuterol Neb 3 ML IH SCH ×4 (03:45→21:33)
[2021-01-11] MEDS: Gabapentin 100 MG CAPSULE PO SCH ×3 (07:46→20:05)
[2021-01-11] MEDS ORDERED: polyethylene glycoL 3350 17 GM POWD.PACK PO SCH (08:00)
[2021-01-11] MEDS ORDERED: Isosorbide MONOnitrate (24 HR) 60 MG TAB.ER.24H PO SCH (08:00)
[2021-01-11] MEDS ORDERED: BuPROPion XL (24 HR) 150 MG TABLET PO SCH ×2 (08:00→12:00)
[2021-01-11] MEDS ORDERED: Folic Acid 1 MG TABLET PO SCH (08:00)
[2021-01-11] MEDS ORDERED: 0.9 % Sodium Chloride 500 ML ONE (09:42)
[2021-01-11] MEDS ORDERED: *HR* Midazolam HCl 2 MG/2 ML VIAL ONE (09:42)
[2021-01-11] MEDS ORDERED: *HR* FentaNYL (PF) 100 MCG/2 ML VIAL ONE (09:42)
[2021-01-11] MEDS ORDERED: Clindamycin 600 MG/50 ML 1,200 MG/100 ML IV.SOLN IVPB ONE (09:43)
[2021-01-11] MEDS ORDERED: 0.9 % Sodium Chloride 1,000 ML ONE (09:43)
[2021-01-11] MEDS: Budesonide/Formoterol 160/4.5 1 PUFF INH IH SCH ×2 (10:29→21:32)
[2021-01-11] MEDS ORDERED: Ergocalciferol (VIT D2) 50,000 UNIT (1.25MG) CAP PO SCH (12:13)
[2021-01-11] MEDS ORDERED: *HR* Dextrose 50 % in Water (Vial) 50 ML VIAL IVP PRN (16:32)
[2021-01-11] MEDS ORDERED: Naloxone 0.4 MG/ML INJ IVP PRN (16:32)
[2021-01-11] MEDS ORDERED: Albuterol 2.5 MG/3 ML NEBULIZER IH PRN (16:32)
[2021-01-11] MEDS ORDERED: Dextrose Gel 15 GM/37.5 ML TUBE PO PRN ×2 (16:32)
[2021-01-11] MEDS ORDERED: Acetaminophen 325 MG TABLET PO PRN (16:32)
[2021-01-11] MEDS ORDERED: D5% in Water 1,000 ML IVC PRN (16:32)
[2021-01-11 17:20] LABS: Heparin anti-factor XA UFH 0.07 IU/mL (0.30-0.70); INR 1.4; Prothrombin Time 16.4 Seconds (9.4-12.1)
[2021-01-11] MEDS ORDERED: Insulin LISPRO 300 UNITS/3 ML VIAL SUBQ SCH ×2 (18:00→21:00)
[2021-01-11] MEDS ORDERED: Insulin DETEMIR 100 UNIT/ML X5UNITS SUBQ SCH (21:00)
[2021-01-12 02:38] LABS: Basophils % 0.3 %; Eosinophils # 0.1 K/mcL (0.0-0.6); Eosinophils % 0.6 %; Hematocrit 26.6 % (35.3-44.9); Hemoglobin 8.1 g/dL (11.5-15.4); Immature Granulocytes % 0.5 % (0-4); Lymphocytes # 0.4 K/mcL (0.6-4.6); Lymphocytes % 4.9 %; Mean Corpuscular HGB Conc 30.5 g/dL (31.6-35.5); Mean Corpuscular Hemoglobin 28.9 pg (28.0-33.3); Mean Platelet Volume 10.7 fL (9.4-12.4); Monocytes # 0.9 K/mcL (0.0-1.3); Monocytes % 9.7 %; Neutrophils # 7.4 K/mcL (1.6-8.9); Platelet Count 162 K/mcL (140-400); Red Cell Distribution Width 15.5 % (11.5-14.5); White Blood Count 8.8 K/mcL (4.3-11.1)
[2021-01-12 02:39] LABS: VBG Ionized Calcium 1.07 mmol/L (1.15-1.35)
[2021-01-12 03:01] LABS: Albumin 3.3 g/dL (3.5-5.7); Albumin/Globulin Ratio 1.1 (1.1-2.2); Bilirubin,Total 0.4 mg/dL (0.3-1.0); Magnesium 2.5 mg/dL (1.6-2.6); Phosphorous 2.4 mg/dL (2.7-4.5); Potassium 3.9 mEq/L (3.5-5.1); Total Protein 6.3 g/dL (6.4-8.9)
[2021-01-12] MEDS: Ipratropium/Albuterol Neb 3 ML IH SCH ×3 (03:29→16:03)
[2021-01-12] MEDS ORDERED: *HR* Heparin 5,000 UNIT/ML VIAL IVP PRN ×2 (07:00)
[2021-01-12] MEDS ORDERED: Heparin 25,000UNIT/250ML 1/2NS 25,000 UNIT/250 ML IV.SOLN IVC SCH ×2 (07:00→07:50)
[2021-01-12] MEDS ORDERED: Isosorbide MONOnitrate (24 HR) 60 MG TAB.ER.24H PO SCH (08:00)
[2021-01-12] MEDS ORDERED: Folic Acid 1 MG TABLET PO SCH (08:00)
[2021-01-12] MEDS ORDERED: BuPROPion XL (24 HR) 150 MG TABLET PO SCH ×2 (08:00→12:00)
[2021-01-12] MEDS ORDERED: polyethylene glycoL 3350 17 GM POWD.PACK PO SCH (08:00)
[2021-01-12] MEDS: Insulin LISPRO 300 UNITS/3 ML VIAL SUBQ SCH ×3 (08:13→17:01)
[2021-01-12] MEDS: Gabapentin 100 MG CAPSULE PO SCH ×2 (08:41→11:59)
[2021-01-12] MEDS: *HR* OxyCODONE Immed Rel 5 MG TABLET PO PRN ×2 (08:47→15:13)
[2021-01-12] MEDS: Budesonide/Formoterol 160/4.5 1 PUFF INH IH SCH (10:59)
[2021-01-12 16:29] VITALS: BP 116/63
[2021-01-12] MEDS ORDERED: *HR* Rivaroxaban 10 MG TABLET PO SCH (17:00)
[2021-01-12 17:08] LABS: Adenovirus Not Detected (Not Detect); Bordetella Pertussis Not Detected (Not Detect); Chlamydophila pneumoniae Not Detected (Not Detect); Coronavirus 229E Not Detected (Not Detect); Coronavirus HKU1 Not Detected (Not Detect); Coronavirus NL63 Not Detected (Not Detect); Coronavirus OC43 Not Detected (Not Detect); Human Metapneumovirus Not Detected (Not Detect); Human Rhinovirus/Enterovirus Not Detected (Not Detect); Influenza A Subtype 2009 H1 Not Detected (Not Detect); Influenza B Not Detected (Not Detect); Mycoplasma pneumoniae Not Detected (Not Detect); Parainfluenza Virus 1 Not Detected (Not Detect); Parainfluenza Virus 2 Not Detected (Not Detect); Parainfluenza Virus 3 Not Detected (Not Detect); Parainfluenza Virus 4 Not Detected (Not Detect); Respiratory Syncytial Virus Not Detected (Not Detect); SARS-CoV-2 Not Detected (Not Detect)
[2021-01-18] MEDS ORDERED: Ergocalciferol (VIT D2) 50,000 UNIT (1.25MG) CAP PO SCH (09:00)
== END 2021-01-12 20:30 | DRG 242 ==
LOC: EMEROOARM 01:36 → ICNU 01:36 → SUATTDRO 07:19 → 2NNU 01-11 12:19
PROVIDERS: ADMIT Internal Medicine; ATTEND Internal Medicine

== ENCOUNTER 2022-03-21 15:14 | Inpatient (IN) ==
[2022-03-21] MEDS ORDERED: Iopamidol - 370 500 ML MLS IVP ONE (15:59)
[2022-03-21 16:30] LABS: Basophils # 0.1 K/mcL (0.0-0.2); Basophils % 0.3 %; Eosinophils # 0.2 K/mcL (0.0-0.6); Eosinophils % 1.3 %; Hematocrit 25.6 % (35.3-44.9); Hemoglobin 7.5 g/dL (11.5-15.4); Immature Granulocytes % 0.5 % (0-4); Lymphocytes # 0.4 K/mcL (0.6-4.6); Lymphocytes % 2.7 %; Mean Corpuscular HGB Conc 29.3 g/dL (31.6-35.5); Mean Corpuscular Hemoglobin 27.3 pg (28.0-33.3); Mean Corpuscular Volume 93.1 fL (83.0-100.0); Mean Platelet Volume 10.8 fL (9.4-12.4); Monocytes % 6.7 %; Neutrophils # 13.4 K/mcL (1.6-8.9); Platelet Count 306 K/mcL (140-400); Red Blood Count 2.75 M/mcL (3.82-4.97); Red Cell Distribution Width 17.4 % (11.5-14.5); Segmented Neutrophils % 88.5 %; White Blood Count 15.1 K/mcL (4.3-11.1)
[2022-03-21 16:40] LABS: Calcium 9.1 mg/dL (8.6-10.3); Troponin I 0.03 ng/mL (< 0.04)
[2022-03-21 17:02] LABS: INR 1.3; Prothrombin Time 14.1 Seconds (9.4-12.1)
[2022-03-21 17:05] LABS: Activated Partial Thrombo Time 30.6 Seconds (26.0-36.0)
[2022-03-21 17:14] LABS: Amphetamine Screen,Urine Negative ng/mL (Cutoff=1000); Barbiturate Screen,Urine Negative ng/mL (Cutoff=200); Benzodiazepines Screen,Urine Negative ng/mL (Cutoff=200); Cannabinoid Screen,Urine Negative ng/mL (Cutoff = 50); Cocaine Screen,Urine Negative ng/mL (Cutoff= 300); Opiate Screen,Urine Negative ng/mL (Cutoff=300); Phencyclidine Screen,Urine Negative ng/mL (Cutoff=25)
[2022-03-21 17:15] LABS: Bilirubin,Urine Negative (Negative); Blood,Urine Negative (Negative); Clarity,Urine Clear (Clear); Color,Urine Light-Yellow (Yellow); Glucose,Urine (UA) Normal (Normal); Ketones,Urine Negative (Negative); Leukocyte Esterase,Urine Negative (Negative); Nitrite,Urine Negative (Negative); Protein,Urine Negative (Neg-Trace); Specific Gravity,Urine 1.011 (1.010-1.025); Urobilinogen,Urine Normal (Normal)
[2022-03-21] MEDS ORDERED: Cefepime HCl 2,000 MG in 0.9 % Sodium Chloride 10 ML IVP ONE (18:24)
[2022-03-21 20:22] LABS: Influenza A PCR Negative (Negative); Influenza B PCR Negative (Negative); Resp. Syncytial Virus PCR Negative (Negative); SARS-CoV-2 by PCR (In House) Negative (Negative)
[2022-03-21] MEDS ORDERED: Acetaminophen 325 MG TABLET PO PRN (21:16)
[2022-03-21] MEDS ORDERED: Naloxone 0.4 MG/ML INJ IVP PRN (21:16)
[2022-03-21] MEDS ORDERED: Ondansetron 4 MG/2 ML VIAL IVP PRN (21:16)
[2022-03-21] MEDS ORDERED: 0.9 % Sodium Chloride 1,000 ML IVC SCH (21:30)
[2022-03-21 21:42] LABS: ABG Base Excess 11 mEq/L (-2 to 3); ABG HCO3 39 mEq/L (21-27); ABG Oxygen Saturation 99 % (95-98); ABG PCO2 71 mmHg (35-45); ABG PH 7.34 pH Units (7.32-7.45); ABG PO2 127 mmHg (85-104); ABG TCO2 41 mEq/L (20-26)
[2022-03-21] MEDS ORDERED: Dextrose Gel 15 GM/37.5 ML TUBE PO PRN ×2 (21:51)
[2022-03-21] MEDS ORDERED: *HR* Dextrose 50 % in Water (Syg) 50 ML SYRINGE IVP PRN (21:51)
[2022-03-21] MEDS ORDERED: D5% in Water 1,000 ML IVC PRN (21:51)
[2022-03-22] MEDS: Azithromycin 500 MG in 0.9 % Sodium Chloride 250 ML IVPB SCH ×2 (02:00→21:36)
[2022-03-22 02:05] LABS: Hematocrit 25.2 % (35.3-44.9); Hemoglobin 7.5 g/dL (11.5-15.4); Mean Corpuscular HGB Conc 29.8 g/dL (31.6-35.5); Mean Corpuscular Hemoglobin 27.3 pg (28.0-33.3); Mean Corpuscular Volume 91.6 fL (83.0-100.0); Mean Platelet Volume 9.9 fL (9.4-12.4); Platelet Count 296 K/mcL (140-400); Red Blood Count 2.75 M/mcL (3.82-4.97); Red Cell Distribution Width 17.4 % (11.5-14.5)
[2022-03-22 02:08] LABS: White Blood Count 13.7 K/mcL (4.3-11.1)
[2022-03-22 02:23] LABS: Chol/HDL Ratio 2.2 (0-4.9)
[2022-03-22 02:30] LABS: Albumin 3.6 g/dL (3.5-5.7); Albumin/Globulin Ratio 0.9 (1.1-2.2); Bilirubin,Total 0.4 mg/dL (0.3-1.0); Calcium 9.5 mg/dL (8.6-10.3); Globulin 3.8 g/dL (2.4-3.5); Potassium 4.6 mEq/L (3.5-5.1); Total Protein 7.4 g/dL (6.4-8.9)
[2022-03-22 02:33] LABS: Procalcitonin 0.5 ng/mL (0.00-0.15)
[2022-03-22 03:05] LABS: Estimated Average Glucose 154 mg/dl
[2022-03-22] MEDS ORDERED: 0.9 % Sodium Chloride 500 ML IVC ONE (03:05)
[2022-03-22] MEDS: Insulin LISPRO 300 UNITS/3 ML VIAL SUBQ SCH ×6 (03:11→21:37)
[2022-03-22] MEDS ORDERED: D5% in 0.45% NACL 1,000 ML IVC SCH (04:30)
[2022-03-22 08:38] LABS: ABG Base Excess 8 mEq/L (-2 to 3); ABG HCO3 37 mEq/L (21-27); ABG Oxygen Saturation 98 % (95-98); ABG PCO2 75 mmHg (35-45); ABG PO2 112 mmHg (85-104); ABG TCO2 39 mEq/L (20-26)
[2022-03-22] MEDS: Cefepime HCl 2,000 MG in 0.9 % Sodium Chloride Mini Bag 100 ML IVPB SCH ×2 (09:57→21:04)
[2022-03-22 11:46] LABS: ABG Base Excess 8 mEq/L (-2 to 3); ABG HCO3 35 mEq/L (21-27); ABG Oxygen Saturation 96 % (95-98); ABG PCO2 65 mmHg (35-45); ABG PH 7.34 pH Units (7.32-7.45); ABG PO2 88 mmHg (85-104); ABG TCO2 37 mEq/L (20-26); Blood Gas Modality avaps; Blood Gas Pressure Support 30 cm H2O; Blood Gas VT 450 cc
[2022-03-22] MEDS: Ipratropium/Albuterol Neb 3 ML IH SCH ×3 (15:34→23:37)
[2022-03-22] MEDS: MethylPREDNISolone 40 MG/ML VIAL IVP SCH (17:56)
[2022-03-22] MEDS ORDERED: Cefepime HCl 2,000 MG in 0.9 % Sodium Chloride Mini Bag 100 ML IVPB SCH (18:00)
[2022-03-23 02:55] LABS: Hematocrit 24.3 % (35.3-44.9); Red Cell Distribution Width 17.3 % (11.5-14.5); Segmented Neutrophils % 94.8 %
[2022-03-23 02:56] LABS: Basophils % 0.2 %; Hemoglobin 7.1 g/dL (11.5-15.4); Immature Granulocytes % 0.8 % (0-4); Lymphocytes # 0.3 K/mcL (0.6-4.6); Mean Corpuscular HGB Conc 29.2 g/dL (31.6-35.5); Mean Corpuscular Volume 92.4 fL (83.0-100.0); Monocytes # 0.1 K/mcL (0.0-1.3); Monocytes % 1.2 %; Neutrophils # 8.2 K/mcL (1.6-8.9); Platelet Count 251 K/mcL (140-400); Red Blood Count 2.63 M/mcL (3.82-4.97); White Blood Count 8.6 K/mcL (4.3-11.1)
[2022-03-23 03:14] LABS: Magnesium 2.9 mg/dL (1.6-2.6); Phosphorous 4.2 mg/dL (2.7-4.5); Potassium 4.7 mEq/L (3.5-5.1)
[2022-03-23] MEDS: Ipratropium/Albuterol Neb 3 ML IH SCH ×6 (03:54→22:47)
[2022-03-23] MEDS: MethylPREDNISolone 40 MG/ML VIAL IVP SCH ×2 (04:22→18:11)
[2022-03-23] MEDS: Insulin LISPRO 300 UNITS/3 ML VIAL SUBQ SCH ×3 (09:19→18:12)
[2022-03-23] MEDS: Cefepime HCl 2,000 MG in 0.9 % Sodium Chloride Mini Bag 100 ML IVPB SCH ×2 (09:20→20:08)
[2022-03-23] MEDS ORDERED: NON-FORMULARY MEDICATION 1 EACH EACH (Promethazine/Dextromethorphan [Promethazine-Dm Syrup PO PRN (11:52)
[2022-03-23] MEDS ORDERED: *HR* Labetalol 20 MG/4 ML SYRINGE IVP PRN (13:10)
[2022-03-23] MEDS: Gabapentin 300 MG CAPSULE PO SCH ×2 (15:31→20:10)
[2022-03-23] MEDS: Isosorbide MONOnitrate (24 HR) 60 MG TAB.ER.24H PO SCH (15:31)
[2022-03-23] MEDS: BuPROPion XL (24 HR) 150 MG TABLET PO SCH (18:12)
[2022-03-23] MEDS ORDERED: hydrOXYzine pamoate 25 MG CAPSULE PO ONE (20:55)
[2022-03-23] MEDS ORDERED: Insulin DETEMIR 100 UNIT/ML per UNIT SUBQ SCH (21:00)
[2022-03-24] MEDS: Insulin LISPRO 300 UNITS/3 ML VIAL SUBQ SCH ×3 (01:05→11:47)
[2022-03-24] MEDS: Azithromycin 500 MG in 0.9 % Sodium Chloride 250 ML IVPB SCH (01:06)
[2022-03-24 03:13] LABS: Basophils % 0.1 %; Eosinophils % 0.1 %; Mean Corpuscular Volume 92.7 fL (83.0-100.0); Segmented Neutrophils % 92.8 %
[2022-03-24 03:14] LABS: Hematocrit 21.5 % (35.3-44.9); Hemoglobin 6.3 g/dL (11.5-15.4); Immature Granulocytes % 0.5 % (0-4); Lymphocytes # 0.3 K/mcL (0.6-4.6); Lymphocytes % 3.2 %; Mean Corpuscular HGB Conc 29.3 g/dL (31.6-35.5); Mean Corpuscular Hemoglobin 27.2 pg (28.0-33.3); Mean Platelet Volume 10.2 fL (9.4-12.4); Monocytes # 0.3 K/mcL (0.0-1.3); Monocytes % 3.3 %; Neutrophils # 8.6 K/mcL (1.6-8.9); Platelet Count 260 K/mcL (140-400); Red Blood Count 2.32 M/mcL (3.82-4.97); Red Cell Distribution Width 17.1 % (11.5-14.5); White Blood Count 9.3 K/mcL (4.3-11.1)
[2022-03-24] MEDS: Ipratropium/Albuterol Neb 3 ML IH SCH ×4 (04:15→16:10)
[2022-03-24] MEDS: MethylPREDNISolone 40 MG/ML VIAL IVP SCH (05:44)
[2022-03-24 06:31] LABS: Calcium 9.3 mg/dL (8.6-10.3); Potassium 4.7 mEq/L (3.5-5.1)
[2022-03-24] MEDS: Gabapentin 300 MG CAPSULE PO SCH ×2 (07:50→14:25)
[2022-03-24] MEDS: Isosorbide MONOnitrate (24 HR) 60 MG TAB.ER.24H PO SCH (07:50)
[2022-03-24] MEDS: BuPROPion XL (24 HR) 150 MG TABLET PO SCH (07:50)
[2022-03-24] MEDS: Cefepime HCl 2,000 MG in 0.9 % Sodium Chloride Mini Bag 100 ML IVPB SCH (08:02)
[2022-03-24 08:48] LABS: Basophils % 0.2 %; Eosinophils % 0.2 %; Hematocrit 26.8 % (35.3-44.9); Hemoglobin 7.9 g/dL (11.5-15.4); Immature Granulocytes % 0.6 % (0-4); Lymphocytes # 0.3 K/mcL (0.6-4.6); Lymphocytes % 3.3 %; Mean Corpuscular HGB Conc 29.5 g/dL (31.6-35.5); Mean Corpuscular Hemoglobin 27.2 pg (28.0-33.3); Mean Corpuscular Volume 92.4 fL (83.0-100.0); Monocytes # 0.4 K/mcL (0.0-1.3); Monocytes % 3.4 %; Neutrophils # 9.6 K/mcL (1.6-8.9); Platelet Count 282 K/mcL (140-400); Red Cell Distribution Width 17.3 % (11.5-14.5); Segmented Neutrophils % 92.3 %; White Blood Count 10.4 K/mcL (4.3-11.1)
[2022-03-24] MEDS ORDERED: BuPROPion XL (24 HR) 150 MG TABLET PO SCH ×2 (09:00)
[2022-03-24] MEDS ORDERED: predniSONE 10 MG TABLET PO SCH (09:00)
[2022-03-24] MEDS ORDERED: Folic Acid 1 MG TABLET PO SCH (09:00)
[2022-03-24] MEDS ORDERED: Ferrous Sulfate Oral Soln 300 MG/5 ML UDC PO SCH (09:00)
[2022-03-24] MEDS ORDERED: PANTOPRAZOLE SODIUM 20 MG PO SCH (09:00)
[2022-03-24] MEDS ORDERED: Insulin DETEMIR 100 UNIT/ML per UNIT SUBQ SCH (09:00)
[2022-03-24] MEDS ORDERED: Furosemide 40 MG TABLET PO SCH (09:00)
[2022-03-24 15:24] VITALS: BP 155/64; PULSE 81; TEMP 97.9; O2SAT 100
[2022-03-24 16:48] LABS: Influenza A PCR Negative (Negative); Influenza B PCR Negative (Negative); Resp. Syncytial Virus PCR Negative (Negative)
[2022-03-24 16:55] LABS: SARS-CoV-2 by PCR (In House) Negative (Negative)
== END 2022-03-24 17:14 | DRG 871 ==
LOC: EMEROOARM 15:14 → 3BNU 15:14 → SUATTDRO 03-22 00:20 → 3BNU 03-22 00:42 → 2NENU 03-22 05:51
PROVIDERS: ADMIT Internal Medicine; ATTEND Internal Medicine

== ENCOUNTER 2022-04-10 04:27 | Inpatient (IN) ==
[2022-04-10] MEDS ORDERED: methylPREDNISolone 125 MG/2 ML VIAL IVP ONE (04:33)
[2022-04-10] MEDS ORDERED: levoFLOXacin 750 MG/150 ML 750 MG/150 ML BAG IVPB ONE (04:33)
[2022-04-10] MEDS ORDERED: Furosemide 40 MG/4 ML VIAL IVP ONE (04:44)
[2022-04-10 04:59] LABS: Hemoglobin 8.4 g/dL (11.5-15.4); Red Cell Distribution Width 18.6 % (11.5-14.5)
[2022-04-10 05:00] LABS: Basophils % 0.2 %; Eosinophils # 0.1 K/mcL (0.0-0.6); Eosinophils % 0.6 %; Hematocrit 29.7 % (35.3-44.9); Immature Granulocytes % 0.5 % (0-4); Lymphocytes # 0.3 K/mcL (0.6-4.6); Lymphocytes % 1.8 %; Mean Corpuscular HGB Conc 28.3 g/dL (31.6-35.5); Mean Corpuscular Hemoglobin 27.2 pg (28.0-33.3); Mean Corpuscular Volume 96.1 fL (83.0-100.0); Mean Platelet Volume 10.5 fL (9.4-12.4); Monocytes # 0.9 K/mcL (0.0-1.3); Monocytes % 5.4 %; Platelet Count 292 K/mcL (140-400); Red Blood Count 3.09 M/mcL (3.82-4.97); Segmented Neutrophils % 91.5 %; White Blood Count 16.2 K/mcL (4.3-11.1)
[2022-04-10 05:02] LABS: VBG HCO3 37 mEq/L (21-27); VBG PCO2 91 mmHg (41-51); VBG PH 7.22 pH Units (7.32-7.42); VBG PO2 60 mmHg (25-50)
[2022-04-10 05:15] LABS: Neutrophils # 14.8 K/mcL (1.6-8.9)
[2022-04-10 05:24] LABS: Albumin/Globulin Ratio 1.1 (1.1-2.2); Bilirubin,Total 0.4 mg/dL (0.3-1.0); Calcium 9.5 mg/dL (8.6-10.3); Globulin 3.8 g/dL (2.4-3.5); Magnesium 2.6 mg/dL (1.6-2.6); Potassium 6.5 mEq/L (3.5-5.1); Total Protein 7.8 g/dL (6.4-8.9); Troponin I 0.04 ng/mL (< 0.04)
[2022-04-10] MEDS ORDERED: Calcium Gluconate 1gm/50mL 1 GM/50 ML BAG IVPB ONE (05:25)
[2022-04-10] MEDS ORDERED: Insulin Human Regular 10 UNIT in 0.9 % Sodium Chloride 10 ML IV ONE (05:25)
[2022-04-10] MEDS ORDERED: *HR* Dextrose 50 % in Water (Syg) 50 ML SYRINGE IVP PRN ×2 (05:25→09:38)
[2022-04-10] MEDS ORDERED: Albuterol 2.5 MG/3 ML NEBULIZER IH ONE (05:25)
[2022-04-10 05:35] LABS: Hypochromasia Present (Not Present); Platelet Estimate Normal (Normal)
[2022-04-10 05:47] LABS: Thyroid Stimulating Hormone 0.209 mcIU/mL (0.340-5.600)
[2022-04-10 05:49] LABS: Influenza A PCR Negative (Negative); Influenza B PCR Negative (Negative); Resp. Syncytial Virus PCR Negative (Negative); SARS-CoV-2 by PCR (In House) Negative (Negative)
[2022-04-10 06:30] LABS: Bilirubin,Urine Negative (Negative); Blood,Urine Negative (Negative); Clarity,Urine Clear (Clear); Color,Urine Light-Yellow (Yellow); Glucose,Urine (UA) Normal (Normal); Ketones,Urine Negative (Negative); Leukocyte Esterase,Urine Negative (Negative); Nitrite,Urine Negative (Negative); PH,Urine 5.5 pH Units (5.0-8.0); Protein,Urine Trace mg/dL (Neg-Trace); Specific Gravity,Urine 1.017 (1.010-1.025); Urobilinogen,Urine Normal (Normal)
[2022-04-10 07:01] LABS: ABG Base Excess 11 mEq/L (-2 to 3); ABG HCO3 39 mEq/L (21-27); ABG Oxygen Saturation 96 % (95-98); ABG PCO2 78 mmHg (35-45); ABG PH 7.31 pH Units (7.32-7.45); ABG PO2 95 mmHg (85-104); ABG TCO2 42 mEq/L (20-26); Blood Gas Modality BIVENT
[2022-04-10] MEDS ORDERED: Nystatin Ointment 15 GM TUBE TP PRN (07:37)
[2022-04-10] MEDS ORDERED: Ondansetron 4 MG/2 ML VIAL IVP PRN (07:46)
[2022-04-10] MEDS ORDERED: Acetaminophen 325 MG TABLET PO PRN (07:46)
[2022-04-10] MEDS: Ipratropium/Albuterol Neb 3 ML IH SCH ×4 (08:19→20:33)
[2022-04-10] MEDS ORDERED: NON-FORMULARY MEDICATION 1 EACH EACH (Insulin Glargine,Hum.Rec.Anlog [Lantus Solostar] 100 SQ SCH (09:00)
[2022-04-10] MEDS ORDERED: Dextrose Gel 15 GM/37.5 ML TUBE PO PRN ×2 (09:38)
[2022-04-10] MEDS ORDERED: D5% in Water 1,000 ML IVC PRN (09:38)
[2022-04-10 10:55] LABS: VBG HCO3 36 mEq/L (21-27); VBG PCO2 69 mmHg (41-51); VBG PH 7.33 pH Units (7.32-7.42); VBG PO2 197 mmHg (25-50)
[2022-04-10] MEDS: BuPROPion XL (24 HR) 150 MG TABLET PO SCH (11:28)
[2022-04-10] MEDS: predniSONE 20 MG TABLET PO SCH (11:28)
[2022-04-10] MEDS: Isosorbide MONOnitrate (24 HR) 60 MG TAB.ER.24H PO SCH (11:28)
[2022-04-10] MEDS: Furosemide 40 MG/4 ML VIAL IVP SCH ×2 (15:14→15:22)
[2022-04-10] MEDS: Melatonin 3 MG TABLET PO PRN (19:47)
[2022-04-10] MEDS: Insulin DETEMIR 100 UNIT/ML X5UNITS SUBQ SCH (19:51)
[2022-04-11] MEDS: Ipratropium/Albuterol Neb 3 ML IH SCH ×7 (00:09→23:08)
[2022-04-11 02:10] LABS: VBG HCO3 39 mEq/L (21-27); VBG PCO2 77 mmHg (41-51); VBG PH 7.31 pH Units (7.32-7.42); VBG PO2 123 mmHg (25-50)
[2022-04-11 03:26] LABS: Magnesium 2.6 mg/dL (1.6-2.6); Phosphorous 4.2 mg/dL (2.7-4.5); Troponin I 0.03 ng/mL (< 0.04)
[2022-04-11 07:11] LABS: Hematocrit 24.3 % (35.3-44.9)
[2022-04-11 07:13] LABS: Hemoglobin 7.1 g/dL (11.5-15.4); Mean Corpuscular HGB Conc 29.2 g/dL (31.6-35.5); Mean Corpuscular Hemoglobin 27.1 pg (28.0-33.3); Mean Corpuscular Volume 92.7 fL (83.0-100.0); Mean Platelet Volume 10.1 fL (9.4-12.4); Platelet Count 199 K/mcL (140-400); Red Blood Count 2.62 M/mcL (3.82-4.97); Red Cell Distribution Width 18.5 % (11.5-14.5); White Blood Count 9.6 K/mcL (4.3-11.1)
[2022-04-11] MEDS: Furosemide 40 MG/4 ML VIAL IVP SCH ×2 (08:24→16:52)
[2022-04-11] MEDS: predniSONE 20 MG TABLET PO SCH (08:25)
[2022-04-11] MEDS: Isosorbide MONOnitrate (24 HR) 60 MG TAB.ER.24H PO SCH (08:25)
[2022-04-11] MEDS: Azithromycin 250 MG TABLET PO SCH (08:25)
[2022-04-11] MEDS: BuPROPion XL (24 HR) 150 MG TABLET PO SCH (08:26)
[2022-04-11] MEDS: Insulin DETEMIR 100 UNIT/ML X5UNITS SUBQ SCH ×2 (08:26→21:05)
[2022-04-11] MEDS: Dexmedetomidine HCl 400 MCG/100 ML MLS IVC SCH (11:51)
[2022-04-11 12:55] LABS: mecA/C Methicillin-Resist Gene DETECTED (Not Detect)
[2022-04-11 12:56] LABS: A.calcoaceticus-baumannii cplx Not Detected (Not Detect); Bacteroides fragilis by PCR Not Detected (Not Detect); Candida albicans by PCR Not Detected (Not Detect); Candida auris by PCR Not Detected (Not Detect); Candida glabrata by PCR Not Detected (Not Detect); Candida krusei by PCR Not Detected (Not Detect); Candida parapsilosis by PCR Not Detected (Not Detect); Candida tropicalis by PCR Not Detected (Not Detect); Crypto. neoformans/gattii PCR Not Detected (Not Detect); Enterobacter cloacae Cmplx PCR Not Detected (Not Detect); Enterobacterales by PCR Not Detected (Not Detect); Enterococcus faecalis by PCR Not Detected (Not Detect); Enterococcus faecium by PCR Not Detected (Not Detect); Escherichia coli by PCR Not Detected (Not Detect); Klebs. pneumoniae group by PCR Not Detected (Not Detect); Klebsiella aerogenes by PCR Not Detected (Not Detect); Klebsiella oxytoca by PCR Not Detected (Not Detect); Proteus by PCR Not Detected (Not Detect); Pseudomonas aeruginosa by PCR Not Detected (Not Detect); Salmonella species by PCR Not Detected (Not Detect); Serratia marcescens by PCR Not Detected (Not Detect); Staph epidermidis by PCR DETECTED (Not Detect); Staph lugdunensis by PCR Not Detected (Not Detect); Staphylococcus aureus by PCR Not Detected (Not Detect); Stenotrophomonas maltophilia Not Detected (Not Detect); Streptococcus agalactiae(B)PCR Not Detected (Not Detect); Streptococcus by PCR Not Detected (Not Detect); Streptococcus pneumoniae PCR Not Detected (Not Detect); Streptococcus pyogenes (A) PCR Not Detected (Not Detect)
[2022-04-11] MEDS: *HR* Heparin 5,000 UNIT/ML VIAL SQ SCH ×2 (13:06→16:52)
[2022-04-11 13:10] LABS: VBG HCO3 34 mEq/L (21-27); VBG PCO2 57 mmHg (41-51); VBG PH 7.38 pH Units (7.32-7.42); VBG PO2 223 mmHg (25-50)
[2022-04-11 16:16] LABS: Hematocrit 23.9 % (35.3-44.9); Hemoglobin 7.2 g/dL (11.5-15.4)
[2022-04-12] MEDS: Dexmedetomidine HCl 400 MCG/100 ML MLS IVC SCH ×4 (00:52→18:33)
[2022-04-12] MEDS: Ipratropium/Albuterol Neb 3 ML IH SCH ×6 (04:12→23:10)
[2022-04-12 04:27] LABS: Hematocrit 24.3 % (35.3-44.9); Hemoglobin 7.1 g/dL (11.5-15.4); Mean Corpuscular HGB Conc 29.2 g/dL (31.6-35.5); Mean Corpuscular Hemoglobin 27.1 pg (28.0-33.3); Mean Corpuscular Volume 92.7 fL (83.0-100.0); Mean Platelet Volume 10.7 fL (9.4-12.4); Platelet Count 214 K/mcL (140-400); Red Blood Count 2.62 M/mcL (3.82-4.97); Red Cell Distribution Width 18.2 % (11.5-14.5); White Blood Count 6.5 K/mcL (4.3-11.1)
[2022-04-12 04:45] LABS: Calcium 9.4 mg/dL (8.6-10.3); Magnesium 2.6 mg/dL (1.6-2.6); Potassium 4.3 mEq/L (3.5-5.1)
[2022-04-12] MEDS: *HR* Heparin 5,000 UNIT/ML VIAL SQ SCH ×2 (05:47→17:00)
[2022-04-12] MEDS: predniSONE 20 MG TABLET PO SCH (08:13)
[2022-04-12] MEDS: BuPROPion XL (24 HR) 150 MG TABLET PO SCH (08:14)
[2022-04-12] MEDS: Furosemide 40 MG/4 ML VIAL IVP SCH ×2 (08:14→17:00)
[2022-04-12] MEDS: Isosorbide MONOnitrate (24 HR) 60 MG TAB.ER.24H PO SCH (08:14)
[2022-04-12] MEDS: Insulin DETEMIR 100 UNIT/ML X5UNITS SUBQ SCH ×2 (08:14→20:50)
[2022-04-12] MEDS: Azithromycin 250 MG TABLET PO SCH (08:14)
[2022-04-12 12:05] LABS: ABG Base Excess 19 mEq/L (-2 to 3); ABG HCO3 46 mEq/L (21-27); ABG Oxygen Saturation 98 % (95-98); ABG PCO2 75 mmHg (35-45); ABG PO2 107 mmHg (85-104); ABG TCO2 49 mEq/L (20-26)
[2022-04-12 12:36] LABS: Hematocrit 24.7 % (35.3-44.9); Hemoglobin 7.2 g/dL (11.5-15.4)
[2022-04-12 13:04] LABS: % Iron Saturation 8 % (15-50); Iron 18 mcg/dL (50-170); Transferrin 168 mg/dL (203-362)
[2022-04-12 13:13] LABS: Ferritin 56 ng/mL (10-120)
[2022-04-13] MEDS: Dexmedetomidine HCl 400 MCG/100 ML MLS IVC SCH ×4 (00:13→16:25)
[2022-04-13] MEDS ORDERED: *HR* LORazepam 2 MG/ML VIAL IVP ONE (03:47)
[2022-04-13] MEDS: Ipratropium/Albuterol Neb 3 ML IH SCH ×5 (04:24→20:54)
[2022-04-13] MEDS: *HR* Heparin 5,000 UNIT/ML VIAL SQ SCH ×2 (06:00→16:30)
[2022-04-13] MEDS: Insulin DETEMIR 100 UNIT/ML X5UNITS SUBQ SCH ×2 (08:33→19:30)
[2022-04-13] MEDS: predniSONE 20 MG TABLET PO SCH (08:33)
[2022-04-13] MEDS: Isosorbide MONOnitrate (24 HR) 60 MG TAB.ER.24H PO SCH (08:33)
[2022-04-13] MEDS: BuPROPion XL (24 HR) 150 MG TABLET PO SCH (08:33)
[2022-04-13] MEDS: Azithromycin 250 MG TABLET PO SCH (08:33)
[2022-04-13] MEDS: Furosemide 40 MG/4 ML VIAL IVP SCH ×2 (08:34→16:30)
[2022-04-13] MEDS: amLODIPine 5 MG TABLET PO SCH (16:29)
[2022-04-13] MEDS: Melatonin 3 MG TABLET PO PRN (20:17)
[2022-04-13] MEDS: Doxycycline 100 MG CAPSULE PO SCH (20:42)
[2022-04-13] MEDS: Budesonide/Formoterol 80/4.5 1 PUFF INH IH SCH (20:54)
[2022-04-14] MEDS: Ipratropium/Albuterol Neb 3 ML IH SCH ×7 (00:26→23:38)
[2022-04-14] MEDS: Dexmedetomidine HCl 400 MCG/100 ML MLS IVC SCH ×4 (01:51→19:29)
[2022-04-14 02:30] LABS: Hematocrit 24.5 % (35.3-44.9); Hemoglobin 7.4 g/dL (11.5-15.4); Mean Corpuscular HGB Conc 30.2 g/dL (31.6-35.5); Mean Corpuscular Hemoglobin 26.5 pg (28.0-33.3); Mean Corpuscular Volume 87.8 fL (83.0-100.0); Mean Platelet Volume 11.4 fL (9.4-12.4); Platelet Count 167 K/mcL (140-400); Red Blood Count 2.79 M/mcL (3.82-4.97); White Blood Count 4.6 K/mcL (4.3-11.1)
[2022-04-14 02:52] LABS: Calcium 9.2 mg/dL (8.6-10.3); Potassium 4.3 mEq/L (3.5-5.1)
[2022-04-14] MEDS: *HR* Heparin 5,000 UNIT/ML VIAL SQ SCH ×2 (05:18→17:07)
[2022-04-14] MEDS: Budesonide/Formoterol 80/4.5 1 PUFF INH IH SCH ×2 (07:50→20:04)
[2022-04-14] MEDS: Furosemide 40 MG/4 ML VIAL IVP SCH ×2 (08:06→17:06)
[2022-04-14] MEDS: BuPROPion XL (24 HR) 150 MG TABLET PO SCH (08:07)
[2022-04-14] MEDS: Doxycycline 100 MG CAPSULE PO SCH ×2 (08:07→17:06)
[2022-04-14] MEDS: predniSONE 20 MG TABLET PO SCH (08:07)
[2022-04-14] MEDS: amLODIPine 5 MG TABLET PO SCH (08:08)
[2022-04-14] MEDS: Isosorbide MONOnitrate (24 HR) 60 MG TAB.ER.24H PO SCH (08:08)
[2022-04-14] MEDS: Insulin DETEMIR 100 UNIT/ML X5UNITS SUBQ SCH ×2 (08:10→21:23)
[2022-04-14 14:20] LABS: ABG Base Excess 13 mEq/L (-2 to 3); ABG HCO3 40 mEq/L (21-27); ABG Oxygen Saturation 98 % (95-98); ABG PCO2 66 mmHg (35-45); ABG PH 7.39 pH Units (7.32-7.45); ABG PO2 116 mmHg (85-104); ABG TCO2 42 mEq/L (20-26)
[2022-04-14] MEDS ORDERED: QUEtiapine Fumarate 25 MG TABLET PO ONE (15:40)
[2022-04-15] MEDS: Dexmedetomidine HCl 400 MCG/100 ML MLS IVC SCH ×4 (01:07→22:15)
[2022-04-15 03:31] LABS: VBG Base Excess 22 mEq/L; VBG Chloride 88 mEq/L (98-107); VBG Glucose 132 mg/dl (65-95); VBG HCO3 46 mEq/L (21-27); VBG Oxygen Saturation 100 %; VBG PCO2 50 mmHg (41-51); VBG PH 7.57 pH Units (7.32-7.42); VBG PO2 194 mmHg (25-50); VBG Total CO2 47 mEq/L
[2022-04-15 03:44] LABS: Hematocrit 24.2 % (35.3-44.9); Hemoglobin 7.4 g/dL (11.5-15.4); Mean Corpuscular HGB Conc 30.6 g/dL (31.6-35.5); Mean Corpuscular Hemoglobin 26.8 pg (28.0-33.3); Mean Corpuscular Volume 87.7 fL (83.0-100.0); Mean Platelet Volume 11.5 fL (9.4-12.4); Platelet Count 156 K/mcL (140-400); Red Blood Count 2.76 M/mcL (3.82-4.97); Red Cell Distribution Width 17.1 % (11.5-14.5); White Blood Count 4.3 K/mcL (4.3-11.1)
[2022-04-15 04:06] LABS: Albumin 3.4 g/dL (3.5-5.7); Albumin/Globulin Ratio 1.2 (1.1-2.2); Bilirubin,Total 0.4 mg/dL (0.3-1.0); Calcium 9.2 mg/dL (8.6-10.3); Globulin 2.9 g/dL (2.4-3.5); Magnesium 2.2 mg/dL (1.6-2.6); Potassium 3.6 mEq/L (3.5-5.1); Total Protein 6.3 g/dL (6.4-8.9)
[2022-04-15] MEDS: Ipratropium/Albuterol Neb 3 ML IH SCH ×3 (04:27→11:36)
[2022-04-15] MEDS: Doxycycline 100 MG CAPSULE PO SCH (06:19)
[2022-04-15] MEDS: *HR* Heparin 5,000 UNIT/ML VIAL SQ SCH ×2 (06:19→16:27)
[2022-04-15] MEDS: Budesonide/Formoterol 80/4.5 1 PUFF INH IH SCH ×2 (07:26→19:50)
[2022-04-15] MEDS: Furosemide 40 MG/4 ML VIAL IVP SCH ×2 (08:01→16:27)
[2022-04-15] MEDS: BuPROPion XL (24 HR) 150 MG TABLET PO SCH (08:02)
[2022-04-15] MEDS: amLODIPine 5 MG TABLET PO SCH (08:02)
[2022-04-15] MEDS: Isosorbide MONOnitrate (24 HR) 60 MG TAB.ER.24H PO SCH (08:02)
[2022-04-15 09:28] LABS: Troponin I 0.03 ng/mL (< 0.04)
[2022-04-15] MEDS: Insulin DETEMIR 100 UNIT/ML X5UNITS SUBQ SCH ×2 (11:56→22:13)
[2022-04-15 12:54] LABS: ABG Base Excess 14 mEq/L (-2 to 3); ABG HCO3 40 mEq/L (21-27); ABG Oxygen Saturation 97 % (95-98); ABG PCO2 57 mmHg (35-45); ABG PH 7.45 pH Units (7.32-7.45); ABG PO2 92 mmHg (85-104); ABG TCO2 41 mEq/L (20-26)
[2022-04-15] MEDS ORDERED: Ipratropium/Albuterol Neb 3 ML IH PRN (15:20)
[2022-04-15] MEDS ORDERED: QUEtiapine Fumarate 25 MG TABLET PO SCH (20:00)
[2022-04-15] MEDS: Melatonin 3 MG TABLET PO PRN (22:12)
[2022-04-16 02:20] LABS: Hematocrit 25.2 % (35.3-44.9); Hemoglobin 7.5 g/dL (11.5-15.4); Mean Corpuscular HGB Conc 29.8 g/dL (31.6-35.5); Mean Corpuscular Hemoglobin 26.4 pg (28.0-33.3); Mean Corpuscular Volume 88.7 fL (83.0-100.0); Mean Platelet Volume 9.8 fL (9.4-12.4); Platelet Count 201 K/mcL (140-400); Red Blood Count 2.84 M/mcL (3.82-4.97); Red Cell Distribution Width 17.2 % (11.5-14.5); White Blood Count 5.6 K/mcL (4.3-11.1)
[2022-04-16 02:39] LABS: Potassium 3.7 mEq/L (3.5-5.1)
[2022-04-16] MEDS: Dexmedetomidine HCl 400 MCG/100 ML MLS IVC SCH (03:22)
[2022-04-16] MEDS: *HR* Heparin 5,000 UNIT/ML VIAL SQ SCH ×2 (05:47→16:19)
[2022-04-16] MEDS: Budesonide/Formoterol 80/4.5 1 PUFF INH IH SCH (07:22)
[2022-04-16] MEDS: Insulin DETEMIR 100 UNIT/ML X5UNITS SUBQ SCH (07:56)
[2022-04-16] MEDS: Isosorbide MONOnitrate (24 HR) 60 MG TAB.ER.24H PO SCH (08:27)
[2022-04-16] MEDS: BuPROPion XL (24 HR) 150 MG TABLET PO SCH (08:27)
[2022-04-16] MEDS: amLODIPine 5 MG TABLET PO SCH (08:27)
[2022-04-16] MEDS: Furosemide 40 MG/4 ML VIAL IVP SCH ×2 (08:27→16:20)
[2022-04-16] MEDS ORDERED: QUEtiapine Fumarate 25 MG TABLET PO ONE (10:01)
[2022-04-16 10:53] LABS: Influenza A PCR Negative (Negative); Influenza B PCR Negative (Negative); Resp. Syncytial Virus PCR Negative (Negative)
[2022-04-16 10:58] LABS: SARS-CoV-2 by PCR (In House) Negative (Negative)
[2022-04-16] MEDS ORDERED: Haloperidol Lactate 5 MG/ML VIAL IVP STA (15:35)
[2022-04-16] MEDS ORDERED: Sennosides/Docusate Sodium TABLET PO STA (15:46)
[2022-04-16 16:28] VITALS: BP 129/79; PULSE 73; TEMP 98; O2SAT 97
== END 2022-04-16 20:12 | DRG 291 ==
LOC: EMEROOARM 04:27 → 2NENU 04:27 → SUATTDRO 06:42 → 2NENU 08:34 → SUATTDRO 04-12 17:35
PROVIDERS: ADMIT Internal Medicine; ATTEND Student in an Organized Health Care Education/Training Program